=== PATIENT | male | born 1950 | race Caucasian/White ===

== ENCOUNTER 2019-03-24 18:39 | Inpatient (IN) | payer MEDICARE ==
[2019-03-24] MEDS ORDERED: solu-MEDROL 125 MG IV ONE (18:41)
[2019-03-24] MEDS ORDERED: Sodium Chloride 0.9% 1000 ML 1,000 ML IV STA (18:41)
[2019-03-24] MEDS ORDERED: PROVENTIL Solution 2.5 MG/0.5 ML IH ONE (18:41)
[2019-03-24] MEDS ORDERED: DUONEB 0.5-3 MG/3 ml Neb IH ONE (18:41)
[2019-03-24] MEDS ORDERED: Magnesium Sulfate 1 GM/2 ML VIAL IV ONE (18:45)
--- NOTE | 2019-03-24 18:49 | ERPHSYRPT ---
- History of Present Illness Source: patient, family, old records Exam Limitations: no limitations Hx Tetanus, Diphtheria Vaccination/Date Given: No Hx Influenza Vaccination/Date Given: Yes (2013) Hx Pneumococcal Vaccination/Date Given: No - History of Present Illness Time Seen by Provider: 03/24/19 18:40 Physician History: PT IS A 69 Y/O TOB DEPENDENT MALE PRESENTS C/O "I CANT BREATHE". ONGOING AND WORSENING X 2-3 DAYS UNRESPONSIVE TO HOME NEBULIZERS. NO PRIOR ETT. NO PRIOR STEROIDS. NO CP/FEVER/CHILLS/N/V/D/MELENA/LE ASYM/LONG TRIPS/HEMOPTYSIS/NIGHT SWEATS/WEIGHT LOSS. PT NOT SURE OF TRIGGER. ONLY 1 CIGARRETTE TODAY (NINA RICHMOND) Allergies/Adverse Reactions: No Known Drug Allergies Allergy (Verified 03/24/19 18:49) Home Medications: Tiotropium Mckenzie Inhaler [Spiriva 18 Mcg/Cap Inhaler] 1 puff IH DAILY [History] Atorvastatin Calcium [Lipitor] 40 mg PO DAILY 03/24/19 [History] Metoprolol Succinate 50 mg [Toprol Xl 50 MG] 50 mg PO DAILY 03/24/19 [ History] - Review of Systems Constitutional: No Symptoms, No Fever, No Chills, No Fatigue, No Lethargy, No Malaise, No Night Sweats, No Weakness, No Weight Loss Eyes: No Symptoms, No Discharge, No Eye Pain, No Eye Redness, No Itchy, No Photophobia, No Tearing, No Vision Changes, No Double Vision, No Foreign Body Sensation Ears, Nose, & Throat: No Symptoms, No Ear Pain, No Ear Discharge, No Hearing Changes, No Tinnitus, No Nose Congestion, No Nose Discharge, No Epistaxis, No Mouth Pain, No Mouth Swelling, No Throat Pain, No Throat Swelling, No Hoarse, No Painful Swallowing, No Stridor Respiratory: No Symptoms, Cough, Dyspnea, Dyspnea on Exertion (NAIK), Wheezing, No Cyanosis, No Stridor Cardiac: No Symptoms, No Chest Pain, No Edema, No Palpitations, No Syncope, No Orthopnea Abdominal/Gastrointestinal: No Symptoms, No Abdominal Pain, No Nausea, No Vomiting, No Diarrhea, No Constipation, No Hematemesis, No Hematochezia, No Melena, No Dysphagia, No Appetite Changes Genitourinary Symptoms: No Symptoms, No Dysuria, No Frequency, No Hematuria, No Hesitancy, No Incontinence, No Urgency, No Urinary Retention, No Flank Pain Musculoskeletal: No Symptoms, No Arthralgias, No Back Pain, No Neck Pain, No Deformity, No Fall, No Injury, No Joint Redness, No Joint Pain, No Joint Swelling, No Myalgias Skin: No Symptoms, No Cellulitis, No Decubiti, No Induration, No Pruritis, No Rash, No Skin Lesions, No Dryness Neurological: No Symptoms, No Dizziness, No Focal Weakness, No Gait Changes, No Headache, No Irritability, No Lethargy, No Paralysis, No Parasthesia, No Seizure , No Sensory Changes, No Speech Changes, No Tics, No Tremors, No Vertigo Psychological: No Symptoms, No Alcohol Abuse, No Drug Abuse, No Anxiety, No Depression, No Suicidal Ideations, No Homicidal Ideations, No Emotional Lability , No Hallucinations, No Memory Loss, No Mood Changes Endocrine: No Symptoms, No Polyuria, No Polydipsia, No Hair Changes, No Cold Intolerance, No Excessive Sweating, No Goiter Hematologic/Lymphatic: No Symptoms, No Anemia, No Blood Clots, No Easy Bleeding , No Gum Bleeding, No Easy Bruising, No Adenopathy Immunological/Allergic: No Symptoms All Other Systems: Reviewed and Negative - Past Medical History Pertinent Past Medical History: Yes Neurological History: Epilepsy, Seizures ENT History: No Pertinent History Cardiac History: Hypertension Respiratory History: COPD, Emphysema Endocrine Medical History: Liver Disease Musculoskeletal History: Arthritis, Rheumatoid Arthritis, Other GI Medical History: Hepatitis History: No Pertinent History Psycho-Social History: No Pertinent History Male Reproductive Disorders: No Pertinent History Other Medical History: 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 - Past Surgical History Past Surgical History: No Neuro Surgical History: No Pertinent History Cardiac: No Pertinent History Respiratory: No Pertinent History Gastrointestinal: No Pertinent History Genitourinary: No Pertinent History Musculoskeletal: No Pertinent History Male Surgical History: No Pertinent History - Social History Smoking Status: Current every day smoker How long have you smoked: 40years Exposure to second hand smoke: Yes Drug Use: none Patient Lives Alone: No - Physical Exam General Appearance: no apparent distress, moderate distress, alert Eye Exam: PERRL/EOMI, eyes nml inspection, other (fundi normal castro), No scleral icterus, No pale conjunctivae, No photophobia, No EOM palsy/anisocoria Ears, Nose, Throat Exam: normal ENT inspection, TMs normal, pharynx normal, TM abnormal (L), other (uvula midline, floor of mouth soft), No moist mucous membranes, No dry mucous membranes, No TM abnormal (R), No pharyngeal erythema, No tonsillar exudate Neck Exam: normal inspection, non-tender, supple, full range of motion, No meningismus, No mass, No Brudzinski, No Kernig's, No carotid bruit, No JVD, No limited range of motion, No lymphadenopathy, No midline tenderness, No thyromegaly Respiratory Exam: normal breath sounds, lungs clear, respiratory distress, airway intact, diminished breath sounds, accessory muscle use, prolonged expirations, wheezing (AUDIBLE FROM DOOR), No chest tenderness, No crackles/ rales, No rhonchi, No stridor, No pleural rub Cardiovascular Exam: regular rate/rhythm, normal heart sounds, normal peripheral pulses, tachycardia, capillary refill <2 sec, No murmur, No friction rub, No gallop, No bradycardia, No irregular, No capillary refill 2-3 sec, No capillary refill >3 sec, No edema, No pulse deficit Gastrointestinal/Abdomen Exam: soft, normal bowel sounds, No tenderness, No distention, No mass, No guarding, No ecchymosis, No pulsatile mass, No rebound, No hernia, No hepatomegaly, No organomegaly, No splenomegaly, No bruit Male Genitalia Exam: normal genitalia Rectal Exam: deferred Back Exam: normal inspection, normal range of motion, other (neg slr castro, no sacral anesthesia, dtr 2/4 castro patella), No CVA tenderness, No vertebral tenderness, No rash, No decreased range of motion, No muscle spasm, No point tenderness Extremity Exam: normal inspection, normal range of motion, pelvis stable, other (CLUBBING), No amputations, No contusions, No calf tenderness, No deformities, No lacerations, No parasthesia, No paralysis, No inflammation, No joint swelling , No limited range of motion, No pedal edema, No swelling, No tenderness Neurologic Exam: alert, oriented x 3, cooperative, exhaust emissions inspector II-XII nml as tested, normal mood/affect, nml cerebellar function, nml station & gait, sensation nml, No motor deficits, No sensory deficit, No disoriented, No confusion, No agitation, No uncooperative, No intoxicated appearance, No depressed mood/affect , No motor weakness, No facial droop, No slurred speech, No aphasia, No dysarthria, No abnormal gait, No abnormal cerebellar tests, No abnormal exhaust emissions inspector II- XII, No EOM palsy Skin Exam: normal color, warm, dry, No rash, No petechiae, No jaundice, No abrasion, No cyanosis, No diaphoresis, No decubitus, No embolic lesions, No ecchymosis, No jaundice, No laceration, No mottled, No pale Lymphatic Exam: No adenopathy SpO2 Interpretation: normal O2 Delivery: Room Air - Nursing Vital Signs Nursing Vital Signs: Initial Vital Signs Temperature 97.5 F 03/24/19 18:41 Pulse Rate 100 H 03/24/19 18:41 Respiratory Rate 34 H 03/24/19 18:41 Blood Pressure 197/115 03/24/19 18:41 O2 Sat by Pulse Oximetry 94 L 03/24/19 18:41 Pain Scale Pain Intensity 0 - Course Nursing assessment & vital signs reviewed: Yes Ordered Tests: Active Orders 24 hr Category Date Time Status Staffing Manager STAT Care 03/24/19 18:42 Active Code Status Order ROUTINE Care 03/24/19 19:21 Active EKG-ER Only STAT Care 03/24/19 18:41 Active IV Care Q6H Care 03/24/19 19:21 Active IV Insertion STAT Care 03/24/19 18:[address] in Observation ROUTINE Care 03/24/19 19:21 Active Pulse Oximetry (ED) STAT Care 03/24/19 18:41 Active CHEST 1 VIEW (PORTABLE) Stat Exams 03/24/19 18:41 Ordered ARTERIAL BLOOD GASES Stat Lab 03/24/19 18:55 Completed CBC W DIFF Stat Lab 03/24/19 18:45 Completed CMP Stat Lab 03/24/19 18:45 Received NT PRO BNP Stat Lab 03/24/19 18:45 Received PROTIME WITH INR Stat Lab 03/24/19 18:45 Completed TROPONIN Q3H Lab 03/24/19 18:45 Received TROPONIN Q3H Lab 03/24/19 21:45 Ordered TROPONIN Q3H Lab 03/25/19 00:45 Ordered TROPONIN Q3H Lab 03/25/19 03:45 Ordered TROPONIN Q3H Lab 03/25/19 06:45 Ordered BiPap/CPAP STAT RT 03/24/19 18:41 Active Peak Expiratory Flow Rate ONCE RT 03/24/19 18:41 Active Medication Summary Discontinued Medications Generic Name Dose Route Start Last Admin Trade Name Freq PRN Reason Stop Dose Admin Albuterol/Ipratropium 10 ml 03/24/19 18:41 Duoneb 0.5-3 Mg/3 Ml Neb IH 03/24/19 18:42 STAT ONE Sodium Chloride 1,000 mls @ 999 mls/hr 03/24/19 18:41 03/24/19 18:55 Sodium Chloride 0.9% 1000 Ml IV 03/24/19 19:41 999 mls/hr .Q1H1M STA Administration Sodium Chloride Confirm 03/24/19 18:53 Sodium Chloride 0.9% 1000 Ml Administered 03/24/19 18:54 Dose 1,000 mls @ ud .ROUTE .STK-MED ONE Magnesium Sulfate 1 gm 03/24/19 18:45 03/24/19 18:55 Magnesium Sulfate 1 Gm/2 Ml Vial IV 03/24/19 18:46 1 gm ONCE ONE Administration Magnesium Sulfate Confirm 03/24/19 18:53 Magnesium Sulfate 1 Gm/2 Ml Vial Administered 03/24/19 18:54 Dose 1 gm .ROUTE .STK-MED ONE Methylprednisolone Sodium Succinate 125 mg 03/24/19 18:41 03/24/19 18:56 Solu-Medrol 125 Mg IV 03/24/19 18:42 125 mg STAT ONE Administration Methylprednisolone Sodium Succinate Confirm 03/24/19 18:53 Solu-Medrol 125 Mg Administered 03/24/19 18:54 Dose 125 mg .ROUTE .STK-MED ONE Sodium Chloride Confirm 03/24/19 19:14 Sodium Chloride 3 Ml Ud Nebules Administered 03/24/19 19:15 Dose 9 ml IH .STK-MED ONE Lab/Rad Data: Laboratory Result Diagrams 03/24/19 18:45 Laboratory Results 03/24/19 03/24/19 03/24/19 Range/Units 18:55 18:45 18:45 WBC 8.4 (4.0-10.5) K/mm3 RBC 4.72 (4.1-5.6) M/mm3 Hgb 14.7 (12.5-18.0) gm/dl Hct 44.3 (42-50) % MCV 93.9 (78-100) fl MCH 31.1 (26-32) pg MCHC 33.2 (32-36) g/dl RDW 12.6 (11.5-14.0) % Plt Count 228 (150-450) K/mm3 MPV 11.1 H (6-9.5) fl Gran % 51.5 (36.0-66.0) % Eos # (Auto) 0.60 H (0-0.5) Absolute Lymphs (auto) 2.54 (1.0-4.6) Absolute Monos (auto) 0.90 (0.0-1.3) Lymphocytes % 30.2 (24.0-44.0) % Monocytes % 10.7 (0.0-12.0) % Eosinophils % 7.1 H (0.00-5.0) % Basophils % 0.5 (0.0-0.4) % Absolute Granulocytes 4.33 (1.4-6.9) Basophils # 0.04 (0-0.4) PT 11.8 (8.83-12.87) SECONDS INR 1.04 (0.8-3.0) Puncture Site RIGHT WRIST pCO2 53 H (35-45) mmHg pO2 62 L (75-100) mmHg Base Excess 5.6 H (-2.0-2.0) O2 Saturation 90.8 L (94-100) g/dF ABG pH 7.39 (7.35-7.45) ABG HCO3 32.1 H* (22-28) ABG O2 Sat (Measured) 93.9 L (95-100) % Josue Test YES A-a Gradient 21 a/A Ratio 0.75 Hemoglobin 14.4 Carboxyhemoglobin 2.6 (0.0-6.9) % THgb Methemoglobin 0.7 L (1.4-1.5) % Potassium 3.7 (3.5-5.1) Temperature 37.0 C POC O2 Flow Rate 21 % - Progress Progress: improved Discussed with : Soco Wilcox Counseled pt/family regarding: drug and/or alcohol abuse, lab results, diagnosis , need for follow-up, rad results, smoking cessation - Progress Progress Note: 03/24/19 18:48 PT IN ACUTE RESPIRATORY DISTRESS, SPEAKING 4 WORD SENTENCES, PREFERS TO SIT FORWARD, USING ACCESSORY MUSCLES WILL START ON BIPAP WITH INLINE NEB, SOLUMEDROL, MAG SULFATE 03/24/19 19:09 MORE COMFORTABLE ON BIPAP. DW DR. BEAN. ACCEPTS ADMIT CARE TRANSFERRED. DR GLOVER WILL MONITOR CXR, CLINICL EXAM, LABS FINDINGS REVIEWED WITH PT ALL QUESTIONS ANSWERED TO PT SATISFACTION 03/24/19 19:11 Authorized and Performed by: BASILIO Total critical care time: Approximately 30 minutes Due to a high probability of clinically significant, life threatening deterioration, the patient required my highest level of preparedness to intervene emergently and I personally spent this critical care time directly and personally managing the patient. This critical care time included obtaining a history; examining the patient; pulse oximetry; ordering and review of studies ; arranging urgent treatment with development of a management plan; evaluation of patient's response to treatment; frequent reassessment; and, discussions with other providers. This critical care time was performed to assess and manage the high probability of imminent, life-threatening deterioration that could result in multi-organ failure. It was exclusive of separately billable procedures and treating other patients and teaching time. (NINA RICHMOND) - Departure Departure Disposition: Observation Critical Care Time: Yes Critical Care Time(excluding separately billable procedures): Critical 30-74 mins - Departure Clinical Impression: COPD with acute exacerbation, Tobacco dependence Acute and chronic respiratory failure ([id number]) Qualifiers: Respiratory failure complication: hypoxia and hypercapnia Qualified Code(s): J96.21 - Acute and chronic respiratory failure with hypoxia; J96.22 - Acute and chronic respiratory failure with hypercapnia Condition: Fair Referrals: DEVORA ESTRADA [Primary Care Provider] - Instructions: Chronic Obstructive Pulmonary Disease
[2019-03-24] MEDS ORDERED: solu-MEDROL 125 MG ONE (18:53)
[2019-03-24] MEDS ORDERED: Sodium Chloride 0.9% 1000 ML 1,000 ML ONE ×2 (18:53→20:14)
[2019-03-24] MEDS ORDERED: Magnesium Sulfate 1 GM/2 ML VIAL ONE (18:53)
[2019-03-24 18:59] LABS: A-aADO2 21; ABG HEMOGLOBIN 14.4; ABG POTASSIUM 3.7 (3.5-5.1); ABG SITE RIGHT WRIST; ALLEN TEST OK? YES; ARTERIAL BLD GAS O2 SATURATION 93.9 % (95-100); ARTERIAL BLOOD GAS BASE EXCESS 5.6 (-2.0-2.0); ARTERIAL BLOOD GAS FIO2 21 %; ARTERIAL BLOOD GAS PCO2 53 mmHg (35-45); ARTERIAL BLOOD GAS PO2 62 mmHg (75-100); ARTERIAL BLOOD GAS pH 7.39 (7.35-7.45); CARBOXYHEMOGLOBIN 2.6 % THgb (0.0-6.9); HCO3- 32.1 (22-28); HGB O2 SAT 90.8 g/dF (94-100); Methhemoglobin 0.7 % (1.4-1.5); paO2 pAO1 0.75
[2019-03-24 19:03] LABS: Absolute Neutrophil Ct (ANC) 4.33 (1.4-6.9); BASOPHIL % 0.5 % (0.0-0.4); Basophil (Absolute #) 0.04 (0-0.4); Eosinophil % 7.1 % (0.00-5.0); Hematocrit 44.3 % (42-50); Hemoglobin 14.7 gm/dl (12.5-18.0); Lymphocyte (Absolute #) 2.54 (1.0-4.6); Lymphocytes % 30.2 % (24.0-44.0); Mean Cell Volume 93.9 fl (78-100); Mean Corpuscular Hemoglobin 31.1 pg (26-32); Mean Corpuscular Hgb Concent. 33.2 g/dl (32-36); Mean Platelet Volume 11.1 fl (6-9.5); Monocytes % 10.7 % (0.0-12.0); Neutrophil % 51.5 % (36.0-66.0); Platelet Count 228 K/mm3 (150-450); Red Blood Count 4.72 M/mm3 (4.1-5.6); Red Cell Distribution Width 12.6 % (11.5-14.0); White Blood Count 8.4 K/mm3 (4.0-10.5)
[2019-03-24 19:11] LABS: INR 1.04 (0.8-3.0); PROTIME 11.8 SECONDS (8.83-12.87)
[2019-03-24] MEDS ORDERED: Sodium Chloride 3 ML UD NEBULES IH ONE (19:14)
[2019-03-24 19:40] LABS: ALBUMIN 4.6 g/dL (3.5-5.0); BLOOD UREA NITROGEN 18 mg/dL (9-20); CHLORIDE 102 mmol/L (98-107); Carbon Dioxide 29 mmol/L (22-30); Glucose 129 mg/dL (74-106); SGOT/AST 34 U/L (17-59); SGPT/ALT 33 U/L (0-50); SODIUM 144 mmol/L (137-145)
[2019-03-24 20:07] LABS: ALKALINE PHOSPHATASE 72 U/L (38-126); ANION GAP 16.6 MEQ/L (5-15); Calcium 9.8 mg/dL (8.4-10.2); Creatinine 1 0.89 mg/dL (0.66-1.25); Total Protein 7.7 g/dL (6.3-8.2)
[2019-03-24] MEDS ORDERED: BENADRYL 50 MG/ML ONE (20:14)
[2019-03-24] MEDS ORDERED: Reglan 10 MG/2 ML ONE (20:14)
[2019-03-24 23:01] LABS: Slide Review 1 YES
[2019-03-25] MEDS ORDERED: Zithromax 500 MG/ 250 ML NaCl Premix 500 MG/250 ML IVPB IV ONE ×2 (00:10→23:35)
[2019-03-25] MEDS ORDERED: ZITHROMAX IV SCH (00:30)
[2019-03-25] MEDS ORDERED: ZITHROMAX IV 500 MG*** 500 MG in Sodium Chloride 0.9% 250 ML 250 ML IV SCH ×2 (00:30→22:00)
[2019-03-25] MEDS ORDERED: SODIUM CHLORIDE 0.9% IV SCH (00:30)
[2019-03-25] MEDS: DUONEB 0.5-3 MG/3 ml Neb IH SCH ×6 (04:10→23:10)
[2019-03-25 06:07] LABS: Hematocrit 41.9 % (42-50); Hemoglobin 13.8 gm/dl (12.5-18.0); Mean Cell Volume 95.2 fl (78-100); Mean Corpuscular Hemoglobin 31.4 pg (26-32); Mean Corpuscular Hgb Concent. 32.9 g/dl (32-36); Mean Platelet Volume 11.3 fl (6-9.5); Platelet Count 203 K/mm3 (150-450); Red Cell Distribution Width 12.7 % (11.5-14.0); White Blood Count 8.8 K/mm3 (4.0-10.5)
[2019-03-25 06:08] LABS: ANION GAP 16.1 MEQ/L (5-15); BLOOD UREA NITROGEN 19 mg/dL (9-20); CHLORIDE 105 mmol/L (98-107); Calcium 9.3 mg/dL (8.4-10.2); Carbon Dioxide 26 mmol/L (22-30); Creatinine 1 0.74 mg/dL (0.66-1.25); Glucose 136 mg/dL (74-106); Potassium 4.6 mmol/L (3.5-5.1); SODIUM 143 mmol/L (137-145)
[2019-03-25 06:38] LABS: A-aADO2 117; ABG HEMOGLOBIN 13.8; ABG POTASSIUM 4.2 (3.5-5.1); ABG SITE RIGHT BRACHIAL; ARTERIAL BLD GAS O2 SATURATION 97.8 % (95-100); ARTERIAL BLOOD GAS FIO2 36 %; ARTERIAL BLOOD GAS PCO2 47 mmHg (35-45); ARTERIAL BLOOD GAS PO2 81 mmHg (75-100); ARTERIAL BLOOD GAS VENT MODE BiPAP; ARTERIAL BLOOD GAS pH 7.38 (7.35-7.45); CARBOXYHEMOGLOBIN 2.1 % THgb (0.0-6.9); HCO3- 27.8 (22-28); HGB O2 SAT 94.5 g/dF (94-100); Methhemoglobin 1.3 % (1.4-1.5); paO2 pAO1 0.41
--- NOTE | 2019-03-25 07:49 | XRAY ---
Indication: Dyspnea. Comparison: March 29, 2018. Portable apical lordotic chest is now underinflated crowding the lung bases. Query new bibasilar infiltrates versus atelectasis. Remaining heart and lungs unremarkable. Bony thorax intact.
[2019-03-25] MEDS: Mucinex 600MG ER Tabs PO SCH ×2 (10:10→22:09)
[2019-03-25] MEDS: solu-MEDROL 125 MG IV SCH ×3 (10:10→23:38)
[2019-03-25] MEDS ORDERED: Sodium Chloride 0.9% 10 ML FLUSH Syringe IV PRN (10:59)
[2019-03-25] MEDS: Toprol Xl 50 MG PO SCH (13:48)
--- NOTE | 2019-03-25 17:24 | PCM.HP ---
History of Present Illness - Chief Complaint Chief Complaint: COPD History of Present Illness: is a 69 year old male seen this am following ER admission for acute on chronic COPD exacerbation. Patient reports he had given up smoking but more recently he started smoking cigarettes again. Patient reports he also recently sprayed an apt for bugs and after that he has had a severe cough and SOB. He reports that he is trying to cough stuff up but his cough is non productive. Patient reports that he has had issues with COPD in the past. Patient reports that he is doing slightly better following admission. No other reported complaints. - Review of Systems Constitutional: No Fever Eyes: No Vision Changes, No Double Vision Ears, Nose, & Throat: No Nose Congestion Respiratory: Cough, Short Of Breath, Wheezing Cardiac: No Chest Pain, No Edema, No Palpitations Abdominal/Gastrointestinal: No Abdominal Pain, No Nausea, No Vomiting, No Diarrhea, No Constipation, No Appetite Changes Genitourinary Symptoms: Other (nocturia), No Dysuria Musculoskeletal: No Symptoms Skin: No Symptoms Neurological: No Symptoms Psychological: No Alcohol Abuse, No Drug Abuse Medications & Allergies Home Medications: Home Medication List Albuterol Common Canister [Proventil Common Canister] 2 puff IH Q4HPRN PRN #0 puff 10/28/12 [Rx Confirmed 03/24/19] Tiotropium [place] Inhaler [Spiriva 18 Mcg/Cap Inhaler] 1 puff IH DAILY [History Confirmed 03/24/19] Atorvastatin Calcium [Lipitor] 40 mg PO DAILY 03/24/19 [History Confirmed ] Metoprolol Succinate 50 mg [Toprol Xl 50 MG] 50 mg PO DAILY 03/24/19 [ History Confirmed 03/24/19] Allergies/Adverse Reactions: Allergies Allergy/AdvReac Type Severity Reaction Status Date / Time No Known Drug Allergies Allergy Verified 03/24/19 18:49 - Past Medical History Past Medical History: Yes Neurological History: Epilepsy, Seizures ENT History: No Pertinent History Cardiac History: Hypertension Respiratory History: COPD, Emphysema Endocrine Medical History: Liver Disease Musculoskelatal History: Arthritis, Rheumatoid Arthritis, Other GI Medical History: Hepatitis History: No Pertinent History Pyscho-Social History: No Pertinent History Male Reproductive Disorders: No Pertinent History Comment: 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 - Past Surgical History Past Surgical History: No Neuro Surgical History: No Pertinent History Cardiac History: No Pertinent History Respiratory Surgery: No Pertinent History GI Surgical History: No Pertinent History Genitourinary Surgical Hx: No Pertinent History Musculskeletal Surgical Hx: No Pertinent History Male Surgical History: No Pertinent History - Social History Smoking Status: Current some day smoker How long have you smoked: 40years Exposure to second hand smoke: Yes Alcohol: Daily Drug Use: marijuana - Physical Exam Vital Signs: Vital Signs - 24 hr Temp Pulse Resp BP Pulse Ox 03/25/19 16:54 111 H 25 H 91 L 03/25/19 16:00 98.1 F 85 18 112/69 99 03/25/19 12:00 97.8 F 118 H 19 137/63 92 L 03/25/19 11:58 115 H 24 94 L 03/25/19 07:54 98.0 F 85 20 120/65 89 L 03/25/19 07:00 86 26 H 94 L 03/25/19 04:10 73 19 98 03/25/19 04:00 98.3 F 81 23 128/74 98 03/25/19 00:00 98.5 F 94 H 28 H 130/81 96 03/24/19 21:09 97.7 F 85 24 117/70 98 03/24/19 21:05 97.7 F 85 24 117/70 98 03/24/19 19:04 95 03/24/19 18:45 97 H 96 03/24/19 18:41 97.5 F 100 H 34 H 197/115 95 Oxygen-Last 24 hours O2 Percentage 3 Liters = 32% O2 Percentage 4 Liters = 36% General Appearance: severe distress Neurologic Exam: alert, oriented x 3, cooperative, normal mood/affect Eye Exam: eyes nml inspection Ears, Nose, Throat Exam: moist mucous membranes Neck Exam: normal inspection Respiratory Exam: respiratory distress, diminished breath sounds, accessory muscle use (Patient had chest retractions), rhonchi, wheezing Cardiovascular Exam: regular rate/rhythm, normal heart sounds, No murmur Gastrointestinal/Abdomen Exam: soft, normal bowel sounds, No tenderness, No distention Rectal Exam: deferred Extremity Exam: normal inspection, No pedal edema, No swelling Skin Exam: normal color, warm, dry, No pale Results - Labs Lab/Micro Results: Lab Results-Last 24 Hours 10/25/19 10/25/19 10/25/19 Range/Units 18:45 18:45 18:45 WBC 8.4 (4.0-10.5) K/mm3 RBC 4.72 (4.1-5.6) M/mm3 Hgb 14.7 (12.5-18.0) gm/dl Hct 44.3 (42-50) % MCV 93.9 (78-100) fl MCH 31.1 (26-32) pg MCHC 33.2 (32-36) g/dl RDW 12.6 (11.5-14.0) % Plt Count 228 (150-450) K/mm3 MPV 11.1 H (6-9.5) fl Gran % 51.5 (36.0-66.0) % Eos # (Auto) 0.60 H (0-0.5) Absolute Lymphs (auto) 2.54 (1.0-4.6) Absolute Monos (auto) 0.90 (0.0-1.3) Lymphocytes % 30.2 (24.0-44.0) % Monocytes % 10.7 (0.0-12.0) % Eosinophils % 7.1 H (0.00-5.0) % Basophils % 0.5 (0.0-0.4) % Absolute Granulocytes 4.33 (1.4-6.9) Basophils # 0.04 (0-0.4) PT 11.8 (8.83-12.87) SECONDS INR 1.04 (0.8-3.0) Puncture Site pCO2 (35-45) mmHg pO2 (75-100) mmHg Base Excess (-2.0-2.0) O2 Saturation (94-100) g/dF ABG pH (7.35-7.45) ABG HCO3 (22-28) ABG O2 Sat (Measured) (95-100) % Josue Test A-a Gradient a/A Ratio Hemoglobin Carboxyhemoglobin (0.0-6.9) % THgb Methemoglobin (1.4-1.5) % Temperature C POC O2 Flow Rate % Vent Mode Inspiratory BiPAP Expiratory BiPAP Sodium 144 (137-145) mmol/L Potassium 4.0 (3.5-5.1) mmol/L Chloride 102 (98-107) mmol/L Carbon Dioxide 29 (22-30) mmol/L Anion Gap 16.6 H (5-15) MEQ/L BUN 18 (9-20) mg/dL Creatinine 0.89 (0.66-1.25) mg/dL Estimated GFR > 60.0 ML/MIN Glucose 129 H (74-106) mg/dL Calcium 9.8 (8.4-10.2) mg/dL Total Bilirubin 0.40 (0.2-1.3) mg/dL AST 34 (17-59) U/L ALT 33 (0-50) U/L Alkaline Phosphatase 72 (38-126) U/L Troponin I (0.000-0.034) ng/mL NT-Pro-B Natriuret Pep 53.0 (0-900) pg/mL Serum Total Protein 7.7 (6.3-8.2) g/dL Albumin 4.6 (3.5-5.0) g/dL Slides for Path Review YES 03/24/19 03/24/19 03/24/19 Range/Units 18:45 18:55 22:00 WBC (4.0-10.5) K/mm3 RBC (4.1-5.6) M/mm3 Hgb (12.5-18.0) gm/dl Hct (42-50) % MCV (78-100) fl MCH (26-32) pg MCHC (32-36) g/dl RDW (11.5-14.0) % Plt Count (150-450) K/mm3 MPV (6-9.5) fl Gran % (36.0-66.0) % Eos # (Auto) (0-0.5) Absolute Lymphs (auto) (1.0-4.6) Absolute Monos (auto) (0.0-1.3) Lymphocytes % (24.0-44.0) % Monocytes % (0.0-12.0) % Eosinophils % (0.00-5.0) % Basophils % (0.0-0.4) % Absolute Granulocytes (1.4-6.9) Basophils # (0-0.4) PT (8.83-12.87) SECONDS INR (0.8-3.0) Puncture Site RIGHT WRIST pCO2 53 H (35-45) mmHg pO2 62 L (75-100) mmHg Base Excess 5.6 H (-2.0-2.0) O2 Saturation 90.8 L (94-100) g/dF ABG pH 7.39 (7.35-7.45) ABG HCO3 32.1 H* (22-28) ABG O2 Sat (Measured) 93.9 L (95-100) % Josue Test YES A-a Gradient 21 a/A Ratio 0.75 Hemoglobin 14.4 Carboxyhemoglobin 2.6 (0.0-6.9) % THgb Methemoglobin 0.7 L (1.4-1.5) % Temperature 37.0 C POC O2 Flow Rate 21 % Vent Mode Inspiratory BiPAP Expiratory BiPAP Sodium (137-145) mmol/L Potassium 3.7 (3.5-5.1) mmol/L Chloride (98-107) mmol/L Carbon Dioxide (22-30) mmol/L Anion Gap (5-15) MEQ/L BUN (9-20) mg/dL Creatinine (0.66-1.25) mg/dL Estimated GFR ML/MIN Glucose (74-106) mg/dL Calcium (8.4-10.2) mg/dL Total Bilirubin (0.2-1.3) mg/dL AST (17-59) U/L ALT (0-50) U/L Alkaline Phosphatase (38-126) U/L Troponin I < 0.012 < 0.012 (0.000-0.034) ng/mL NT-Pro-B Natriuret Pep (0-900) pg/mL Serum Total Protein (6.3-8.2) g/dL Albumin (3.5-5.0) g/dL Slides for Path Review 03/25/19 03/25/19 03/25/19 Range/Units 00:35 04:00 04:00 WBC 8.8 (4.0-10.5) K/mm3 RBC 4.40 (4.1-5.6) M/mm3 Hgb 13.8 (12.5-18.0) gm/dl Hct 41.9 L (42-50) % MCV 95.2 (78-100) fl MCH 31.4 (26-32) pg MCHC 32.9 (32-36) g/dl RDW 12.7 (11.5-14.0) % Plt Count 203 (150-450) K/mm3 MPV 11.3 H (6-9.5) fl Gran % (36.0-66.0) % Eos # (Auto) (0-0.5) Absolute Lymphs (auto) (1.0-4.6) Absolute Monos (auto) (0.0-1.3) Lymphocytes % (24.0-44.0) % Monocytes % (0.0-12.0) % Eosinophils % (0.00-5.0) % Basophils % (0.0-0.4) % Absolute Granulocytes (1.4-6.9) Basophils # (0-0.4) PT (8.83-12.87) SECONDS INR (0.8-3.0) Puncture Site pCO2 (35-45) mmHg pO2 (75-100) mmHg Base Excess (-2.0-2.0) O2 Saturation (94-100) g/dF ABG pH (7.35-7.45) ABG HCO3 (22-28) ABG O2 Sat (Measured) (95-100) % Josue Test A-a Gradient a/A Ratio Hemoglobin Carboxyhemoglobin (0.0-6.9) % THgb Methemoglobin (1.4-1.5) % Temperature C POC O2 Flow Rate % Vent Mode Inspiratory BiPAP Expiratory BiPAP Sodium (137-145) mmol/L Potassium (3.5-5.1) mmol/L Chloride (98-107) mmol/L Carbon Dioxide (22-30) mmol/L Anion Gap (5-15) MEQ/L BUN (9-20) mg/dL Creatinine (0.66-1.25) mg/dL Estimated GFR ML/MIN Glucose (74-106) mg/dL Calcium (8.4-10.2) mg/dL Total Bilirubin (0.2-1.3) mg/dL AST (17-59) U/L ALT (0-50) U/L Alkaline Phosphatase (38-126) U/L Troponin I < 0.012 < 0.012 (0.000-0.034) ng/mL NT-Pro-B Natriuret Pep (0-900) pg/mL Serum Total Protein (6.3-8.2) g/dL Albumin (3.5-5.0) g/dL Slides for Path Review 03/25/19 03/25/19 03/25/19 Range/Units 04:00 06:25 06:45 WBC (4.0-10.5) K/mm3 RBC (4.1-5.6) M/mm3 Hgb (12.5-18.0) gm/dl Hct (42-50) % MCV (78-100) fl MCH (26-32) pg MCHC (32-36) g/dl RDW (11.5-14.0) % Plt Count (150-450) K/mm3 MPV (6-9.5) fl Gran % (36.0-66.0) % Eos # (Auto) (0-0.5) Absolute Lymphs (auto) (1.0-4.6) Absolute Monos (auto) (0.0-1.3) Lymphocytes % (24.0-44.0) % Monocytes % (0.0-12.0) % Eosinophils % (0.00-5.0) % Basophils % (0.0-0.4) % Absolute Granulocytes (1.4-6.9) Basophils # (0-0.4) PT (8.83-12.87) SECONDS INR (0.8-3.0) Puncture Site RIGHT BRACHIAL pCO2 47 H (35-45) mmHg pO2 81 (75-100) mmHg Base Excess 2.0 (-2.0-2.0) O2 Saturation 94.5 (94-100) g/dF ABG pH 7.38 (7.35-7.45) ABG HCO3 27.8 (22-28) ABG O2 Sat (Measured) 97.8 (95-100) % Josue Test NOT APPLICABLE A-a Gradient 117 a/A Ratio 0.41 Hemoglobin 13.8 Carboxyhemoglobin 2.1 (0.0-6.9) % THgb Methemoglobin 1.3 L (1.4-1.5) % Temperature 37.0 C POC O2 Flow Rate 36 % Vent Mode BiPAP Inspiratory BiPAP 12 Expiratory BiPAP 6 Sodium 143 (137-145) mmol/L Potassium 4.6 4.2 (3.5-5.1) mmol/L Chloride 105 (98-107) mmol/L Carbon Dioxide 26 (22-30) mmol/L Anion Gap 16.1 H (5-15) MEQ/L BUN 19 (9-20) mg/dL Creatinine 0.74 (0.66-1.25) mg/dL Estimated GFR > 60.0 ML/MIN Glucose 136 H (74-106) mg/dL Calcium 9.3 (8.4-10.2) mg/dL Total Bilirubin (0.2-1.3) mg/dL AST (17-59) U/L ALT (0-50) U/L Alkaline Phosphatase (38-126) U/L Troponin I < 0.012 (0.000-0.034) ng/mL NT-Pro-B Natriuret Pep (0-900) pg/mL Serum Total Protein (6.3-8.2) g/dL Albumin (3.5-5.0) g/dL Slides for Path Review 03/25/19 Range/Units 13:12 WBC (4.0-10.5) K/mm3 RBC (4.1-5.6) M/mm3 Hgb (12.5-18.0) gm/dl Hct (42-50) % MCV (78-100) fl MCH (26-32) pg MCHC (32-36) g/dl RDW (11.5-14.0) % Plt Count (150-450) K/mm3 MPV (6-9.5) fl Gran % (36.0-66.0) % Eos # (Auto) (0-0.5) Absolute Lymphs (auto) (1.0-4.6) Absolute Monos (auto) (0.0-1.3) Lymphocytes % (24.0-44.0) % Monocytes % (0.0-12.0) % Eosinophils % (0.00-5.0) % Basophils % (0.0-0.4) % Absolute Granulocytes (1.4-6.9) Basophils # (0-0.4) PT (8.83-12.87) SECONDS INR (0.8-3.0) Puncture Site pCO2 (35-45) mmHg pO2 (75-100) mmHg Base Excess (-2.0-2.0) O2 Saturation (94-100) g/dF ABG pH (7.35-7.45) ABG HCO3 (22-28) ABG O2 Sat (Measured) (95-100) % Josue Test A-a Gradient a/A Ratio Hemoglobin Carboxyhemoglobin (0.0-6.9) % THgb Methemoglobin (1.4-1.5) % Temperature C POC O2 Flow Rate % Vent Mode Inspiratory BiPAP Expiratory BiPAP Sodium (137-145) mmol/L Potassium (3.5-5.1) mmol/L Chloride (98-107) mmol/L Carbon Dioxide (22-30) mmol/L Anion Gap (5-15) MEQ/L BUN (9-20) mg/dL Creatinine (0.66-1.25) mg/dL Estimated GFR ML/MIN Glucose (74-106) mg/dL Calcium (8.4-10.2) mg/dL Total Bilirubin (0.2-1.3) mg/dL AST (17-59) U/L ALT (0-50) U/L Alkaline Phosphatase (38-126) U/L Troponin I < 0.012 (0.000-0.034) ng/mL NT-Pro-B Natriuret Pep (0-900) pg/mL Serum Total Protein (6.3-8.2) g/dL Albumin (3.5-5.0) g/dL Slides for Path Review - Radiology Impressions Radiology Exams & Impressions: Radiology Procedures Category Date Time Status CHEST 1 VIEW (PORTABLE) Stat Exams 03/24/19 18:41 Completed - Other Procedures and Tests Respiratory Therapy 03/24/19 18:41 BiPap/CPAP ROUTINE Peak Expiratory Flow Rate ONCE 03/24/19 18:45 Oxygen Nasal Cannula 2 lpm Respiratory Therapy Assessment DAILY 03/25/19 07:00 Flutter Therapy UD Incentive Spirometry TID Assessment/Plan (1) Acute and chronic respiratory failure ([id number]) Current Visit: Yes Status: Acute Qualifiers: Respiratory failure complication: hypoxia and hypercapnia Qualified Code(s) : J96.21 - Acute and chronic respiratory failure with hypoxia; J96.22 - Acute and chronic respiratory failure with hypercapnia Assessment & Plan: Patient was initially requiring bipap on admission. Since earlier this am he was weened off of bipap. He was started on duo nebs in ER. Patient was resumed on steroids this am. Patient is on azithromycin. Patient is on mucinex, incentive spirometry and flutter therapy. Will continue to monitor VS including oxygen saturations. Code(s): J96.20 - ACUTE AND CHR RESP FAILURE, UNSP W HYPOXIA OR HYPERCAPNIA (2) COPD with acute exacerbation Current Visit: Yes Status: Acute Code(s): J44.1 - CHRONIC OBSTRUCTIVE PULMONARY DISEASE W (ACUTE) EXACERBATION (3) Tobacco dependence Current Visit: Yes Status: Acute Assessment & Plan: Patient declined nicotine patch Code(s): F17.200 - NICOTINE DEPENDENCE, UNSPECIFIED, UNCOMPLICATED (4) Nocturia Current Visit: Yes Status: Acute Assessment & Plan: Will resume home meds Code(s): R35.1 - NOCTURIA (5) HTN (hypertension) Current Visit: Yes Status: Acute Assessment & Plan: Will continue on routine home meds. Code(s): I10 - ESSENTIAL (PRIMARY) HYPERTENSION
[2019-03-25] MEDS: ZOCOR 20MG PO SCH (22:09)
[2019-03-25] MEDS: Sodium Chloride 0.9% 10 ML FLUSH Syringe IV SCH (23:40)
[2019-03-26] MEDS: DUONEB 0.5-3 MG/3 ml Neb IH SCH ×5 (03:00→19:09)
[2019-03-26] MEDS: solu-MEDROL 125 MG IV SCH ×3 (06:13→18:46)
[2019-03-26] MEDS: Mucinex 600MG ER Tabs PO SCH ×2 (09:48→22:11)
[2019-03-26] MEDS: Toprol Xl 50 MG PO SCH (09:48)
[2019-03-26] MEDS ORDERED: NON-FORMULARY ITEM (Atorvastatin Calcium [Lipitor] 40 MG) PO SCH (10:00)
[2019-03-26] MEDS ORDERED: CEPACOL SORE THROAT LOZENGE PO PRN (11:21)
[2019-03-26] MEDS: Tessalon Perles 100 MG PO SCH ×3 (11:48→22:12)
[2019-03-26] MEDS ORDERED: DUONEB 0.5-3 MG/3 ml Neb IH PRN (12:53)
--- NOTE | 2019-03-26 14:36 | PCM.NOTE ---
Date and Time: 03/26/19 1430 Subjective Assessment: 69 yr old male seen and examined this am. Patient reports he has not had much improvement in symptoms. He reports his cough did calm down some overnight but he feels that his cough is starting to get worse again this am. Patient reports he is still short of breath. Patient also feels like he has food that is getting stuck in his throat and sometimes it goes up his nose. This has been going on for awhile. Patient also reports chronic ringing in the ears that has been present for 20 years. - Review of Systems Constitutional: No Fever Eyes: No Vision Changes, No Double Vision Ears, Nose, & Throat: Other (difficulty swallowing and choking sensation) Respiratory: Cough, Short Of Breath Cardiac: No Chest Pain, No Edema, No Palpitations Abdominal/Gastrointestinal: No Abdominal Pain, No Nausea, No Vomiting, No Diarrhea, No Constipation Genitourinary Symptoms: No Dysuria, No Frequency, No Hematuria Musculoskeletal: No Symptoms Skin: No Symptoms Neurological: No Dizziness Psychological: No Depression Hematologic/Lymphatic: No Anemia Objective Exam General Appearance: moderate distress Neurologic Exam: alert, oriented x 3, cooperative, normal mood/affect Skin Exam: normal color, warm, dry, No rash Eye Exam: eyes nml inspection, No scleral icterus Ears, Nose, Throat Exam: moist mucous membranes Neck Exam: normal inspection Respiratory Exam: diminished breath sounds, accessory muscle use, wheezing, No crackles/rales, No rhonchi Cardiovascular Exam: regular rate/rhythm, normal heart sounds, No murmur, No friction rub, No gallop Gastrointestinal/Abdomen Exam: soft, normal bowel sounds, No tenderness, No distention Extremity Exam: normal inspection, No pedal edema Back Exam: normal inspection OBJECTIVE DATA Vital Signs: Vital Signs - 24 hr Temp Pulse Resp BP Pulse Ox 03/26/19 12:00 98.6 F 126 H 20 112/58 03/26/19 11:22 110 H 24 90 L 03/26/19 08:54 102 H 22 93 L 03/26/19 08:00 98.3 F 87 22 114/65 94 L 03/26/19 04:00 98.4 F 100 H 22 126/69 93 L 03/26/19 03:00 112 H 22 95 03/25/19 23:57 98.4 F 119 H 19 110/60 95 03/25/19 23:10 112 H 22 95 03/25/19 20:00 98.2 F 85 16 132/93 98 03/25/19 18:59 112 H 20 94 L 03/25/19 16:54 111 H 25 H 91 L 03/25/19 16:00 98.1 F 85 18 112/69 99 Oxygen-Last 24 hours O2 Percentage 4 Liters = 36% O2 Percentage 3 Liters = 32% Pain Assessment - Last Documented Pain Intensity 0 Pain Scale Used 0-10 Pain Scale Intake and Output: Intake & Output 03/24/19 03/25/19 03/26/19 03/27/19 11:59 11:59 11:59 11:59 Intake Total 200 960 Output Total 450 Balance 200 510 Weight 87 kg Lab Results: Lab Results-Last 24 Hours 03/25/19 Range/Units 19:13 D-Dimer 408 (215-500) ng/mL Radiology Exams: Radiology Procedures Category Date Time Status CHEST 1 VIEW (PORTABLE) Stat Exams 03/24/19 18:41 Completed Multi-Disciplinary Progress Notes: Multi-Disciplinary Progress Notes 03/26/19 13:01 Respiratory Note by Letitia Yang AROUND NOON PT STARTED HAVING A COUGHING FIT. PT'S HR 150, PT WAS SOB, WITH WHEEZES. SAT PT UP ON SIDE OF BED. PT STATES HE THINKS IT WAS A COUPLE OF PILLS HE TOOK BEFORE. CHECKED WITH NURSE, [facility] GAVE HIM CONOR PETERSEN. TOLD PT HE SHOULD DO A BREATHING TREATMENT. PT DIDN'T WANT TO. HE SAID HE DIDN'T WANT TO BE OVER MEDICATED. TOLD HIM IT WAS OK BUT HE REFUSED. AFTER ABOUT 45 MINS PT AGREES TO A BREATHING TREATMENT. PT CALMED DOWN ABOUT 10MINS AFTER THE BREATHING TREATMENT. HR 139 SAT IS 91% ON 4L OXYGEN. WILL CONTINUE TO MONITOR. Initialized on 03/26/19 13:01 - END OF NOTE Assessment/Plan (1) Acute and chronic respiratory failure ([id number]) Current Visit: Yes Status: Acute Qualifiers: Respiratory failure complication: hypoxia and hypercapnia Qualified Code(s) : J96.21 - Acute and chronic respiratory failure with hypoxia; J96.22 - Acute and chronic respiratory failure with hypercapnia Assessment & Plan: Patient still has significant cough and continues to requiring breathing treatments due to wheeze. Patient is still sating low 90s. Will continue with steroids duonebs antibiotics and pulmonary toilet. Patient is on mucinex and was started on tessalon perles and cough drops. Will continue to monitor patient 's VS. Code(s): J96.20 - ACUTE AND CHR RESP FAILURE, UNSP W HYPOXIA OR HYPERCAPNIA (2) COPD with acute exacerbation Current Visit: Yes Status: Acute Assessment & Plan: Same plan as above Code(s): J44.1 - CHRONIC OBSTRUCTIVE PULMONARY DISEASE W (ACUTE) EXACERBATION (3) Tobacco dependence Current Visit: Yes Status: Acute Code(s): F17.200 - NICOTINE DEPENDENCE, UNSPECIFIED, UNCOMPLICATED (4) Nocturia Current Visit: Yes Status: Acute Code(s): R35.1 - NOCTURIA (5) HTN (hypertension) Current Visit: Yes Status: Acute Assessment & Plan: Will continue with home meds. Will continue to monitor VS Code(s): I10 - ESSENTIAL (PRIMARY) HYPERTENSION (6) Tachycardia Current Visit: Yes Status: Acute Assessment & Plan: Unsure etiology. Patient has been coughing frequently and getting breathing tx as well. Patient had stat ekg and trop yesterday. Ekg showed normal sinus rhythm and trop was neg. If tachycardia does not trend down after cough has subsided and decreased nebs will investigate more potential causes. Will get TSH as well Code(s): R00.0 - TACHYCARDIA, UNSPECIFIED (7) Dysphagia Current Visit: Yes Status: Acute Assessment & Plan: Patient is reporting food getting stuck in his throat. Will get patient scheduled for swallow study. With smoking hx will need to consider possible other imaging as well depending on results of swallow study. Patient was started on protonix for possible underlying GERD Code(s): R13.10 - DYSPHAGIA, UNSPECIFIED
[2019-03-26] MEDS: Protonix 40MG Tablet PO SCH (15:05)
[2019-03-26 15:36] LABS: Absolute Neutrophil Ct (ANC) 18.63 (1.4-6.9); Basophil (Absolute #) 0.01 (0-0.4); Eosinophil (Absolute #) 0.01 (0-0.5); Hematocrit 39.9 % (42-50); Hemoglobin 12.9 gm/dl (12.5-18.0); Lymphocyte (Absolute #) 0.44 (1.0-4.6); Lymphocytes % 2.2 % (24.0-44.0); Mean Cell Volume 96.8 fl (78-100); Mean Corpuscular Hemoglobin 31.3 pg (26-32); Mean Corpuscular Hgb Concent. 32.3 g/dl (32-36); Mean Platelet Volume 10.8 fl (6-9.5); Monocytes % 5.4 % (0.0-12.0); Neutrophil % 92.4 % (36.0-66.0); Platelet Count 211 K/mm3 (150-450); Red Blood Count 4.12 M/mm3 (4.1-5.6); Red Cell Distribution Width 13.4 % (11.5-14.0); White Blood Count 20.2 K/mm3 (4.0-10.5)
[2019-03-26 15:47] LABS: ANION GAP 18.1 MEQ/L (5-15); BLOOD UREA NITROGEN 26 mg/dL (9-20); CHLORIDE 106 mmol/L (98-107); Calcium 9.8 mg/dL (8.4-10.2); Carbon Dioxide 24 mmol/L (22-30); Glucose 137 mg/dL (74-106); Potassium 3.9 mmol/L (3.5-5.1); SODIUM 144 mmol/L (137-145)
[2019-03-26] MEDS: Zithromax 500 MG/ 250 ML NaCl Premix 500 MG/250 ML IVPB IV SCH (22:07)
[2019-03-26] MEDS: Sodium Chloride 0.9% 10 ML FLUSH Syringe IV SCH (22:11)
[2019-03-26] MEDS: ZOCOR 20MG PO SCH (22:11)
[2019-03-26 22:47] LABS: Slide Review 1 YES
[2019-03-27] MEDS: solu-MEDROL 125 MG IV SCH ×4 (01:31→17:50)
[2019-03-27] MEDS: Sodium Chloride 0.9% 10 ML FLUSH Syringe IV SCH ×4 (01:32→21:58)
[2019-03-27] MEDS: DUONEB 0.5-3 MG/3 ml Neb IH SCH ×6 (06:54→23:03)
[2019-03-27] MEDS ORDERED: Tessalon Perles 100 MG PO PRN (08:56)
[2019-03-27] MEDS ORDERED: Mucinex 600MG ER Tabs PO PRN (08:57)
--- NOTE | 2019-03-27 08:59 | PCM.NOTE ---
Date and Time: 03/27/19858 Subjective Assessment: Patient reports that he was unable to wear cpap yesterday. He reports getting some what confused at night and pulling off his telemetry leads. He does not want any more medication than necessary and his nurse reports he has been refusing scheduled cough medication. - Review of Systems Constitutional: No Symptoms Eyes: No Symptoms Ears, Nose, & Throat: No Symptoms Respiratory: Cough, Short Of Breath Cardiac: No Symptoms Abdominal/Gastrointestinal: Constipation Genitourinary Symptoms: No Symptoms Musculoskeletal: No Symptoms Objective Exam General Appearance: no apparent distress Neurologic Exam: alert, cooperative, normal mood/affect Skin Exam: normal color, warm, dry, No rash Respiratory Exam: prolonged expirations, other (scattered wheezes throughout,), No respiratory distress, No crackles/rales, No rhonchi Cardiovascular Exam: regular rate/rhythm, normal heart sounds, No murmur, No friction rub, No gallop Gastrointestinal/Abdomen Exam: soft, normal bowel sounds, No tenderness, No distention, No mass, No guarding Extremity Exam: other (no c/c/e) OBJECTIVE DATA Vital Signs: Vital Signs - 24 hr Temp Pulse Resp BP Pulse Ox 03/27/19 08:51 107 H 22 94 L 03/27/19 08:00 97.8 F 101 H 19 148/77 91 L 03/27/19 04:00 98.4 F 107 H 26 H 131/71 95 03/27/19 00:00 97.9 F 100 H 24 129/85 99 03/26/19 20:00 98.5 F 113 H 25 H 143/71 94 L 03/26/19 19:13 113 H 20 97 03/26/19 16:00 98.4 F 113 H 19 120/77 92 L 03/26/19 12:00 98.6 F 126 H 20 112/58 03/26/19 11:22 110 H 24 90 L Oxygen-Last 24 hours O2 Percentage 3 Liters = 32% O2 Percentage 3 Liters = 32% O2 Percentage 3 Liters = 32% O2 Percentage 3 Liters = 32% O2 Percentage 4 Liters = 36% Pain Assessment - Last Documented Pain Intensity 0 Pain Scale Used 0-10 Pain Scale Intake and Output: Intake & Output 03/25/19 03/26/19 03/27/19 03/28/19 06:59 06:59 06:59 06:59 Intake Total 200 960 960 Output Total 450 Balance 200 510 960 Weight 87 kg Lab Results: Lab Results-Last 24 Hours 03/26/19 03/26/19 03/26/19 Range/Units 15:30 15:30 15:30 WBC 20.2 H (4.0-10.5) K/mm3 RBC 4.12 (4.1-5.6) M/mm3 Hgb 12.9 (12.5-18.0) gm/dl Hct 39.9 L (42-50) % MCV 96.8 (78-100) fl MCH 31.3 (26-32) pg MCHC 32.3 (32-36) g/dl RDW 13.4 (11.5-14.0) % Plt Count 211 (150-450) K/mm3 MPV 10.8 H (6-9.5) fl Gran % 92.4 H (36.0-66.0) % Eos # (Auto) 0.01 (0-0.5) Absolute Lymphs (auto) 0.44 L (1.0-4.6) Absolute Monos (auto) 1.10 (0.0-1.3) Lymphocytes % 2.2 L (24.0-44.0) % Monocytes % 5.4 (0.0-12.0) % Eosinophils % 0.0 (0.00-5.0) % Basophils % 0.0 (0.0-0.4) % Absolute Granulocytes 18.63 H (1.4-6.9) Basophils # 0.01 (0-0.4) Sodium 144 (137-145) mmol/L Potassium 3.9 (3.5-5.1) mmol/L Chloride 106 (98-107) mmol/L Carbon Dioxide 24 (22-30) mmol/L Anion Gap 18.1 H (5-15) MEQ/L BUN 26 H (9-20) mg/dL Creatinine 0.90 (0.66-1.25) mg/dL Estimated GFR > 60.0 ML/MIN Glucose 137 H (74-106) mg/dL Calcium 9.8 (8.4-10.2) mg/dL TSH 3rd Generation 0.502 (0.47-4.68) mIU/L Slides for Path Review YES Radiology Exams: Radiology Procedures Category Date Time Status CHEST 2 VIEWS (PA AND LAT) Urgent Exams 03/27/19 Ordered MODIFIED BARIUM SWALLOW EXAM Urgent Exams 03/27/19 Ordered Multi-Disciplinary Progress Notes: Multi-Disciplinary Progress Notes 03/26/19 13:01 Respiratory Note by Letitia Yang AROUND NOON PT STARTED HAVING A COUGHING FIT. PT'S HR 150, PT WAS SOB, WITH WHEEZES. SAT PT UP ON SIDE OF BED. PT STATES HE THINKS IT WAS A COUPLE OF PILLS HE TOOK BEFORE. CHECKED WITH NURSE, [facility] GAVE HIM [facility] PETERS[facility]. TOLD PT HE SHOULD DO A BREATHING TREATMENT. PT DIDN'T WANT TO. HE SAID HE DIDN'T WANT TO BE OVER MEDICATED. TOLD HIM IT WAS OK BUT HE REFUSED. AFTER ABOUT 45 MINS PT AGREES TO A BREATHING TREATMENT. PT CALMED DOWN ABOUT 10MINS AFTER THE BREATHING TREATMENT. HR 139 SAT IS 91% ON 4L OXYGEN. WILL CONTINUE TO MONITOR. Initialized on 03/26/19 13:01 - END OF NOTE Assessment/Plan (1) Acute and chronic respiratory failure ([id number]) Current Visit: Yes Status: Acute Qualifiers: Respiratory failure complication: hypoxia and hypercapnia Qualified Code(s) : J96.21 - Acute and chronic respiratory failure with hypoxia; J96.22 - Acute and chronic respiratory failure with hypercapnia Assessment & Plan: Continue with supportive care as below. He does seem to be improved from admission. He has refused bipap last night. Code(s): J96.20 - ACUTE AND CHR RESP FAILURE, UNSP W HYPOXIA OR HYPERCAPNIA (2) COPD with acute exacerbation Current Visit: Yes Status: Acute Assessment & Plan: Continue azithromycin Day 4 and add ceftriaxone. Recheck Chest X-ray today. If no improvement by tomorrow, will consider pulmonary consult. Continue IV steroids and breathing treatments. Patient knows he should quit smoking. Elevated WBC most likely due to steroids. He does not wear oxygen at home. Wean oxygen as tolerated. Code(s): J44.1 - CHRONIC OBSTRUCTIVE PULMONARY DISEASE W (ACUTE) EXACERBATION (3) HTN (hypertension) Current Visit: Yes Status: Acute Assessment & Plan: Will adjust bp medications. Code(s): I10 - ESSENTIAL (PRIMARY) HYPERTENSION (4) Tachycardia Current Visit: Yes Status: Acute Assessment & Plan: Most likely due to acute illness. No chest pain at this time and ruled out for DE earlier in hospital stay. Will increase his metoprolol to try to control heart rate. Code(s): R00.0 - TACHYCARDIA, UNSPECIFIED (5) Dysphagia Current Visit: Yes Status: Acute Assessment & Plan: Check modified barium swallow today. Code(s): R13.10 - DYSPHAGIA, UNSPECIFIED (6) Tobacco dependence Current Visit: Yes Status: Acute Code(s): F17.200 - NICOTINE DEPENDENCE, UNSPECIFIED, UNCOMPLICATED
--- NOTE | 2019-03-27 09:33 | XRAY ---
Indication: Cough and congestion. COPD. Comparison: March 24, 2019. PA/lateral chest hyperinflated with new left base discoid atelectasis and stable left upper lobe calcified granuloma. Remaining heart and lungs unremarkable.
[2019-03-27 09:43] LABS: Absolute Neutrophil Ct (ANC) 16.86 (1.4-6.9); BASOPHIL % 0.1 % (0.0-0.4); Basophil (Absolute #) 0.01 (0-0.4); Eosinophil % 0.1 % (0.00-5.0); Eosinophil (Absolute #) 0.02 (0-0.5); Hematocrit 40.5 % (42-50); Hemoglobin 12.8 gm/dl (12.5-18.0); Lymphocyte (Absolute #) 0.47 (1.0-4.6); Lymphocytes % 2.6 % (24.0-44.0); Mean Cell Volume 97.4 fl (78-100); Mean Corpuscular Hemoglobin 30.8 pg (26-32); Mean Corpuscular Hgb Concent. 31.6 g/dl (32-36); Mean Platelet Volume 11.1 fl (6-9.5); Monocyte (Absolute #) 0.62 (0.0-1.3); Monocytes % 3.4 % (0.0-12.0); Neutrophil % 93.8 % (36.0-66.0); Platelet Count 218 K/mm3 (150-450); Red Blood Count 4.16 M/mm3 (4.1-5.6); Red Cell Distribution Width 13.5 % (11.5-14.0)
[2019-03-27 09:48] LABS: ANION GAP 15.5 MEQ/L (5-15); BLOOD UREA NITROGEN 22 mg/dL (9-20); CHLORIDE 104 mmol/L (98-107); Calcium 9.2 mg/dL (8.4-10.2); Carbon Dioxide 27 mmol/L (22-30); Creatinine 1 0.72 mg/dL (0.66-1.25); Glucose 130 mg/dL (74-106); Potassium 4.1 mmol/L (3.5-5.1); SODIUM 143 mmol/L (137-145)
[2019-03-27] MEDS: Toprol Xl 100 MG PO SCH (10:06)
[2019-03-27] MEDS: Protonix 40MG Tablet PO SCH (10:07)
[2019-03-27] MEDS: ROCEPHIN 1 Gm-D5w 50 ml Bag** 1 G/50 ML IVPB IV SCH (10:07)
[2019-03-27 11:48] LABS: Slide Review 1 YES
--- NOTE | 2019-03-27 12:18 | XRAY ---
Indication: Aspiration. Modified barium swallow study was performed by the Department of speech therapy with fluoroscopic assistance provided. Patient ingested multiple consistencies of liquids and solids. Full report and recommendations will be reported separately. Approximate 1.9 minutes fluoroscopy used.
[2019-03-27] MEDS: ZOCOR 20MG PO SCH (21:58)
[2019-03-27] MEDS: Zithromax 500 MG/ 250 ML NaCl Premix 500 MG/250 ML IVPB IV SCH (21:58)
[2019-03-28] MEDS: solu-MEDROL 125 MG IV SCH ×5 (00:07→23:39)
[2019-03-28] MEDS: DUONEB 0.5-3 MG/3 ml Neb IH SCH ×7 (02:54→23:31)
[2019-03-28 05:26] LABS: Hemoglobin 12.6 gm/dl (12.5-18.0); Mean Cell Volume 97.1 fl (78-100); Mean Corpuscular Hemoglobin 30.6 pg (26-32); Mean Corpuscular Hgb Concent. 31.5 g/dl (32-36); Platelet Count 220 K/mm3 (150-450); Red Blood Count 4.12 M/mm3 (4.1-5.6); Red Cell Distribution Width 13.4 % (11.5-14.0); White Blood Count 14.3 K/mm3 (4.0-10.5)
[2019-03-28] MEDS: Sodium Chloride 0.9% 10 ML FLUSH Syringe IV SCH ×3 (05:39→21:20)
[2019-03-28 05:57] LABS: BLOOD UREA NITROGEN 25 mg/dL (9-20); CHLORIDE 105 mmol/L (98-107); Carbon Dioxide 27 mmol/L (22-30); Creatinine 1 0.77 mg/dL (0.66-1.25); Glucose 127 mg/dL (74-106); Potassium 3.9 mmol/L (3.5-5.1); SODIUM 143 mmol/L (137-145)
[2019-03-28 07:32] LABS: BAND 4 % (0.0-2.0); Lymphocytes 5 % (24-44); Monocyte 5 % (0.0-12.0); Neutrophils 86 % (36.-66.); Platelet Estimate NORMAL (NORMAL); Total Cells Counted 100; Toxic Granulation 1+
--- NOTE | 2019-03-28 08:25 | PCM.NOTE ---
Date and Time: 03/28/19820 Subjective Assessment: Patient reports he continues to feel a little better each day. He is having soft stools. His cough is productive of thick sputum. RT reports they have weaned him down from 3 L to 2L. He does not wear oxygen at home. They also report he gets short of breath with movement. - Review of Systems Constitutional: No Symptoms Respiratory: Cough, Short Of Breath, Wheezing Cardiac: No Symptoms Abdominal/Gastrointestinal: No Symptoms Genitourinary Symptoms: No Symptoms Musculoskeletal: No Symptoms Objective Exam General Appearance: no apparent distress, alert Neurologic Exam: alert, cooperative, normal mood/affect Skin Exam: normal color, warm, dry, No rash Respiratory Exam: prolonged expirations, other (few scattered wheezes throughout , equal breath sounds, no crackles), No stridor Cardiovascular Exam: regular rate/rhythm, normal heart sounds, No murmur, No friction rub, No gallop Gastrointestinal/Abdomen Exam: soft, normal bowel sounds, tenderness, No distention, No mass, No guarding Extremity Exam: other (no c/c/e) OBJECTIVE DATA Vital Signs: Vital Signs - 24 hr Temp Pulse Resp BP Pulse Ox 03/28/19 07:37 98.4 F 97 H 18 157/80 95 03/28/19 07:20 94 L 03/28/19 06:48 101 H 22 95 03/28/19 04:00 98.3 F 108 H 24 159/83 95 03/28/19 03:00 95 03/28/19 02:53 106 H 20 93 L 03/28/19 00:00 98.5 F 102 H 22 137/74 95 03/27/19 23:04 103 H 18 95 03/27/19 23:00 95 03/27/19 20:00 98.9 F 110 H 22 131/69 94 L 03/27/19 19:13 116 H 20 93 L 03/27/19 16:02 97 H 22 91 L 03/27/19 16:00 99.0 F 99 H 20 136/80 91 L 03/27/19 12:50 94 L 03/27/19 12:00 98.2 F 115 H 20 116/68 92 L 03/27/19 11:46 102 H 22 94 L 03/27/19 08:51 107 H 22 94 L 03/27/19 08:50 94 L Oxygen-Last 24 hours O2 Percentage 3 Liters = 32% O2 Percentage 3 Liters = 32% O2 Percentage 3 Liters = 32% O2 Percentage 3 Liters = 32% O2 Percentage 3 Liters = 32% O2 Percentage 3 Liters = 32% Pain Assessment - Last Documented Pain Intensity 0 Pain Scale Used 0-10 Pain Scale Intake and Output: Intake & Output 03/26/19 03/27/19 03/28/19 03/29/19 06:59 06:59 06:59 06:59 Intake Total 944 999 4226 Output Total 450 Balance 091 578 7655 Weight 87 kg Lab Results: Lab Results-Last 24 Hours 03/27/19 03/27/19 03/28/19 Range/Units 09:00 09:00 05:00 WBC 18.0 H 14.3 H (4.0-10.5) K/mm3 RBC 4.16 4.12 (4.1-5.6) M/mm3 Hgb 12.8 12.6 (12.5-18.0) gm/dl Hct 40.5 L 40.0 L (42-50) % MCV 97.4 97.1 (78-100) fl MCH 30.8 30.6 (26-32) pg MCHC 31.6 L 31.5 L (32-36) g/dl RDW 13.5 13.4 (11.5-14.0) % Plt Count 218 220 (150-450) K/mm3 MPV 11.1 H 11.0 H (6-9.5) fl Gran % 93.8 H (36.0-66.0) % Eos # (Auto) 0.02 (0-0.5) Absolute Lymphs (auto) 0.47 L (1.0-4.6) Absolute Monos (auto) 0.62 (0.0-1.3) Lymphocytes % 2.6 L (24.0-44.0) % Monocytes % 3.4 (0.0-12.0) % Eosinophils % 0.1 (0.00-5.0) % Basophils % 0.1 (0.0-0.4) % Absolute Granulocytes 16.86 H (1.4-6.9) Segmented Neutrophils 86 H (36.-66.) % Band Neutrophils 4 H (0.0-2.0) % Lymphocytes (Manual) 5 L (24-44) % Monocytes (Manual) 5 (0.0-12.0) % Basophils # 0.01 (0-0.4) Toxic Granulation 1+ Platelet Estimate NORMAL (NORMAL) RBC Morphology NORMAL Sodium 143 (137-145) mmol/L Potassium 4.1 (3.5-5.1) mmol/L Chloride 104 (98-107) mmol/L Carbon Dioxide 27 (22-30) mmol/L Anion Gap 15.5 H (5-15) MEQ/L BUN 22 H (9-20) mg/dL Creatinine 0.72 (0.66-1.25) mg/dL Estimated GFR > 60.0 ML/MIN Glucose 130 H (74-106) mg/dL Calcium 9.2 (8.4-10.2) mg/dL Slides for Path Review YES 03/28/19 Range/Units 05:00 WBC (4.0-10.5) K/mm3 RBC (4.1-5.6) M/mm3 Hgb (12.5-18.0) gm/dl Hct (42-50) % MCV (78-100) fl MCH (26-32) pg MCHC (32-36) g/dl RDW (11.5-14.0) % Plt Count (150-450) K/mm3 MPV (6-9.5) fl Gran % (36.0-66.0) % Eos # (Auto) (0-0.5) Absolute Lymphs (auto) (1.0-4.6) Absolute Monos (auto) (0.0-1.3) Lymphocytes % (24.0-44.0) % Monocytes % (0.0-12.0) % Eosinophils % (0.00-5.0) % Basophils % (0.0-0.4) % Absolute Granulocytes (1.4-6.9) Segmented Neutrophils (36.-66.) % Band Neutrophils (0.0-2.0) % Lymphocytes (Manual) (24-44) % Monocytes (Manual) (0.0-12.0) % Basophils # (0-0.4) Toxic Granulation Platelet Estimate (NORMAL) RBC Morphology Sodium 143 (137-145) mmol/L Potassium 3.9 (3.5-5.1) mmol/L Chloride 105 (98-107) mmol/L Carbon Dioxide 27 (22-30) mmol/L Anion Gap 15.0 (5-15) MEQ/L BUN 25 H (9-20) mg/dL Creatinine 0.77 (0.66-1.25) mg/dL Estimated GFR > 60.0 ML/MIN Glucose 127 H (74-106) mg/dL Calcium 9.0 (8.4-10.2) mg/dL Slides for Path Review Radiology Exams: Radiology Procedures Category Date Time Status CHEST 2 VIEWS (PA AND LAT) Urgent Exams 03/27/19 09:19 Completed MODIFIED BARIUM SWALLOW EXAM Urgent Exams 03/27/19 12:00 Completed Assessment/Plan (1) COPD with acute exacerbation Current Visit: Yes Status: Acute Assessment & Plan: Continue ceftriaxone Day 2 and azithromycin Day 5. WBC is better today. Continue with IV steroids, breathing treatments, try to wean oxygen, may need home oxygen evaluation. Sputum culture in lab. Code(s): J44.1 - CHRONIC OBSTRUCTIVE PULMONARY DISEASE W (ACUTE) EXACERBATION (2) Acute and chronic respiratory failure ([id number]) Current Visit: Yes Status: Acute Qualifiers: Respiratory failure complication: hypoxia and hypercapnia Qualified Code(s) : J96.21 - Acute and chronic respiratory failure with hypoxia; J96.22 - Acute and chronic respiratory failure with hypercapnia Assessment & Plan: Continue care as above. Code(s): J96.20 - ACUTE AND CHR RESP FAILURE, UNSP W HYPOXIA OR HYPERCAPNIA (3) HTN (hypertension) Current Visit: Yes Status: Acute Assessment & Plan: Metoprolol dose adjusted yesterday. Continue current doses of medication. Code(s): I10 - ESSENTIAL (PRIMARY) HYPERTENSION (4) Tachycardia Current Visit: Yes Status: Acute Assessment & Plan: Improved with higher dose of metoprolol. Code(s): R00.0 - TACHYCARDIA, UNSPECIFIED (5) Dysphagia Current Visit: Yes Status: Acute Assessment & Plan: Modified barium swallow study yesterday was reported as normal; may need upper endoscopy as an outpatient after acute COPD exacerbation has resolved. Code(s): R13.10 - DYSPHAGIA, UNSPECIFIED (6) Tobacco dependence Current Visit: Yes Status: Acute Code(s): F17.200 - NICOTINE DEPENDENCE, UNSPECIFIED, UNCOMPLICATED
[2019-03-28] MEDS: Toprol Xl 100 MG PO SCH (09:41)
[2019-03-28] MEDS: Protonix 40MG Tablet PO SCH (09:44)
[2019-03-28] MEDS: ROCEPHIN 1 Gm-D5w 50 ml Bag** 1 G/50 ML IVPB IV SCH (09:48)
[2019-03-28] MEDS: ZOCOR 20MG PO SCH (21:23)
[2019-03-28] MEDS: Zithromax 500 MG/ 250 ML NaCl Premix 500 MG/250 ML IVPB IV SCH (21:23)
[2019-03-29] MEDS: DUONEB 0.5-3 MG/3 ml Neb IH SCH ×3 (03:36→10:57)
[2019-03-29 05:01] LABS: Hematocrit 40.4 % (42-50); Hemoglobin 13.1 gm/dl (12.5-18.0); Mean Corpuscular Hemoglobin 31.1 pg (26-32); Mean Corpuscular Hgb Concent. 32.4 g/dl (32-36); Mean Platelet Volume 11.1 fl (6-9.5); Platelet Count 213 K/mm3 (150-450); Red Blood Count 4.21 M/mm3 (4.1-5.6); White Blood Count 11.9 K/mm3 (4.0-10.5)
[2019-03-29 05:08] LABS: ANION GAP 12.7 MEQ/L (5-15); BLOOD UREA NITROGEN 27 mg/dL (9-20); CHLORIDE 101 mmol/L (98-107); Carbon Dioxide 31 mmol/L (22-30); Creatinine 1 0.77 mg/dL (0.66-1.25); Glucose 124 mg/dL (74-106); Potassium 4.3 mmol/L (3.5-5.1); SODIUM 140 mmol/L (137-145)
[2019-03-29] MEDS: solu-MEDROL 125 MG IV SCH ×2 (06:17→11:45)
[2019-03-29] MEDS: Sodium Chloride 0.9% 10 ML FLUSH Syringe IV SCH ×2 (06:17→11:47)
[2019-03-29 07:07] LABS: BAND 1 % (0.0-2.0); Lymphocytes 4 % (24-44); Monocyte 3 % (0.0-12.0); Neutrophils 92 % (36.-66.); Platelet Estimate NORMAL (NORMAL); Total Cells Counted 100
[2019-03-29] MEDS: Toprol Xl 100 MG PO SCH (09:31)
[2019-03-29] MEDS: Protonix 40MG Tablet PO SCH (09:32)
[2019-03-29] MEDS: ROCEPHIN 1 Gm-D5w 50 ml Bag** 1 G/50 ML IVPB IV SCH (10:03)
--- NOTE | 2019-03-29 11:39 | PCM.DCORD ---
- Discharge Discharge Date: 03/29/19 Disposition: HOME HEALTH SERVICE Condition: Fair Prescriptions: New Cefdinir 300 mg PO BID #16 capsule Prednisone 20 mg [Deltasone 20 mg] 20 mg PO UD #12 tablet Metoprolol Succinate 100 mg [Toprol Xl 100 MG] 100 mg PO DAILY #30 tablet.sa Continue Albuterol Common Canister [Proventil Common Canister] 2 puff IH Q4HPRN PRN #0 puff PRN Reason: wheezes Tiotropium Rentz Inhaler [Spiriva 18 Mcg/Cap Inhaler] 1 puff IH DAILY Atorvastatin Calcium [Lipitor] 40 mg PO DAILY Discontinued Metoprolol Succinate 50 mg [Toprol Xl 50 MG] 50 mg PO DAILY Additional Instructions: Oxygen 2 L by nasal cannula as ordered from [facility]. Follow up with: RHETT CALI [ACTIVE STAFF] - 04/17/19 3:15 pm DEVORA ESTRADA [Primary Care Provider] - 04/04/19 10:15 am
--- NOTE | 2019-03-29 12:06 | DS ---
DISCHARGE DIAGNOSES: 1) CHRONIC OBSTRUCTIVE PULMONARY DISEASE WITH ACUTE EXACERBATION. 2) ACUTE ON CHRONIC RESPIRATORY FAILURE. 3) HYPERTENSION. 4) TACHYCARDIA. 5) DYSPHAGIA. 6) TOBACCO DEPENDENCE. DISCHARGE PHYSICAL EXAMINATION: VITAL SIGNS: Temperature current 98.1F, temperature max 98.1F, heart rate 91, respiratory rate 20, blood pressure 141/67. Oxygen saturation 94% on 2 liters nasal cannula. GENERAL: The patient is a pleasant talkative man sitting up in bed in no acute distress eating his breakfast. CVS: He has a regular rate and rhythm. No murmurs, gallops or rubs are appreciated. LUNGS: No tachypnea. No retractions. He has equal breath sounds with few scattered wheezes throughout. No crackles. ABDOMEN: Obese, soft, nontender, nondistended. SKIN: Warm, dry and intact. EXTREMITIES: Trace edema. No clubbing or cyanosis. HOSPITAL COURSE: 1) CHRONIC OBSTRUCTIVE PULMONARY DISEASE WITH ACUTE EXACERBATION: He was started on azithromycin on admission and completed five days of this. I started him on ceftriaxone and he completed three days of this, will continue with Cefdinir 300 mg p.o. b.i.d. for another eight days. His white blood cell count was almost back to normal. He has been on IV steroids which have been weaned down. I am changing him to oral prednisone. He is getting breathing treatments. He has Spiriva and Albuterol at home. He is also requiring 2 liters of oxygen by nasal cannula which has been arranged with [facility]. Sputum culture showed normal respiratory nickolas. He had a follow up appointment scheduled with insurance policy issue clerk, Dr. Luke Stanford. He has not seen a insurance policy issue clerk previously. 2) ACUTE ON CHRONIC RESPIRATORY FAILURE: When he came in he had hypercapnia and hypoxia requiring BiPAP, this improved during his hospitalization and was not requiring BiPAP or CPAP even at night at discharge. Will continue with treatment as above for chronic obstructive pulmonary disease with exacerbation. 3) HYPERTENSION: I increased his metoprolol from 50 mg daily to 100 mg daily and his blood pressure was better controlled, will continue to follow as an outpatient. 4) TACHYCARDIA: Probably due to his acute illness and the metoprolol had helped with this. 5) DYSPHAGIA: He complained of feeling like pills are getting stuck in his throat. He had a modified barium swallow and they recommended small bites and thin liquids. He may need upper endoscopy as an outpatient once his chronic obstructive pulmonary disease exacerbation has resolved for further evaluation. 6) TOBACCO DEPENDENCE: The patient was counseled that he should completely quit smoking tobacco. DISPOSITION: The patient was discharged home in fair condition with home health care. DISCHARGE MEDICATIONS: Please see the discharge order. FOLLOW UP: Follow up with Dr. Luke Stanford and myself.
[2019-03-29 12:14] VITALS: BP 157/87; PULSE 100; O2SAT 92
== END 2019-03-29 12:30 | disposition home health service (06) | DRG 190 ==
LOC: ED 18:39 → MED SURG 21:05 → INTOOBSV 03-25 17:18 → OBSVTOIN 03-25 17:18
PROVIDERS: ADMIT Family Medicine; ATTEND Internal Medicine
DX: J44.1 Chronic obstructive pulmonary disease with (acute) exacerbation (principal); J96.20 Acute and chronic respiratory failure, unspecified whether with hypoxia or hypercapnia; I10 Essential (primary) hypertension; R00.0 Tachycardia, unspecified; R13.10 Dysphagia, unspecified; F17.200 Nicotine dependence, unspecified, uncomplicated; R35.1 Nocturia; M06.9 Rheumatoid arthritis, unspecified; Z79.899 Other long term (current) drug therapy
CPT/HCPCS: 36000; 36415; 36600; 71045; 71046; 74230; 80048; 80053; 82375; 82803; 83880; 84443; 84484; 85025; 85027; 85379; 85610; 87070; 93005; 93041; 93268; 94002; 94003; 94150; 94640; 94667; 94668; 94760; 94762; 96374; 96375; 99285; J0456; J0696; J1200; J2930; J3475; A9270-GY; G0378

== ENCOUNTER 2021-01-07 08:55 | Observation (INO) | payer MEDICARE ==
[2021-01-07] MEDS ORDERED: BABY ASPIRIN 81 MG CHEW PO ONE (09:14)
[2021-01-07] MEDS ORDERED: DUONEB 0.5-3 MG/3 ml Neb IH ONE ×2 (09:15→09:21)
[2021-01-07 09:28] LABS: Absolute Neutrophil Ct (ANC) 4.92 (1.4-6.9); BASOPHIL % 0.4 % (0.0-0.4); Basophil (Absolute #) 0.03 (0-0.4); Eosinophil % 3.1 % (0.00-5.0); Eosinophil (Absolute #) 0.25 (0-0.5); Hematocrit 41.7 % (42-50); Hemoglobin 13.1 gm/dl (12.5-18.0); Lymphocyte (Absolute #) 1.85 (1.0-4.6); Lymphocytes % 22.6 % (24.0-44.0); Mean Cell Volume 93.7 fl (78-100); Mean Corpuscular Hemoglobin 29.4 pg (26-32); Mean Corpuscular Hgb Concent. 31.4 g/dl (32-36); Mean Platelet Volume 11.1 fl (7.5-11.0); Monocyte (Absolute #) 1.12 (0.0-1.3); Monocytes % 13.7 % (0.0-12.0); Neutrophil % 60.2 % (36.0-66.0); Platelet Count 224 K/mm3 (150-450); Red Blood Count 4.45 M/mm3 (4.1-5.6); Red Cell Distribution Width 12.6 % (11.5-14.0); White Blood Count 8.2 K/mm3 (4.0-10.5)
[2021-01-07 09:45] LABS: ALBUMIN 4.6 g/dL (3.5-5.0); ALKALINE PHOSPHATASE 65 U/L (38-126); ANION GAP 15.2 MEQ/L (5-15); BLOOD UREA NITROGEN 16 mg/dL (9-20); CHLORIDE 100 mmol/L (98-107); Calcium 9.7 mg/dL (8.4-10.2); Carbon Dioxide 29 mmol/L (22-30); Creatinine 1 0.81 mg/dL (0.66-1.25); EST GLOMERULAR FILTRATION RATE > 60.0 ML/MIN; Glucose 94 mg/dL (74-106); NT PRO BNP 45.3 pg/mL (0-900); Potassium 4.3 mmol/L (3.5-5.1); SGOT/AST 33 U/L (17-59); SGPT/ALT 29 U/L (0-50); SODIUM 140 mmol/L (137-145); Total Protein 7.4 g/dL (6.3-8.2)
--- NOTE | 2021-01-07 10:01 | XRAY ---
Indication: Chest pain. Comparison: March 19, 2019. Portable apical lordotic chest demonstrates lingula subsegmental atelectasis and minimal right base fibrosis/scarring. Remaining heart and lungs unremarkable. Bony thorax intact.
--- NOTE | 2021-01-07 10:19 | ERPHSYRPT ---
- History of Present Illness Time Seen by Provider: 01/07/21 08:58 Historian: patient Exam Limitations: no limitations Patient Subjective Stated Complaint: PT states "I have been having these bouts of pain in my chest. It feels like being stabbed on the left side then it goes away. I have had three episodes this morning." Triage Nursing Assessment: Pt presented alert and oriented X 3, skin pwd Pt ambulates with an upright steady gait, able to speak in clear full sentences pt slightly tachypneic, slightly diaphoretic. PT advised he has been to his which sent him to quick care then to quick care that sent him here. Physician History: 70 years old male with history of chronic respiratory failure from COPD on 2 L oxygen, hypertension presented to ER with chief complaint of intermittent chest pain since morning while he was watching TV. Patient reports sharp pain left chest lasting for few seconds and improves on its own with radiation to left axilla without any significant aggravating or relieving factors. Denies associated shortness of breath but what he has at his baseline. Does have minimal productive cough for the last few days. Denies any fever or chills. Denies any recent cardiac work-up. Currently patient is chest pain-free. Timing/Duration: today, intermittent, sudden Activities at Onset: rest Quality: sharpness Location: central Chest Pain Radiation: arm Severity of Pain-Max: moderate Severity of Pain-Current: none Modifying Factors: Improves With: nothing Associated Symptoms: denies symptoms Prior Chest Pain/Cardiac Workup: no prior cardiac workup Nitro Today/Relief: no nitro taken today Aspirin Treatment Today: no aspirin today Allergies/Adverse Reactions: No Known Drug Allergies Allergy (Verified 03/24/19 18:49) Home Medications: Tiotropium [place] Inhaler [Spiriva 18 Mcg/Cap Inhaler] 1 puff IH DAILY 11/04/15 [History] Atorvastatin Calcium [Lipitor] 40 mg PO DAILY 03/24/19 [History] Hx Tetanus, Diphtheria Vaccination/Date Given: No Hx Influenza Vaccination/Date Given: Yes (2013) Hx Pneumococcal Vaccination/Date Given: Yes Immunizations Up to Date: Yes Travel Risk - International Travel Have you traveled outside of the country in past 3 weeks: No - Coronavirus Screening Are you exhibiting any of the following symptoms?: No Close contact with a COVID-19 positive Pt in past 14-21 Days: No - Vaccine Status Have you recieved a Covid-19 vaccination: Yes 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: Pfizer - Vaccination Dates Date of 2cond Vaccination (if applicable): 07/2020 - Review of Systems Constitutional: No Symptoms Eyes: No Symptoms Ears, Nose, & Throat: No Symptoms Respiratory: Cough, Dyspnea Cardiac: Chest Pain Abdominal/Gastrointestinal: No Symptoms Genitourinary Symptoms: No Symptoms Musculoskeletal: No Symptoms Skin: No Symptoms Neurological: No Symptoms Psychological: No Symptoms Endocrine: No Symptoms Hematologic/Lymphatic: No Symptoms Immunological/Allergic: No Symptoms - Past Medical History Pertinent Past Medical History: Yes Neurological History: Epilepsy, Seizures ENT History: No Pertinent History Cardiac History: Hypertension Respiratory History: COPD, Emphysema Endocrine Medical History: Liver Disease Musculoskeletal History: Arthritis, Rheumatoid Arthritis, Other GI Medical History: Hepatitis History: No Pertinent History Psycho-Social History: No Pertinent History Male Reproductive Disorders: No Pertinent History Other Medical History: 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 - Past Surgical History Past Surgical History: No Neuro Surgical History: No Pertinent History Cardiac: No Pertinent History Respiratory: No Pertinent History Gastrointestinal: No Pertinent History Genitourinary: No Pertinent History Musculoskeletal: No Pertinent History Male Surgical History: No Pertinent History - Social History Smoking Status: Former smoker How long have you smoked: 40years Exposure to second hand smoke: Yes Drug Use: marijuana Patient Lives Alone: No - Nursing Vital Signs Nursing Vital Signs: Initial Vital Signs Temperature 98.0 F 01/07/21 08:58 Pulse Rate 92 H 01/07/21 08:58 Respiratory Rate 24 01/07/21 08:58 Blood Pressure 164/99 01/07/21 08:58 O2 Sat by Pulse Oximetry 99 01/07/21 08:58 Pain Scale Pain Intensity 7 - Physical Exam General Appearance: no apparent distress, alert Eye Exam: PERRL/EOMI, eyes nml inspection Ears, Nose, Throat Exam: normal ENT inspection, TMs normal, pharynx normal Neck Exam: normal inspection, supple, full range of motion Respiratory Exam: diminished breath sounds, wheezing, No respiratory distress, No accessory muscle use Cardiovascular Exam: regular rate/rhythm, normal heart sounds Gastrointestinal/Abdomen Exam: soft, normal bowel sounds, No tenderness Back Exam: normal inspection, No CVA tenderness Extremity Exam: normal inspection, normal range of motion Neurologic Exam: alert, oriented x 3, cooperative Skin Exam: normal color SpO2 Interpretation: normal SpO2: 100 O2 Delivery: Nasal Cannula - Course EKG Interpreted by Me: RATE ([id number]), Sinus Rhythm, Left [place] Deviation, NORMAL INTERVALS, Non-specific ST Changes Ordered Tests: Active Orders 24 hr Category Date Time Status Thread Twister STAT Care 01/07/21 09:14 Active EKG-ER Only STAT Care 01/07/21 09:14 Active IV Insertion STAT Care 01/07/21 09:14 Active Oxygen-ED Only Nasal Cannula 2 lpm Care 01/07/21 09:14 Active CHEST 1 VIEW (PORTABLE) Stat Exams 01/07/21 09:14 Completed CBC W DIFF Stat Lab 01/07/21 09:23 Completed CMP Stat Lab 01/07/21 09:23 Completed NT PRO BNP Stat Lab 01/07/21 09:23 Completed TROPONIN Q3H Lab 01/07/21 09:23 Completed TROPONIN Q3H Lab 01/07/21 12:10 Received TROPONIN Q3H Lab 01/07/21 15:15 Ordered TROPONIN Q3H Lab 01/07/21 18:15 Ordered TROPONIN Q3H Lab 01/07/21 21:15 Ordered Respiratory Therapy Assessment DAILY RT 01/07/21 09:24 Active Transfer Order Routine Transfer 01/07/21 Ordered Medication Summary Discontinued Medications Generic Name Dose Route Start Last Admin Trade Name Freq PRN Reason Stop Dose Admin Albuterol/Ipratropium 3 ml 01/07/21 09:15 01/07/21 09:22 Duoneb 0.5-3 Mg/3 Ml Neb IH 01/07/21 09:16 3 ml STAT ONE Administration Albuterol/Ipratropium Confirm 01/07/21 09:21 Duoneb 0.5-3 Mg/3 Ml Neb Administered 01/07/21 09:22 Dose 3 ml IH .STK-MED ONE Aspirin 324 mg 01/07/21 09:14 01/07/21 09:19 Baby Aspirin 81 Mg Chew PO 01/07/21 09:15 324 mg STAT ONE Administration Lab/Rad Data: Laboratory Result Diagrams 01/07/21 09:23 01/07/21 09:23 Laboratory Results 01/07/21 01/07/21 01/07/21 Range/Units 09:23 09:23 09:23 WBC 8.2 (4.0-10.5) K/mm3 RBC 4.45 (4.1-5.6) M/mm3 Hgb 13.1 (12.5-18.0) gm/dl Hct 41.7 L (42-50) % MCV 93.7 (78-100) fl MCH 29.4 (26-32) pg MCHC 31.4 L (32-36) g/dl RDW 12.6 (11.5-14.0) % Plt Count 224 (150-450) K/mm3 MPV 11.1 H (7.5-11.0) fl Gran % 60.2 (36.0-66.0) % Eos # (Auto) 0.25 (0-0.5) Absolute Lymphs (auto) 1.85 (1.0-4.6) Absolute Monos (auto) 1.12 (0.0-1.3) Lymphocytes % 22.6 L (24.0-44.0) % Monocytes % 13.7 H (0.0-12.0) % Eosinophils % 3.1 (0.00-5.0) % Basophils % 0.4 (0.0-0.4) % Absolute Granulocytes 4.92 (1.4-6.9) Basophils # 0.03 (0-0.4) Sodium 140 (137-145) mmol/L Potassium 4.3 (3.5-5.1) mmol/L Chloride 100 (98-107) mmol/L Carbon Dioxide 29 (22-30) mmol/L Anion Gap 15.2 H (5-15) MEQ/L BUN 16 (9-20) mg/dL Creatinine 0.81 (0.66-1.25) mg/dL Estimated GFR > 60.0 ML/MIN Glucose 94 (74-106) mg/dL Calcium 9.7 (8.4-10.2) mg/dL Total Bilirubin 0.40 (0.2-1.3) mg/dL AST 33 (17-59) U/L ALT 29 (0-50) U/L Alkaline Phosphatase 65 (38-126) U/L Troponin I < 0.012 (0.000-0.034) ng/mL NT-Pro-B Natriuret Pep 45.3 (0-900) pg/mL Serum Total Protein 7.4 (6.3-8.2) g/dL Albumin 4.6 (3.5-5.0) g/dL - Progress Progress: improved Air Movement: good Progress Note: 70 years old is evaluated for intermittent chest pain since morning. EKG showed normal sinus rhythm with no acute ST elevation. Negative initial troponins. Chest x-ray negative for any acute cardiopulmonary findings. He is given Nitropaste, aspirin reevaluation feeling better. Does not have any cardiac work-up done in the recent past. Has multiple risk factors for CAD, discussed with Dr. Sampson and patient is being admitted for rule out Blood Culture(s) Obtained: No Antibiotics given: No Discussed with : Kendra Will see patient in: hospital (observation) Counseled pt/family regarding: lab results, diagnosis - Departure Departure Disposition: Observation Clinical Impression: Chest pain, rule out acute myocardial infarction Condition: Stable Critical Care Time: No Referrals: ALVARO GRIMM MD [ACTIVE STAFF] -
[2021-01-07] MEDS ORDERED: TYLENOL 325 MG PO PRN (13:23)
[2021-01-07] MEDS ORDERED: Zofran 4 MG/2 ML VIAL IV PRN (13:23)
[2021-01-07] MEDS ORDERED: MORPHINE SULFATE 2 MG INJ IV PRN (13:23)
[2021-01-07] MEDS ORDERED: VENTOLIN COMMON CANISTER IH PRN (13:49)
[2021-01-07] MEDS: PROTONIX 40 MG IV IV SCH (13:55)
[2021-01-07] MEDS ORDERED: ZOCOR 20MG PO SCH (14:00)
[2021-01-07] MEDS ORDERED: Spiriva 18 Mcg/Cap Inhaler IH SCH (14:00)
[2021-01-07] MEDS ORDERED: Toprol Xl 100 MG PO SCH (14:00)
[2021-01-07] MEDS ORDERED: DUONEB 0.5-3 MG/3 ml Neb IH SCH (15:00)
[2021-01-08 05:56] LABS: Absolute Neutrophil Ct (ANC) 4.48 (1.4-6.9); BASOPHIL % 0.5 % (0.0-0.4); Basophil (Absolute #) 0.04 (0-0.4); Eosinophil % 3.4 % (0.00-5.0); Eosinophil (Absolute #) 0.25 (0-0.5); Hematocrit 39.9 % (42-50); Hemoglobin 12.2 gm/dl (12.5-18.0); Lymphocyte (Absolute #) 1.67 (1.0-4.6); Lymphocytes % 22.8 % (24.0-44.0); Mean Cell Volume 95.7 fl (78-100); Mean Corpuscular Hemoglobin 29.3 pg (26-32); Mean Corpuscular Hgb Concent. 30.6 g/dl (32-36); Mean Platelet Volume 11.5 fl (7.5-11.0); Monocytes % 12.3 % (0.0-12.0); Platelet Count 193 K/mm3 (150-450); Red Blood Count 4.17 M/mm3 (4.1-5.6); Red Cell Distribution Width 12.6 % (11.5-14.0); White Blood Count 7.3 K/mm3 (4.0-10.5)
[2021-01-08 06:07] LABS: ALBUMIN 4.1 g/dL (3.5-5.0); ALKALINE PHOSPHATASE 56 U/L (38-126); ANION GAP 16.5 MEQ/L (5-15); BLOOD UREA NITROGEN 15 mg/dL (9-20); CHLORIDE 101 mmol/L (98-107); Calcium 8.9 mg/dL (8.4-10.2); Carbon Dioxide 23 mmol/L (22-30); Creatinine 1 0.71 mg/dL (0.66-1.25); EST GLOMERULAR FILTRATION RATE > 60.0 ML/MIN; Glucose 97 mg/dL (74-106); Potassium 4.1 mmol/L (3.5-5.1); SGOT/AST 34 U/L (17-59); SGPT/ALT 27 U/L (0-50); SODIUM 137 mmol/L (137-145); Total Protein 6.7 g/dL (6.3-8.2)
[2021-01-08 08:42] VITALS: BP 158/90; PULSE 78; O2SAT 94
[2021-01-08] MEDS: PROTONIX 40 MG IV IV SCH (09:41)
[2021-01-08] MEDS ORDERED: ZOCOR 20MG PO SCH (10:00)
[2021-01-08] MEDS ORDERED: Toprol Xl 100 MG PO SCH (10:00)
--- NOTE | 2021-01-08 12:57 | SSS ---
DISCHARGE DIAGNOSIS: CHEST WALL PAIN. HISTORY: The patient is a 70 year-old white male patient who has chronic obstructive pulmonary disease on oxygen 2 liters at home. He began having feelings of stabbing-type pain to the left axillary region of his chest. The patient reports that he felt he should come in for evaluation. The patient was seen in the emergency room and admitted to the hospital to rule out myocardial infarction PAST MEDICAL/SURGICAL HISTORY: The patient's medical history is again significant for the chronic obstructive pulmonary disease. He has liver disease, rheumatoid arthritis, hepatitis-C, HOME MEDICATIONS: Presently are Spiriva, atorvastatin 40 mg a day and oxygen 2 liters nasal cannula. ALLERGIES: NKDA. PHYSICAL EXAMINATION: The patient's vital signs on admission showed temperature 98.0F, pulse 92, respiratory rate 24 and blood pressure 164/99. His O2 saturation was 99% on 2 liters nasal cannula. HEENT: Normocephalic, atraumatic. Pupils equal round reactive to light. Extraocular movements are intact. He is wearing oxygen per nasal cannula presently. Oropharynx is pink and moist. NECK: Supple without lymphadenopathy, thyromegaly or JVD. CHEST: Clear to auscultation. No preproducible pain on palpation over the left sternal border. HEART: Regular rate and rhythm without significant murmurs, rubs or gallops. ABDOMEN: Soft. No palpable masses. EXTREMITIES: Without cyanosis, clubbing or significant edema. NEUROLOGIC: The patient is alert and oriented x3. No focal deficits noted. LAB DATA AND TESTS: The patient's laboratory studies have shown multiple troponins all being less than 0.012. His vital signs remained stable during his stay. He has been completely afebrile. The patient had initial CMP which were normal. His CBC was likewise normal. He had a D-dimer test which was within normal range at 442. Repeat lab values were CBC and CMP were again normal. The patient's chest x-ray showed lingular subsegmental atelectasis with minimal right base fibrosis and scarring otherwise no acute process. 12 lead EKG showed some left axis deviation but was otherwise normal. HOSPITAL COURSE: The patient was admitted and monitored with multiple troponins on telemetry. By the morning the patient reported he was not feeling any more pain and was essentially felt to be ready for discharge home having ruled out for myocardial infarction. The patient was instructed to follow up in the office in one week. He is to call if he has any further problems with his chest discomfort. He also sees Dr. Stanford and reports that he has an appointment with him in the next few days. He can take aspirin, ibuprofen or Aleve for his chest discomfort should it recur.
== END 2021-01-08 11:40 | disposition home or self-care (01) ==
LOC: ED 08:55 → UNDOADMOB 13:23 → MED SURG 13:23
PROVIDERS: ADMIT Family Medicine; ATTEND Family Medicine
DX: R07.89 Other chest pain (principal); J44.9 Chronic obstructive pulmonary disease, unspecified; Z99.81 Dependence on supplemental oxygen; I10 Essential (primary) hypertension; Z79.899 Other long term (current) drug therapy; Z20.822 Contact with and (suspected) exposure to COVID-19
CPT/HCPCS: 36000; 36415; 71045; 80053; 83880; 84484; 85025; 85379; 93005; 93041; 93268; 94640; 94760; 99285; G0378; U0003; A9270-GY

== ENCOUNTER 2022-08-22 23:19 | Inpatient (IN) | payer MEDICARE ==
--- NOTE | 2022-08-22 23:26 | ERPHSYRPT ---
- History of Present Illness Time Seen by Provider: 08/22/22 23:25 Source: patient, EMS Exam Limitations: no limitations Physician History: 72yo M BIBA for worsening SOB, using nebs at home w/ minimal relief. O2 in the 70s on EMS arrival. Pt given steroids, nebs in route w/ some improvement, but on arrival patient in distress so placed on BIPAP. Pt w/ COPD presents with SOB, productive cough and wheezing x 3 days has been on abx and steroids. No fevers or chills. + URI symptoms. No intubations in the past Patient desires to be full code Timing/Duration: day(s) (3), worse Activities at Onset: rest Severity of Dyspnea-Max: severe Severity of Dyspnea-Current: severe Possible Cause: occasional episodes Modifying Factors: Improves With: albuterol nebulizer, oxygen. Worsens With: activity, coughing, deep breath, exertion Associated Symptoms: constant, cough, chest pain/discomfort, wheezing, weakness, No edema, No fever, No ankle swelling, No calf pain Allergies/Adverse Reactions: No Known Drug Allergies Allergy (Verified 03/24/19 18:49) Home Medications: Atorvastatin Calcium [Lipitor] 40 mg PO DAILY 03/24/19 [History] Metoprolol Succinate 100 mg [Toprol Xl 100 MG] 50 mg PO DAILY 08/22/22 [History] Umeclidinium Brm/Vilanterol Tr [Anoro Ellipta 62.5-25 Mcg INH] 1 each IH DAILY 08/22/22 [History] Levocetirizine Dihydrochloride 5 mg PO HS 08/23/22 [History] Hx Tetanus, Diphtheria Vaccination/Date Given: No Hx Influenza Vaccination/Date Given: Yes (2013) Hx Pneumococcal Vaccination/Date Given: Yes Travel Risk - Vaccine Status Have you recieved a Covid-19 vaccination: Yes 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[employer] - Vaccination Dates Date of 2cond Vaccination (if applicable): 07/2020 - Review of Systems Constitutional: No Symptoms Eyes: No Symptoms Ears, Nose, & Throat: No Symptoms Respiratory: Cough, Dyspnea, Dyspnea on Exertion (NAIK), Wheezing Cardiac: Chest Pain, No Edema Abdominal/Gastrointestinal: No Symptoms Genitourinary Symptoms: No Symptoms Musculoskeletal: No Symptoms Skin: No Symptoms Neurological: No Symptoms Psychological: No Symptoms Endocrine: No Symptoms Hematologic/Lymphatic: No Symptoms Immunological/Allergic: No Symptoms All Other Systems: Reviewed and Negative - Past Medical History Pertinent Past Medical History: Yes Neurological History: Epilepsy, Seizures ENT History: No Pertinent History Cardiac History: Hypertension Respiratory History: COPD, Emphysema Endocrine Medical History: Liver Disease Musculoskeletal History: Arthritis, Rheumatoid Arthritis, Other GI Medical History: Hepatitis History: No Pertinent History Psycho-Social History: No Pertinent History Male Reproductive Disorders: No Pertinent History Other Medical History: 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 - Past Surgical History Past Surgical History: No Neuro Surgical History: No Pertinent History Cardiac: No Pertinent History Respiratory: No Pertinent History Gastrointestinal: No Pertinent History Genitourinary: No Pertinent History Musculoskeletal: No Pertinent History Male Surgical History: No Pertinent History - Social History Smoking Status: Former smoker How long have you smoked: 40years Exposure to second hand smoke: Yes Drug Use: marijuana Patient Lives Alone: No - Nursing Vital Signs Nursing Vital Signs: Initial Vital Signs Temperature 96.1 F 08/22/22 23:19 Pulse Rate 124 H 08/22/22 23:19 Respiratory Rate 34 H 08/22/22 23:19 Blood Pressure 193/92 08/22/22 23:19 O2 Sat by Pulse Oximetry 95 08/22/22 23:19 Pain Scale Pain Intensity 0 - Physical Exam General Appearance: severe distress Eye Exam: eyes nml inspection Ears, Nose, Throat Exam: hearing grossly normal Neck Exam: normal inspection Respiratory Exam: respiratory distress, airway intact, accessory muscle use, prolonged expirations, wheezing Cardiovascular/Chest Exam: normal heart sounds, tachycardia Abdominal/Gastrointestinal Exam: soft, normal bowel sounds, distention, No tenderness, No guarding, No rebound Neurologic Exam: alert, oriented x 3, cooperative, normal mood/affect Skin Exam: diaphoresis, mottled SpO2 Interpretation: hypoxic O2 Delivery: BiPap/CPAP (applied on arrival due to increased work of breathing) - Course Nursing assessment & vital signs reviewed: Yes EKG Interpreted by Me: RATE ([id number]), Sinus Rhythm, NORMAL AXIS, NORMAL INTERVALS, NORMAL QRS, NORMAL ST-T - Radiology Exams Chest X-ray Interpretation: Interpreted by me, Pneumonia (RLL) - CT Exams Chest CT Interpretation: Tele-radiologist Report, Other (small peripheral PE can't be excluded, mild bronchiectasis w/ bronchial thickening w/ foci of mucous plugging, mild emphysema and chronic lingular atelectasis vs scarring) Ordered Tests: Active Orders 24 hr Category Date Time Status Admit as Inpatient ROUTINE Care 08/23/22 02:51 Active Match Up Person STAT Care 08/22/22 23:37 Completed Code Status Order ROUTINE Care 08/23/22 02:51 Active EKG-ER Only STAT Care 08/23/22 00:12 Completed IV Care Q6H Care 08/23/22 02:51 Active Pulse Oximetry (ED) STAT Care 08/23/22 00:12 Completed Terry James ROUTINE Care 08/23/22 02:51 Active Weight,Daily 0600 Care 08/23/22 02:51 Active House Regular Diet Diet 08/23/22 Breakfast Active CHEST 1 VIEW (PORTABLE) Routine Exams 08/22/22 23:51 Taken CHEST WITH CONTRAST [CT] Stat Exams 08/23/22 00:53 Taken ARTERIAL BLOOD GASES AM.LAB Lab 08/23/22 04:25 Completed BLOOD CULTURE Stat Lab 08/23/22 00:10 Received BMP AM.LAB Lab 08/23/22 04:34 Completed CBC AM.LAB Lab 08/23/22 04:34 Completed CBC W DIFF Stat Lab 08/22/22 23:15 Completed CMP Stat Lab 08/22/22 23:15 Completed CULTURE,SPUTUM Stat Lab 08/22/22 23:36 Ordered D-DIMER QUANTITATIVE Stat Lab 08/22/22 23:15 Completed Lactic Acid Stat Lab 08/22/22 23:35 Completed MAGNESIUM Stat Lab 08/22/22 23:15 Completed NT PRO BNPII Stat Lab 08/22/22 23:15 Completed PROCALCITONIN Stat Lab 08/23/22 00:10 Completed TROPONIN Q4H Lab 08/22/22 23:15 Completed TROPONIN Q4H Lab 08/23/22 04:34 Completed TROPONIN Q4H Lab 08/23/22 07:45 Ordered VENOUS BLOOD GAS Stat Lab 08/22/22 23:36 Completed BiPap/CPAP STAT RT 08/22/22 23:35 Active Pulse Oximetry CONTINUOUS RT 08/23/22 02:51 Active Respiratory Therapy Consult ROUTINE RT 08/23/22 02:51 Completed Transfer Order Routine Transfer 08/23/22 Completed Medication Summary Generic Name Dose Route Start Last Admin Trade Name Freq PRN Reason Stop Dose Admin Albuterol/Ipratropium 3 ml 08/23/22 03:00 08/23/22 03:15 Ipratropium/Albuterol Sulfate 3 Ml Ampul.Neb 09/22/22 02:59 Not Given Q4HRT [facility] Methylprednisolone Sodium 0 mg 08/23/22 06:00 08/23/22 05:19 Succinate 60 mg/ Sterile Water IV 09/22/22 05:59 60 mg 2 ml Q6HT MICHEAL Administration Enoxaparin Sodium 40 mg 08/23/22 10:00 Enoxaparin Sodium 40 Mg/0.4 Ml Syringe SQ 09/22/22 09:59 DAILY MICHEAL Famotidine 20 mg 08/23/22 10:00 Famotidine 20 Mg/1 Vial IV 09/22/22 09:59 Q12HT [facility] Ceftriaxone Sodium/Dextrose 1 g in 50 mls @ 100 mls/hr 08/23/22 10:00 Rocephin 1 Gm-D5w 50 Ml Bag IV 08/26/22 09:59 Q24H10 [facility] Azithromycin 500 mg in 250 mls @ 250 mls/hr 08/23/22 10:00 Zithromax 500 Mg/ 250 Ml Nacl Premix IV 09/22/22 09:59 Q24H10 MICHEAL Sodium Chloride 1,000 mls @ 50 mls/hr 08/23/22 02:51 08/23/22 03:39 Sodium Chloride 0.9% 1000 Ml IV 09/22/22 02:50 50 mls/hr .Q20H MICHEAL Administration Discontinued Medications Generic Name Dose Route Start Last Admin Trade Name Freq PRN Reason Stop Dose Admin Albuterol/Ipratropium Confirm 08/22/22 23:33 Ipratropium/Albuterol Sulfate 3 Ml Ampul.Neb Administered 08/22/22 23:34 Dose 3 ml IH .STK-MED ONE Albuterol/Ipratropium 3 ml 08/23/22 00:12 08/22/22 23:36 Ipratropium/Albuterol Sulfate 3 Ml Ampul.Neb 08/23/22 00:13 3 ml STAT ONE Administration Albuterol/Ipratropium Confirm 08/23/22 02:02 Ipratropium/Albuterol Sulfate 3 Ml Ampul.Neb Administered 08/23/22 02:03 Dose 3 ml IH .STK-MED ONE Sodium Chloride 1,000 mls @ 999 mls/hr 08/23/22 00:12 08/23/22 01:33 Sodium Chloride 0.9% 1000 Ml IV 08/23/22 01:12 Infused .Q1H1M STA Infusion Piperacillin Sod/Tazobactam 100 mls @ 200 mls/hr 08/23/22 00:13 08/23/22 00:30 Sod 3.375 gm/ Sodium Chloride IV 08/23/22 00:42 200 mls/hr STAT ONE Administration Vancomycin HCl 1 gm in 200 mls @ 125 mls/hr 08/23/22 00:13 08/23/22 02:33 Vancomycin 1 Gram/200 Ml Bag IV 08/23/22 01:48 Infused STAT ONE Infusion Sodium Chloride Confirm 08/23/22 00:28 Sodium Chloride 100ml Mini-Bag Plus Administered 08/23/22 00:29 Dose 100 mls @ ud IV .STK-MED ONE Sodium Chloride Confirm 08/23/22 00:28 Sodium Chloride 0.9% 1000 Ml Administered 08/23/22 00:29 Dose 1,000 mls @ ud .ROUTE .STK-MED ONE Vancomycin HCl Confirm 08/23/22 00:28 Vancomycin 1 Gram/200 Ml Bag Administered 08/23/22 00:29 Dose 1 gm in 200 mls @ ud IV .STK-MED ONE Azithromycin 500 mg in 250 mls @ 250 mls/hr 08/23/22 00:58 08/23/22 01:14 Zithromax 500 Mg/ 250 Ml Nacl Premix IV 08/23/22 01:57 250 mls/hr STAT ONE Administration Azithromycin Confirm 08/23/22 01:14 Zithromax 500 Mg/ 250 Ml Nacl Premix Administered 08/23/22 01:15 Dose 500 mg in 250 mls @ ud IV .STK-MED ONE Methylprednisolone Sodium Succinate Confirm 08/23/22 05:15 Methylprednis Sod Succ 125 Mg/2 Ml Vial Administered 08/23/22 05:16 Dose 125 mg .ROUTE .STK-MED ONE Piperacillin Sod/Tazobactam Sod Confirm 08/23/22 00:28 Piperacillin/Tazobactam Sodium 3.375 Gm Vial Administered 08/23/22 00:29 Dose 3.375 gm IV .STK-MED ONE Sterile Water Confirm 08/23/22 05:16 Water For Injection,Sterile 10 Ml Vial Administered 08/23/22 05:17 Dose 10 ml IJ .STK-MED ONE Lab/Rad Data: Laboratory Result Diagrams 08/22/22 23:15 08/22/22 23:15 Laboratory Results 08/23/22 08/23/22 08/23/22 Range/Units 00:35 00:35 00:10 WBC (4.0-10.5) x10^3/uL RBC (4.1-5.6) x10^6/uL Hgb (12.5-18.0) g/dL Hct (42-50) % MCV (78-100) fL MCH (26-32) pg MCHC (32-36) g/dL RDW (11.5-14.0) % Plt Count (150-450) x10^3/uL MPV (7.5-11.0) fL Gran % (36.0-66.0) % Immature Gran % (Auto) (0.00-0.4) % Nucleat RBC Rel Count (0.00-0.1) % Eos # (Auto) (0-0.5) x10^3/uL Immature Gran # (Auto) (0.00-0.03) x10^3u/L Absolute Lymphs (auto) (1.0-4.6) x10^3/uL Absolute Monos (auto) (0.0-1.3) x10^3/uL Absolute Nucleated RBC (0.00-0.01) x10^3u/L Lymphocytes % (24.0-44.0) % Monocytes % (0.0-12.0) % Eosinophils % (0.00-5.0) % Basophils % (0.0-0.4) % Absolute Granulocytes (1.4-6.9) x10^3/uL Basophils # (0-0.4) x10^3/uL D-Dimer (0.0-0.50) mg/L pO2/FiO2 Ratio 40.0 % VBG pH 7.18 L* (7.32-7.42) VBG pCO2 at Pat Temp 90 H* (42-55) mm/Hg VBG pO2 at Pat Temp 59 H (25-40) mm/Hg VBG HCO3 33.6 H* (22-28) meq/L VBG O2 Sat ([place]) 85.1 L (95-100) VBG Base Excess 2.4 H (-2.0-2.0) VBG Hemoglobin 13.1 VBG Carboxyhemoglobin 4.6 (0.0-6.9) % T HGB POC Potassium 4.8 (3.5-5.1) Sodium (137-145) mmol/L Potassium (3.5-5.1) mmol/L Chloride (98-107) mmol/L Carbon Dioxide (22-30) mmol/L Anion Gap (5-15) MEQ/L BUN (9-20) mg/dL Creatinine (0.66-1.25) mg/dL Estimated GFR ML/MIN Glucose (74-106) mg/dL Lactic Acid 1.1 (0.4-2.0) Calcium (8.4-10.2) mg/dL Magnesium (1.6-2.3) mg/dL Total Bilirubin (0.2-1.3) mg/dL AST (17-59) U/L ALT (0-50) U/L Alkaline Phosphatase (38-126) U/L Troponin I (0.000-0.034) ng/mL NT-Pro-B Natriuret Pep (<300) pg/mL Serum Total Protein (6.3-8.2) g/dL Albumin (3.5-5.0) g/dL Procalcitonin 0.043 (0.030-0.080) ng/mL Influenza Type A Ag (NEGATIVE) Influenza Type B Ag (NEGATIVE) RSV (PCR) (NEGATIVE) SARS-CoV-2 (PCR) (NEGATIVE) 08/22/22 08/22/22 08/22/22 Range/Units 23:15 23:15 23:15 WBC (4.0-10.5) x10^3/uL RBC (4.1-5.6) x10^6/uL Hgb (12.5-18.0) g/dL Hct (42-50) % MCV (78-100) fL MCH (26-32) pg MCHC (32-36) g/dL RDW (11.5-14.0) % Plt Count (150-450) x10^3/uL MPV (7.5-11.0) fL Gran % (36.0-66.0) % Immature Gran % (Auto) (0.00-0.4) % Nucleat RBC Rel Count (0.00-0.1) % Eos # (Auto) (0-0.5) x10^3/uL Immature Gran # (Auto) (0.00-0.03) x10^3u/L Absolute Lymphs (auto) (1.0-4.6) x10^3/uL Absolute Monos (auto) (0.0-1.3) x10^3/uL Absolute Nucleated RBC (0.00-0.01) x10^3u/L Lymphocytes % (24.0-44.0) % Monocytes % (0.0-12.0) % Eosinophils % (0.00-5.0) % Basophils % (0.0-0.4) % Absolute Granulocytes (1.4-6.9) x10^3/uL Basophils # (0-0.4) x10^3/uL D-Dimer (0.0-0.50) mg/L pO2/FiO2 Ratio % VBG pH (7.32-7.42) VBG pCO2 at Pat Temp (42-55) mm/Hg VBG pO2 at Pat Temp (25-40) mm/Hg VBG HCO3 (22-28) meq/L VBG O2 Sat ([place]) (95-100) VBG Base Excess (-2.0-2.0) VBG Hemoglobin VBG Carboxyhemoglobin (0.0-6.9) % T HGB POC Potassium (3.5-5.1) Sodium (137-145) mmol/L Potassium (3.5-5.1) mmol/L Chloride (98-107) mmol/L Carbon Dioxide (22-30) mmol/L Anion Gap (5-15) MEQ/L BUN (9-20) mg/dL Creatinine (0.66-1.25) mg/dL Estimated GFR ML/MIN Glucose (74-106) mg/dL Lactic Acid (0.4-2.0) Calcium (8.4-10.2) mg/dL Magnesium (1.6-2.3) mg/dL Total Bilirubin (0.2-1.3) mg/dL AST (17-59) U/L ALT (0-50) U/L Alkaline Phosphatase (38-126) U/L Troponin I < 0.012 (0.000-0.034) ng/mL NT-Pro-B Natriuret Pep 26.0 (<300) pg/mL Serum Total Protein (6.3-8.2) g/dL Albumin (3.5-5.0) g/dL Procalcitonin (0.030-0.080) ng/mL Influenza Type A Ag NEGATIVE (NEGATIVE) Influenza Type B Ag NEGATIVE (NEGATIVE) RSV (PCR) NEGATIVE (NEGATIVE) SARS-CoV-2 (PCR) NEGATIVE (NEGATIVE) 08/22/22 08/22/22 08/22/22 Range/Units 23:15 23:15 23:15 WBC 13.5 H (4.0-10.5) x10^3/uL RBC 4.21 (4.1-5.6) x10^6/uL Hgb 12.5 (12.5-18.0) g/dL Hct 41.9 L (42-50) % MCV 99.5 (78-100) fL MCH 29.7 (26-32) pg MCHC 29.8 L (32-36) g/dL RDW 12.0 (11.5-14.0) % Plt Count 198 (150-450) x10^3/uL MPV 11.4 H (7.5-11.0) fL Gran % 60.5 (36.0-66.0) % Immature Gran % (Auto) 0.7 H (0.00-0.4) % Nucleat RBC Rel Count 0.0 (0.00-0.1) % Eos # (Auto) 0.99 H (0-0.5) x10^3/uL Immature Gran # (Auto) 0.10 H (0.00-0.03) x10^3u/L Absolute Lymphs (auto) 2.71 (1.0-4.6) x10^3/uL Absolute Monos (auto) 1.45 H (0.0-1.3) x10^3/uL Absolute Nucleated RBC 0.00 (0.00-0.01) x10^3u/L Lymphocytes % 20.1 L (24.0-44.0) % Monocytes % 10.7 (0.0-12.0) % Eosinophils % 7.3 H (0.00-5.0) % Basophils % 0.7 (0.0-0.4) % Absolute Granulocytes 8.17 H (1.4-6.9) x10^3/uL Basophils # 0.09 (0-0.4) x10^3/uL D-Dimer 0.54 H (0.0-0.50) mg/L pO2/FiO2 Ratio % VBG pH (7.32-7.42) VBG pCO2 at Pat Temp (42-55) mm/Hg VBG pO2 at Pat Temp (25-40) mm/Hg VBG HCO3 (22-28) meq/L VBG O2 Sat ([place]) (95-100) VBG Base Excess (-2.0-2.0) VBG Hemoglobin VBG Carboxyhemoglobin (0.0-6.9) % T HGB POC Potassium (3.5-5.1) Sodium 143 (137-145) mmol/L Potassium 4.5 (3.5-5.1) mmol/L Chloride 101 (98-107) mmol/L Carbon Dioxide 33 H (22-30) mmol/L Anion Gap 13.5 (5-15) MEQ/L BUN 11 (9-20) mg/dL Creatinine 0.67 (0.66-1.25) mg/dL Estimated GFR > 60.0 ML/MIN Glucose 160 H (74-106) mg/dL Lactic Acid (0.4-2.0) Calcium 8.7 (8.4-10.2) mg/dL Magnesium 1.8 (1.6-2.3) mg/dL Total Bilirubin 0.50 (0.2-1.3) mg/dL AST 36 (17-59) U/L ALT 35 (0-50) U/L Alkaline Phosphatase 82 (38-126) U/L Troponin I (0.000-0.034) ng/mL NT-Pro-B Natriuret Pep (<300) pg/mL Serum Total Protein 7.7 (6.3-8.2) g/dL Albumin 4.6 (3.5-5.0) g/dL Procalcitonin (0.030-0.080) ng/mL Influenza Type A Ag (NEGATIVE) Influenza Type B Ag (NEGATIVE) RSV (PCR) (NEGATIVE) SARS-CoV-2 (PCR) (NEGATIVE) - Progress Progress: improved Air Movement: fair Progress Note: 08/23/22 01:02 Patient breathing better on BIPAP saturating at 100% 40 FiO2. pH 7.18 w/ pCO2 of 90. He was started on broad spectrum abx due to being SIRs 3/4, but lactate wnl. Will deescalate to Rocephin and Azithromycin. Plan to continue at this time, wean as tolerated. D-dimer elevated so CTA chest ordered to r/o PE. Will i nitiate hospital admission w/ pending CTA. 08/23/22 01:23 Spoke w/ Dr. Edgar who agrees to admit. Requested a repeat VBG while still on BIPAP. Blood Culture(s) Obtained: Yes Antibiotics given: Yes Discussed with Dr.: Other (Dr. Edgar) Counseled pt/family regarding: lab results, diagnosis, rad results Medical Desision Making - Discussion of managment Care discussed with:: hospitalist Reviewed:: Test results Agreed on:: Treatment plan, place in obs Will see patient: in hospital - Diagnostic Testing Diagnostic test were ordered, analyzed, and reviewed by me: Yes Radiological Interpretation: Interpreted by me, Reviewed by me, Teleradiologist Report - Risk of complications The pt has a high risk of morbidity or mortality based on: Decision regarding hospitilization or escalation of hosp level of care - Departure Departure Disposition: Observation Clinical Impression: COPD with acute exacerbation, Acute and chronic respiratory failure ([id number]), Pneumonia, Hypercarbia, Acidosis, HTN (hypertension), Tobacco dependence, Elevated d-dimer, Tachycardia Condition: Stable Critical Care Time: No
[2022-08-22] MEDS ORDERED: DUONEB 0.5-3 MG/3 ml Neb IH ONE (23:33)
[2022-08-23] MEDS ORDERED: Sodium Chloride 0.9% 1000 ML 1,000 ML IV STA (00:12)
[2022-08-23] MEDS ORDERED: DUONEB 0.5-3 MG/3 ml Neb IH ONE ×2 (00:12→02:02)
[2022-08-23] MEDS ORDERED: PIPERACILLIN/TAZOBACTAM 3.375 GM in Sodium Chloride 100ML MINI-BAG PLUS 100 ML IV ONE (00:13)
[2022-08-23] MEDS ORDERED: VANCOMYCIN 1 GRAM/200 ML BAG 1 GM/200 ML PIGGYBACK IV ONE ×2 (00:13→00:28)
[2022-08-23 00:25] LABS: Absolute Neutrophil Ct (ANC) 8.17 x10^3/uL (1.4-6.9); BASOPHIL % 0.7 % (0.0-0.4); Basophil (Absolute #) 0.09 x10^3/uL (0-0.4); Eosinophil % 7.3 % (0.00-5.0); Eosinophil (Absolute #) 0.99 x10^3/uL (0-0.5); Hematocrit 41.9 % (42-50); Hemoglobin 12.5 g/dL (12.5-18.0); IMMATURE GRAN % 0.7 % (0.00-0.4); Lymphocyte (Absolute #) 2.71 x10^3/uL (1.0-4.6); Lymphocytes % 20.1 % (24.0-44.0); Mean Cell Volume 99.5 fL (78-100); Mean Corpuscular Hemoglobin 29.7 pg (26-32); Mean Corpuscular Hgb Concent. 29.8 g/dL (32-36); Mean Platelet Volume 11.4 fL (7.5-11.0); Monocyte (Absolute #) 1.45 x10^3/uL (0.0-1.3); Monocytes % 10.7 % (0.0-12.0); Neutrophil % 60.5 % (36.0-66.0); Platelet Count 198 x10^3/uL (150-450); Red Blood Count 4.21 x10^6/uL (4.1-5.6); White Blood Count 13.5 x10^3/uL (4.0-10.5)
[2022-08-23 00:27] LABS: INFLUENZA A NEGATIVE (NEGATIVE); INFLUENZA B NEGATIVE (NEGATIVE); RESPIRATORY SYNCTIAL VIRUS NEGATIVE (NEGATIVE); SARS-CoV-2 Xpert Express NEGATIVE (NEGATIVE)
[2022-08-23] MEDS ORDERED: Sodium Chloride 100ML MINI-BAG PLUS 100 ML IV ONE (00:28)
[2022-08-23] MEDS ORDERED: Sodium Chloride 0.9% 1000 ML 1,000 ML ONE (00:28)
[2022-08-23] MEDS ORDERED: PIPERACILLIN/TAZOBACTAM IV ONE (00:28)
[2022-08-23 00:32] LABS: ALBUMIN 4.6 g/dL (3.5-5.0); ALKALINE PHOSPHATASE 82 U/L (38-126); ANION GAP 13.5 MEQ/L (5-15); BLOOD UREA NITROGEN 11 mg/dL (9-20); CHLORIDE 101 mmol/L (98-107); Calcium 8.7 mg/dL (8.4-10.2); Carbon Dioxide 33 mmol/L (22-30); Creatinine 1 0.67 mg/dL (0.66-1.25); EST GLOMERULAR FILTRATION RATE > 60.0 ML/MIN; Glucose 160 mg/dL (74-106); MAGNESIUM 1.8 mg/dL (1.6-2.3); Potassium 4.5 mmol/L (3.5-5.1); SGOT/AST 36 U/L (17-59); SGPT/ALT 35 U/L (0-50); SODIUM 143 mmol/L (137-145); Total Protein 7.7 g/dL (6.3-8.2)
[2022-08-23 00:42] LABS: VBG BASE EXCESS 2.4 (-2.0-2.0); VBG CARBOXYHEMOGLOBIN 4.6 % T HGB (0.0-6.9); VBG HCO3- 33.6 meq/L (22-28); VBG HEMOGLOBIN 13.1; VBG O2 SATURATION 85.1 (95-100); VBG POTASSIUM 4.8 (3.5-5.1); VBG pH 7.18 (7.32-7.42)
[2022-08-23] MEDS ORDERED: Zithromax 500 MG/ 250 ML NaCl Premix 500 MG/250 ML IVPB IV ONE ×2 (00:58→01:14)
[2022-08-23] MEDS: DUONEB 0.5-3 MG/3 ml Neb IH SCH ×4 (02:06→11:53)
[2022-08-23] MEDS ORDERED: DUONEB 0.5-3 MG/3 ml Neb IH SCH (03:00)
[2022-08-23] MEDS: Sodium Chloride 0.9% 1000 ML 1,000 ML IV SCH ×2 (03:39→22:15)
--- NOTE | 2022-08-23 04:05 | PCM.HP ---
History of Present Illness - Chief Complaint Chief Complaint: acute hypoxic resp failure History of Present Illness: This is a 72-year-old male admitted for acute on chronic hypercapnic respiratory failure and COPD exacerbation. He has history of COPD. He presented to the ED this evening for evaluation of shortness of breath reported sats in the foot by EMS was in the 70s. [facility] here 7.18/59 and he was placed on BiPAP. WBC 13, hemoglobin 12, platelets 198, influenza, RSV, COVID all negative. Chest x-ray concerning for right lower lobe infiltrate this was not present on CT angiogram which was also negative for PE. In the ED he received vancomycin, Zosyn, azithromycin, 1 L of saline and DuoNebs. He received nebulizers and Solu-Medrol by EMS. - Review of Systems Respiratory: Short Of Breath All Other Systems: Reviewed and Negative Medications & Allergies Home Medications: Home Medication List Albuterol Common Canister [Ventolin Common Canister] 2 puff IH Q4HPRN PRN #0 puff 10/28/12 [Rx Confirmed 08/22/22] Atorvastatin Calcium [Lipitor] 40 mg PO DAILY 03/24/19 [History Confirmed 08/22/22] Metoprolol Succinate 100 mg [Toprol Xl 100 MG] 50 mg PO DAILY 08/22/22 [History Confirmed 08/22/22] Umeclidinium Brm/Vilanterol Tr [Anoro Ellipta 62.5-25 Mcg INH] 1 each IH DAILY 08/22/22 [History Confirmed 08/22/22] Levocetirizine Dihydrochloride 5 mg PO HS 08/23/22 [History Confirmed 08/23/22] Allergies/Adverse Reactions: Allergies Allergy/AdvReac Type Severity Reaction Status Date / Time No Known Drug Allergies Allergy Verified 03/24/19 18:49 - Past Medical History Past Medical History: Yes Neurological History: Epilepsy, Seizures ENT History: No Pertinent History Cardiac History: Hypertension Respiratory History: COPD, Emphysema Endocrine Medical History: Liver Disease Musculoskelatal History: Arthritis, Rheumatoid Arthritis, Other GI Medical History: Hepatitis History: No Pertinent History Pyscho-Social History: No Pertinent History Male Reproductive Disorders: No Pertinent History Comment: 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 - Past Surgical History Past Surgical History: No Neuro Surgical History: No Pertinent History Cardiac History: No Pertinent History Respiratory Surgery: No Pertinent History GI Surgical History: No Pertinent History Genitourinary Surgical Hx: No Pertinent History Musculskeletal Surgical Hx: No Pertinent History Male Surgical History: No Pertinent History - Social History Smoking Status: Former smoker How long have you smoked: 40years Exposure to second hand smoke: Yes Alcohol: Daily Drug Use: marijuana - Physical Exam Vital Signs: Vital Signs - 24 hr Temp Pulse Resp BP Pulse Ox 08/23/22 03:17 112 H 32 H 98 08/23/22 03:07 99.3 F 112 H 36 H 140/77 98 08/23/22 02:06 112 H 30 H 100 08/23/22 02:00 113 H 21 145/76 100 08/23/22 01:00 108 H 21 152/104 100 08/23/22 00:23 109 H 22 158/95 100 08/22/22 23:36 116 H 26 H 100 08/22/22 23:19 96.1 F 124 H 34 H 193/92 95 General Appearance: other (On bipap) Neurologic Exam: alert, oriented x 3 Eye Exam: eyes nml inspection Ears, Nose, Throat Exam: other (full face mask) Neck Exam: normal inspection Respiratory Exam: wheezing, other (coarse BS) Cardiovascular Exam: regular rate/rhythm Gastrointestinal/Abdomen Exam: soft Extremity Exam: normal inspection Skin Exam: normal color, warm, dry, No rash Results - Labs Lab/Micro Results: Lab Results-Last 24 Hours 08/22/22 08/22/22 08/22/22 Range/Units 23:15 23:15 23:15 WBC 13.5 H (4.0-10.5) x10^3/uL RBC 4.21 (4.1-5.6) x10^6/uL Hgb 12.5 (12.5-18.0) g/dL Hct 41.9 L (42-50) % MCV 99.5 (78-100) fL MCH 29.7 (26-32) pg MCHC 29.8 L (32-36) g/dL RDW 12.0 (11.5-14.0) % Plt Count 198 (150-450) x10^3/uL MPV 11.4 H (7.5-11.0) fL Gran % 60.5 (36.0-66.0) % Immature Gran % (Auto) 0.7 H (0.00-0.4) % Nucleat RBC Rel Count 0.0 (0.00-0.1) % Eos # (Auto) 0.99 H (0-0.5) x10^3/uL Immature Gran # (Auto) 0.10 H (0.00-0.03) x10^3u/L Absolute Lymphs (auto) 2.71 (1.0-4.6) x10^3/uL Absolute Monos (auto) 1.45 H (0.0-1.3) x10^3/uL Absolute Nucleated RBC 0.00 (0.00-0.01) x10^3u/L Lymphocytes % 20.1 L (24.0-44.0) % Monocytes % 10.7 (0.0-12.0) % Eosinophils % 7.3 H (0.00-5.0) % Basophils % 0.7 (0.0-0.4) % Absolute Granulocytes 8.17 H (1.4-6.9) x10^3/uL Basophils # 0.09 (0-0.4) x10^3/uL D-Dimer 0.54 H (0.0-0.50) mg/L pO2/FiO2 Ratio % VBG pH (7.32-7.42) VBG pCO2 at Pat Temp (42-55) mm/Hg VBG pO2 at Pat Temp (25-40) mm/Hg VBG HCO3 (22-28) meq/L VBG O2 Sat ([place]) (95-100) VBG Base Excess (-2.0-2.0) VBG Hemoglobin VBG Carboxyhemoglobin (0.0-6.9) % T HGB POC Potassium (3.5-5.1) Sodium 143 (137-145) mmol/L Potassium 4.5 (3.5-5.1) mmol/L Chloride 101 (98-107) mmol/L Carbon Dioxide 33 H (22-30) mmol/L Anion Gap 13.5 (5-15) MEQ/L BUN 11 (9-20) mg/dL Creatinine 0.67 (0.66-1.25) mg/dL Estimated GFR > 60.0 ML/MIN Glucose 160 H (74-106) mg/dL Lactic Acid (0.4-2.0) Calcium 8.7 (8.4-10.2) mg/dL Magnesium 1.8 (1.6-2.3) mg/dL Total Bilirubin 0.50 (0.2-1.3) mg/dL AST 36 (17-59) U/L ALT 35 (0-50) U/L Alkaline Phosphatase 82 (38-126) U/L Troponin I (0.000-0.034) ng/mL NT-Pro-B Natriuret Pep (<300) pg/mL Serum Total Protein 7.7 (6.3-8.2) g/dL Albumin 4.6 (3.5-5.0) g/dL Procalcitonin (0.030-0.080) ng/mL Influenza Type A Ag (NEGATIVE) Influenza Type B Ag (NEGATIVE) RSV (PCR) (NEGATIVE) SARS-CoV-2 (PCR) (NEGATIVE) 08/22/22 08/22/22 08/22/22 Range/Units 23:15 23:15 23:15 WBC (4.0-10.5) x10^3/uL RBC (4.1-5.6) x10^6/uL Hgb (12.5-18.0) g/dL Hct (42-50) % MCV (78-100) fL MCH (26-32) pg MCHC (32-36) g/dL RDW (11.5-14.0) % Plt Count (150-450) x10^3/uL MPV (7.5-11.0) fL Gran % (36.0-66.0) % Immature Gran % (Auto) (0.00-0.4) % Nucleat RBC Rel Count (0.00-0.1) % Eos # (Auto) (0-0.5) x10^3/uL Immature Gran # (Auto) (0.00-0.03) x10^3u/L Absolute Lymphs (auto) (1.0-4.6) x10^3/uL Absolute Monos (auto) (0.0-1.3) x10^3/uL Absolute Nucleated RBC (0.00-0.01) x10^3u/L Lymphocytes % (24.0-44.0) % Monocytes % (0.0-12.0) % Eosinophils % (0.00-5.0) % Basophils % (0.0-0.4) % Absolute Granulocytes (1.4-6.9) x10^3/uL Basophils # (0-0.4) x10^3/uL D-Dimer (0.0-0.50) mg/L pO2/FiO2 Ratio % VBG pH (7.32-7.42) VBG pCO2 at Pat Temp (42-55) mm/Hg VBG pO2 at Pat Temp (25-40) mm/Hg VBG HCO3 (22-28) meq/L VBG O2 Sat ([place]) (95-100) VBG Base Excess (-2.0-2.0) VBG Hemoglobin VBG Carboxyhemoglobin (0.0-6.9) % T HGB POC Potassium (3.5-5.1) Sodium (137-145) mmol/L Potassium (3.5-5.1) mmol/L Chloride (98-107) mmol/L Carbon Dioxide (22-30) mmol/L Anion Gap (5-15) MEQ/L BUN (9-20) mg/dL Creatinine (0.66-1.25) mg/dL Estimated GFR ML/MIN Glucose (74-106) mg/dL Lactic Acid (0.4-2.0) Calcium (8.4-10.2) mg/dL Magnesium (1.6-2.3) mg/dL Total Bilirubin (0.2-1.3) mg/dL AST (17-59) U/L ALT (0-50) U/L Alkaline Phosphatase (38-126) U/L Troponin I < 0.012 (0.000-0.034) ng/mL NT-Pro-B Natriuret Pep 26.0 (<300) pg/mL Serum Total Protein (6.3-8.2) g/dL Albumin (3.5-5.0) g/dL Procalcitonin (0.030-0.080) ng/mL Influenza Type A Ag NEGATIVE (NEGATIVE) Influenza Type B Ag NEGATIVE (NEGATIVE) RSV (PCR) NEGATIVE (NEGATIVE) SARS-CoV-2 (PCR) NEGATIVE (NEGATIVE) 08/23/22 08/23/22 08/23/22 Range/Units 00:10 00:35 00:35 WBC (4.0-10.5) x10^3/uL RBC (4.1-5.6) x10^6/uL Hgb (12.5-18.0) g/dL Hct (42-50) % MCV (78-100) fL MCH (26-32) pg MCHC (32-36) g/dL RDW (11.5-14.0) % Plt Count (150-450) x10^3/uL MPV (7.5-11.0) fL Gran % (36.0-66.0) % Immature Gran % (Auto) (0.00-0.4) % Nucleat RBC Rel Count (0.00-0.1) % Eos # (Auto) (0-0.5) x10^3/uL Immature Gran # (Auto) (0.00-0.03) x10^3u/L Absolute Lymphs (auto) (1.0-4.6) x10^3/uL Absolute Monos (auto) (0.0-1.3) x10^3/uL Absolute Nucleated RBC (0.00-0.01) x10^3u/L Lymphocytes % (24.0-44.0) % Monocytes % (0.0-12.0) % Eosinophils % (0.00-5.0) % Basophils % (0.0-0.4) % Absolute Granulocytes (1.4-6.9) x10^3/uL Basophils # (0-0.4) x10^3/uL D-Dimer (0.0-0.50) mg/L pO2/FiO2 Ratio 40.0 % VBG pH 7.18 L* (7.32-7.42) VBG pCO2 at Pat Temp 90 H* (42-55) mm/Hg VBG pO2 at Pat Temp 59 H (25-40) mm/Hg VBG HCO3 33.6 H* (22-28) meq/L VBG O2 Sat ([place]) 85.1 L (95-100) VBG Base Excess 2.4 H (-2.0-2.0) VBG Hemoglobin 13.1 VBG Carboxyhemoglobin 4.6 (0.0-6.9) % T HGB POC Potassium 4.8 (3.5-5.1) Sodium (137-145) mmol/L Potassium (3.5-5.1) mmol/L Chloride (98-107) mmol/L Carbon Dioxide (22-30) mmol/L Anion Gap (5-15) MEQ/L BUN (9-20) mg/dL Creatinine (0.66-1.25) mg/dL Estimated GFR ML/MIN Glucose (74-106) mg/dL Lactic Acid 1.1 (0.4-2.0) Calcium (8.4-10.2) mg/dL Magnesium (1.6-2.3) mg/dL Total Bilirubin (0.2-1.3) mg/dL AST (17-59) U/L ALT (0-50) U/L Alkaline Phosphatase (38-126) U/L Troponin I (0.000-0.034) ng/mL NT-Pro-B Natriuret Pep (<300) pg/mL Serum Total Protein (6.3-8.2) g/dL Albumin (3.5-5.0) g/dL Procalcitonin 0.043 (0.030-0.080) ng/mL Influenza Type A Ag (NEGATIVE) Influenza Type B Ag (NEGATIVE) RSV (PCR) (NEGATIVE) SARS-CoV-2 (PCR) (NEGATIVE) - Radiology Impressions Radiology Exams & Impressions: Radiology Procedures Category Date Time Status CHEST 1 VIEW (PORTABLE) Routine Exams 08/22/22 23:51 Taken CHEST WITH CONTRAST [CT] Stat Exams 08/23/22 00:53 Taken - Other Procedures and Tests Respiratory Therapy 08/22/22 23:35 BiPap/CPAP STAT 08/23/22 01:02 Respiratory Therapy Assessment DAILY 08/23/22 03:16 Oxygen Nasal Cannula 2 lpm Assessment/Plan (1) Acute and chronic respiratory failure ([id number]) Current Visit: Yes Status: Acute Qualifiers: Code(s): J96.20 - ACUTE AND CHR RESP FAILURE, UNSP W HYPOXIA OR HYPERCAPNIA (2) COPD with acute exacerbation Current Visit: Yes Status: Acute Assessment & Plan: #Acute on chronic hypercapnic respiratory failure in setting of acute COPD exacerbation -Solu-Medrol -DuoNebs -Continue BiPAP support -Empiric Ceftriaxone, Azithromycin -Repeat ABG #Acute COPD exacerbation. COVID, influenza, RSV screens all negative #FEN p.o. diet Prophylaxis: Lovenox Full Code MPOA daughter Toya Alves Entire encounter performed via telemedicine Critical care time 60 minutes Code(s): J44.1 - CHRONIC OBSTRUCTIVE PULMONARY DISEASE W (ACUTE) EXACERBATION Telemedicine Encounter - Telemedicine Encounter Telemedicine Encounter: The entirety of this encounter was performed via Telemedicine"
[2022-08-23 04:35] LABS: A-aADO2 119; ABG HEMOGLOBIN 12.5; ABG POTASSIUM 4.8 (3.5-5.1); ABG SITE RIGHT RADIAL; ALLEN TEST OK? YES; ARTERIAL BLD GAS O2 SATURATION 99.1 % (95-100); ARTERIAL BLOOD GAS BASE EXCESS 3.6 (-2.0-2.0); ARTERIAL BLOOD GAS FIO2 40 %; ARTERIAL BLOOD GAS PCO2 55 mmHg (35-45); ARTERIAL BLOOD GAS PO2 97 mmHg (75-100); ARTERIAL BLOOD GAS VENT MODE BiPAP; ARTERIAL BLOOD GAS pH 7.35 (7.35-7.45); CARBOXYHEMOGLOBIN 3.9 % THgb (0.0-6.9); HCO3- 30.4 (22-28); HGB O2 SAT 94.3 g/dF (94-100); Methhemoglobin 0.9 % (1.4-1.5); paO2 pAO1 0.45
[2022-08-23 04:36] LABS: Hematocrit 38.6 % (42-50); Hemoglobin 11.8 g/dL (12.5-18.0); Mean Cell Volume 98.7 fL (78-100); Mean Corpuscular Hemoglobin 30.2 pg (26-32); Mean Corpuscular Hgb Concent. 30.6 g/dL (32-36); Mean Platelet Volume 11.2 fL (7.5-11.0); Platelet Count 185 x10^3/uL (150-450); Red Blood Count 3.91 x10^6/uL (4.1-5.6); Red Cell Distribution Width 12.2 % (11.5-14.0); White Blood Count 12.1 x10^3/uL (4.0-10.5)
[2022-08-23 04:53] LABS: ANION GAP 13.2 MEQ/L (5-15); BLOOD UREA NITROGEN 9 mg/dL (9-20); CHLORIDE 101 mmol/L (98-107); Calcium 8.4 mg/dL (8.4-10.2); Carbon Dioxide 32 mmol/L (22-30); Creatinine 1 0.68 mg/dL (0.66-1.25); EST GLOMERULAR FILTRATION RATE > 60.0 ML/MIN; Glucose 158 mg/dL (74-106); Potassium 4.7 mmol/L (3.5-5.1); SODIUM 141 mmol/L (137-145)
[2022-08-23] MEDS ORDERED: solu-MEDROL ONE ×2 (05:15→17:36)
[2022-08-23] MEDS ORDERED: Sterile H2O 10 ml IJ ONE (05:16)
[2022-08-23] MEDS: solu-MEDROL 60 MG, Sterile H2O 10 ml 2 ML IV SCH ×6 (05:19→17:54)
--- NOTE | 2022-08-23 08:30 | XRAY ---
Indication: Chest pain and short of breath. Elevated d-dimer. Multiple contiguous axial images obtained through the chest using 100 cc Isovue 370 contrast and PE protocol. Comparison: Low-dose chest CT exam April 27, 2022. Suboptimal opacification of the pulmonary arteries and mild diffuse respiration artifact limits evaluation for pulmonary embolus. No obvious central pulmonary embolus. Heart not enlarged again with coronary calcifications. Aorta is normal in course and caliber without aneurysm/dissection. Tiny mediastinal and right hilar calcified nodes. No pathologic mediastinal/hilar lymphadenopathy Lungs again demonstrates pulmonary emphysema, lingula subsegmental atelectasis/scarring, and 4 mm noncalcified nodule posterior right upper lobe. No suspicious pulmonary mass, infiltrate, consolidation, or effusion. Bony thorax intact again with mild degenerative changes throughout the spine and remote T12 compression fracture. Limited upper abdomen unremarkable. Impression: 1. Pulmonary embolus evaluation limited due to suboptimal contrast opacification and respiration artifact. No obvious central pulmonary embolus or acute cardiopulmonary abnormalities. 2. Again chronic findings including pulmonary emphysema, lingula atelectasis/scarring, right upper lobe noncalcified micronodule, and chronic bony findings. Comment: Preliminary interpretation made by [facility]. No critical discrepancy.
--- NOTE | 2022-08-23 08:32 | XRAY ---
Indication: Short of breath. Comparison: January 07, 2021 Portable chest unchanged again demonstrating minimal lingula and right base subsegmental atelectasis/scarring. Remaining heart and lungs unremarkable. Bony thorax intact again with osteopenia and mild degenerative changes. No new/acute findings.
[2022-08-23] MEDS: ROCEPHIN 1 Gm-D5w 50 ml Bag** 1 G/50 ML IVPB IV SCH (09:49)
[2022-08-23] MEDS: Pepcid 20 MG VIAL IV SCH ×2 (09:49→22:16)
[2022-08-23] MEDS: ENOXAPARIN SODIUM SQ SCH (09:49)
[2022-08-23] MEDS ORDERED: Ativan 2 MG/1 ML VIAL IV PRN (11:51)
[2022-08-23] MEDS ORDERED: SENOKOT 8.6 MG PO PRN (12:13)
[2022-08-23 12:56] LABS: A-aADO2 137; ABG HEMOGLOBIN 11.9; ABG POTASSIUM 4.2 (3.5-5.1); ARTERIAL BLD GAS O2 SATURATION 97.9 % (95-100); ARTERIAL BLOOD GAS BASE EXCESS 0.7 (-2.0-2.0); ARTERIAL BLOOD GAS FIO2 40 %; ARTERIAL BLOOD GAS PCO2 52 mmHg (35-45); ARTERIAL BLOOD GAS PO2 83 mmHg (75-100); ARTERIAL BLOOD GAS pH 7.33 (7.35-7.45); CARBOXYHEMOGLOBIN 0.9 % THgb (0.0-6.9); HCO3- 27.4 (22-28); paO2 pAO1 0.38
[2022-08-23 12:57] LABS: ABG SITE LEFT BRACHIAL
[2022-08-23] MEDS ORDERED: MEDICATION INTERVENTION MC SCH (13:00)
[2022-08-23] MEDS: Toprol Xl 50 MG PO SCH (13:10)
[2022-08-23] MEDS: ZOCOR 20MG PO SCH (13:10)
[2022-08-23] MEDS: Mucinex 600MG ER Tabs PO SCH ×2 (13:10→22:16)
[2022-08-23] MEDS: CLARITIN 10 MG PO SCH (13:11)
[2022-08-23] MEDS: Xopenex 1.25 MG/0.5 ML UD NEBULE IH SCH ×3 (15:25→23:40)
[2022-08-23] MEDS: Sodium Chloride 3 ML UD NEBULES IH SCH ×3 (15:25→23:40)
[2022-08-23] MEDS: Advair Hfa 115/21 Common canister IH SCH (19:06)
[2022-08-23] MEDS: Zithromax 500 MG/ 250 ML NaCl Premix 500 MG/250 ML IVPB IV SCH (22:16)
[2022-08-24] MEDS: solu-MEDROL 60 MG, Sterile H2O 10 ml 2 ML IV SCH ×8 (00:56→18:42)
[2022-08-24] MEDS: Xopenex 1.25 MG/0.5 ML UD NEBULE IH SCH ×6 (03:27→22:49)
[2022-08-24] MEDS: Sodium Chloride 3 ML UD NEBULES IH SCH ×4 (03:28→14:25)
[2022-08-24 05:02] LABS: Absolute Neutrophil Ct (ANC) 15.72 x10^3/uL (1.4-6.9); BASOPHIL % 0.2 % (0.0-0.4); Basophil (Absolute #) 0.03 x10^3/uL (0-0.4); Eosinophil (Absolute #) 0 x10^3/uL (0-0.5); Hematocrit 36.4 % (42-50); Hemoglobin 11.2 g/dL (12.5-18.0); IMMATURE GRAN % 0.6 % (0.00-0.4); Lymphocyte (Absolute #) 0.49 x10^3/uL (1.0-4.6); Lymphocytes % 2.9 % (24.0-44.0); Mean Cell Volume 97.8 fL (78-100); Mean Corpuscular Hemoglobin 30.1 pg (26-32); Mean Corpuscular Hgb Concent. 30.8 g/dL (32-36); Mean Platelet Volume 11.3 fL (7.5-11.0); Monocyte (Absolute #) 0.56 x10^3/uL (0.0-1.3); Monocytes % 3.3 % (0.0-12.0); Platelet Count 202 x10^3/uL (150-450); Red Blood Count 3.72 x10^6/uL (4.1-5.6); Red Cell Distribution Width 12.5 % (11.5-14.0); White Blood Count 16.9 x10^3/uL (4.0-10.5)
[2022-08-24 05:10] LABS: ALBUMIN 4.2 g/dL (3.5-5.0); ALKALINE PHOSPHATASE 59 U/L (38-126); BLOOD UREA NITROGEN 17 mg/dL (9-20); CHLORIDE 102 mmol/L (98-107); Calcium 8.9 mg/dL (8.4-10.2); Carbon Dioxide 32 mmol/L (22-30); Creatinine 1 0.73 mg/dL (0.66-1.25); EST GLOMERULAR FILTRATION RATE > 60.0 ML/MIN; Glucose 152 mg/dL (74-106); Potassium 4.4 mmol/L (3.5-5.1); SGOT/AST 29 U/L (17-59); SGPT/ALT 31 U/L (0-50); SODIUM 142 mmol/L (137-145); Total Protein 7.1 g/dL (6.3-8.2)
[2022-08-24] MEDS: Advair Hfa 115/21 Common canister IH SCH ×2 (07:17→18:21)
[2022-08-24 08:10] LABS: Slide Review 1 YES
[2022-08-24] MEDS: Toprol Xl 50 MG PO SCH (09:15)
[2022-08-24] MEDS: ZOCOR 20MG PO SCH (09:15)
[2022-08-24] MEDS: ENOXAPARIN SODIUM SQ SCH (09:15)
[2022-08-24] MEDS: Mucinex 600MG ER Tabs PO SCH ×2 (09:15→21:30)
[2022-08-24] MEDS: CLARITIN 10 MG PO SCH (09:15)
[2022-08-24] MEDS: Pepcid 20 MG VIAL IV SCH ×2 (09:16→21:30)
[2022-08-24] MEDS: ROCEPHIN 1 Gm-D5w 50 ml Bag** 1 G/50 ML IVPB IV SCH (09:16)
[2022-08-24] MEDS ORDERED: LIPITOR 40MG PO SCH (10:00)
--- NOTE | 2022-08-24 13:53 | PCM.NOTE ---
Date and Time: 08/24/22 1350 Subjective Assessment: Still coarse lung sounds requiring 4L O2. WBC up to 16,900 was 13,000 on admission. Is hyper on IV steroid. States he choked a few days ago. Objective Exam General Appearance: no apparent distress Neurologic Exam: alert, oriented x 3, cooperative, normal mood/affect (hyper after nebulizer treatment) Skin Exam: normal color, warm, dry Respiratory Exam: other (coarse expirations all lung ray) Cardiovascular Exam: tachycardia (regular rate 100) Gastrointestinal/Abdomen Exam: other (protuberant,nontender) Extremity Exam: other (no pitting edema) OBJECTIVE DATA Vital Signs: Vital Signs - 24 hr Temp Pulse Resp BP Pulse Ox 08/24/22 11:43 98.9 F 109 H 19 136/63 98 08/24/22 10:32 93 L 08/24/22 10:30 130 H 28 H 90 L 08/24/22 07:17 112 H 20 97 08/24/22 06:57 98.7 F 119 H 19 156/80 97 08/24/22 04:00 97.8 F 107 H 32 H 139/65 97 08/24/22 03:28 106 H 26 H 96 08/23/22 23:44 98.0 F 115 H 32 H 146/74 98 08/23/22 23:40 108 H 22 95 08/23/22 19:25 97.8 F 114 H 28 H 139/79 97 08/23/22 19:07 106 H 22 96 08/23/22 16:00 97.5 F 115 H 20 130/70 99 08/23/22 15:25 108 H 28 H 98 Pain Assessment - Last Documented Pain Intensity 0 Intake and Output: Intake & Output 08/22/22 08/23/22 08/24/22 08/25/22 11:59 11:59 11:59 11:59 Intake Total 2573 240 Output Total 650 Balance 1923 240 Weight 99.5 kg 67.2 kg Lab Results: Lab Results-Last 24 Hours 08/24/22 08/24/22 Range/Units 04:23 04:23 WBC 16.9 H (4.0-10.5) x10^3/uL RBC 3.72 L (4.1-5.6) x10^6/uL Hgb 11.2 L (12.5-18.0) g/dL Hct 36.4 L (42-50) % MCV 97.8 (78-100) fL MCH 30.1 (26-32) pg MCHC 30.8 L (32-36) g/dL RDW 12.5 (11.5-14.0) % Plt Count 202 (150-450) x10^3/uL MPV 11.3 H (7.5-11.0) fL Gran % 93.0 H (36.0-66.0) % Immature Gran % (Auto) 0.6 H (0.00-0.4) % Nucleat RBC Rel Count 0.0 (0.00-0.1) % Eos # (Auto) 0 (0-0.5) x10^3/uL Immature Gran # (Auto) 0.10 H (0.00-0.03) x10^3u/L Absolute Lymphs (auto) 0.49 L (1.0-4.6) x10^3/uL Absolute Monos (auto) 0.56 (0.0-1.3) x10^3/uL Absolute Nucleated RBC 0.00 (0.00-0.01) x10^3u/L Lymphocytes % 2.9 L (24.0-44.0) % Monocytes % 3.3 (0.0-12.0) % Eosinophils % 0.0 (0.00-5.0) % Basophils % 0.2 (0.0-0.4) % Absolute Granulocytes 15.72 H (1.4-6.9) x10^3/uL Basophils # 0.03 (0-0.4) x10^3/uL Sodium 142 (137-145) mmol/L Potassium 4.4 (3.5-5.1) mmol/L Chloride 102 (98-107) mmol/L Carbon Dioxide 32 H (22-30) mmol/L Anion Gap 13.0 (5-15) MEQ/L BUN 17 (9-20) mg/dL Creatinine 0.73 (0.66-1.25) mg/dL Estimated GFR > 60.0 ML/MIN Glucose 152 H (74-106) mg/dL Calcium 8.9 (8.4-10.2) mg/dL Total Bilirubin 0.30 (0.2-1.3) mg/dL AST 29 (17-59) U/L ALT 31 (0-50) U/L Alkaline Phosphatase 59 (38-126) U/L Serum Total Protein 7.1 (6.3-8.2) g/dL Albumin 4.2 (3.5-5.0) g/dL Slides for Path Review YES Radiology Exams: Radiology Procedures Category Date Time Status CHEST 1 VIEW (PORTABLE) Routine Exams 08/22/22 23:51 Completed CHEST WITH CONTRAST [CT] Stat Exams 08/23/22 00:53 Completed Assessment/Plan (1) Acute and chronic respiratory failure ([id number]) Current Visit: Yes Status: Acute Qualifiers: Code(s): J96.20 - ACUTE AND CHR RESP FAILURE, UNSP W HYPOXIA OR HYPERCAPNIA (2) Pneumonia Current Visit: Yes Status: Suspected Qualifiers: Pneumonia type: aspiration pneumonia Assessment & Plan: per patient's history Code(s): J18.9 - PNEUMONIA, UNSPECIFIED ORGANISM (3) Elevated troponin Current Visit: Yes Status: Acute Code(s): R77.8 - OTHER SPECIFIED ABNORMALITIES OF PLASMA PROTEINS
[2022-08-24] MEDS ORDERED: solu-MEDROL ONE (17:43)
[2022-08-24] MEDS ORDERED: Toprol Xl 50 MG PO ONE (18:21)
[2022-08-24] MEDS: Sodium Chloride 0.9% 1000 ML 1,000 ML IV SCH (19:36)
[2022-08-24] MEDS: Zithromax 500 MG/ 250 ML NaCl Premix 500 MG/250 ML IVPB IV SCH (21:30)
[2022-08-25] MEDS: Xopenex 1.25 MG/0.5 ML UD NEBULE IH SCH ×6 (03:15→22:25)
[2022-08-25] MEDS: Sodium Chloride 3 ML UD NEBULES IH SCH ×6 (03:15→22:30)
[2022-08-25 04:34] LABS: Absolute Neutrophil Ct (ANC) 19.25 x10^3/uL (1.4-6.9); BASOPHIL % 0.1 % (0.0-0.4); Basophil (Absolute #) 0.03 x10^3/uL (0-0.4); Eosinophil (Absolute #) 0 x10^3/uL (0-0.5); Hematocrit 36.7 % (42-50); Hemoglobin 11.1 g/dL (12.5-18.0); IMMATURE GRAN # 0.25 x10^3u/L (0.00-0.03); IMMATURE GRAN % 1.2 % (0.00-0.4); Lymphocyte (Absolute #) 0.65 x10^3/uL (1.0-4.6); Mean Cell Volume 99.5 fL (78-100); Mean Corpuscular Hemoglobin 30.1 pg (26-32); Mean Corpuscular Hgb Concent. 30.2 g/dL (32-36); Mean Platelet Volume 10.7 fL (7.5-11.0); Monocyte (Absolute #) 1.51 x10^3/uL (0.0-1.3); Neutrophil % 88.7 % (36.0-66.0); Platelet Count 210 x10^3/uL (150-450); Red Blood Count 3.69 x10^6/uL (4.1-5.6); Red Cell Distribution Width 12.7 % (11.5-14.0); White Blood Count 21.7 x10^3/uL (4.0-10.5)
[2022-08-25 04:48] LABS: ALBUMIN 4.2 g/dL (3.5-5.0); ALKALINE PHOSPHATASE 56 U/L (38-126); ANION GAP 11.1 MEQ/L (5-15); BLOOD UREA NITROGEN 20 mg/dL (9-20); CHLORIDE 102 mmol/L (98-107); Calcium 8.9 mg/dL (8.4-10.2); Carbon Dioxide 37 mmol/L (22-30); Creatinine 1 0.69 mg/dL (0.66-1.25); EST GLOMERULAR FILTRATION RATE > 60.0 ML/MIN; Glucose 121 mg/dL (74-106); Potassium 4.1 mmol/L (3.5-5.1); SGOT/AST 36 U/L (17-59); SGPT/ALT 35 U/L (0-50); SODIUM 145 mmol/L (137-145); Total Protein 7.1 g/dL (6.3-8.2)
[2022-08-25 05:06] LABS: Slide Review 1 YES
[2022-08-25] MEDS ORDERED: solu-MEDROL ONE (06:09)
[2022-08-25] MEDS: solu-MEDROL 60 MG, Sterile H2O 10 ml 2 ML IV SCH ×4 (06:16→19:33)
[2022-08-25] MEDS: Advair Hfa 115/21 Common canister IH SCH ×2 (06:45→18:34)
[2022-08-25] MEDS: Pepcid 20 MG VIAL IV SCH ×2 (09:50→21:39)
[2022-08-25] MEDS: ROCEPHIN 1 Gm-D5w 50 ml Bag** 1 G/50 ML IVPB IV SCH (09:50)
[2022-08-25] MEDS: ZOCOR 20MG PO SCH (10:34)
[2022-08-25] MEDS: ENOXAPARIN SODIUM SQ SCH (10:34)
[2022-08-25] MEDS: CLARITIN 10 MG PO SCH (10:34)
[2022-08-25] MEDS: Toprol Xl 50 MG PO SCH (10:34)
[2022-08-25] MEDS: Mucinex 600MG ER Tabs PO SCH ×2 (10:34→21:39)
[2022-08-25] MEDS ORDERED: Lasix 20 MG/2 ML IV ONE (12:00)
[2022-08-25] MEDS ORDERED: Klor Con PO ONE (12:00)
--- NOTE | 2022-08-25 18:38 | PCM.NOTE ---
Date and Time: 08/25/221835 Subjective Assessment: Patient had confusion when he awakened did not know where he was but nurse was able to reorient patient. Ativan given. Breathing easier today still wheezing. Eating regular diet ,good appetite Objective Exam General Appearance: mild distress, anxiety (just had neb tx) Neurologic Exam: alert, oriented x 3 Skin Exam: normal color, warm, dry Ears, Nose, Throat Exam: moist mucous membranes Neck Exam: normal inspection Respiratory Exam: diminished breath sounds (on 5L O2/NC but improved rom yesterday-just had breating tx), wheezing (scattered) Cardiovascular Exam: tachycardia OBJECTIVE DATA Vital Signs: Vital Signs - 24 hr Temp Pulse Resp BP Pulse Ox 08/25/22 16:00 97.5 F 98 H 18 160/80 95 08/25/22 14:58 108 H 24 92 L 08/25/22 12:00 97.5 F 117 H 28 H 177/91 91 L 08/25/22 11:00 117 H 28 H 91 L 08/25/22 07:07 97.7 F 94 H 18 154/86 97 08/25/22 06:47 94 H 24 97 08/25/22 04:05 122 H 22 08/25/22 04:00 97.7 F 107 H 22 151/79 92 L 08/25/22 03:15 108 H 32 H 93 L 08/24/22 23:29 98.2 F 113 H 23 167/86 97 08/24/22 22:49 114 H 24 95 08/24/22 19:30 97.8 F 131 H 22 162/80 90 L Pain Assessment - Last Documented Pain Intensity 0 Intake and Output: Intake & Output 08/23/22 08/24/22 08/25/22 08/26/22 11:59 11:59 11:59 11:59 Intake Total 6563 2474 240 Output Total 650 Balance 5303 2474 240 Weight 99.5 kg 67.2 kg 99.1 kg Lab Results: Lab Results-Last 24 Hours 08/25/22 08/25/22 08/25/22 Range/Units 04:15 04:15 04:15 WBC 21.7 H (4.0-10.5) x10^3/uL RBC 3.69 L (4.1-5.6) x10^6/uL Hgb 11.1 L (12.5-18.0) g/dL Hct 36.7 L (42-50) % MCV 99.5 (78-100) fL MCH 30.1 (26-32) pg MCHC 30.2 L (32-36) g/dL RDW 12.7 (11.5-14.0) % Plt Count 210 (150-450) x10^3/uL MPV 10.7 (7.5-11.0) fL Gran % 88.7 H (36.0-66.0) % Immature Gran % (Auto) 1.2 H (0.00-0.4) % Nucleat RBC Rel Count 0.0 (0.00-0.1) % Eos # (Auto) 0 (0-0.5) x10^3/uL Immature Gran # (Auto) 0.25 H (0.00-0.03) x10^3u/L Absolute Lymphs (auto) 0.65 L (1.0-4.6) x10^3/uL Absolute Monos (auto) 1.51 H (0.0-1.3) x10^3/uL Absolute Nucleated RBC 0.00 (0.00-0.01) x10^3u/L Lymphocytes % 3.0 L (24.0-44.0) % Monocytes % 7.0 (0.0-12.0) % Eosinophils % 0.0 (0.00-5.0) % Basophils % 0.1 (0.0-0.4) % Absolute Granulocytes 19.25 H (1.4-6.9) x10^3/uL Basophils # 0.03 (0-0.4) x10^3/uL Sodium 145 (137-145) mmol/L Potassium 4.1 (3.5-5.1) mmol/L Chloride 102 (98-107) mmol/L Carbon Dioxide 37 H (22-30) mmol/L Anion Gap 11.1 (5-15) MEQ/L BUN 20 (9-20) mg/dL Creatinine 0.69 (0.66-1.25) mg/dL Estimated GFR > 60.0 ML/MIN Glucose 121 H (74-106) mg/dL Calcium 8.9 (8.4-10.2) mg/dL Total Bilirubin 0.30 (0.2-1.3) mg/dL AST 36 (17-59) U/L ALT 35 (0-50) U/L Alkaline Phosphatase 56 (38-126) U/L Troponin I 0.045 H* (0.000-0.034) ng/mL NT-Pro-B Natriuret Pep (<300) pg/mL Serum Total Protein 7.1 (6.3-8.2) g/dL Albumin 4.2 (3.5-5.0) g/dL Slides for Path Review YES 08/25/22 Range/Units 04:15 WBC (4.0-10.5) x10^3/uL RBC (4.1-5.6) x10^6/uL Hgb (12.5-18.0) g/dL Hct (42-50) % MCV (78-100) fL MCH (26-32) pg MCHC (32-36) g/dL RDW (11.5-14.0) % Plt Count (150-450) x10^3/uL MPV (7.5-11.0) fL Gran % (36.0-66.0) % Immature Gran % (Auto) (0.00-0.4) % Nucleat RBC Rel Count (0.00-0.1) % Eos # (Auto) (0-0.5) x10^3/uL Immature Gran # (Auto) (0.00-0.03) x10^3u/L Absolute Lymphs (auto) (1.0-4.6) x10^3/uL Absolute Monos (auto) (0.0-1.3) x10^3/uL Absolute Nucleated RBC (0.00-0.01) x10^3u/L Lymphocytes % (24.0-44.0) % Monocytes % (0.0-12.0) % Eosinophils % (0.00-5.0) % Basophils % (0.0-0.4) % Absolute Granulocytes (1.4-6.9) x10^3/uL Basophils # (0-0.4) x10^3/uL Sodium (137-145) mmol/L Potassium (3.5-5.1) mmol/L Chloride (98-107) mmol/L Carbon Dioxide (22-30) mmol/L Anion Gap (5-15) MEQ/L BUN (9-20) mg/dL Creatinine (0.66-1.25) mg/dL Estimated GFR ML/MIN Glucose (74-106) mg/dL Calcium (8.4-10.2) mg/dL Total Bilirubin (0.2-1.3) mg/dL AST (17-59) U/L ALT (0-50) U/L Alkaline Phosphatase (38-126) U/L Troponin I (0.000-0.034) ng/mL NT-Pro-B Natriuret Pep 1630 (<300) pg/mL Serum Total Protein (6.3-8.2) g/dL Albumin (3.5-5.0) g/dL Slides for Path Review Multi-Disciplinary Progress Notes: Multi-Disciplinary Progress Notes 08/25/22 10:44 Case Management Note by Melania Ross S/W PATIENT. HE CONTINUES TO DENY ANY NEW NEEDS AT TIME OF DC. SLIGHTLY CONFUSED THIS AM. STATES BECAUSE OF MEDS. STILL PLANS TO RETURN TO HIS HOME AT [facility] AT TIME OF DC WITH CHILDREN CHECKING ON HIM. IF NEEDS NEBS AT DC, WILL NEED TO ORDER BECAUSE HE SENT THE NEBULIZER BACK AFTER NOT NEEDING. Initialized on 08/25/22 10:44 - END OF NOTE Assessment/Plan (1) Acute and chronic respiratory failure ([id number]) Current Visit: Yes Status: Acute Qualifiers: Respiratory failure complication: hypoxia Qualified Code(s): J96.21 - Acute and chronic respiratory failure with hypoxia Assessment & Plan: improved ,not at baseline Code(s): J96.20 - ACUTE AND CHR RESP FAILURE, UNSP W HYPOXIA OR HYPERCAPNIA (2) Pneumonia Current Visit: Yes Status: Suspected Qualifiers: Pneumonia type: aspiration pneumonia Code(s): J18.9 - PNEUMONIA, UNSPECIFIED ORGANISM (3) Elevated troponin Current Visit: Yes Status: Acute Assessment & Plan: trending down Code(s): R77.8 - OTHER SPECIFIED ABNORMALITIES OF PLASMA PROTEINS (4) Leukocytosis Current Visit: Yes Status: Acute Assessment & Plan: afebrile, Leukocytosis probably due to Solumedrol -reduced dose. prolactin level today is not elevated Code(s): D72.829 - ELEVATED WHITE BLOOD CELL COUNT, UNSPECIFIED (5) Elevated brain natriuretic peptide (BNP) level Current Visit: Yes Status: Acute Assessment & Plan: improved, ECHO Code(s): R79.89 - OTHER SPECIFIED ABNORMAL FINDINGS OF BLOOD CHEMISTRY
[2022-08-25] MEDS: Zithromax 500 MG/ 250 ML NaCl Premix 500 MG/250 ML IVPB IV SCH (21:39)
[2022-08-26] MEDS: Sodium Chloride 3 ML UD NEBULES IH SCH ×7 (03:00→22:35)
[2022-08-26] MEDS: Xopenex 1.25 MG/0.5 ML UD NEBULE IH SCH ×6 (03:00→22:35)
[2022-08-26 04:39] LABS: Absolute Neutrophil Ct (ANC) 14.26 x10^3/uL (1.4-6.9); BASOPHIL % 0.1 % (0.0-0.4); Basophil (Absolute #) 0.02 x10^3/uL (0-0.4); Eosinophil (Absolute #) 0 x10^3/uL (0-0.5); Hematocrit 37.6 % (42-50); Hemoglobin 11.5 g/dL (12.5-18.0); IMMATURE GRAN # 0.24 x10^3u/L (0.00-0.03); IMMATURE GRAN % 1.5 % (0.00-0.4); Lymphocyte (Absolute #) 0.43 x10^3/uL (1.0-4.6); Lymphocytes % 2.8 % (24.0-44.0); Mean Cell Volume 98.7 fL (78-100); Mean Corpuscular Hemoglobin 30.2 pg (26-32); Mean Corpuscular Hgb Concent. 30.6 g/dL (32-36); Mean Platelet Volume 10.9 fL (7.5-11.0); Monocyte (Absolute #) 0.54 x10^3/uL (0.0-1.3); Monocytes % 3.5 % (0.0-12.0); Neutrophil % 92.1 % (36.0-66.0); Platelet Count 210 x10^3/uL (150-450); Red Blood Count 3.81 x10^6/uL (4.1-5.6); Red Cell Distribution Width 12.8 % (11.5-14.0); White Blood Count 15.5 x10^3/uL (4.0-10.5)
[2022-08-26 04:55] LABS: ALBUMIN 4.3 g/dL (3.5-5.0); ALKALINE PHOSPHATASE 57 U/L (38-126); BLOOD UREA NITROGEN 21 mg/dL (9-20); CHLORIDE 99 mmol/L (98-107); Calcium 8.9 mg/dL (8.4-10.2); Carbon Dioxide 38 mmol/L (22-30); Creatinine 1 0.69 mg/dL (0.66-1.25); EST GLOMERULAR FILTRATION RATE > 60.0 ML/MIN; Glucose 136 mg/dL (74-106); Potassium 4.4 mmol/L (3.5-5.1); SGOT/AST 45 U/L (17-59); SGPT/ALT 39 U/L (0-50); SODIUM 145 mmol/L (137-145); Total Protein 6.9 g/dL (6.3-8.2)
[2022-08-26] MEDS: solu-MEDROL 60 MG, Sterile H2O 10 ml 2 ML IV SCH ×2 (06:13)
[2022-08-26] MEDS: Advair Hfa 115/21 Common canister IH SCH ×2 (07:05→18:51)
[2022-08-26 07:12] LABS: Slide Review 1 YES
[2022-08-26] MEDS: CLARITIN 10 MG PO SCH (08:58)
[2022-08-26] MEDS: Toprol Xl 50 MG PO SCH (08:58)
[2022-08-26] MEDS: ROCEPHIN 1 Gm-D5w 50 ml Bag** 1 G/50 ML IVPB IV SCH (08:58)
[2022-08-26] MEDS: Pepcid 20 MG VIAL IV SCH ×2 (08:58→21:02)
[2022-08-26] MEDS: ENOXAPARIN SODIUM SQ SCH (08:58)
[2022-08-26] MEDS: ZOCOR 20MG PO SCH (08:58)
[2022-08-26] MEDS: Mucinex 600MG ER Tabs PO SCH ×2 (08:59→21:00)
--- NOTE | 2022-08-26 12:23 | PCM.NOTE ---
Date and Time: 08/26/22 1219 Subjective Assessment: He is not feeling better. Still SOB, deepali when active. Morro po fine. - Review of Systems Constitutional: No Fever Respiratory: Cough, Short Of Breath Objective Exam General Appearance: no apparent distress, obese Neurologic Exam: oriented x 3, cooperative Skin Exam: normal color, warm, dry, No rash Eye Exam: eyes nml inspection Ears, Nose, Throat Exam: moist mucous membranes Neck Exam: normal inspection Respiratory Exam: diminished breath sounds (fair air exchange), wheezing (throughout), No crackles/rales, No rhonchi Cardiovascular Exam: normal heart sounds, tachycardia, No murmur Gastrointestinal/Abdomen Exam: soft Extremity Exam: normal inspection, No pedal edema, No swelling OBJECTIVE DATA Vital Signs: Vital Signs - 24 hr Temp Pulse Resp BP Pulse Ox 08/26/22 11:33 97.5 F 118 H 20 167/93 91 L 08/26/22 07:27 97.8 F 105 H 20 167/93 97 08/26/22 07:08 115 H 22 98 08/26/22 03:52 97.2 F 108 H 26 H 161/97 93 L 08/26/22 03:00 107 H 18 97 08/25/22 23:18 97.8 F 110 H 20 166/86 99 08/25/22 22:30 122 H 26 H 97 08/25/22 19:31 98.4 F 117 H 24 161/77 92 L 08/25/22 18:35 117 H 24 92 L 08/25/22 16:00 97.5 F 98 H 18 160/80 95 08/25/22 14:58 108 H 24 92 L Pain Assessment - Last Documented Pain Intensity 0 Intake and Output: Intake & Output 08/24/22 08/25/22 08/26/22 08/27/22 11:59 11:59 11:59 11:59 Intake Total 1383 2474 2720 Output Total 650 250 Balance 1923 2474 2470 Weight 67.2 kg 219.2 kg Lab Results: Lab Results-Last 24 Hours 08/25/22 08/26/22 08/26/22 Range/Units 18:00 04:16 04:16 WBC 15.5 H (4.0-10.5) x10^3/uL RBC 3.81 L (4.1-5.6) x10^6/uL Hgb 11.5 L (12.5-18.0) g/dL Hct 37.6 L (42-50) % MCV 98.7 (78-100) fL MCH 30.2 (26-32) pg MCHC 30.6 L (32-36) g/dL RDW 12.8 (11.5-14.0) % Plt Count 210 (150-450) x10^3/uL MPV 10.9 (7.5-11.0) fL Gran % 92.1 H (36.0-66.0) % Immature Gran % (Auto) 1.5 H (0.00-0.4) % Nucleat RBC Rel Count 0.0 (0.00-0.1) % Eos # (Auto) 0 (0-0.5) x10^3/uL Immature Gran # (Auto) 0.24 H (0.00-0.03) x10^3u/L Absolute Lymphs (auto) 0.43 L (1.0-4.6) x10^3/uL Absolute Monos (auto) 0.54 (0.0-1.3) x10^3/uL Absolute Nucleated RBC 0.00 (0.00-0.01) x10^3u/L Lymphocytes % 2.8 L (24.0-44.0) % Monocytes % 3.5 (0.0-12.0) % Eosinophils % 0.0 (0.00-5.0) % Basophils % 0.1 (0.0-0.4) % Absolute Granulocytes 14.26 H (1.4-6.9) x10^3/uL Basophils # 0.02 (0-0.4) x10^3/uL Sodium 145 (137-145) mmol/L Potassium 4.4 (3.5-5.1) mmol/L Chloride 99 (98-107) mmol/L Carbon Dioxide 38 H (22-30) mmol/L Anion Gap 12.0 (5-15) MEQ/L BUN 21 H (9-20) mg/dL Creatinine 0.69 (0.66-1.25) mg/dL Estimated GFR > 60.0 ML/MIN Glucose 136 H (74-106) mg/dL Calcium 8.9 (8.4-10.2) mg/dL Total Bilirubin 0.40 (0.2-1.3) mg/dL AST 45 (17-59) U/L ALT 39 (0-50) U/L Alkaline Phosphatase 57 (38-126) U/L NT-Pro-B Natriuret Pep (<300) pg/mL Serum Total Protein 6.9 (6.3-8.2) g/dL Albumin 4.3 (3.5-5.0) g/dL Procalcitonin < 0.030 L (0.030-0.080) ng/mL Slides for Path Review YES 08/26/22 Range/Units 04:16 WBC (4.0-10.5) x10^3/uL RBC (4.1-5.6) x10^6/uL Hgb (12.5-18.0) g/dL Hct (42-50) % MCV (78-100) fL MCH (26-32) pg MCHC (32-36) g/dL RDW (11.5-14.0) % Plt Count (150-450) x10^3/uL MPV (7.5-11.0) fL Gran % (36.0-66.0) % Immature Gran % (Auto) (0.00-0.4) % Nucleat RBC Rel Count (0.00-0.1) % Eos # (Auto) (0-0.5) x10^3/uL Immature Gran # (Auto) (0.00-0.03) x10^3u/L Absolute Lymphs (auto) (1.0-4.6) x10^3/uL Absolute Monos (auto) (0.0-1.3) x10^3/uL Absolute Nucleated RBC (0.00-0.01) x10^3u/L Lymphocytes % (24.0-44.0) % Monocytes % (0.0-12.0) % Eosinophils % (0.00-5.0) % Basophils % (0.0-0.4) % Absolute Granulocytes (1.4-6.9) x10^3/uL Basophils # (0-0.4) x10^3/uL Sodium (137-145) mmol/L Potassium (3.5-5.1) mmol/L Chloride (98-107) mmol/L Carbon Dioxide (22-30) mmol/L Anion Gap (5-15) MEQ/L BUN (9-20) mg/dL Creatinine (0.66-1.25) mg/dL Estimated GFR ML/MIN Glucose (74-106) mg/dL Calcium (8.4-10.2) mg/dL Total Bilirubin (0.2-1.3) mg/dL AST (17-59) U/L ALT (0-50) U/L Alkaline Phosphatase (38-126) U/L NT-Pro-B Natriuret Pep 1290 (<300) pg/mL Serum Total Protein (6.3-8.2) g/dL Albumin (3.5-5.0) g/dL Procalcitonin (0.030-0.080) ng/mL Slides for Path Review Radiology Exams: Radiology Procedures Category Date Time Status CHEST 2 VIEWS (PA AND LAT) Routine Exams 08/26/22 12:17 Ordered Multi-Disciplinary Progress Notes: Multi-Disciplinary Progress Notes 08/26/22 11:11 Case Management Note by Melania Ross Addendum entered by Melania Ross RN 08/26/22 11:24: [facility] THEY WILL NEED NOTIFIED OF AL AT ([phone]). THEY WILL NEED FAXED AL INSTRUCTIONS, DC MED LIST AND DC SUMMARY (IF AVAILABLE) Original Note: S/W PATIENT. HE STATES THAT IS AGREEABLE TO HAVE [facility] AT DISCHARGE. 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 [facility] AND FAXED INFO ON REFERRAL. WILL CONTACT [facility] AT [place] ([phone]) AND FAX ANY PERTINENT INFO TO ([phone]) Initialized on 08/26/22 11:11 - END OF NOTE 08/25/22 22:36 Respiratory Note by Sue Suh Apparent respiratory distress with accessory muscle use, tachypneic, and t achycardic. Given nebulizer and placed on Bipap. Initialized on 08/25/22 22:36 - END OF NOTE Assessment/Plan (1) COPD with acute exacerbation Current Visit: Yes Status: Acute Assessment & Plan: Recheck CXR> Increased steroid from 60mg IV q12h to 80mg IV q8h. He is quite wheezy throughout. On zithromax and rocephin day #4 (so, will stop zithromax). Code(s): J44.1 - CHRONIC OBSTRUCTIVE PULMONARY DISEASE W (ACUTE) EXACERBATION (2) Acute and chronic respiratory failure ([id number]) Current Visit: Yes Status: Acute Qualifiers: Respiratory failure complication: hypoxia Qualified Code(s): J96.21 - Acute and chronic respiratory failure with hypoxia Code(s): J96.20 - ACUTE AND CHR RESP FAILURE, UNSP W HYPOXIA OR HYPERCAPNIA (3) CHF (congestive heart failure) Current Visit: Yes Status: Chronic Code(s): I50.9 - HEART FAILURE, UNSPECIFIED
--- NOTE | 2022-08-26 13:25 | XRAY ---
Indication: Follow-up pneumonia. COPD exacerbation. Comparison: August 22, 2022 PA/lateral chest demonstrates new left base discoid atelectasis. Stable minimal right lung atelectasis/scarring. Remaining heart and lungs unremarkable.
[2022-08-26] MEDS ORDERED: solu-MEDROL 80 MG, Sterile H2O 10 ml 1 ML IV SCH ×2 (14:00)
[2022-08-26] MEDS: solu-MEDROL 80 MG, Sterile H2O 10 ml 2 ML IV SCH ×4 (15:51→21:01)
[2022-08-27] MEDS: Xopenex 1.25 MG/0.5 ML UD NEBULE IH SCH ×6 (02:40→23:16)
[2022-08-27] MEDS: Sodium Chloride 3 ML UD NEBULES IH SCH ×6 (02:40→23:16)
[2022-08-27 04:28] LABS: Absolute Neutrophil Ct (ANC) 10.64 x10^3/uL (1.4-6.9); BASOPHIL % 0.2 % (0.0-0.4); Basophil (Absolute #) 0.02 x10^3/uL (0-0.4); Eosinophil (Absolute #) 0 x10^3/uL (0-0.5); Hematocrit 37.5 % (42-50); Hemoglobin 11.1 g/dL (12.5-18.0); IMMATURE GRAN # 0.26 x10^3u/L (0.00-0.03); IMMATURE GRAN % 2.2 % (0.00-0.4); Lymphocytes % 3.4 % (24.0-44.0); Mean Cell Volume 99.2 fL (78-100); Mean Corpuscular Hemoglobin 29.4 pg (26-32); Mean Corpuscular Hgb Concent. 29.6 g/dL (32-36); Mean Platelet Volume 10.6 fL (7.5-11.0); Monocyte (Absolute #) 0.36 x10^3/uL (0.0-1.3); Monocytes % 3.1 % (0.0-12.0); Neutrophil % 91.1 % (36.0-66.0); Platelet Count 201 x10^3/uL (150-450); Red Blood Count 3.78 x10^6/uL (4.1-5.6); Red Cell Distribution Width 12.2 % (11.5-14.0); White Blood Count 11.7 x10^3/uL (4.0-10.5)
[2022-08-27 04:44] LABS: BLOOD UREA NITROGEN 25 mg/dL (9-20); CHLORIDE 95 mmol/L (98-107); Creatinine 1 0.78 mg/dL (0.66-1.25); EST GLOMERULAR FILTRATION RATE > 60.0 ML/MIN; Glucose 140 mg/dL (74-106); Potassium 5.1 mmol/L (3.5-5.1); SODIUM 143 mmol/L (137-145)
[2022-08-27 04:53] LABS: Carbon Dioxide 41 mmol/L (22-30)
[2022-08-27 04:54] LABS: ANION GAP 12.1 MEQ/L (5-15)
[2022-08-27 05:30] LABS: Slide Review 1 YES
[2022-08-27] MEDS: solu-MEDROL 80 MG, Sterile H2O 10 ml 2 ML IV SCH ×6 (05:59→21:47)
[2022-08-27] MEDS: Advair Hfa 115/21 Common canister IH SCH (06:47)
[2022-08-27] MEDS: Mucinex 600MG ER Tabs PO SCH ×2 (10:13→21:47)
[2022-08-27] MEDS: ROCEPHIN 1 Gm-D5w 50 ml Bag** 1 G/50 ML IVPB IV SCH (10:13)
[2022-08-27] MEDS: ZOCOR 20MG PO SCH (10:13)
[2022-08-27] MEDS: CLARITIN 10 MG PO SCH (10:13)
[2022-08-27] MEDS: Toprol Xl 50 MG PO SCH (10:14)
[2022-08-27] MEDS: Pepcid 20 MG VIAL IV SCH ×2 (10:14→21:48)
[2022-08-27] MEDS: ENOXAPARIN SODIUM SQ SCH (10:14)
--- NOTE | 2022-08-27 13:40 | PCM.NOTE ---
Date and Time: 08/27/22 1340 Subjective Assessment: Patient states he is not feeling well today,"wiped out". Coughing spell this morning productive of thick clear sputum.Appetite is good. States his sister is coming to clean his house and visit. Objective Exam General Appearance: no apparent distress Neurologic Exam: alert, oriented x 3 Skin Exam: warm, dry, other (dusky) Neck Exam: normal inspection Respiratory Exam: other (coarse expirations throughout but better air movement) Gastrointestinal/Abdomen Exam: soft (nontender) Extremity Exam: other (no pitting edema) OBJECTIVE DATA Vital Signs: Vital Signs - 24 hr Temp Pulse Resp BP BP Pulse Ox 08/27/22 10:45 108 H 20 94 L 08/27/22 07:23 97.7 F 108 H 19 173/87 95 08/27/22 06:52 113 H 22 94 L 08/27/22 04:00 97.5 F 104 H 20 139/90 98 08/27/22 02:40 91 H 20 97 08/26/22 23:30 97.8 F 112 H 24 177/95 95 08/26/22 22:35 92 H 20 99 08/26/22 19:30 97.7 F 112 H 22 161/88 08/26/22 18:54 112 H 24 96 08/26/22 15:00 97.5 F 104 H 20 158/76 93 L 08/26/22 14:30 120 H 24 92 L Pain Assessment - Last Documented Pain Intensity 0 Intake and Output: Intake & Output 08/25/22 08/26/22 08/27/22 08/28/22 11:59 11:59 11:59 11:59 Intake Total 2474 2720 1300 Output Total 250 Balance 2474 2470 1300 Weight 99.6 kg 99.201 kg Lab Results: Lab Results-Last 24 Hours 08/27/22 08/27/22 08/27/22 Range/Units 04:07 04:07 04:07 WBC 11.7 H (4.0-10.5) x10^3/uL RBC 3.78 L (4.1-5.6) x10^6/uL Hgb 11.1 L (12.5-18.0) g/dL Hct 37.5 L (42-50) % MCV 99.2 (78-100) fL MCH 29.4 (26-32) pg MCHC 29.6 L (32-36) g/dL RDW 12.2 (11.5-14.0) % Plt Count 201 (150-450) x10^3/uL MPV 10.6 (7.5-11.0) fL Gran % 91.1 H (36.0-66.0) % Immature Gran % (Auto) 2.2 H (0.00-0.4) % Nucleat RBC Rel Count 0.0 (0.00-0.1) % Eos # (Auto) 0 (0-0.5) x10^3/uL Immature Gran # (Auto) 0.26 H (0.00-0.03) x10^3u/L Absolute Lymphs (auto) 0.40 L (1.0-4.6) x10^3/uL Absolute Monos (auto) 0.36 (0.0-1.3) x10^3/uL Absolute Nucleated RBC 0.00 (0.00-0.01) x10^3u/L Lymphocytes % 3.4 L (24.0-44.0) % Monocytes % 3.1 (0.0-12.0) % Eosinophils % 0.0 (0.00-5.0) % Basophils % 0.2 (0.0-0.4) % Absolute Granulocytes 10.64 H (1.4-6.9) x10^3/uL Basophils # 0.02 (0-0.4) x10^3/uL Sodium 143 (137-145) mmol/L Potassium 5.1 (3.5-5.1) mmol/L Chloride 95 L (98-107) mmol/L Carbon Dioxide 41 H (22-30) mmol/L Anion Gap 12.1 (5-15) MEQ/L BUN 25 H (9-20) mg/dL Creatinine 0.78 (0.66-1.25) mg/dL Estimated GFR > 60.0 ML/MIN Glucose 140 H (74-106) mg/dL Hemoglobin A1c 5.36 (4.5-6.0) % Calcium 9.0 (8.4-10.2) mg/dL NT-Pro-B Natriuret Pep (<300) pg/mL Slides for Path Review YES 08/27/22 Range/Units 04:30 WBC (4.0-10.5) x10^3/uL RBC (4.1-5.6) x10^6/uL Hgb (12.5-18.0) g/dL Hct (42-50) % MCV (78-100) fL MCH (26-32) pg MCHC (32-36) g/dL RDW (11.5-14.0) % Plt Count (150-450) x10^3/uL MPV (7.5-11.0) fL Gran % (36.0-66.0) % Immature Gran % (Auto) (0.00-0.4) % Nucleat RBC Rel Count (0.00-0.1) % Eos # (Auto) (0-0.5) x10^3/uL Immature Gran # (Auto) (0.00-0.03) x10^3u/L Absolute Lymphs (auto) (1.0-4.6) x10^3/uL Absolute Monos (auto) (0.0-1.3) x10^3/uL Absolute Nucleated RBC (0.00-0.01) x10^3u/L Lymphocytes % (24.0-44.0) % Monocytes % (0.0-12.0) % Eosinophils % (0.00-5.0) % Basophils % (0.0-0.4) % Absolute Granulocytes (1.4-6.9) x10^3/uL Basophils # (0-0.4) x10^3/uL Sodium (137-145) mmol/L Potassium (3.5-5.1) mmol/L Chloride (98-107) mmol/L Carbon Dioxide (22-30) mmol/L Anion Gap (5-15) MEQ/L BUN (9-20) mg/dL Creatinine (0.66-1.25) mg/dL Estimated GFR ML/MIN Glucose (74-106) mg/dL Hemoglobin A1c (4.5-6.0) % Calcium (8.4-10.2) mg/dL NT-Pro-B Natriuret Pep 1220 (<300) pg/mL Slides for Path Review Radiology Exams: Radiology Procedures Category Date Time Status CHEST 2 VIEWS (PA AND LAT) Routine Exams 08/26/22 12:59 Completed Multi-Disciplinary Progress Notes: Multi-Disciplinary Progress Notes 08/27/22 08:16 Respiratory Note by Flaca Muniz PT STATES THAT HE BELIEVES THE ADVAIR IS MAKING HIM FEEL WORSE. I OFFERED FOR PT TO BRING INHALER FROM HOME BUT HE REFUSED AT THIS TIME. HE STATES HE DOESN'T WANT TO TAKE ANY INHALERS FOR A COUPLE OF DAYS. PHARMACY AND NURSE BOTH NOTIFIED. ADVAIR ADDED TO ADVERSE REACTIONS PER NURSE. Initialized on 08/27/22 08:16 - END OF NOTE Assessment/Plan (1) Acute and chronic respiratory failure ([id number]) Status: Chronic Qualifiers: Respiratory failure complication: hypoxia Qualified Code(s): J96.21 - Acute and chronic respiratory failure with hypoxia Code(s): J96.20 - ACUTE AND CHR RESP FAILURE, UNSP W HYPOXIA OR HYPERCAPNIA (2) Pneumonia Status: Suspected Qualifiers: Pneumonia type: aspiration pneumonia Assessment & Plan: repeat CXR Code(s): J18.9 - PNEUMONIA, UNSPECIFIED ORGANISM (3) Elevated troponin Status: Resolved Code(s): R77.8 - OTHER SPECIFIED ABNORMALITIES OF PLASMA PROTEINS (4) Leukocytosis Status: Resolved Code(s): D72.829 - ELEVATED WHITE BLOOD CELL COUNT, UNSPECIFIED (5) Elevated brain natriuretic peptide (BNP) level Status: Acute Assessment & Plan: ECHO Code(s): R79.89 - OTHER SPECIFIED ABNORMAL FINDINGS OF BLOOD CHEMISTRY
[2022-08-27] MEDS ORDERED: Xopenex 1.25 MG/0.5 ML UD NEBULE IH ONE ×2 (23:47)
[2022-08-28] MEDS: Xopenex 1.25 MG/0.5 ML UD NEBULE IH SCH ×3 (03:28→11:20)
[2022-08-28] MEDS: Sodium Chloride 3 ML UD NEBULES IH SCH ×3 (03:28→11:20)
[2022-08-28] MEDS: Toprol Xl 50 MG PO SCH (04:40)
[2022-08-28 04:41] LABS: Absolute Neutrophil Ct (ANC) 12.91 x10^3/uL (1.4-6.9); BASOPHIL % 0.2 % (0.0-0.4); Basophil (Absolute #) 0.03 x10^3/uL (0-0.4); Eosinophil % 0.1 % (0.00-5.0); Eosinophil (Absolute #) 0.02 x10^3/uL (0-0.5); Hematocrit 41.4 % (42-50); Hemoglobin 13.2 g/dL (12.5-18.0); IMMATURE GRAN # 0.29 x10^3u/L (0.00-0.03); Lymphocyte (Absolute #) 0.55 x10^3/uL (1.0-4.6); Lymphocytes % 3.8 % (24.0-44.0); Mean Corpuscular Hemoglobin 30.3 pg (26-32); Mean Corpuscular Hgb Concent. 31.9 g/dL (32-36); Mean Platelet Volume 10.5 fL (7.5-11.0); Monocyte (Absolute #) 0.55 x10^3/uL (0.0-1.3); Monocytes % 3.8 % (0.0-12.0); Neutrophil % 90.1 % (36.0-66.0); Platelet Count 257 x10^3/uL (150-450); Red Blood Count 4.36 x10^6/uL (4.1-5.6); Red Cell Distribution Width 12.2 % (11.5-14.0); White Blood Count 14.4 x10^3/uL (4.0-10.5)
[2022-08-28 04:55] LABS: BLOOD UREA NITROGEN 27 mg/dL (9-20); CHLORIDE 90 mmol/L (98-107); Calcium 9.1 mg/dL (8.4-10.2); Creatinine 1 0.78 mg/dL (0.66-1.25); EST GLOMERULAR FILTRATION RATE > 60.0 ML/MIN; Glucose 140 mg/dL (74-106); Potassium 3.7 mmol/L (3.5-5.1); SODIUM 141 mmol/L (137-145)
[2022-08-28] MEDS ORDERED: Lasix 20 MG/2 ML IV ONE (05:00)
[2022-08-28] MEDS ORDERED: Toprol Xl 50 MG PO ONE (05:00)
[2022-08-28 05:04] LABS: Carbon Dioxide 36 mmol/L (22-30); Slide Review 1 YES
[2022-08-28 05:11] LABS: ANION GAP 18 MEQ/L (5-15)
[2022-08-28] MEDS: solu-MEDROL 80 MG, Sterile H2O 10 ml 2 ML IV SCH ×2 (06:00)
[2022-08-28] MEDS: ENOXAPARIN SODIUM SQ SCH (09:18)
[2022-08-28] MEDS: ZOCOR 20MG PO SCH (09:19)
[2022-08-28] MEDS: CLARITIN 10 MG PO SCH (09:19)
[2022-08-28] MEDS: ROCEPHIN 1 Gm-D5w 50 ml Bag** 1 G/50 ML IVPB IV SCH (09:20)
[2022-08-28] MEDS: Mucinex 600MG ER Tabs PO SCH (09:20)
[2022-08-28] MEDS: Pepcid 20 MG VIAL IV SCH (09:20)
[2022-08-28] MEDS ORDERED: Zestril 10 MG PO SCH (11:00)
[2022-08-28] MEDS ORDERED: Toprol Xl 50 MG PO SCH (11:00)
--- NOTE | 2022-08-28 11:00 | XRAY ---
Indication: Cough and short of breath. Comparison: August 26, 2022 PA/lateral chest again demonstrates mild left base/minimal right base discoid atelectasis and minimal right midlung atelectasis/scarring. Heart not enlarged. No new/acute abnormalities.
[2022-08-28] MEDS ORDERED: DUONEB 0.5-3 MG/3 ml Neb IH ONE (11:44)
[2022-08-28 12:29] VITALS: BP 170/94; PULSE 95; O2SAT 93
[2022-08-28] MEDS ORDERED: DUONEB 0.5-3 MG/3 ml Neb IH SCH (13:00)
--- NOTE | 2022-08-28 17:14 | ECHO ---
DATE: 08/27/2022 INDICATION: Shortness of breath. A transthoracic echocardiograph examination with color Doppler was done. IMPRESSION: 1. NO REGIONAL WALL MOTION ABNORMALITY WITH ESTIMATED GLOBAL LEFT VENTRICULAR EJECTION FRACTION BETWEEN 60-65%. 2. TRACE MITRAL REGURGITATION. 3. TRACE TRICUSPID REGURGITATION. The left ventricle was visualized and demonstrated adequate motion of all the segments with estimated global left ventricular ejection fraction of around 60-65%. The left ventricle thickness is normal. The mitral valve was seen and this opens adequately. There is trace mitral regurgitation. The left atrium is normal. The aortic valve opens adequately. The peak gradient across the left ventricular outflow tract is 10 mm Hg. The right sided chambers are in the upper limits of normal. There is trace tricuspid regurgitation.
--- NOTE | 2022-08-28 18:11 | PCM.DS ---
Discharge Summary Date of Admission: 08/23/22 02:50 Date of Discharge: 08/28/22 Patient was admitted with COPD exacerbation,possible pneumonia and was in resp distress requiring Bipap along with IV steroids,neb txs, IV atb and supportive care. He is finally near baseline on 2 L O2 that he has had fo approx 2 yrs. His sister has come to visit and is cleaning his house . States his son left the cat and patient is allergic. Admitting Physician: GEN CAMERON MD Primary Care Provider: EDISON JARRETT Allergies Allergies fluticasone [From Advair Diskus] Adverse Reaction (Mild, Verified 08/27/22 08:07) pt states "It makes me sicker" salmeterol [From Advair Diskus] Adverse Reaction (Mild, Verified 08/27/22 08:07) pt states "It makes me sicker" Hospital Summary - Hospital Course Hospital Course: see HPI - Vitals & Intake/Output Vital Signs: Vital Signs Temperature 97.8 F 08/28/22 12:00 Pulse Rate 95 H 08/28/22 12:00 Respiratory Rate 18 08/28/22 12:00 Blood Pressure 170/94 08/28/22 12:00 O2 Sat by Pulse Oximetry 93 L 08/28/22 12:00 Intake & Output: Intake & Output 08/26/22 08/27/22 08/28/22 08/29/22 11:59 11:59 11:59 11:59 Intake Total 2720 1300 1730 Output Total 250 300 Balance 2470 1300 1430 Weight 99.6 kg 99.201 kg 99.3 kg - Lab Result Diagrams: 08/28/22 04:24 08/28/22 04:24 Lab Results-Last 24 Hrs: Lab Results-Last 24 Hours 08/28/22 08/28/22 08/28/22 Range/Units 04:00 04:24 04:24 WBC 14.4 H (4.0-10.5) x10^3/uL RBC 4.36 (4.1-5.6) x10^6/uL Hgb 13.2 (12.5-18.0) g/dL Hct 41.4 L (42-50) % MCV 95.0 (78-100) fL MCH 30.3 (26-32) pg MCHC 31.9 L (32-36) g/dL RDW 12.2 (11.5-14.0) % Plt Count 257 (150-450) x10^3/uL MPV 10.5 (7.5-11.0) fL Gran % 90.1 H (36.0-66.0) % Immature Gran % (Auto) 2.0 H (0.00-0.4) % Nucleat RBC Rel Count 0.0 (0.00-0.1) % Eos # (Auto) 0.02 (0-0.5) x10^3/uL Immature Gran # (Auto) 0.29 H (0.00-0.03) x10^3u/L Absolute Lymphs (auto) 0.55 L (1.0-4.6) x10^3/uL Absolute Monos (auto) 0.55 (0.0-1.3) x10^3/uL Absolute Nucleated RBC 0.00 (0.00-0.01) x10^3u/L Lymphocytes % 3.8 L (24.0-44.0) % Monocytes % 3.8 (0.0-12.0) % Eosinophils % 0.1 (0.00-5.0) % Basophils % 0.2 (0.0-0.4) % Absolute Granulocytes 12.91 H (1.4-6.9) x10^3/uL Basophils # 0.03 (0-0.4) x10^3/uL Sodium 141 (137-145) mmol/L Potassium 3.7 D (3.5-5.1) mmol/L Chloride 90 L (98-107) mmol/L Carbon Dioxide 36 H (22-30) mmol/L Anion Gap 18 H (5-15) MEQ/L BUN 27 H (9-20) mg/dL Creatinine 0.78 (0.66-1.25) mg/dL Estimated GFR > 60.0 ML/MIN Glucose 140 H (74-106) mg/dL Calcium 9.1 (8.4-10.2) mg/dL NT-Pro-B Natriuret Pep 728 (<300) pg/mL Slides for Path Review YES Micro Results-Entire Visit: Microbiology 08/25/22 07:00 Gram Stain - Final Sputum - Expectorant Sputum Culture - Final NORMAL RESPIRATORY ASHLEY, MODERATE GROWTH NO PREDOMINANT ORGANISM 08/23/22 00:10 Blood Culture Gram Stain - Final Blood Not Reportable Blood Culture - Final NO GROWTH 08/23/22 00:00 Blood Culture Gram Stain - Final Blood Not Reportable Blood Culture - Final NO GROWTH - Radiology Exams Ordered Rad Exams-Entire Visit: Radiology Procedures Category Date Time Status CHEST 2 VIEWS (PA AND LAT) Stat Exams 08/28/22 10:36 Completed ECHO W/2D AND DOPPLER [US] Routine Exams 08/27/22 14:53 Draft - Procedures and Test Procedures and Tests throughout Hospitalization: Therapy Orders & Screens 08/22/22 23:35 BiPap/CPAP STAT Comment: 08/23/22 01:02 Respiratory Therapy Assessment DAILY Comment: 08/23/22 02:51 Respiratory Therapy Consult ROUTINE Comment: Reason For Exam: 08/23/22 03:16 Oxygen Nasal Cannula 2 lpm Comment: Discharge Exam General Appearance: no apparent distress Neurologic Exam: alert, oriented x 3, cooperative Neck Exam: normal inspection Respiratory Exam: wheezing (scatterd eew but improved aeration) Cardiovascular Exam: regular rate/rhythm (rate 90) Gastrointestinal/Abdomen Exam: soft (nontender) Extremity Exam: normal inspection Final Diagnosis/Problem List - Final Discharge Diagnosis/Problem (1) Acute and chronic respiratory failure ([id number]) Status: Chronic Assessment & Plan: at baseline now on 2L O2 Code(s): J96.20 - ACUTE AND CHR RESP FAILURE, UNSP W HYPOXIA OR HYPERCAPNIA (2) Pneumonia Status: Suspected Code(s): J18.9 - PNEUMONIA, UNSPECIFIED ORGANISM (3) Elevated troponin Status: Resolved Assessment & Plan: ECHO pending results Code(s): R77.8 - OTHER SPECIFIED ABNORMALITIES OF PLASMA PROTEINS (4) Leukocytosis Status: Resolved Assessment & Plan: improved - due to steroids Code(s): D72.829 - ELEVATED WHITE BLOOD CELL COUNT, UNSPECIFIED (5) Elevated brain natriuretic peptide (BNP) level Status: Acute Assessment & Plan: treated with IV lasix ,no cardiomeg on CXR today- ECHO pending Code(s): R79.89 - OTHER SPECIFIED ABNORMAL FINDINGS OF BLOOD CHEMISTRY - Discharge Disposition: Home, Self-Care Condition: Stable Prescriptions: New Ipratropium [place] 0.5 mg [Atrovent 0.5MG NEBULE] 0 mg IH TID 10 Days #30 Albuterol 2.5 mg/3 ml Neb [Proventil 2.5 mg/3 ml Neb] 2.5 mg IH TID 10 Days #30 Prednisone 10 mg [Deltasone 10 mg] 10 mg PO BID #14 tablet Continue Albuterol Common Canister [Ventolin Common Canister] 2 puff IH Q4HPRN PRN #0 puff PRN Reason: wheezes Atorvastatin Calcium [Lipitor] 40 mg PO DAILY Umeclidinium Brm/Vilanterol Tr [Anoro Ellipta 62.5-25 Mcg INH] 1 each IH DAILY Metoprolol Succinate 100 mg [Toprol Xl 100 MG] 50 mg PO DAILY Levocetirizine Dihydrochloride 5 mg PO HS Instructions: Exacerbation of COPD (DC) Additional Instructions: CALL MARY MALAVE WHEN YOU GET HOME TO SCHEDULE TIME FOR NEBULIZER MACHINE DELIVERY. . [facility] HAS BEEN SET UP. THEY WILL CONTACT YOU TO ARRANGE A TIME TO COME SEE YOU. THEIR PHONE NUMBER IS [phone] Follow up with: EDISON JARRETT [Primary Care Provider] - 09/03/22 10:00 am WENDY ACEVEDO [CONSULTING PHYSICIAN] - 09/28/22 1:00 pm
[2022-08-29] MEDS ORDERED: Toprol Xl 100 MG PO SCH (10:00)
[2022-08-29] MEDS ORDERED: Toprol Xl 50 MG PO SCH (10:00)
== END 2022-08-28 13:17 | disposition home or self-care (01) | DRG 189 ==
LOC: ED 23:19 → MED SURG 08-23 02:50
PROVIDERS: ADMIT Internal Medicine; ATTEND Family Medicine
DX: J96.01 Acute respiratory failure with hypoxia (principal); J18.9 Pneumonia, unspecified organism; J44.1 Chronic obstructive pulmonary disease with (acute) exacerbation; I11.0 Hypertensive heart disease with heart failure; R77.8 Other specified abnormalities of plasma proteins; I10 Essential (primary) hypertension; I50.9 Heart failure, unspecified; D72.829 Elevated white blood cell count, unspecified; R79.89 Other specified abnormal findings of blood chemistry; R41.0 Disorientation, unspecified; Z20.828 Contact with and (suspected) exposure to other viral communicable diseases; Z79.899 Other long term (current) drug therapy
CPT/HCPCS: 0241U; 36000; 36415; 36600; 71045; 71046; 71260; 80048; 80053; 82375; 82803; 82805; 83036; 83605; 83735; 83880; 84145; 84484; 85025; 85027; 85379; 87040; 87070; 93005; 93041; 93306; 94002; 94003; 94640; 94760; 94762; 96360; 96365; 96367; 96374; 99285; J0456; J0696; J1650; J1940; J2060; J2930; A9270-GY; J3370

== ENCOUNTER 2022-09-13 21:40 | Observation (INO) | payer MEDICARE ==
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
[2022-09-13] MEDS ORDERED: DUONEB 0.5-3 MG/3 ml Neb IH ONE ×2 (22:13→22:28)
[2022-09-13] MEDS ORDERED: solu-MEDROL 125 MG, Sterile H2O 10 ml 2 ML IV ONE ×2 (22:13)
[2022-09-13] MEDS ORDERED: Sterile H2O 10 ml IJ ONE (22:15)
[2022-09-13] MEDS ORDERED: solu-MEDROL ONE (22:15)
[2022-09-13 22:19] LABS: Absolute Neutrophil Ct (ANC) 4.89 x10^3/uL (1.4-6.9); BASOPHIL % 0.3 % (0.0-0.4); Basophil (Absolute #) 0.02 x10^3/uL (0-0.4); Eosinophil % 6.3 % (0.00-5.0); Eosinophil (Absolute #) 0.47 x10^3/uL (0-0.5); Hematocrit 38.3 % (42-50); Hemoglobin 11.6 g/dL (12.5-18.0); IMMATURE GRAN # 0.03 x10^3u/L (0.00-0.03); IMMATURE GRAN % 0.4 % (0.00-0.4); Lymphocyte (Absolute #) 1.36 x10^3/uL (1.0-4.6); Lymphocytes % 18.1 % (24.0-44.0); Mean Corpuscular Hgb Concent. 30.3 g/dL (32-36); Mean Platelet Volume 10.6 fL (7.5-11.0); Monocyte (Absolute #) 0.73 x10^3/uL (0.0-1.3); Monocytes % 9.7 % (0.0-12.0); Neutrophil % 65.2 % (36.0-66.0); Platelet Count 149 x10^3/uL (150-450); Red Blood Count 3.87 x10^6/uL (4.1-5.6); Red Cell Distribution Width 12.3 % (11.5-14.0); White Blood Count 7.5 x10^3/uL (4.0-10.5)
[2022-09-13 22:39] LABS: ALKALINE PHOSPHATASE 86 U/L (38-126); BLOOD UREA NITROGEN 11 mg/dL (9-20); CHLORIDE 98 mmol/L (98-107); Calcium 8.7 mg/dL (8.4-10.2); EST GLOMERULAR FILTRATION RATE > 60.0 ML/MIN; Glucose 129 mg/dL (74-106); Potassium 4.1 mmol/L (3.5-5.1); SGOT/AST 29 U/L (17-59); SGPT/ALT 31 U/L (0-50); SODIUM 143 mmol/L (137-145); TROPONIN < 0.012 ng/mL (0.000-0.034); Total Protein 6.6 g/dL (6.3-8.2)
[2022-09-13 22:40] LABS: ANION GAP 11.1 MEQ/L (5-15); Carbon Dioxide 38 mmol/L (22-30)
[2022-09-13] MEDS ORDERED: ROCEPHIN 1 Gm-D5w 50 ml Bag** 1 G/50 ML IVPB IV STA (23:24)
[2022-09-13] MEDS ORDERED: ROCEPHIN 1 Gm-D5w 50 ml Bag** 1 G/50 ML IVPB IV ONE (23:34)
[2022-09-13 23:37] LABS: A-aADO2 63; ABG HEMOGLOBIN 11.7; ABG POTASSIUM 4.1 (3.5-5.1); ABG SITE RIGHT RADIAL; ALLEN TEST OK? YES; ARTERIAL BLD GAS O2 SATURATION 99.4 % (95-100); ARTERIAL BLOOD GAS BASE EXCESS 6.9 (-2.0-2.0); ARTERIAL BLOOD GAS FIO2 36 %; ARTERIAL BLOOD GAS PCO2 66 mmHg (35-45); ARTERIAL BLOOD GAS PO2 111 mmHg (75-100); ARTERIAL BLOOD GAS pH 7.33 (7.35-7.45); CARBOXYHEMOGLOBIN 1.2 % THgb (0.0-6.9); HCO3- 34.8 (22-28); HGB O2 SAT 97.3 g/dF (94-100); Methhemoglobin 0.9 % (1.4-1.5); paO2 pAO1 0.64
[2022-09-13 23:56] LABS: INFLUENZA A NEGATIVE (NEGATIVE); INFLUENZA B NEGATIVE (NEGATIVE); RESPIRATORY SYNCTIAL VIRUS NEGATIVE (NEGATIVE); SARS-CoV-2 Xpert Express NEGATIVE (NEGATIVE)
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
[2022-09-14] MEDS ORDERED: TYLENOL 325 MG PO PRN (01:58)
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
[2022-09-14] MEDS: DUONEB 0.5-3 MG/3 ml Neb IH SCH ×3 (03:18→10:50)
[2022-09-14] MEDS ORDERED: Sterile H2O 10 ml IJ ONE (05:19)
[2022-09-14] MEDS ORDERED: solu-MEDROL ONE (05:19)
[2022-09-14] MEDS ORDERED: solu-MEDROL 40 MG, Sterile H2O 10 ml 1 ML IV SCH ×2 (06:00)
[2022-09-14 08:09] VITALS: BP 114/73
--- NOTE | 2022-09-14 08:46 | XRAY ---
Indication: Short of breath. COPD. Comparison: August 28, 2022 Portable chest demonstrates minimally worsening mild lingula infiltrate/atelectasis. Stable right midlung fibrosis/scarring. Remaining heart and lungs unremarkable.
[2022-09-14] MEDS ORDERED: ENOXAPARIN SODIUM SQ SCH (10:00)
[2022-09-14] MEDS ORDERED: Toprol Xl 100 MG PO SCH (10:00)
[2022-09-14] MEDS ORDERED: ZOCOR 20MG PO SCH (10:00)
[2022-09-14] MEDS ORDERED: LIPITOR 40MG PO SCH (10:00)
[2022-09-14] MEDS ORDERED: MEDICATION INTERVENTION MC SCH (10:00)
[2022-09-14] MEDS ORDERED: Vibramycin 100 MG PO SCH (10:00)
[2022-09-14 10:54] VITALS: PULSE 125; O2SAT 96
--- NOTE | 2022-09-14 12:04 | PCM.DS ---
Discharge Summary Date of Admission: 09/14/22 00:48 Admitting Physician: GEN CAMERON MD Primary Care Provider: EDISON JARRETT Allergies Allergies fluticasone [From Advair Diskus] Adverse Reaction (Mild, Verified 08/27/22 08:07) pt states "It makes me sicker" salmeterol [From Advair Diskus] Adverse Reaction (Mild, Verified 08/27/22 08:07) pt states "It makes me sicker" Hospital Summary - Hospital Course Hospital Course: Chief Complaint Diagnosis SOB Admission Date Date 09/14/22 Allergies Allergy/AdvReac Type Severity Reaction Status Date / Time fluticasone AdvReac Mild Verified 08/27/22 08:07 [From Advair Diskus] salmeterol AdvReac Mild Verified 08/27/22 08:07 [From Advair Diskus] Vital Signs (Last 24 hours) Temp Pulse Resp BP Pulse Ox 09/14/22 10:51 125 H 24 96 09/14/22 08:36 94 L 09/14/22 08:00 97.7 F 110 H 22 114/73 95 09/14/22 07:32 102 H 26 H 97 09/14/22 05:55 96 09/14/22 04:00 98 F 111 H 20 149/81 97 09/14/22 03:21 111 H 20 97 09/14/22 00:57 98.4 F 107 H 40 H 149/78 94 L 09/14/22 00:52 98.4 F 107 H 40 H 149/78 94 L 09/14/22 00:03 102 H 27 H 125/81 95 09/13/22 23:21 107 H 23 100 09/13/22 23:01 112 H 25 H 144/80 98 09/13/22 22:47 102 H 25 H 144/80 99 09/13/22 22:32 112 H 32 H 99 09/13/22 21:42 97.4 F 130 H 36 H 159/89 100 Home Medications Medication Instructions Recorded Confirmed Last Taken Type Doxycycline Hyclate 100 mg 100 mg PO BID 7 Days #14 tab 09/14/22 Unknown Rx [Vibramycin 100 MG] Methylprednisolone Packet 4 mg PO DAILY #6 packet 09/14/22 Unknown Rx [Medrol Dosepack] Current Medications Generic Name Dose Route Start Last Admin Trade Name Tessy PRN Reason Stop Dose Admin Acetaminophen 325 mg 09/14/22 01:58 Acetaminophen 325 Mg Tablet PO 10/14/22 01:57 Q4H PRN PRN PAIN, FEVER, HEADACHE Albuterol/Ipratropium 3 ml 09/14/22 03:00 09/14/22 10:50 Ipratropium/Albuterol Sulfate 3 Ml Ampul.Neb 10/14/22 02:59 3 ml Q4HRT MICHEAL Administration Methylprednisolone Sodium 0 mg 09/14/22 06:00 09/14/22 05:20 Succinate 40 mg/ Sterile Water IV 10/14/22 05:59 40 mg 1 ml Q6HT MICHEAL Administration Doxycycline Hyclate 100 mg 09/14/22 10:00 09/14/22 08:43 Doxycycline Hyclate 100 Mg Tablet PO 09/19/22 09:59 100 mg BID MICHEAL Administration Enoxaparin Sodium 40 mg 09/14/22 10:00 09/14/22 08:43 Enoxaparin Sodium 40 Mg/0.4 Ml Syringe SQ 10/14/22 09:59 40 mg DAILY MICHEAL Administration Loratadine 10 mg 09/14/22 22:00 Loratadine 10 Mg Tablet PO 10/14/22 21:59 HS MICHEAL Metoprolol Succinate 50 mg 09/14/22 10:00 09/14/22 10:46 Metoprolol Succinate 100 Mg Tablet.Sa PO 10/14/22 09:59 50 mg DAILY MICHEAL Administration Miscellaneous Information 1 each 09/14/22 10:00 Medication Intervention 1 Each Each 10/14/22 09:59 .RN TO CHECK MICHEAL Simvastatin 40 mg 09/14/22 10:00 09/14/22 10:46 Simvastatin 20 Mg Tablet PO 10/14/22 09:59 40 mg DAILY MICHEAL Administration Discontinued Medications Generic Name Dose Route Start Last Admin Trade Name Tessy PRN Reason Stop Dose Admin Albuterol/Ipratropium 3 ml 09/13/22 22:13 09/13/22 22:32 Ipratropium/Albuterol Sulfate 3 Ml Ampul.Neb 09/13/22 22:14 3 ml STAT ONE Administration Albuterol/Ipratropium Confirm 09/13/22 22:28 Ipratropium/Albuterol Sulfate 3 Ml Ampul.Neb Administered 09/13/22 22:29 Dose 3 ml IH .STK-MED ONE Methylprednisolone Sodium 0 mg 09/13/22 22:13 09/13/22 22:17 Succinate 125 mg/ Sterile IV 09/13/22 22:14 125 mg Water 2 ml STAT ONE Administration Ceftriaxone Sodium/Dextrose 1 g in 50 mls @ 100 mls/hr 09/13/22 23:24 09/14/22 00:16 Rocephin 1 Gm-D5w 50 Ml Bag IV 09/13/22 23:53 Infused STAT STA Infusion Ceftriaxone Sodium/Dextrose Confirm 09/13/22 23:34 Rocephin 1 Gm-D5w 50 Ml Bag Administered 09/13/22 23:35 Dose 1 g in 50 mls @ ud IV .STK-MED ONE Methylprednisolone Sodium Succinate Confirm 09/13/22 22:15 Methylprednis Sod Succ 125 Mg/2 Ml Vial Administered 09/13/22 22:16 Dose 125 mg .ROUTE .STK-MED ONE Methylprednisolone Sodium Succinate Confirm 09/14/22 05:19 Methylprednisolone Sod Suc 40m 40 Mg/Ml Vial Administered 09/14/22 05:20 Dose 40 mg .ROUTE .STK-MED ONE Sterile Water Confirm 09/13/22 22:15 Water For Injection,Sterile 10 Ml Vial Administered 09/13/22 22:16 Dose 10 ml IJ .STK-MED ONE Sterile Water Confirm 09/14/22 05:19 Water For Injection,Sterile 10 Ml Vial Administered 09/14/22 05:20 Dose 10 ml IJ .STK-MED ONE Intake & Output (Last 24 hours) 09/12/22 09/13/22 09/14/22 09/15/22 11:59 11:59 11:59 11:59 Intake Total 360 Balance 360 Weight 97.7 kg Microbiology Results (Last 24 hours) 09/14/22 01:59 Sputum - Expectorant Gram Stain - Pending 09/14/22 01:59 Sputum - Expectorant Sputum Culture - Pending Laboratory Results (Last 24 hours) 09/13/22 09/13/22 09/13/22 23:30 23:17 22:18 WBC RBC Hgb Hct MCV MCH MCHC RDW Plt Count MPV Gran % Immature Gran % (Auto) Nucleat RBC Rel Count Eos # (Auto) Immature Gran # (Auto) Absolute Lymphs (auto) Absolute Monos (auto) Absolute Nucleated RBC Lymphocytes % Monocytes % Eosinophils % Basophils % Absolute Granulocytes Basophils # Puncture Site RIGHT RADIAL pCO2 66 H* pO2 111 H Base Excess 6.9 H O2 Saturation 97.3 ABG pH 7.33 L ABG HCO3 34.8 H* ABG O2 Sat (Measured) 99.4 Josue Test YES A-a Gradient 63 a/A Ratio 0.64 Hemoglobin 11.7 Carboxyhemoglobin 1.2 Methemoglobin 0.9 L Temperature 37.0 POC O2 Flow Rate 36 Sodium Potassium 4.1 Chloride Carbon Dioxide Anion Gap BUN Creatinine Estimated GFR Glucose Calcium Total Bilirubin AST ALT Alkaline Phosphatase Troponin I NT-Pro-B Natriuret Pep 58.2 Serum Total Protein Albumin Influenza Type A Ag NEGATIVE Influenza Type B Ag NEGATIVE RSV (PCR) NEGATIVE SARS-CoV-2 (PCR) NEGATIVE 09/13/22 09/13/22 22:18 22:18 WBC 7.5 RBC 3.87 L Hgb 11.6 L Hct 38.3 L MCV 99.0 MCH 30.0 MCHC 30.3 L RDW 12.3 Plt Count 149 L MPV 10.6 Gran % 65.2 Immature Gran % (Auto) 0.4 Nucleat RBC Rel Count 0.0 Eos # (Auto) 0.47 Immature Gran # (Auto) 0.03 Absolute Lymphs (auto) 1.36 Absolute Monos (auto) 0.73 Absolute Nucleated RBC 0.00 Lymphocytes % 18.1 L Monocytes % 9.7 Eosinophils % 6.3 H Basophils % 0.3 Absolute Granulocytes 4.89 Basophils # 0.02 Puncture Site pCO2 pO2 Base Excess O2 Saturation ABG pH ABG HCO3 ABG O2 Sat (Measured) Josue Test A-a Gradient a/A Ratio Hemoglobin Carboxyhemoglobin Methemoglobin Temperature POC O2 Flow Rate Sodium 143 Potassium 4.1 Chloride 98 Carbon Dioxide 38 H Anion Gap 11.1 BUN 11 Creatinine 0.70 Estimated GFR > 60.0 Glucose 129 H Calcium 8.7 Total Bilirubin 0.50 AST 29 ALT 31 Alkaline Phosphatase 86 Troponin I < 0.012 NT-Pro-B Natriuret Pep Serum Total Protein 6.6 Albumin 4.0 Influenza Type A Ag Influenza Type B Ag RSV (PCR) SARS-CoV-2 (PCR) Orders (Last 24 hours) Category Date Time Status Bedrest TOLERATED Activity 09/14/22 01:59 Active EKG-ER Only STAT Care 09/13/22 22:10 Completed IV Insertion STAT Care 09/13/22 22:[address] in Observation ROUTINE Care 09/13/22 23:56 Active Vital Signs Q4H Care 09/14/22 01:58 Active Heart-Healthy Diet Diet 09/14/22 Breakfast Active Discharge Routine Discharge 09/14/22 Ordered CHEST 1 VIEW (PORTABLE) Stat Exams 09/13/22 22:12 Completed ABG [ARTERIAL BLOOD GASES] Stat Lab 09/13/22 23:30 Completed BNPII [NT PRO BNPII] Stat Lab 09/13/22 22:18 Completed CBC W DIFF Stat Lab 09/13/22 22:18 Completed CMP Stat Lab 09/13/22 22:18 Completed COVID/FLU/RSV Panel Stat Lab 09/13/22 23:17 Completed CULTURE,SPUTUM Routine Lab 09/14/22 01:59 Ordered TROPONIN Stat Lab 09/13/22 22:18 Completed Acetaminophen 325 mg [Tylenol 325 mg] Med 09/14/22 01:58 Active 325 mg PO Q4H PRN PRN Albuterol/Ipratropium 3ml Neb* [DUONEB 0.5-3 MG/3 ml Med 09/13/22 22:28 Discontinued Neb] 3 ml IH .STK-MED ONE Albuterol/Ipratropium 3ml Neb* [DUONEB 0.5-3 MG/3 ml Med 09/14/22 03:00 Active Neb] 3 ml IH Q4HRT Albuterol/Ipratropium 3ml Neb* [DUONEB 0.5-3 MG/3 ml Med 09/13/22 22:13 Disco ntinued Neb] 3 ml IH STAT ONE Ceftriaxone 1 GM/50 ML PREMIX* [ROCEPHIN 1 Gm-D5w 50 ml Med 09/13/22 23:24 Discontinued Bag] 1 g in 50 ml IV STAT Ceftriaxone 1 GM/50 ML PREMIX* [ROCEPHIN 1 Gm-D5w 50 ml Med 09/13/22 23:34 Discontinued Bag] 1 g in 50 ml IV UD Doxycycline Hyclate 100 mg [Vibramycin 100 MG] Med 09/14/22 10:00 Active 100 mg PO BID Enoxaparin Sodium [Enoxaparin Sodium] Med 09/14/22 10:00 Active 40 mg SQ DAILY Loratadine 10 mg [Claritin 10 mg] Med 09/14/22 22:00 Active 10 mg PO HS Medication Intervention Med 09/14/22 10:00 Active 1 each MC .RN TO CHECK Methylprednis Sod Succ 125 mg* [solu-MEDROL] Med 09/13/22 22:15 Discontinued 125 mg .ROUTE .STK-MED ONE Methylprednis Sod Succ 125 mg* [solu-MEDROL] 125 mg Med 09/13/22 22:13 Discontinued Water For Injection,Sterile [Sterile H2O 10 ml] 2 ml IV STAT Methylprednisolone Sod Suc 40M [solu-MEDROL] Med 09/14/22 05:19 Discontinued 40 mg .ROUTE .STK-MED ONE Methylprednisolone Sod Suc 40M [solu-MEDROL] 40 mg Med 09/14/22 06:00 Active Water For Injection,Sterile [Sterile H2O 10 ml] 1 ml IV Q6HT Metoprolol Succinate 100 mg [Toprol Xl 100 MG] Med 09/14/22 10:00 Active 50 mg PO DAILY Simvastatin 20Mg [Zocor 20Mg] Med 09/14/22 10:00 Active 40 mg PO DAILY Water For Injection,Sterile [Sterile H2O 10 ml] Med 09/13/22 22:15 Discontinued 10 ml IJ .STK-MED ONE Water For Injection,Sterile [Sterile H2O 10 ml] Med 09/14/22 05:19 Discontinued 10 ml IJ .STK-MED ONE Oxygen Nasal Cannula 2 lpm RT 09/14/22 01:24 Active Pulse Oximetry .spot check RT 09/14/22 03:21 Active Respiratory Therapy Assessment DAILY RT 09/13/22 22:31 Active Patient Care Notes (Last 24 hours) 09/14/22 05:28 Nursing Note by Jayden Haynes PT HAS SLURRED SPEECH, WHICH IS PTS BASELINE. Initialized on 09/14/22 05:28 - END OF NOTE 09/14/22 01:24 Nursing Admission Note by Jayden Haynes Pt admitted to room 102 for copd ex. pt aao x 4, resp 40 pt noted using accessory muscles and pursed lips, unable to lie flat. spo2 94-95% 2L. Pt denies pain, sob, dizziness at this time. call light within reach. whiteboard updated. nad at this time. will cont to monitor. Dr Zhang notified that pt is in room. awaiting further orders at this time. Initialized on 09/14/22 01:24 - END OF NOTE - Vitals & Intake/Output Vital Signs: Vital Signs Temperature 97.7 F 09/14/22 08:00 Pulse Rate 125 H 09/14/22 10:51 Respiratory Rate 24 09/14/22 10:51 Blood Pressure 114/73 09/14/22 08:00 O2 Sat by Pulse Oximetry 96 09/14/22 10:51 Intake & Output: Intake & Output 09/12/22 09/13/22 09/14/22 09/15/22 11:59 11:59 11:59 11:59 Intake Total 360 Balance 360 Weight 97.7 kg - Lab Result Diagrams: 09/13/22 22:18 09/13/22 22:18 Lab Results-Last 24 Hrs: Lab Results-Last 24 Hours 09/13/22 09/13/22 09/13/22 Range/Units 22:18 22:18 22:18 WBC 7.5 (4.0-10.5) x10^3/uL RBC 3.87 L (4.1-5.6) x10^6/uL Hgb 11.6 L (12.5-18.0) g/dL Hct 38.3 L (42-50) % MCV 99.0 (78-100) fL MCH 30.0 (26-32) pg MCHC 30.3 L (32-36) g/dL RDW 12.3 (11.5-14.0) % Plt Count 149 L (150-450) x10^3/uL MPV 10.6 (7.5-11.0) fL Gran % 65.2 (36.0-66.0) % Immature Gran % (Auto) 0.4 (0.00-0.4) % Nucleat RBC Rel Count 0.0 (0.00-0.1) % Eos # (Auto) 0.47 (0-0.5) x10^3/uL Immature Gran # (Auto) 0.03 (0.00-0.03) x10^3u/L Absolute Lymphs (auto) 1.36 (1.0-4.6) x10^3/uL Absolute Monos (auto) 0.73 (0.0-1.3) x10^3/uL Absolute Nucleated RBC 0.00 (0.00-0.01) x10^3u/L Lymphocytes % 18.1 L (24.0-44.0) % Monocytes % 9.7 (0.0-12.0) % Eosinophils % 6.3 H (0.00-5.0) % Basophils % 0.3 (0.0-0.4) % Absolute Granulocytes 4.89 (1.4-6.9) x10^3/uL Basophils # 0.02 (0-0.4) x10^3/uL Puncture Site pCO2 (35-45) mmHg pO2 (75-100) mmHg Base Excess (-2.0-2.0) O2 Saturation (94-100) g/dF ABG pH (7.35-7.45) ABG HCO3 (22-28) ABG O2 Sat (Measured) (95-100) % Josue Test A-a Gradient a/A Ratio Hemoglobin Carboxyhemoglobin (0.0-6.9) % THgb Methemoglobin (1.4-1.5) % Temperature C POC O2 Flow Rate % Sodium 143 (137-145) mmol/L Potassium 4.1 (3.5-5.1) mmol/L Chloride 98 (98-107) mmol/L Carbon Dioxide 38 H (22-30) mmol/L Anion Gap 11.1 (5-15) MEQ/L BUN 11 (9-20) mg/dL Creatinine 0.70 (0.66-1.25) mg/dL Estimated GFR > 60.0 ML/MIN Glucose 129 H (74-106) mg/dL Calcium 8.7 (8.4-10.2) mg/dL Total Bilirubin 0.50 (0.2-1.3) mg/dL AST 29 (17-59) U/L ALT 31 (0-50) U/L Alkaline Phosphatase 86 (38-126) U/L Troponin I < 0.012 (0.000-0.034) ng/mL NT-Pro-B Natriuret Pep 58.2 (<300) pg/mL Serum Total Protein 6.6 (6.3-8.2) g/dL Albumin 4.0 (3.5-5.0) g/dL Influenza Type A Ag (NEGATIVE) Influenza Type B Ag (NEGATIVE) RSV (PCR) (NEGATIVE) SARS-CoV-2 (PCR) (NEGATIVE) 09/13/22 09/13/22 Range/Units 23:17 23:30 WBC (4.0-10.5) x10^3/uL RBC (4.1-5.6) x10^6/uL Hgb (12.5-18.0) g/dL Hct (42-50) % MCV (78-100) fL MCH (26-32) pg MCHC (32-36) g/dL RDW (11.5-14.0) % Plt Count (150-450) x10^3/uL MPV (7.5-11.0) fL Gran % (36.0-66.0) % Immature Gran % (Auto) (0.00-0.4) % Nucleat RBC Rel Count (0.00-0.1) % Eos # (Auto) (0-0.5) x10^3/uL Immature Gran # (Auto) (0.00-0.03) x10^3u/L Absolute Lymphs (auto) (1.0-4.6) x10^3/uL Absolute Monos (auto) (0.0-1.3) x10^3/uL Absolute Nucleated RBC (0.00-0.01) x10^3u/L Lymphocytes % (24.0-44.0) % Monocytes % (0.0-12.0) % Eosinophils % (0.00-5.0) % Basophils % (0.0-0.4) % Absolute Granulocytes (1.4-6.9) x10^3/uL Basophils # (0-0.4) x10^3/uL Puncture Site RIGHT RADIAL pCO2 66 H* (35-45) mmHg pO2 111 H (75-100) mmHg Base Excess 6.9 H (-2.0-2.0) O2 Saturation 97.3 (94-100) g/dF ABG pH 7.33 L (7.35-7.45) ABG HCO3 34.8 H* (22-28) ABG O2 Sat (Measured) 99.4 (95-100) % Josue Test YES A-a Gradient 63 a/A Ratio 0.64 Hemoglobin 11.7 Carboxyhemoglobin 1.2 (0.0-6.9) % THgb Methemoglobin 0.9 L (1.4-1.5) % Temperature 37.0 C POC O2 Flow Rate 36 % Sodium (137-145) mmol/L Potassium 4.1 (3.5-5.1) mmol/L Chloride (98-107) mmol/L Carbon Dioxide (22-30) mmol/L Anion Gap (5-15) MEQ/L BUN (9-20) mg/dL Creatinine (0.66-1.25) mg/dL Estimated GFR ML/MIN Glucose (74-106) mg/dL Calcium (8.4-10.2) mg/dL Total Bilirubin (0.2-1.3) mg/dL AST (17-59) U/L ALT (0-50) U/L Alkaline Phosphatase (38-126) U/L Troponin I (0.000-0.034) ng/mL NT-Pro-B Natriuret Pep (<300) pg/mL Serum Total Protein (6.3-8.2) g/dL Albumin (3.5-5.0) g/dL Influenza Type A Ag NEGATIVE (NEGATIVE) Influenza Type B Ag NEGATIVE (NEGATIVE) RSV (PCR) NEGATIVE (NEGATIVE) SARS-CoV-2 (PCR) NEGATIVE (NEGATIVE) - Radiology Exams Ordered Rad Exams-Entire Visit: Radiology Procedures Category Date Time Status CHEST 1 VIEW (PORTABLE) Stat Exams 09/13/22 22:12 Completed - Procedures and Test Procedures and Tests throughout Hospitalization: Therapy Orders & Screens 09/13/22 22:31 Respiratory Therapy Assessment DAILY Comment: 09/14/22 01:24 Oxygen Nasal Cannula 2 lpm Comment: Diagnosis: copd ex Discharge Exam General Appearance: no apparent distress, alert Neurologic Exam: alert, oriented x 3, cooperative, normal mood/affect, nml cerebellar function, sensation nml, No motor deficits Eye Exam: PERRL, EOMI, eyes nml inspection Ears, Nose, Throat Exam: normal ENT inspection, pharynx normal, moist mucous membranes Neck Exam: normal inspection, non-tender, supple, full range of motion Respiratory Exam: diminished breath sounds, rhonchi, wheezing, No respiratory distress Cardiovascular Exam: regular rate/rhythm, normal heart sounds Gastrointestinal/Abdomen Exam: soft, No tenderness, No mass Male Genitalia Exam: deferred Rectal Exam: deferred Back Exam: normal inspection, normal range of motion, No CVA tenderness, No vertebral tenderness Extremity Exam: normal inspection, normal range of motion Skin Exam: normal color, warm, dry Final Diagnosis/Problem List - Final Discharge Diagnosis/Problem (1) Acute exacerbation of chronic bronchitis Current Visit: Yes Status: Acute Assessment & Plan: Chief Complaint Diagnosis SOB Admission Date Date 09/14/22 Allergies Allergy/AdvReac Type Severity Reaction Status Date / Time fluticasone AdvReac Mild Verified 08/27/22 08:07 [From Advair Diskus] salmeterol AdvReac Mild Verified 08/27/22 08:07 [From Advair Diskus] Vital Signs (Last 24 hours) Temp Pulse Resp BP Pulse Ox 09/14/22 10:51 125 H 24 96 09/14/22 08:36 94 L 09/14/22 08:00 97.7 F 110 H 22 114/73 95 09/14/22 07:32 102 H 26 H 97 09/14/22 05:55 96 09/14/22 04:00 98 F 111 H 20 149/81 97 09/14/22 03:21 111 H 20 97 09/14/22 00:57 98.4 F 107 H 40 H 149/78 94 L 09/14/22 00:52 98.4 F 107 H 40 H 149/78 94 L 09/14/22 00:03 102 H 27 H 125/81 95 09/13/22 23:21 107 H 23 100 09/13/22 23:01 112 H 25 H 144/80 98 09/13/22 22:47 102 H 25 H 144/80 99 09/13/22 22:32 112 H 32 H 99 09/13/22 21:42 97.4 F 130 H 36 H 159/89 100 Home Medications Medication Instructions Recorded Confirmed Last Taken Type Doxycycline Hyclate 100 mg 100 mg PO BID 7 Days #14 tab 09/14/22 Unknown Rx [Vibramycin 100 MG] Methylprednisolone Packet 4 mg PO DAILY #6 packet 09/14/22 Unknown Rx [Medrol Dosepack] Current Medications Generic Name Dose Route Start Last Admin Trade Name Freq PRN Reason Stop Dose Admin Acetaminophen 325 mg 09/14/22 01:58 Acetaminophen 325 Mg Tablet PO 10/14/22 01:57 Q4H PRN PRN PAIN, FEVER, HEADACHE Albuterol/Ipratropium 3 ml 09/14/22 03:00 09/14/22 10:50 Ipratropium/Albuterol Sulfate 3 Ml Ampul.Neb IH 10/14/22 02:59 3 ml Q4HRT MICHEAL Administration Methylprednisolone Sodium 0 mg 09/14/22 06:00 09/14/22 05:20 Succinate 40 mg/ Sterile Water IV 10/14/22 05:59 40 mg 1 ml Q6HT MICHEAL Administration Doxycycline Hyclate 100 mg 09/14/22 10:00 09/14/22 08:43 Doxycycline Hyclate 100 Mg Tablet PO 09/19/22 09:59 100 mg BID MICHEAL Administration Enoxaparin Sodium 40 mg 09/14/22 10:00 09/14/22 08:43 Enoxaparin Sodium 40 Mg/0.4 Ml Syringe SQ 10/14/22 09:59 40 mg DAILY MICHEAL Administration Loratadine 10 mg 09/14/22 22:00 Loratadine 10 Mg Tablet PO 10/14/22 21:59 HS MICHEAL Metoprolol Succinate 50 mg 09/14/22 10:00 09/14/22 10:46 Metoprolol Succinate 100 Mg Tablet.Sa PO 10/14/22 09:59 50 mg DAILY MICHEAL Administration Miscellaneous Information 1 each 09/14/22 10:00 Medication Intervention 1 Each Each 10/14/22 09:59 .RN TO CHECK MICHEAL Simvastatin 40 mg 09/14/22 10:00 09/14/22 10:46 Simvastatin 20 Mg Tablet PO 10/14/22 09:59 40 mg DAILY MICHEAL Administration Discontinued Medications Generic Name Dose Route Start Last Admin Trade Name Freq PRN Reason Stop Dose Admin Albuterol/Ipratropium 3 ml 09/13/22 22:13 09/13/22 22:32 Ipratropium/Albuterol Sulfate 3 Ml Ampul.Neb IH 09/13/22 22:14 3 ml STAT ONE Administration Albuterol/Ipratropium Confirm 09/13/22 22:28 Ipratropium/Albuterol Sulfate 3 Ml Ampul.Neb Administered 09/13/22 22:29 Dose 3 ml IH .STK-MED ONE Methylprednisolone Sodium 0 mg 09/13/22 22:13 09/13/22 22:17 Succinate 125 mg/ Sterile IV 09/13/22 22:14 125 mg Water 2 ml STAT ONE Administration Ceftriaxone Sodium/Dextrose 1 g in 50 mls @ 100 mls/hr 09/13/22 23:24 09/14/22 00:16 Rocephin 1 Gm-D5w 50 Ml Bag IV 09/13/22 23:53 Infused STAT STA Infusion Ceftriaxone Sodium/Dextrose Confirm 09/13/22 23:34 Rocephin 1 Gm-D5w 50 Ml Bag Administered 09/13/22 23:35 Dose 1 g in 50 mls @ ud IV .STK-MED ONE Methylprednisolone Sodium Succinate Confirm 09/13/22 22:15 Methylprednis Sod Succ 125 Mg/2 Ml Vial Administered 09/13/22 22:16 Dose 125 mg .ROUTE .STK-MED ONE Methylprednisolone Sodium Succinate Confirm 09/14/22 05:19 Methylprednisolone Sod Suc 40m 40 Mg/Ml Vial Administered 09/14/22 05:20 Dose 40 mg .ROUTE .STK-MED ONE Sterile Water Confirm 09/13/22 22:15 Water For Injection,Sterile 10 Ml Vial Administered 09/13/22 22:16 Dose 10 ml IJ .STK-MED ONE Sterile Water Confirm 09/14/22 05:19 Water For Injection,Sterile 10 Ml Vial Administered 09/14/22 05:20 Dose 10 ml IJ .STK-MED ONE Intake & Output (Last 24 hours) 09/12/22 09/13/22 09/14/22 09/15/22 11:59 11:59 11:59 11:59 Intake Total 360 Balance 360 Weight 97.7 kg Microbiology Results (Last 24 hours) 09/14/22 01:59 Sputum - Expectorant Gram Stain - Pending 09/14/22 01:59 Sputum - Expectorant Sputum Culture - Pending Laboratory Results (Last 24 hours) 09/13/22 09/13/22 09/13/22 23:30 23:17 22:18 WBC RBC Hgb Hct MCV MCH MCHC RDW Plt Count MPV Gran % Immature Gran % (Auto) Nucleat RBC Rel Count Eos # (Auto) Immature Gran # (Auto) Absolute Lymphs (auto) Absolute Monos (auto) Absolute Nucleated RBC Lymphocytes % Monocytes % Eosinophils % Basophils % Absolute Granulocytes Basophils # Puncture Site RIGHT RADIAL pCO2 66 H* pO2 111 H Base Excess 6.9 H O2 Saturation 97.3 ABG pH 7.33 L ABG HCO3 34.8 H* ABG O2 Sat (Measured) 99.4 Josue Test YES A-a Gradient 63 a/A Ratio 0.64 Hemoglobin 11.7 Carboxyhemoglobin 1.2 Methemoglobin 0.9 L Temperature 37.0 POC O2 Flow Rate 36 Sodium Potassium 4.1 Chloride Carbon Dioxide Anion Gap BUN Creatinine Estimated GFR Glucose Calcium Total Bilirubin AST ALT Alkaline Phosphatase Troponin I NT-Pro-B Natriuret Pep 58.2 Serum Total Protein Albumin Influenza Type A Ag NEGATIVE Influenza Type B Ag NEGATIVE RSV (PCR) NEGATIVE SARS-CoV-2 (PCR) NEGATIVE 09/13/22 09/13/22 22:18 22:18 WBC 7.5 RBC 3.87 L Hgb 11.6 L Hct 38.3 L MCV 99.0 MCH 30.0 MCHC 30.3 L RDW 12.3 Plt Count 149 L MPV 10.6 Gran % 65.2 Immature Gran % (Auto) 0.4 Nucleat RBC Rel Count 0.0 Eos # (Auto) 0.47 Immature Gran # (Auto) 0.03 Absolute Lymphs (auto) 1.36 Absolute Monos (auto) 0.73 Absolute Nucleated RBC 0.00 Lymphocytes % 18.1 L Monocytes % 9.7 Eosinophils % 6.3 H Basophils % 0.3 Absolute Granulocytes 4.89 Basophils # 0.02 Puncture Site pCO2 pO2 Base Excess O2 Saturation ABG pH ABG HCO3 ABG O2 Sat (Measured) Josue Test A-a Gradient a/A Ratio Hemoglobin Carboxyhemoglobin Methemoglobin Temperature POC O2 Flow Rate Sodium 143 Potassium 4.1 Chloride 98 Carbon Dioxide 38 H Anion Gap 11.1 BUN 11 Creatinine 0.70 Estimated GFR > 60.0 Glucose 129 H Calcium 8.7 Total Bilirubin 0.50 AST 29 ALT 31 Alkaline Phosphatase 86 Troponin I < 0.012 NT-Pro-B Natriuret Pep Serum Total Protein 6.6 Albumin 4.0 Influenza Type A Ag Influenza Type B Ag RSV (PCR) SARS-CoV-2 (PCR) Orders (Last 24 hours) Category Date Time Status Bedrest TOLERATED Activity 09/14/22 01:59 Active EKG-ER Only STAT Care 09/13/22 22:10 Completed IV Insertion STAT Care 09/13/22 22:[address] in Observation ROUTINE Care 09/13/22 23:56 Active Vital Signs Q4H Care 09/14/22 01:58 Active Heart-Healthy Diet Diet 09/14/22 Breakfast Active Discharge Routine Discharge 09/14/22 Ordered CHEST 1 VIEW (PORTABLE) Stat Exams 09/13/22 22:12 Completed ABG [ARTERIAL BLOOD GASES] Stat Lab 09/13/22 23:30 Completed BNPII [NT PRO BNPII] Stat Lab 09/13/22 22:18 Completed CBC W DIFF Stat Lab 09/13/22 22:18 Completed CMP Stat Lab 09/13/22 22:18 Completed COVID/FLU/RSV Panel Stat Lab 09/13/22 23:17 Completed CULTURE,SPUTUM Routine Lab 09/14/22 01:59 Ordered TROPONIN Stat Lab 09/13/22 22:18 Completed Acetaminophen 325 mg [Tylenol 325 mg] Med 09/14/22 01:58 Active 325 mg PO Q4H PRN PRN Albuterol/Ipratropium 3ml Neb* [DUONEB 0.5-3 MG/3 ml Med 09/13/22 22:28 Discontinued Neb] 3 ml IH .STK-MED ONE Albuterol/Ipratropium 3ml Neb* [DUONEB 0.5-3 MG/3 ml Med 09/14/22 03:00 Active Neb] 3 ml IH Q4HRT Albuterol/Ipratropium 3ml Neb* [DUONEB 0.5-3 MG/3 ml Med 09/13/22 22:13 Discontinued Neb] 3 ml IH STAT ONE Ceftriaxone 1 GM/50 ML PREMIX* [ROCEPHIN 1 Gm-D5w 50 ml Med 09/13/22 23:24 Discontinued Bag] 1 g in 50 ml IV STAT Ceftriaxone 1 GM/50 ML PREMIX* [ROCEPHIN 1 Gm-D5w 50 ml Med 09/13/22 23:34 Discontinued Bag] 1 g in 50 ml IV UD Doxycycline Hyclate 100 mg [Vibramycin 100 MG] Med 09/14/22 10:00 Active 100 mg PO BID Enoxaparin Sodium [Enoxaparin Sodium] Med 09/14/22 10:00 Active 40 mg SQ DAILY Loratadine 10 mg [Claritin 10 mg] Med 09/14/22 22:00 Active 10 mg PO HS Medication Intervention Med 09/14/22 10:00 Active 1 each MC .RN TO CHECK Methylprednis Sod Succ 125 mg* [solu-MEDROL] Med 09/13/22 22:15 Discontinued 125 mg .ROUTE .STK-MED ONE Methylprednis Sod Succ 125 mg* [solu-MEDROL] 125 mg Med 09/13/22 22:13 Discontinued Water For Injection,Sterile [Sterile H2O 10 ml] 2 ml IV STAT Methylprednisolone Sod Suc 40M [solu-MEDROL] Med 09/14/22 05:19 Discontinued 40 mg .ROUTE .STK-MED ONE Methylprednisolone Sod Suc 40M [solu-MEDROL] 40 mg Med 09/14/22 06:00 Active Water For Injection,Sterile [Sterile H2O 10 ml] 1 ml IV Q6HT Metoprolol Succinate 100 mg [Toprol Xl 100 MG] Med 09/14/22 10:00 Active 50 mg PO DAILY Simvastatin 20Mg [Zocor 20Mg] Med 09/14/22 10:00 Active 40 mg PO DAILY Water For Injection,Sterile [Sterile H2O 10 ml] Med 09/13/22 22:15 Discontinued 10 ml IJ .STK-MED ONE Water For Injection,Sterile [Sterile H2O 10 ml] Med 09/14/22 05:19 Discontinued 10 ml IJ .STK-MED ONE Oxygen Nasal Cannula 2 lpm RT 09/14/22 01:24 Active Pulse Oximetry .spot check RT 09/14/22 03:21 Active Respiratory Therapy Assessment DAILY RT 09/13/22 22:31 Active Patient Care Notes (Last 24 hours) 09/14/22 05:28 Nursing Note by Jayden Haynes PT HAS SLURRED SPEECH, WHICH IS PTS BASELINE. Initialized on 09/14/22 05:28 - END OF NOTE 09/14/22 01:24 Nursing Admission Note by Jayden Haynes Pt admitted to room 102 for copd ex. pt aao x 4, resp 40 pt noted using accessory muscles and pursed lips, unable to lie flat. spo2 94-95% 2L. Pt denies pain, sob, dizziness at this time. call light within reach. whiteboard updated. nad at this time. will cont to monitor. Dr Zhang notified that pt is in room. awaiting further orders at this time. Initialized on 09/14/22 01:24 - END OF NOTE Code(s): J20.9 - ACUTE BRONCHITIS, UNSPECIFIED; J42 - UNSPECIFIED CHRONIC BRONCHITIS - Discharge Discharge Date: 09/14/22 Disposition: Home, Self-Care Condition: Stable Prescriptions: New Methylprednisolone Packet [Medrol Dosepack] 4 mg PO DAILY #6 packet Doxycycline Hyclate 100 mg [Vibramycin 100 MG] 100 mg PO BID 7 Days #14 tab Continue Albuterol Common Canister [Ventolin Common Canister] 2 puff IH Q4HPRN PRN #0 puff PRN Reason: wheezes Atorvastatin Calcium [Lipitor] 40 mg PO DAILY Umeclidinium Brm/Vilanterol Tr [Anoro Ellipta 62.5-25 Mcg INH] 1 each IH DAILY Metoprolol Succinate 100 mg [Toprol Xl 100 MG] 50 mg PO DAILY Levocetirizine Dihydrochloride 5 mg PO HS Ipratropium [place] 0.5 mg [Atrovent 0.5MG NEBULE] 0 mg IH TID 10 Days #30 Albuterol 2.5 mg/3 ml Neb [Proventil 2.5 mg/3 ml Neb] 2.5 mg IH TID 10 Days #30 Instructions: Exacerbation of COPD (DC) Follow up with: EDISON JARRETT [Primary Care Provider] - 09/21/22 10:00 am Forms: Discharge Instructions
[2022-09-14] MEDS ORDERED: NON-FORMULARY ITEM (Levocetirizine Dihydrochloride [Levocetirizine Dihydrochloride] 5 MG T PO SCH (22:00)
[2022-09-14] MEDS ORDERED: CLARITIN 10 MG PO SCH (22:00)
== END 2022-09-14 12:59 | disposition home or self-care (01) ==
LOC: ED 21:40 → MED SURG 09-14 00:48
PROVIDERS: ADMIT Internal Medicine; ATTEND General Practice
DX: J20.9 Acute bronchitis, unspecified (principal); J44.1 Chronic obstructive pulmonary disease with (acute) exacerbation; I10 Essential (primary) hypertension; Z79.899 Other long term (current) drug therapy; Z20.828 Contact with and (suspected) exposure to other viral communicable diseases; Z99.81 Dependence on supplemental oxygen
CPT/HCPCS: 0241U; 36000; 36415; 36600; 71045; 80053; 82375; 82803; 83880; 84484; 85025; 87070; 93005; 94640; 94760; 96365; 96374; 99285; G0378; J0696; J1650; J2920; J2930; A9270-GY

== ENCOUNTER 2022-10-02 12:51 | Inpatient (IN) | payer MEDICARE ==
[2022-10-02] MEDS ORDERED: PROVENTIL 2.5 MG/3 ML NEB IH ONE ×4 (12:54→15:14)
[2022-10-02] MEDS ORDERED: DUONEB 0.5-3 MG/3 ml Neb IH ONE (12:54)
[2022-10-02] MEDS ORDERED: solu-MEDROL 125 MG, Sterile H2O 10 ml 2 ML IV ONE ×2 (12:54)
[2022-10-02] MEDS ORDERED: PROVENTIL Solution 2.5 MG/0.5 ML IH ONE ×2 (12:54→12:55)
[2022-10-02] MEDS ORDERED: PIPERACILLIN/TAZOBACTAM 4.5 GM in Sodium Chloride 100ML MINI-BAG PLUS 100 ML IV ONE (12:56)
[2022-10-02] MEDS ORDERED: VANCOMYCIN 1 GRAM/200 ML BAG 1 GM/200 ML PIGGYBACK IV ONE ×2 (12:56→16:17)
[2022-10-02 13:20] LABS: BASOPHIL % 0.7 % (0.0-0.4); Basophil (Absolute #) 0.06 x10^3/uL (0-0.4); Eosinophil % 5.1 % (0.00-5.0); Eosinophil (Absolute #) 0.44 x10^3/uL (0-0.5); Hematocrit 37.6 % (42-50); Hemoglobin 11.5 g/dL (12.5-18.0); IMMATURE GRAN # 0.05 x10^3u/L (0.00-0.03); IMMATURE GRAN % 0.6 % (0.00-0.4); Lymphocyte (Absolute #) 1.38 x10^3/uL (1.0-4.6); Lymphocytes % 15.9 % (24.0-44.0); Mean Cell Volume 96.4 fL (78-100); Mean Corpuscular Hemoglobin 29.5 pg (26-32); Mean Corpuscular Hgb Concent. 30.6 g/dL (32-36); Mean Platelet Volume 10.5 fL (7.5-11.0); Monocyte (Absolute #) 1.04 x10^3/uL (0.0-1.3); Neutrophil % 65.7 % (36.0-66.0); Platelet Count 235 x10^3/uL (150-450); Red Cell Distribution Width 12.7 % (11.5-14.0); White Blood Count 8.7 x10^3/uL (4.0-10.5)
[2022-10-02 13:57] LABS: ISTAT iCA 1.17 mmol/L (1.12-1.32)
[2022-10-02 13:58] LABS: ISTAT CREA 0.9 mg/dL (0.6-1.3)
[2022-10-02 14:05] LABS: INFLUENZA A NEGATIVE (NEGATIVE); INFLUENZA B NEGATIVE (NEGATIVE); RESPIRATORY SYNCTIAL VIRUS NEGATIVE (NEGATIVE); SARS-CoV-2 Xpert Express NEGATIVE (NEGATIVE)
--- NOTE | 2022-10-02 14:20 | XRAY ---
CLINICAL HISTORY:PNA COMPARISON:X-ray chest dated 09/13/2202. TECHNIQUES:X-ray of the chest showing 1 view: AP view. FINDINGS: There is patchy opacity noted in the left lower lung zone with obscuration of the left costophrenic angle, suggestive of infective consolidation. Mildly prominent bronchovascular markings are seen in the right lower lung zone. Atelectatic band is seen in the right lower lung zone. Both hilar shadows appear normal. The trachea is central. Cardiac borders are well visualized. Heart size is normal. Right costophrenic angle is normal. The bony rib cage appears normal. No obvious sclerotic or lucent lesion is noted. IMPRESSION: Patchy opacity in the left lower lung zone with obscured left costophrenic angle, possibly infective consolidation. In comparison with the prior chest x-ray dated 09/13/2022, no significant interval change is noted in the left lower lung zone opacity. Possibility of a mass cannot be ruled out, further evaluation with CT of the chest is advised. Mild prominent bronchovascular markings in the right lower lung zone, showing mild interval reduction in comparison with the prior X-ray chest. Electronically Signed by: Damian Turner MD. (10/02/2022 13:15:05 [employer]ER [employer])
[2022-10-02] MEDS ORDERED: PIPERACILLIN/TAZOBACTAM IV ONE (14:54)
[2022-10-02] MEDS ORDERED: Sterile H2O 10 ml IJ ONE ×2 (14:54→22:34)
[2022-10-02] MEDS ORDERED: Sodium Chloride 100ML MINI-BAG PLUS 100 ML IV ONE (14:54)
[2022-10-02] MEDS ORDERED: solu-MEDROL ONE ×2 (14:55→22:34)
--- NOTE | 2022-10-02 14:58 | ERPHSYRPT ---
- History of Present Illness Time Seen by Provider: 10/02/22 12:54 Source: patient Exam Limitations: no limitations Patient Subjective Stated Complaint: pt here for increase sob for a couple days now. Triage Nursing Assessment: pt alert, resp labored, audible wheezes heard, diminished bs, on home o2 at 2 lnc, able to talk in sentences, no edema noted Physician History: Patient is here for shortness of breath, wheezing. Patient states he has been admitted to the hospital 12 times for pneumonia recently. States that he went to his doctor's office today because he was wheezing so bad, felt terrible, shortness of breath. Patient arrives, audible wheezing as I walk into the room he appears uncomfortable. Patient usually on 2 L of oxygen, is now on 6 L of oxygen. States that he never truly felt better but continues to feel worse. Allergies/Adverse Reactions: fluticasone [From Advair Diskus] Adverse Reaction (Mild, Verified 10/02/22 12:53) pt states "It makes me sicker" salmeterol [From Advair Diskus] Adverse Reaction (Mild, Verified 10/02/22 12:53) pt states "It makes me sicker" Home Medications: Atorvastatin Calcium [Lipitor] 40 mg PO DAILY 03/24/19 [History] Metoprolol Succinate 100 mg [Toprol Xl 100 MG] 50 mg PO DAILY 08/22/22 [ History] Umeclidinium Brm/Vilanterol Tr [Anoro Ellipta 62.5-25 Mcg INH] 1 each IH DAILY 08/22/22 [History] Levocetirizine Dihydrochloride 5 mg PO HS 08/23/22 [History] Hx Tetanus, Diphtheria Vaccination/Date Given: No Hx Influenza Vaccination/Date Given: Yes (2013) Hx Pneumococcal Vaccination/Date Given: Yes Immunizations Up to Date: Yes Travel Risk - International Travel Have you traveled outside of the country in past 3 weeks: No - Coronavirus Screening Are you exhibiting any of the following symptoms?: No Close contact with a COVID-19 positive Pt in past 14-21 Days: No - Vaccine Status Have you recieved a Covid-19 vaccination: Yes 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[employer]: [employer] - Vaccination Dates Date of 2cond Vaccination (if applicable): 07/2020 - Review of Systems Constitutional: No Fever, No Chills Eyes: No Symptoms Ears, Nose, & Throat: No Symptoms Respiratory: Dyspnea, Wheezing, No Cough Cardiac: No Chest Pain, No Edema, No Syncope Abdominal/Gastrointestinal: No Abdominal Pain, No Nausea, No Vomiting, No Diarrhea Genitourinary Symptoms: No Dysuria Musculoskeletal: No Back Pain, No Neck Pain Skin: No Rash Neurological: No Dizziness, No Focal Weakness, No Sensory Changes Psychological: No Symptoms Endocrine: No Symptoms All Other Systems: Reviewed and Negative - Past Medical History Pertinent Past Medical History: Yes Neurological History: Epilepsy, Seizures ENT History: No Pertinent History Cardiac History: Hypertension Respiratory History: COPD, Emphysema Endocrine Medical History: Liver Disease Musculoskeletal History: Arthritis, Rheumatoid Arthritis, Other GI Medical History: Hepatitis History: No Pertinent History Psycho-Social History: No Pertinent History Male Reproductive Disorders: No Pertinent History Other Medical History: 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 - Past Surgical History Past Surgical History: No Neuro Surgical History: No Pertinent History Cardiac: No Pertinent History Respiratory: No Pertinent History Gastrointestinal: No Pertinent History Genitourinary: No Pertinent History Musculoskeletal: No Pertinent History Male Surgical History: No Pertinent History - Social History Smoking Status: Former smoker How long have you smoked: 40years Exposure to second hand smoke: No Drug Use: marijuana Patient Lives Alone: Yes Significant Family History: no pertinent family hx - Nursing Vital Signs Nursing Vital Signs: Initial Vital Signs O2 Sat by Pulse Oximetry 96 10/02/22 12:52 Pain Scale Pain Intensity 4 - Physical Exam General Appearance: no apparent distress, alert Eye Exam: PERRL/EOMI, eyes nml inspection Ears, Nose, Throat Exam: normal ENT inspection, pharynx normal, moist mucous mem branes Neck Exam: normal inspection, non-tender, supple, full range of motion Respiratory Exam: crackles/rales, wheezing (Wheezing and crackles throughout, appears uncomfortable. Tachypnea.), No respiratory distress Cardiovascular Exam: regular rate/rhythm, normal heart sounds, normal peripheral pulses Gastrointestinal/Abdomen Exam: soft, normal bowel sounds, No tenderness, No mass Back Exam: normal inspection, normal range of motion, No CVA tenderness, No vertebral tenderness Extremity Exam: normal inspection, normal range of motion, pelvis stable Neurologic Exam: alert, oriented x 3, cooperative, normal mood/affect, nml cerebellar function, nml station & gait, sensation nml, No motor deficits Skin Exam: normal color, warm, dry, No rash Lymphatic Exam: No adenopathy SpO2: 97 - Course Nursing assessment & vital signs reviewed: Yes EKG Interpreted by Me: Sinus Rhythm Ordered Tests: Active Orders 24 hr Category Date Time Status [employer] STAT Care 10/02/22 12:55 Active Code Status Order ROUTINE Care 10/02/22 18:38 Active EKG-ER Only STAT Care 10/02/22 12:54 Active IV Care Q6H Care 10/02/22 18:38 Active IV Insertion STAT Care 10/02/22 12:[address] in Observation ROUTINE Care 10/02/22 18:38 Active Pulse Oximetry (ED) STAT Care 10/02/22 12:54 Active Bernardino L[place], Apply ROUTINE Care 10/02/22 18:38 Active Weight,Daily 0600 Care 10/02/22 18:38 Active Heart-Healthy Diet Diet 10/03/22 Breakfast Active CHEST 1 VIEW (PORTABLE) DAILY Exams 10/03/22 07:00 Ordered CHEST 1 VIEW (PORTABLE) DAILY Exams 10/04/22 07:00 Ordered CHEST 1 VIEW (PORTABLE) Stat Exams 10/02/22 12:55 Completed CHEST WITH CONTRAST [CT] Stat Exams 10/02/22 14:25 Completed BLOOD CULTURE Stat Lab 10/02/22 13:10 Received CBC AM.LAB Lab 10/03/22 04:00 Ordered CBC W DIFF Stat Lab 10/02/22 13:15 Completed CMP AM.LAB Lab 10/03/22 04:00 Ordered CULTURE,SPUTUM Stat Lab 10/02/22 13:10 Received NT PRO BNPII Stat Lab 10/02/22 13:10 Completed PROCALCITONIN Stat Lab 10/02/22 13:10 Completed TROPONIN Q4H Lab 10/02/22 17:10 Completed TROPONIN Q4H Lab 10/02/22 21:00 Ordered Pulse Oximetry CONTINUOUS RT 10/02/22 18:39 Active Respiratory Therapy Assessment DAILY RT 10/02/22 13:37 Active Transfer Order Routine Transfer 10/02/22 Ordered Medication Summary Generic Name Dose Route Start Last Admin Trade Name Freq PRN Reason Stop Dose Admin Albuterol/Ipratropium 3 ml 10/02/22 19:00 Ipratropium/Albuterol Sulfate 3 Ml Ampul.Neb IH 11/01/22 18:59 Q4HRT [facility] Methylprednisolone Sodium 0 mg 10/03/22 00:00 Succinate 125 mg/ Sterile IV 11/02/22 00:00 Water 2 ml Q6HT MICHEAL Sodium Chloride 1,000 mls @ 100 mls/hr 10/02/22 19:00 Sodium Chloride 0.45% 1000 Ml IV 11/01/22 18:59 .Q10H MICHEAL Discontinued Medications Generic Name Dose Route Start Last Admin Trade Name Larryq PRN Reason Stop Dose Admin Albuterol Sulfate Confirm 10/02/22 12:55 Albuterol Solution 2.5 Mg/0.5 Ml Ud Solution Administered 10/02/22 12:56 Dose 2.5 mg IH .STK-MED ONE Albuterol Sulfate 10 mg 10/02/22 13:38 10/02/22 13:39 Albuterol Sulfate 2.5 Mg/3 Ml Neb IH 10/02/22 13:39 10 mg STAT ONE Administration Albuterol Sulfate Confirm 10/02/22 12:54 Albuterol Solution 2.5 Mg/0.5 Ml Ud Solution Administered 10/02/22 12:55 Dose 2.5 mg IH .STK-MED ONE Albuterol Sulfate Confirm 10/02/22 12:54 Albuterol Sulfate 2.5 Mg/3 Ml Neb Administered 10/02/22 12:55 Dose 2.5 mg IH .STK-MED ONE Albuterol Sulfate 2.5 mg 10/02/22 15:08 10/02/22 15:20 Albuterol Sulfate 2.5 Mg/3 Ml Neb IH 10/02/22 15:09 2.5 mg STAT ONE Administration Albuterol Sulfate Confirm 10/02/22 15:14 Albuterol Sulfate 2.5 Mg/3 Ml Neb Administered 10/02/22 15:15 Dose 2.5 mg IH .STK-MED ONE Albuterol/Ipratropium 3 ml 10/02/22 12:54 10/02/22 16:52 Ipratropium/Albuterol Sulfate 3 Ml Ampul.Neb 10/02/22 12:55 Not Given STAT ONE Methylprednisolone Sodium 0 mg 10/02/22 12:54 10/02/22 15:06 Succinate 125 mg/ Sterile IV 10/02/22 12:55 125 mg Water 2 ml STAT ONE Administration Piperacillin Sod/Tazobactam 100 mls @ 200 mls/hr 10/02/22 12:56 10/02/22 15:05 Sod 4.5 gm/ Sodium Chloride IV 10/02/22 13:25 200 mls/hr STAT ONE Administration Vancomycin HCl 1 gm in 200 mls @ 125 mls/hr 10/02/22 12:56 10/02/22 19:23 Vancomycin 1 Gram/200 Ml Bag IV 10/02/22 14:31 Infused STAT ONE Infusion Sodium Chloride Confirm 10/02/22 14:54 Sodium Chloride 100ml Mini-Bag Plus Administered 10/02/22 14:55 Dose 100 mls @ ud IV .STK-MED ONE Vancomycin HCl Confirm 10/02/22 16:17 Vancomycin 1 Gram/200 Ml Bag Administered 10/02/22 16:18 Dose 1 gm in 200 mls @ ud IV .STK-MED ONE Lorazepam 0.5 mg 10/02/22 16:23 10/02/22 16:35 Lorazepam 2 Mg/1 Ml 2 Mg Vial IV 10/02/22 16:24 0.5 mg STAT ONE Administration Lorazepam Confirm 10/02/22 16:32 Lorazepam 2 Mg/1 Ml 2 Mg Vial Administered 10/02/22 16:33 Dose 2 mg .ROUTE .STK-MED ONE Methylprednisolone Sodium Succinate Confirm 10/02/22 14:55 Methylprednis Sod Succ 125 Mg/2 Ml Vial Administered 10/02/22 14:56 Dose 125 mg .ROUTE .STK-MED ONE Piperacillin Sod/Tazobactam Sod Confirm 10/02/22 14:54 Piperacillin/Tazobactam Sodium 4.5 Gm Vial Administered 10/02/22 14:55 Dose 4.5 gm IV .STK-MED ONE Sterile Water Confirm 10/02/22 14:54 Water For Injection,Sterile 10 Ml Vial Administered 10/02/22 14:55 Dose 10 ml IJ .STK-MED ONE Lab/Rad Data: Laboratory Result Diagrams 10/02/22 13:15 10/02/22 13:10 Laboratory Results 10/02/22 10/02/22 10/02/22 Range/Units 17:10 13:15 13:10 WBC 8.7 (4.0-10.5) x10^3/uL RBC 3.90 L (4.1-5.6) x10^6/uL Hgb 11.5 L (12.5-18.0) g/dL Hct 37.6 L (42-50) % MCV 96.4 (78-100) fL MCH 29.5 (26-32) pg MCHC 30.6 L (32-36) g/dL RDW 12.7 (11.5-14.0) % Plt Count 235 (150-450) x10^3/uL MPV 10.5 (7.5-11.0) fL Gran % 65.7 (36.0-66.0) % Immature Gran % (Auto) 0.6 H (0.00-0.4) % Nucleat RBC Rel Count 0.0 (0.00-0.1) % Eos # (Auto) 0.44 (0-0.5) x10^3/uL Immature Gran # (Auto) 0.05 H (0.00-0.03) x10^3u/L Absolute Lymphs (auto) 1.38 (1.0-4.6) x10^3/uL Absolute Monos (auto) 1.04 (0.0-1.3) x10^3/uL Absolute Nucleated RBC 0.00 (0.00-0.01) x10^3u/L Lymphocytes % 15.9 L (24.0-44.0) % Monocytes % 12.0 (0.0-12.0) % Eosinophils % 5.1 H (0.00-5.0) % Basophils % 0.7 (0.0-0.4) % Absolute Granulocytes 5.70 (1.4-6.9) x10^3/uL Basophils # 0.06 (0-0.4) x10^3/uL Sodium Direct (138-146) mmol/L Potassium (3.5-4.9) mmol/L Chloride (98-109) mmol/L Carbon Dioxide (24-29) mmol/L Venous BUN (8-26) mg/dL Creatinine (0.6-1.3) mg/dL Glucose (70-105) mg/dL Ionized Calcium (1.12-1.32) mmol/L Troponin (0.00-0.03) ng/mL Troponin I < 0.012 (0.000-0.034) ng/mL NT-Pro-B Natriuret Pep (<300) pg/mL Procalcitonin (0.030-0.080) ng/mL Influenza Type A Ag NEGATIVE (NEGATIVE) Influenza Type B Ag NEGATIVE (NEGATIVE) RSV (PCR) NEGATIVE (NEGATIVE) SARS-CoV-2 (PCR) NEGATIVE (NEGATIVE) 10/02/22 Range/Units 13:10 WBC (4.0-10.5) x10^3/uL RBC (4.1-5.6) x10^6/uL Hgb (12.5-18.0) g/dL Hct (42-50) % MCV (78-100) fL MCH (26-32) pg MCHC (32-36) g/dL RDW (11.5-14.0) % Plt Count (150-450) x10^3/uL MPV (7.5-11.0) fL Gran % (36.0-66.0) % Immature Gran % (Auto) (0.00-0.4) % Nucleat RBC Rel Count (0.00-0.1) % Eos # (Auto) (0-0.5) x10^3/uL Immature Gran # (Auto) (0.00-0.03) x10^3u/L Absolute Lymphs (auto) (1.0-4.6) x10^3/uL Absolute Monos (auto) (0.0-1.3) x10^3/uL Absolute Nucleated RBC (0.00-0.01) x10^3u/L Lymphocytes % (24.0-44.0) % Monocytes % (0.0-12.0) % Eosinophils % (0.00-5.0) % Basophils % (0.0-0.4) % Absolute Granulocytes (1.4-6.9) x10^3/uL Basophils # (0-0.4) x10^3/uL Sodium Direct 140 (138-146) mmol/L Potassium 4.0 (3.5-4.9) mmol/L Chloride 97 L (98-109) mmol/L Carbon Dioxide 34 H (24-29) mmol/L Venous BUN 8 (8-26) mg/dL Creatinine 0.9 (0.6-1.3) mg/dL Glucose 110 H (70-105) mg/dL Ionized Calcium 1.17 (1.12-1.32) mmol/L Troponin 0.00 (0.00-0.03) ng/mL Troponin I (0.000-0.034) ng/mL NT-Pro-B Natriuret Pep 36.6 (<300) pg/mL Procalcitonin 0.038 (0.030-0.080) ng/mL Influenza Type A Ag (NEGATIVE) Influenza Type B Ag (NEGATIVE) RSV (PCR) (NEGATIVE) SARS-CoV-2 (PCR) (NEGATIVE) - Progress Progress: improved Progress Note: 10/02/22 14:58 differential diagnosis includes: PNA, STEMI, NSTEMI, other infection, musculoskeletal pain, pneumothorax, COPD - We'll obtain basic labs, fluids, EKG, troponin, chest x-ray - EKG shows no ST changes - my read. See full read below. - O2 saturations consistently greater than 95% on 6 L of oxygen - CXR shows pneumonia versus other tumor. Plan for CT chest. 10/02/22 19:52 CT scan demonstrated no obvious new tumor or pneumonia. Patient did improve with breathing treatments, steroids. However, when we ambulated the patient he did desat to 86%. Heart rate jumped up to the 120s. Given all of this we made the decision to admit the patient. I did discuss over the phone with on-call physician, Dr. Diallo. He accepted the patient for admission. I do not believe patient has a pneumonia. He has no elevated procalcitonin, no elevation of white blood cell count, no fever here. Patient did get his first dose of vancomycin and Zosyn here. This would be in case he developed a pneumonia. P atient stable at time of admission 10/02/22 19:56 ED critical care statement As staff physician, I have provided critical care. Time: 56 mins Criteria for critical illness: Acute respiratory failure Treatment and management provided include: Coordination of management with ETC care team, consultants, and inpatient care team. [id number] assessment of condition and response to therapy. Review and interpretation of emergent diagnostic testing. Medical chart review and completion. Direction and immediate supervision of the following therapy: Critical care was time spent personally by me on the following activities: blood draw for specimens, development of treatment plan with patient or surrogate, discussions with consultants, discussions with primary provider, interpretation of cardiac output measurements, evaluation of patient's response to treatment, examination of patient, obtaining history from patient or surrogate, ordering and performing treatments and interventions, ordering and review of laboratory studies, ordering and review of radiographic studies, pulse oximetry, re-evaluation of patient's condition and review of old charts. This time was independent of all procedures performed. Edward Lopez Discussed with DrCarmela: [place] Will see patient in: hospital (observation) Counseled pt/family regarding: lab results, diagnosis, rad results Medical Desision Making - External Record(s) Reviewed Records reviewed as a part of evaluation & management: Inpatient, Discharge Summary - Discussion of managment Care discussed with:: hospitalist Reviewed:: Test results Agreed on:: decision to admit Will see patient: in hospital - Diagnostic Testing Diagnostic test were ordered, analyzed, and reviewed by me: Yes Radiological Interpretation: Interpreted by me - Departure Departure Disposition: Observation Clinical Impression: COPD exacerbation, Acute respiratory failure Condition: Stable Critical Care Time: No Critical Care Time(excluding separately billable procedures): Critical 30-74 mins Referrals: EDISON JARRETT [Primary Care Provider] - Follow up/PCP as directed Instructions: Chronic Obstructive Pulmonary Disease
[2022-10-02 15:07] LABS: NT PRO BNPII 36.6 pg/mL (<300); PROCALCITONIN 0.038 ng/mL (0.030-0.080)
[2022-10-02] MEDS ORDERED: Ativan 2 MG/1 ML VIAL IV ONE (16:23)
[2022-10-02] MEDS ORDERED: Ativan 2 MG/1 ML VIAL ONE (16:32)
--- NOTE | 2022-10-02 17:13 | XRAY ---
Indication: Chest pain and short of breath. Abnormal chest radiograph, Pneumonia versus mass. Multiple contiguous axial images obtained through the chest using 80 cc [id number] contrast as ordered. Comparison: August 23, 2022 Lungs demonstrate stable pulmonary emphysema, lingula subsegmental atelectasis/scarring, small medial right upper lobe calcified granuloma, and 4 mm noncalcified nodule posterior right upper lobe. No new pulmonary mass/nodule, infiltrate, or effusion. Heart not enlarged. Aorta remains mildly arteriosclerotic without aneurysm/dissection. No pathologic mediastinal/hilar lymphadenopathy. Bony thorax is intact again with osteopenia, mild degenerative changes of the spine, and remote T12 compression fracture. Limited upper abdomen unremarkable. Impression: No change compared to ER CT PE exam August 23, 2022. Chronic findings including pulmonary emphysema, lingula atelectasis/scarring, right upper lobe calcified/noncalcified nodules, and chronic bony findings. No new/acute abnormalities.
[2022-10-02] MEDS: DUONEB 0.5-3 MG/3 ml Neb IH SCH ×2 (19:58→23:13)
[2022-10-02] MEDS ORDERED: Sodium Chloride 0.9% 1000 ML 0 ML ONE (22:34)
[2022-10-03] MEDS ORDERED: solu-MEDROL 125 MG, Sterile H2O 10 ml 2 ML IV SCH ×2
--- NOTE | 2022-10-03 02:17 | PCM.HP ---
History of Present Illness - Chief Complaint Chief Complaint: COPD Exacerbation Date: 10/03/22 History of Present Illness: Mr. Alves is a 72 year-old male with emphysematous COPD, chronic hypoxemic respiratory failure, HTN, and HLD who presents with shortness of breath. He admits to worsening symptoms everytime he finishes a course of antibiotics and steroids, and he just completed a course a week ago after an admission for pneumonia a month ago. Upon arrival to [place], his laboratory data and imaging were unrevealing, and currently he is feeling better denying any current fevers, chills, nausea, vomiting, diarrhea, syncope, presyncope, visual changes, orthopnea, PND, odynophagia, dysphagia, chest pain, belly pain, dysuria, hematuria, melena, hematochezia, or neurological changes. All other systems were reviewed and were negative. - Review of Systems Constitutional: Other ( PER HPI) Medications & Allergies Home Medications: Home Medication List Albuterol Common Canister [Ventolin Common Canister] 2 puff IH Q4HPRN PRN #0 puff 10/28/12 [Rx Confirmed 10/02/22] Atorvastatin Calcium [Lipitor] 40 mg PO DAILY 03/24/19 [History Confirmed 10/02/22] Metoprolol Succinate 100 mg [Toprol Xl 100 MG] 50 mg PO DAILY 08/22/22 [History Confirmed 10/02/22] Umeclidinium Brm/Vilanterol Tr [Anoro Ellipta 62.5-25 Mcg INH] 1 each IH DAILY 08/22/22 [History Confirmed 10/02/22] Levocetirizine Dihydrochloride 5 mg PO HS 08/23/22 [History Confirmed 10/02/22] Albuterol 2.5 mg/3 ml Neb [Proventil 2.5 mg/3 ml Neb] 2.5 mg IH TID 10 Days #30 08/28/22 [Rx Confirmed 10/02/22] Ipratropium [place] 0.5 mg [Atrovent 0.5MG NEBULE] 0 mg IH TID 10 Days #30 08/28/22 [Rx Confirmed 10/02/22] Allergies/Adverse Reactions: Allergies Allergy/AdvReac Type Severity Reaction Status Date / Time fluticasone AdvReac Mild Verified 10/02/22 12:53 [From Advair Diskus] salmeterol AdvReac Mild Verified 10/02/22 12:53 [From Advair Diskus] - Past Medical History Past Medical History: Yes Neurological History: Epilepsy, Seizures ENT History: Cataracts Cardiac History: High Cholesterol, Hypertension Respiratory History: COPD, Emphysema, Pneumonia Endocrine Medical History: No Pertinent History Musculoskelatal History: Arthritis GI Medical History: No Pertinent History History: No Pertinent History Pyscho-Social History: No Pertinent History Male Reproductive Disorders: No Pertinent History Comment: Seizure(?) Took dilantin for about two years, [id number] - Past Surgical History Past Surgical History: No Neuro Surgical History: No Pertinent History Cardiac History: No Pertinent History Respiratory Surgery: No Pertinent History GI Surgical History: No Pertinent History Genitourinary Surgical Hx: No Pertinent History Musculskeletal Surgical Hx: No Pertinent History Male Surgical History: No Pertinent History - Social History Smoking Status: Former smoker How long have you smoked: 50 years Exposure to second hand smoke: No Alcohol: Occasionally, Weekly Drug Use: marijuana Significant Family History: no pertinent family hx - Physical Exam Vital Signs: Vital Signs - 24 hr Temp Pulse Resp BP BP Pulse Ox 10/02/22 23:58 98.2 F 114 H 26 H 117/67 92 L 10/02/22 23:16 126 H 26 H 93 L 10/02/22 22:03 97.3 F 105 H 18 138/82 95 10/02/22 21:04 110 H 134/86 94 L 10/02/22 19:58 99 H 23 96 10/02/22 19:56 97 10/02/22 19:00 110 H 28 H 122/72 94 L 10/02/22 18:00 100 H 21 126/81 94 L 10/02/22 17:30 98 H 19 134/70 92 L 10/02/22 17:10 97 H 16 140/81 97 10/02/22 17:07 101 H 20 140/81 98 10/02/22 16:17 111 H 22 123/67 98 10/02/22 16:00 116 H 22 123/67 97 10/02/22 15:20 105 H 24 94 L 10/02/22 15:05 105 H 18 132/102 96 10/02/22 15:02 19 99 10/02/22 15:00 108 H 25 H 116/78 98 10/02/22 14:03 108 H 24 137/75 97 10/02/22 13:41 24 96 10/02/22 13:01 109 H 94 L 10/02/22 13:00 114 H 26 H 156/99 88 L 10/02/22 12:57 98.9 F 112 H 38 H 171/105 96 10/02/22 12:52 96 General Appearance: no apparent distress Neurologic Exam: alert, oriented x 3 Eye Exam: PERRL/EOMI Ears, Nose, Throat Exam: normal ENT inspection Neck Exam: normal inspection Respiratory Exam: wheezing Cardiovascular Exam: regular rate/rhythm Gastrointestinal/Abdomen Exam: soft, normal bowel sounds Rectal Exam: deferred Back Exam: normal inspection Extremity Exam: normal inspection Skin Exam: normal color, warm Results - Labs Lab/Micro Results: Lab Results-Last 24 Hours 10/02/22 10/02/22 10/02/22 Range/Units 13:10 13:10 13:15 WBC 8.7 (4.0-10.5) x10^3/uL RBC 3.90 L (4.1-5.6) x10^6/uL Hgb 11.5 L (12.5-18.0) g/dL Hct 37.6 L (42-50) % MCV 96.4 (78-100) fL MCH 29.5 (26-32) pg MCHC 30.6 L (32-36) g/dL RDW 12.7 (11.5-14.0) % Plt Count 235 (150-450) x10^3/uL MPV 10.5 (7.5-11.0) fL Gran % 65.7 (36.0-66.0) % Immature Gran % (Auto) 0.6 H (0.00-0.4) % Nucleat RBC Rel Count 0.0 (0.00-0.1) % Eos # (Auto) 0.44 (0-0.5) x10^3/uL Immature Gran # (Auto) 0.05 H (0.00-0.03) x10^3u/L Absolute Lymphs (auto) 1.38 (1.0-4.6) x10^3/uL Absolute Monos (auto) 1.04 (0.0-1.3) x10^3/uL Absolute Nucleated RBC 0.00 (0.00-0.01) x10^3u/L Lymphocytes % 15.9 L (24.0-44.0) % Monocytes % 12.0 (0.0-12.0) % Eosinophils % 5.1 H (0.00-5.0) % Basophils % 0.7 (0.0-0.4) % Absolute Granulocytes 5.70 (1.4-6.9) x10^3/uL Basophils # 0.06 (0-0.4) x10^3/uL Sodium Direct 140 (138-146) mmol/L Potassium 4.0 (3.5-4.9) mmol/L Chloride 97 L (98-109) mmol/L Carbon Dioxide 34 H (24-29) mmol/L Venous BUN 8 (8-26) mg/dL Creatinine 0.9 (0.6-1.3) mg/dL Glucose 110 H (70-105) mg/dL Ionized Calcium 1.17 (1.12-1.32) mmol/L Troponin 0.00 (0.00-0.03) ng/mL Troponin I (0.000-0.034) ng/mL NT-Pro-B Natriuret Pep 36.6 (<300) pg/mL Procalcitonin 0.038 (0.030-0.080) ng/mL Influenza Type A Ag NEGATIVE (NEGATIVE) Influenza Type B Ag NEGATIVE (NEGATIVE) RSV (PCR) NEGATIVE (NEGATIVE) SARS-CoV-2 (PCR) NEGATIVE (NEGATIVE) 10/02/22 10/02/22 Range/Units 17:10 21:05 WBC (4.0-10.5) x10^3/uL RBC (4.1-5.6) x10^6/uL Hgb (12.5-18.0) g/dL Hct (42-50) % MCV (78-100) fL MCH (26-32) pg MCHC (32-36) g/dL RDW (11.5-14.0) % Plt Count (150-450) x10^3/uL MPV (7.5-11.0) fL Gran % (36.0-66.0) % Immature Gran % (Auto) (0.00-0.4) % Nucleat RBC Rel Count (0.00-0.1) % Eos # (Auto) (0-0.5) x10^3/uL Immature Gran # (Auto) (0.00-0.03) x10^3u/L Absolute Lymphs (auto) (1.0-4.6) x10^3/uL Absolute Monos (auto) (0.0-1.3) x10^3/uL Absolute Nucleated RBC (0.00-0.01) x10^3u/L Lymphocytes % (24.0-44.0) % Monocytes % (0.0-12.0) % Eosinophils % (0.00-5.0) % Basophils % (0.0-0.4) % Absolute Granulocytes (1.4-6.9) x10^3/uL Basophils # (0-0.4) x10^3/uL Sodium Direct (138-146) mmol/L Potassium (3.5-4.9) mmol/L Chloride (98-109) mmol/L Carbon Dioxide (24-29) mmol/L Venous BUN (8-26) mg/dL Creatinine (0.6-1.3) mg/dL Glucose (70-105) mg/dL Ionized Calcium (1.12-1.32) mmol/L Troponin (0.00-0.03) ng/mL Troponin I < 0.012 < 0.012 (0.000-0.034) ng/mL NT-Pro-B Natriuret Pep (<300) pg/mL Procalcitonin (0.030-0.080) ng/mL Influenza Type A Ag (NEGATIVE) Influenza Type B Ag (NEGATIVE) RSV (PCR) (NEGATIVE) SARS-CoV-2 (PCR) (NEGATIVE) - Radiology Impressions Radiology Exams & Impressions: Radiology Procedures Category Date Time Status CHEST 1 VIEW (PORTABLE) DAILY Exams 10/03/22 07:00 Ordered CHEST 1 VIEW (PORTABLE) DAILY Exams 10/04/22 07:00 Ordered CHEST 1 VIEW (PORTABLE) Stat Exams 10/02/22 12:55 Completed CHEST WITH CONTRAST [CT] Stat Exams 10/02/22 14:25 Completed - Other Procedures and Tests Respiratory Therapy 10/02/22 13:37 Respiratory Therapy Assessment DAILY 10/02/22 23:11 Oxygen NASAL CANNULA 2 lpm Assessment/Plan (1) Acute exacerbation of chronic bronchitis Current Visit: No Status: Acute Assessment & Plan: ASSESSMENT 1. Acute on Chronic Emphysematous COPD Exacerbation 2. Chronic Hypoxemic Respiratory Failure 3. Hypertension 4. Hyperlipidemia 5. Obesity PLAN 1. IV steroids (dose decreased) + duonebs 2. CT without any airspace disease - no need for Abx 3. Continue home medications for hypertension and hyperlipidemia 4. Discharge with referral to pulmonary rehabilitation [facility] The entirety of this encounter was done via telemedicine Alex Rodriguez MD Pulmonary and Critical Care Medicine Code(s): J20.9 - ACUTE BRONCHITIS, UNSPECIFIED; J42 - UNSPECIFIED CHRONIC BRONCHITIS Telemedicine Encounter - Telemedicine Encounter Telemedicine Encounter: The entirety of this encounter was performed via Telemedicine"
[2022-10-03] MEDS: DUONEB 0.5-3 MG/3 ml Neb IH SCH ×7 (03:21→23:22)
[2022-10-03] MEDS ORDERED: Sterile H2O 10 ml IJ ONE (05:14)
[2022-10-03] MEDS ORDERED: solu-MEDROL ONE (05:14)
[2022-10-03] MEDS: solu-MEDROL 60 MG, Sterile H2O 10 ml 2 ML IV SCH ×6 (05:54→18:30)
[2022-10-03 06:21] LABS: Hematocrit 36.7 % (42-50); Hemoglobin 11.4 g/dL (12.5-18.0); Mean Cell Volume 95.6 fL (78-100); Mean Corpuscular Hemoglobin 29.7 pg (26-32); Mean Corpuscular Hgb Concent. 31.1 g/dL (32-36); Mean Platelet Volume 10.9 fL (7.5-11.0); Platelet Count 240 x10^3/uL (150-450); Red Blood Count 3.84 x10^6/uL (4.1-5.6); Red Cell Distribution Width 12.9 % (11.5-14.0); White Blood Count 11.6 x10^3/uL (4.0-10.5)
[2022-10-03 06:38] LABS: ALBUMIN 4.7 g/dL (3.5-5.0); ALKALINE PHOSPHATASE 59 U/L (38-126); ANION GAP 18.3 MEQ/L (5-15); BLOOD UREA NITROGEN 16 mg/dL (9-20); CHLORIDE 96 mmol/L (98-107); Calcium 9.3 mg/dL (8.4-10.2); Carbon Dioxide 31 mmol/L (22-30); Creatinine 1 0.75 mg/dL (0.66-1.25); EST GLOMERULAR FILTRATION RATE > 60.0 ML/MIN; Glucose 140 mg/dL (74-106); Potassium 4.4 mmol/L (3.5-5.1); SGOT/AST 28 U/L (17-59); SGPT/ALT 30 U/L (0-50); SODIUM 140 mmol/L (137-145); Total Protein 7.8 g/dL (6.3-8.2)
--- NOTE | 2022-10-03 07:38 | XRAY ---
Indication: Short of breath. Comparison: One day earlier Portable chest unchanged again demonstrating CT proven lingula subsegmental atelectasis/scarring. Remaining heart and lungs unremarkable. No new/acute findings.
[2022-10-03] MEDS: ENOXAPARIN SODIUM SQ SCH (08:35)
[2022-10-03] MEDS: Toprol Xl 100 MG PO SCH (08:36)
[2022-10-03] MEDS ORDERED: Toprol Xl 100 MG PO SCH (10:00)
[2022-10-03] MEDS: Tessalon Perles 100 MG PO PRN ×2 (12:54→20:02)
[2022-10-03] MEDS: xanAX 0.5 MG PO PRN (20:02)
[2022-10-03] MEDS: ZOCOR 20MG PO SCH (21:27)
[2022-10-03] MEDS: CLARITIN 10 MG PO SCH (21:27)
[2022-10-03] MEDS ORDERED: NON-FORMULARY ITEM PO SCH (22:00)
[2022-10-04] MEDS: solu-MEDROL 60 MG, Sterile H2O 10 ml 2 ML IV SCH ×4 (00:11→05:59)
[2022-10-04] MEDS: DUONEB 0.5-3 MG/3 ml Neb IH SCH ×6 (03:04→22:46)
[2022-10-04 06:00] LABS: Absolute Neutrophil Ct (ANC) 18.69 x10^3/uL (1.4-6.9); BASOPHIL % 0.1 % (0.0-0.4); Basophil (Absolute #) 0.01 x10^3/uL (0-0.4); Eosinophil (Absolute #) 0 x10^3/uL (0-0.5); Hematocrit 34.6 % (42-50); Hemoglobin 10.6 g/dL (12.5-18.0); IMMATURE GRAN # 0.14 x10^3u/L (0.00-0.03); IMMATURE GRAN % 0.7 % (0.00-0.4); Lymphocyte (Absolute #) 0.28 x10^3/uL (1.0-4.6); Lymphocytes % 1.4 % (24.0-44.0); Mean Cell Volume 97.5 fL (78-100); Mean Corpuscular Hemoglobin 29.9 pg (26-32); Mean Corpuscular Hgb Concent. 30.6 g/dL (32-36); Mean Platelet Volume 10.9 fL (7.5-11.0); Monocyte (Absolute #) 0.64 x10^3/uL (0.0-1.3); Monocytes % 3.2 % (0.0-12.0); Neutrophil % 94.6 % (36.0-66.0); Platelet Count 231 x10^3/uL (150-450); Red Blood Count 3.55 x10^6/uL (4.1-5.6); Red Cell Distribution Width 13.1 % (11.5-14.0); White Blood Count 19.8 x10^3/uL (4.0-10.5)
[2022-10-04 06:11] LABS: ANION GAP 13.7 MEQ/L (5-15); BLOOD UREA NITROGEN 31 mg/dL (9-20); CHLORIDE 98 mmol/L (98-107); Calcium 9.4 mg/dL (8.4-10.2); Carbon Dioxide 35 mmol/L (22-30); Creatinine 1 0.78 mg/dL (0.66-1.25); EST GLOMERULAR FILTRATION RATE > 60.0 ML/MIN; Glucose 154 mg/dL (74-106); Potassium 4.3 mmol/L (3.5-5.1); SODIUM 142 mmol/L (137-145)
--- NOTE | 2022-10-04 07:47 | XRAY ---
Indication: Short of breath. Comparison: One day earlier Portable chest unchanged again demonstrating lingula subsegmental atelectasis/scarring. Heart not enlarged. No new/acute findings.
[2022-10-04 09:29] LABS: Slide Review 1 YES
[2022-10-04] MEDS ORDERED: solu-MEDROL 80 MG, Sterile H2O 10 ml 2 ML IV SCH ×2 (10:11)
--- NOTE | 2022-10-04 10:17 | PCM.NOTE ---
Date and Time: 10/04/22 1011 Subjective Assessment: patient is still feeling tight in his chest, wheezing and coughing Objective Exam Neurologic Exam: alert, oriented x 3 Respiratory Exam: prolonged expirations, wheezing Cardiovascular Exam: regular rate/rhythm, normal heart sounds Gastrointestinal/Abdomen Exam: soft, No tenderness, No mass Extremity Exam: normal inspection, normal range of motion OBJECTIVE DATA Vital Signs: Vital Signs - 24 hr Temp Pulse Resp BP Pulse Ox 10/04/22 08:00 97.8 F 126 H 28 H 154/65 91 L 10/04/22 06:45 126 H 28 H 91 L 10/04/22 04:00 97.8 F 124 H 25 H 115/71 90 L 10/04/22 03:04 118 H 26 H 90 L 10/03/22 23:44 115 H 24 96 10/03/22 23:22 123 H 24 93 L 10/03/22 19:40 97.5 F 126 H 30 H 139/70 91 L 10/03/22 19:26 133 H 32 H 95 10/03/22 16:00 97.7 F 125 H 20 147/62 89 L 10/03/22 14:51 121 H 28 H 93 L 10/03/22 11:20 98.4 F 133 H 30 H 127/66 91 L 10/03/22 10:45 133 H 30 H 91 L Pain Assessment - Last Documented Pain Intensity 0 Intake and Output: Intake & Output 10/01/22 10/02/22 10/03/22 10/04/22 11:59 11:59 11:59 11:59 Intake Total 1299 1989 Balance 1299 1989 Weight 98.6 kg Lab Results: Lab Results-Last 24 Hours 10/04/22 10/04/22 Range/Units 05:48 05:48 WBC 19.8 H (4.0-10.5) x10^3/uL RBC 3.55 L (4.1-5.6) x10^6/uL Hgb 10.6 L (12.5-18.0) g/dL Hct 34.6 L (42-50) % MCV 97.5 (78-100) fL MCH 29.9 (26-32) pg MCHC 30.6 L (32-36) g/dL RDW 13.1 (11.5-14.0) % Plt Count 231 (150-450) x10^3/uL MPV 10.9 (7.5-11.0) fL Gran % 94.6 H (36.0-66.0) % Immature Gran % (Auto) 0.7 H (0.00-0.4) % Nucleat RBC Rel Count 0.0 (0.00-0.1) % Eos # (Auto) 0 (0-0.5) x10^3/uL Immature Gran # (Auto) 0.14 H (0.00-0.03) x10^3u/L Absolute Lymphs (auto) 0.28 L (1.0-4.6) x10^3/uL Absolute Monos (auto) 0.64 (0.0-1.3) x10^3/uL Absolute Nucleated RBC 0.00 (0.00-0.01) x10^3u/L Lymphocytes % 1.4 L (24.0-44.0) % Monocytes % 3.2 (0.0-12.0) % Eosinophils % 0.0 (0.00-5.0) % Basophils % 0.1 (0.0-0.4) % Absolute Granulocytes 18.69 H (1.4-6.9) x10^3/uL Basophils # 0.01 (0-0.4) x10^3/uL Sodium 142 (137-145) mmol/L Potassium 4.3 (3.5-5.1) mmol/L Chloride 98 (98-107) mmol/L Carbon Dioxide 35 H (22-30) mmol/L Anion Gap 13.7 (5-15) MEQ/L BUN 31 H (9-20) mg/dL Creatinine 0.78 (0.66-1.25) mg/dL Estimated GFR > 60.0 ML/MIN Glucose 154 H (74-106) mg/dL Calcium 9.4 (8.4-10.2) mg/dL Slides for Path Review YES Radiology Exams: Radiology Procedures Category Date Time Status CHEST 1 VIEW (PORTABLE) DAILY Exams 10/03/22 07:00 Completed CHEST 1 VIEW (PORTABLE) DAILY Exams 10/04/22 07:00 Completed CHEST 1 VIEW (PORTABLE) Stat Exams 10/02/22 12:55 Completed CHEST WITH CONTRAST [CT] Stat Exams 05/05/23 14:25 Completed Assessment/Plan (1) COPD exacerbation Current Visit: Yes Status: Acute Assessment & Plan: increase dose of solu medrol, continue current abx therapy Code(s): J44.1 - CHRONIC OBSTRUCTIVE PULMONARY DISEASE W (ACUTE) EXACERBATION (2) Acute and chronic respiratory failure ([id number]) Current Visit: No Status: Chronic Qualifiers: Respiratory failure complication: hypoxia and hypercapnia Qualified Code(s): J96.21 - Acute and chronic respiratory failure with hypoxia; J96.22 - Acute and chronic respiratory failure with hypercapnia; J96.22 - Acute and chronic respiratory failure with hypercapnia Code(s): J96.20 - ACUTE AND CHR RESP FAILURE, UNSP W HYPOXIA OR HYPERCAPNIA (3) CHF (congestive heart failure) Current Visit: No Status: Chronic Code(s): I50.9 - HEART FAILURE, UNSPECIFIED
[2022-10-04] MEDS: Toprol Xl 100 MG PO SCH (10:32)
[2022-10-04] MEDS: ENOXAPARIN SODIUM SQ SCH (10:32)
[2022-10-04] MEDS: solu-MEDROL 80 MG, Sterile H2O 10 ml 2 ML IV SCH ×4 (12:36→17:51)
[2022-10-04] MEDS: ZOCOR 20MG PO SCH (21:07)
[2022-10-04] MEDS: CLARITIN 10 MG PO SCH (21:07)
[2022-10-04] MEDS: xanAX 0.5 MG PO PRN (21:10)
[2022-10-05] MEDS: solu-MEDROL 80 MG, Sterile H2O 10 ml 2 ML IV SCH ×4 (00:25→05:26)
[2022-10-05] MEDS: DUONEB 0.5-3 MG/3 ml Neb IH SCH ×3 (02:42→11:21)
[2022-10-05 04:53] LABS: Absolute Neutrophil Ct (ANC) 22.38 x10^3/uL (1.4-6.9); BASOPHIL % 0.1 % (0.0-0.4); Basophil (Absolute #) 0.02 x10^3/uL (0-0.4); Eosinophil (Absolute #) 0 x10^3/uL (0-0.5); Hematocrit 37.2 % (42-50); Hemoglobin 11.2 g/dL (12.5-18.0); IMMATURE GRAN % 1.3 % (0.00-0.4); Lymphocyte (Absolute #) 0.35 x10^3/uL (1.0-4.6); Lymphocytes % 1.5 % (24.0-44.0); Mean Cell Volume 97.9 fL (78-100); Mean Corpuscular Hemoglobin 29.5 pg (26-32); Mean Corpuscular Hgb Concent. 30.1 g/dL (32-36); Mean Platelet Volume 10.8 fL (7.5-11.0); Monocyte (Absolute #) 0.67 x10^3/uL (0.0-1.3); Monocytes % 2.8 % (0.0-12.0); Neutrophil % 94.3 % (36.0-66.0); Platelet Count 249 x10^3/uL (150-450); Red Cell Distribution Width 13.2 % (11.5-14.0); White Blood Count 23.7 x10^3/uL (4.0-10.5)
[2022-10-05 05:06] LABS: ALBUMIN 4.3 g/dL (3.5-5.0); ALKALINE PHOSPHATASE 50 U/L (38-126); ANION GAP 14.8 MEQ/L (5-15); BLOOD UREA NITROGEN 36 mg/dL (9-20); CHLORIDE 97 mmol/L (98-107); Calcium 9.2 mg/dL (8.4-10.2); Carbon Dioxide 35 mmol/L (22-30); Creatinine 1 0.83 mg/dL (0.66-1.25); EST GLOMERULAR FILTRATION RATE > 60.0 ML/MIN; Glucose 155 mg/dL (74-106); Potassium 4.4 mmol/L (3.5-5.1); SGOT/AST 28 U/L (17-59); SGPT/ALT 29 U/L (0-50); SODIUM 143 mmol/L (137-145); Total Protein 7.2 g/dL (6.3-8.2)
[2022-10-05 06:35] LABS: Slide Review 1 YES
[2022-10-05 07:46] VITALS: BP 143/67; O2SAT 91
[2022-10-05 08:11] VITALS: PULSE 113
--- NOTE | 2022-10-05 08:35 | PCM.DS ---
Discharge Summary Date of Admission: 10/02/22 21:29 Admitting Physician: USMAN VALDEZ MD Primary Care Provider: EDISON JARRETT Allergies Allergies fluticasone [From Advair Diskus] Adverse Reaction (Mild, Verified 10/02/22 12:53) pt states "It makes me sicker" salmeterol [From Advair Diskus] Adverse Reaction (Mild, Verified 10/02/22 12:53) pt states "It makes me sicker" Hospital Summary - Hospital Course Hospital Course: patient admitted with cough, dyspnea and treated for copd exacerbation. he is back to his baseline oxygen flow rate of 2L that he wears continuously at home. he is feeling much better and felt ready for discharge. - Vitals & Intake/Output Vital Signs: Vital Signs Temperature 97.7 F 10/05/22 07:45 Pulse Rate 113 H 10/05/22 08:08 Respiratory Rate 32 H 10/05/22 08:08 Blood Pressure 143/67 10/05/22 07:45 O2 Sat by Pulse Oximetry 91 L 10/05/22 08:08 Intake & Output: Intake & Output 10/02/22 10/03/22 10/04/22 10/05/22 11:59 11:59 11:59 11:59 Intake Total 1299 1989 156 Balance 1299 1989 156 Weight 98.6 kg 98 kg - Lab Result Diagrams: 10/05/22 04:35 10/05/22 04:35 Lab Results-Last 24 Hrs: Lab Results-Last 24 Hours 10/04/22 10/05/22 10/05/22 Range/Units 05:48 04:35 04:35 WBC 23.7 H (4.0-10.5) x10^3/uL RBC 3.80 L (4.1-5.6) x10^6/uL Hgb 11.2 L (12.5-18.0) g/dL Hct 37.2 L (42-50) % MCV 97.9 (78-100) fL MCH 29.5 (26-32) pg MCHC 30.1 L (32-36) g/dL RDW 13.2 (11.5-14.0) % Plt Count 249 (150-450) x10^3/uL MPV 10.8 (7.5-11.0) fL Gran % 94.3 H (36.0-66.0) % Immature Gran % (Auto) 1.3 H (0.00-0.4) % Nucleat RBC Rel Count 0.0 (0.00-0.1) % Eos # (Auto) 0 (0-0.5) x10^3/uL Immature Gran # (Auto) 0.30 H (0.00-0.03) x10^3u/L Absolute Lymphs (auto) 0.35 L (1.0-4.6) x10^3/uL Absolute Monos (auto) 0.67 (0.0-1.3) x10^3/uL Absolute Nucleated RBC 0.00 (0.00-0.01) x10^3u/L Lymphocytes % 1.5 L (24.0-44.0) % Monocytes % 2.8 (0.0-12.0) % Eosinophils % 0.0 (0.00-5.0) % Basophils % 0.1 (0.0-0.4) % Absolute Granulocytes 22.38 H (1.4-6.9) x10^3/uL Basophils # 0.02 (0-0.4) x10^3/uL Sodium 143 (137-145) mmol/L Potassium 4.4 (3.5-5.1) mmol/L Chloride 97 L (98-107) mmol/L Carbon Dioxide 35 H (22-30) mmol/L Anion Gap 14.8 (5-15) MEQ/L BUN 36 H (9-20) mg/dL Creatinine 0.83 (0.66-1.25) mg/dL Estimated GFR > 60.0 ML/MIN Glucose 155 H (74-106) mg/dL Calcium 9.2 (8.4-10.2) mg/dL Total Bilirubin 0.40 (0.2-1.3) mg/dL AST 28 (17-59) U/L ALT 29 (0-50) U/L Alkaline Phosphatase 50 (38-126) U/L Serum Total Protein 7.2 (6.3-8.2) g/dL Albumin 4.3 (3.5-5.0) g/dL Slides for Path Review YES YES Micro Results-Entire Visit: Microbiology 10/02/22 13:10 Gram Stain - Final Sputum - Aerosol Induced Sputum Culture - Final Pseudomonas Aeruginosa 10/02/22 13:10 Blood Culture - Preliminary Blood NO GROWTH TO DATE 10/02/22 13:10 Blood Culture - Preliminary Blood NO GROWTH TO DATE - Radiology Exams Ordered Rad Exams-Entire Visit: Radiology Procedures Category Date Time Status CHEST 1 VIEW (PORTABLE) DAILY Exams 10/04/22 07:00 Completed - Procedures and Test Procedures and Tests throughout Hospitalization: Therapy Orders & Screens 10/02/22 13:37 Respiratory Therapy Assessment DAILY Comment: 10/02/22 23:11 Oxygen NASAL CANNULA 2 lpm Comment: Diagnosis: COPD Exacerbation Discharge Exam General Appearance: no apparent distress Neurologic Exam: alert, oriented x 3 Respiratory Exam: prolonged expirations, wheezing, No accessory muscle use Cardiovascular Exam: regular rate/rhythm, normal heart sounds Gastrointestinal/Abdomen Exam: soft, No tenderness, No mass Extremity Exam: normal inspection, normal range of motion Skin Exam: normal color, warm, dry Final Diagnosis/Problem List - Final Discharge Diagnosis/Problem (1) COPD exacerbation Current Visit: Yes Status: Acute Assessment & Plan: improved, will d/c to home on po prednisone, levaquin, has oxygen and nebulizer with duonebs at home. Code(s): J44.1 - CHRONIC OBSTRUCTIVE PULMONARY DISEASE W (ACUTE) EXACERBATION (2) Acute and chronic respiratory failure ([id number]) Current Visit: No Status: Chronic Code(s): J96.20 - ACUTE AND CHR RESP FAILURE, UNSP W HYPOXIA OR HYPERCAPNIA (3) CHF (congestive heart failure) Current Visit: No Status: Chronic Code(s): I50.9 - HEART FAILURE, UNSPECIFIED - Discharge Disposition: Home, Self-Care Condition: Stable Prescriptions: New Prednisone 20 mg [Deltasone 20 mg] 20 mg PO UD #18 tablet levoFLOXacin [Levofloxacin] 500 mg PO DAILY #7 tablet Continue Albuterol Common Canister [Ventolin Common Canister] 2 puff IH Q4HPRN PRN #0 puff PRN Reason: wheezes Atorvastatin Calcium [Lipitor] 40 mg PO DAILY Umeclidinium Brm/Vilanterol Tr [Anoro Ellipta 62.5-25 Mcg INH] 1 puff IH D AILY Levocetirizine Dihydrochloride 5 mg PO HS Metoprolol Succinate 50 mg [Toprol Xl 50 MG] 50 mg PO DAILY Albuterol Sulfate [Albuterol Sulfate Hfa] 2 puff IH QID Additional Instructions: use your nebulizer and duonebs every 6 hours at home while you are awake, f/u with Dr Jarrett in 1 week for recheck Follow up with: EDISON JARRETT [Primary Care Provider] - 1 Week
[2022-10-05] MEDS: Toprol Xl 100 MG PO SCH (09:40)
[2022-10-05] MEDS: ENOXAPARIN SODIUM SQ SCH (09:41)
[2022-10-05] MEDS ORDERED: solu-MEDROL 80 MG, Sterile H2O 10 ml 2 ML IM SCH ×2 (11:09)
== END 2022-10-05 12:35 | disposition home or self-care (01) | DRG 190 ==
LOC: ED 12:51 → MED SURG 21:29 → OBSVTOIN 10-03 19:26
PROVIDERS: ADMIT Internal Medicine Critical Care Medicine; ATTEND Family Medicine
DX: J44.1 Chronic obstructive pulmonary disease with (acute) exacerbation (principal); J96.20 Acute and chronic respiratory failure, unspecified whether with hypoxia or hypercapnia; Z99.81 Dependence on supplemental oxygen; I11.0 Hypertensive heart disease with heart failure; I50.9 Heart failure, unspecified; E78.5 Hyperlipidemia, unspecified; Z79.899 Other long term (current) drug therapy
CPT/HCPCS: 0241U; 36000; 36415; 71045; 71260; 80047; 80048; 80053; 83880; 84145; 84484; 85025; 85027; 87040; 87070; 87077; 87186; 93005; 93041; 93268; 94640; 94760; 94762; 96365; 96367; 96374; 99285; 99291; G0378; J1650; J2060; J2543; J2930; J7609; A9270-GY; J3370

== ENCOUNTER 2022-10-06 10:06 | Inpatient (IN) | payer MEDICARE ==
[2022-10-06] MEDS ORDERED: solu-MEDROL 125 MG, Sterile H2O 10 ml 2 ML IV ONE ×2 (10:10)
[2022-10-06] MEDS ORDERED: Sterile H2O 10 ml IJ ONE (10:23)
[2022-10-06] MEDS ORDERED: solu-MEDROL ONE (10:23)
[2022-10-06 10:40] LABS: Hematocrit 37.9 % (42-50); Hemoglobin 11.8 g/dL (12.5-18.0); Mean Cell Volume 96.9 fL (78-100); Mean Corpuscular Hemoglobin 30.2 pg (26-32); Mean Corpuscular Hgb Concent. 31.1 g/dL (32-36); Mean Platelet Volume 11.2 fL (7.5-11.0); Platelet Count 279 x10^3/uL (150-450); Red Blood Count 3.91 x10^6/uL (4.1-5.6); Red Cell Distribution Width 13.3 % (11.5-14.0)
--- NOTE | 2022-10-06 10:40 | XRAY ---
Indication: Short of breath. Comparison: October 04, 2022 Portable chest demonstrates new mild right infrahilar infiltrate/atelectasis. Stable lingula subsegmental atelectasis/scarring. Remaining heart and upper lungs unremarkable.
--- NOTE | 2022-10-06 10:46 | ERPHSYRPT ---
- History of Present Illness Time Seen by Provider: 10/06/22 10:15 Source: patient, EMS Exam Limitations: clinical condition Patient Subjective Stated Complaint: C/O SOB that increased this am. States discharged from hospital yesterday with pneumonia Triage Nursing Assessment: Patient arrived by ambulance. SOB noted; using accessory muscles to breath/labored. Audible wheezed upon arrival. He is alert and oriented. 02 @ 3L per n/c. Some edema noted to BLE. Physician History: Patient is a white male released from the hospital yesterday who is 72. he presents with a complaint of shortness of breath he was found to be at 88% on his regular 2 L of home O2. He was given a DuoNeb in route he states he is allergic to Advair. He was discharged yesterday according to the respiratory therapist because of his desire to go home. Timing/Duration: today Activities at Onset: none Severity of Dyspnea-Max: severe Severity of Dyspnea-Current: severe Possible Cause: frequent episodes Modifying Factors: Improves With: albuterol nebulizer Associated Symptoms: cough, wheezing, productive cough Allergies/Adverse Reactions: fluticasone [From Advair Diskus] Adverse Reaction (Mild, Verified 10/06/22 10:08) pt states "It makes me sicker" salmeterol [From Advair Diskus] Adverse Reaction (Mild, Verified 10/06/22 10:08) pt states "It makes me sicker" Home Medications: Atorvastatin Calcium [Lipitor] 40 mg PO DAILY 03/24/19 [History] Umeclidinium Brm/Vilanterol Tr [Anoro Ellipta 62.5-25 Mcg INH] 1 puff IH DAILY 08/22/22 [History] Levocetirizine Dihydrochloride 5 mg PO HS 08/23/22 [History] Albuterol Sulfate [Albuterol Sulfate Hfa] 2 puff IH QID 10/03/22 [History] Metoprolol Succinate 50 mg [Toprol Xl 50 MG] 50 mg PO DAILY 10/03/22 [History] Hx Tetanus, Diphtheria Vaccination/Date Given: Yes Hx Influenza Vaccination/Date Given: Yes Hx Pneumococcal Vaccination/Date Given: Yes Immunizations Up to Date: Yes Travel Risk - International Travel Have you traveled outside of the country in past 3 weeks: No - Coronavirus Screening Are you exhibiting any of the following symptoms?: Yes Symptoms: Cough: New Onset, Shortness of Breath Close contact with a COVID-19 positive Pt in past 14-21 Days: No - Vaccine Status Have you recieved a Covid-19 vaccination: Yes 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: [place] - Vaccination Dates Date of 2cond Vaccination (if applicable): 07/11/2020 - Review of Systems Constitutional: No Fever, No Chills Eyes: No Symptoms Ears, Nose, & Throat: No Symptoms Respiratory: Cough, Dyspnea, Dyspnea on Exertion (NAIK), Wheezing Cardiac: No Chest Pain, No Edema, No Syncope Abdominal/Gastrointestinal: No Abdominal Pain, No Nausea, No Vomiting, No Diarrhea Genitourinary Symptoms: No Dysuria Musculoskeletal: No Back Pain, No Neck Pain Skin: No Rash Neurological: No Dizziness, No Focal Weakness, No Sensory Changes Psychological: No Symptoms Endocrine: No Symptoms All Other Systems: Reviewed and Negative - Past Medical History Pertinent Past Medical History: Yes Neurological History: Epilepsy, Seizures ENT History: Cataracts Cardiac History: High Cholesterol, Hypertension Respiratory History: COPD, Emphysema, Pneumonia Endocrine Medical History: No Pertinent History Musculoskeletal History: Arthritis GI Medical History: No Pertinent History History: No Pertinent History Psycho-Social History: No Pertinent History Male Reproductive Disorders: No Pertinent History Other Medical History: Seizure(?) Took dilantin for about two years, [id number] - Past Surgical History Past Surgical History: No Neuro Surgical History: No Pertinent History Cardiac: No Pertinent History Respiratory: No Pertinent History Gastrointestinal: No Pertinent History Genitourinary: No Pertinent History Musculoskeletal: No Pertinent History Male Surgical History: No Pertinent History - Social History Smoking Status: Former smoker How long have you smoked: 50 years Exposure to second hand smoke: No Drug Use: none Patient Lives Alone: Yes Significant Family History: no pertinent family hx - Nursing Vital Signs Nursing Vital Signs: Initial Vital Signs Temperature 99 F 10/06/22 10:09 Pulse Rate 113 H 10/06/22 10:09 Respiratory Rate 38 H 10/06/22 10:09 Blood Pressure 169/92 10/06/22 10:09 O2 Sat by Pulse Oximetry 93 L 10/06/22 10:09 Pain Scale Pain Intensity 0 - Physical Exam General Appearance: moderate distress Eye Exam: PERRL/EOMI Neck Exam: normal inspection, supple Respiratory Exam: respiratory distress, airway intact, diminished breath sounds, crackles/rales, rhonchi, wheezing Cardiovascular/Chest Exam: normal heart sounds, regular rate/rhythm Abdominal/Gastrointestinal Exam: soft, No tenderness, No distention, No mass Extremity Exam: non-tender, normal range of motion, normal inspection, no calf tenderness, no pedal edema Neurologic Exam: alert, oriented x 3, cooperative, central supply clerk II-XII nml as tested, sensation nml, No motor deficits Skin Exam: normal color, warm, No dry SpO2 Interpretation: hypoxic, O2 applied SpO2: 93 O2 Delivery: Nasal Cannula - Course Nursing assessment & vital signs reviewed: Yes EKG Interpreted by Me: RATE, Sinus Rhythm, Sinus Tach, NORMAL AXIS, NORMAL INTERVALS, Non-specific ST Changes - Radiology Exams Chest X-ray Interpretation: Reviewed by me, Other (New infrahilar infiltrate on the right) Ordered Tests: Active Orders 24 hr Category Date Time Status Hotel Registration Clerk STAT Care 10/06/22 10:53 Active EKG-ER Only STAT Care 10/06/22 10:10 Active IV Insertion STAT Care 10/06/22 10:10 Active Oxygen-ED Only Nasal Cannula 3 lpm Care 10/06/22 10:10 Active CHEST 1 VIEW (PORTABLE) Stat Exams 10/06/22 10:11 Completed BLOOD CULTURE Stat Lab 10/06/22 10:30 Received CBC W DIFF Stat Lab 10/06/22 10:15 Completed CMP Stat Lab 10/06/22 10:15 Completed D-DIMER QUANTITATIVE Stat Lab 10/06/22 10:15 Completed Lactic Acid Stat Lab 10/06/22 10:20 Completed MAGNESIUM Stat Lab 10/06/22 10:15 Completed Manual Differential NC Stat Lab 10/06/22 10:15 Completed NT PRO BNPII Stat Lab 10/06/22 10:15 Completed PROTIME WITH INR Stat Lab 10/06/22 10:15 Completed PTT Stat Lab 10/06/22 10:15 Completed TROPONIN Q4H Lab 10/06/22 10:15 Received TROPONIN Q4H Lab 10/06/22 14:15 Ordered TROPONIN Q4H Lab 10/06/22 18:15 Ordered UA W/RFX UR CULTURE Stat Lab 10/06/22 10:11 Ordered Medication Summary Generic Name Dose Route Start Last Admin Trade Name Freq PRN Reason Stop Dose Admin Piperacillin Sod/Tazobactam 100 mls @ 200 mls/hr 10/06/22 11:36 Sod 3.375 gm/ Sodium Chloride IV 10/06/22 12:05 STAT ONE Discontinued Medications Generic Name Dose Route Start Last Admin Trade Name Tessy PRN Reason Stop Dose Admin Methylprednisolone Sodium 0 mg 10/06/22 10:10 10/06/22 10:24 Succinate 125 mg/ Sterile IV 10/06/22 10:11 125 mg Water 2 ml STAT ONE Administration Ceftriaxone Sodium/Dextrose 1 g in 50 mls @ 100 mls/hr 10/06/22 11:25 10/06/22 11:37 Rocephin 1 Gm-D5w 50 Ml Bag IV 10/06/22 11:54 Not Given STAT STA Azithromycin 500 mg in 250 mls @ 250 mls/hr 10/06/22 11:26 10/06/22 11:37 Zithromax 500 Mg/ 250 Ml Nacl Premix IV 10/06/22 12:25 Not Given STAT ONE Azithromycin Confirm 10/06/22 11:29 Zithromax 500 Mg/ 250 Ml Nacl Premix Administered 10/06/22 11:30 Dose 500 mg in 250 mls @ ud IV .STK-MED ONE Ceftriaxone Sodium/Dextrose Confirm 10/06/22 11:29 Rocephin 1 Gm-D5w 50 Ml Bag Administered 10/06/22 11:30 Dose 1 g in 50 mls @ ud IV .STK-MED ONE Sodium Chloride Confirm 10/06/22 11:33 Sodium Chloride 100ml Mini-Bag Plus Administered 10/06/22 11:34 Dose 100 mls @ ud IV .STK-MED ONE Methylprednisolone Sodium Succinate Confirm 10/06/22 10:23 Methylprednis Sod Succ 125 Mg/2 Ml Vial Administered 10/06/22 10:24 Dose 125 mg .ROUTE .STK-MED ONE Piperacillin Sod/Tazobactam Sod Confirm 10/06/22 11:33 Piperacillin/Tazobactam Sodium 3.375 Gm Vial Administered 10/06/22 11:34 Dose 3.375 gm IV .STK-MED ONE Sterile Water Confirm 10/06/22 10:23 Water For Injection,Sterile 10 Ml Vial Administered 10/06/22 10:24 Dose 10 ml IJ .STK-MED ONE Lab/Rad Data: Laboratory Result Diagrams 10/06/22 10:15 10/06/22 10:15 Laboratory Results 10/06/22 10/06/22 10/06/22 Range/Units 11:00 10:20 10:15 WBC (4.0-10.5) x10^3/uL RBC (4.1-5.6) x10^6/uL Hgb (12.5-18.0) g/dL Hct (42-50) % MCV (78-100) fL MCH (26-32) pg MCHC (32-36) g/dL RDW (11.5-14.0) % Plt Count (150-450) x10^3/uL MPV (7.5-11.0) fL Segmented Neutrophils (36.-66.) % Lymphocytes (Manual) (24-44) % Monocytes (Manual) (0.0-12.0) % Platelet Estimate (NORMAL) RBC Morphology PT 10.7 (9.4-12.5) SECONDS INR 0.98 (0.8-3.0) APTT 22.1 L (25.1-36.5) SECONDS D-Dimer 0.32 (0.0-0.50) mg/L Sodium (137-145) mmol/L Potassium (3.5-5.1) mmol/L Chloride (98-107) mmol/L Carbon Dioxide (22-30) mmol/L Anion Gap (5-15) MEQ/L BUN (9-20) mg/dL Creatinine (0.66-1.25) mg/dL Estimated GFR ML/MIN Glucose (74-106) mg/dL Lactic Acid 1.8 (0.4-2.0) Calcium (8.4-10.2) mg/dL Magnesium (1.6-2.3) mg/dL Total Bilirubin (0.2-1.3) mg/dL AST (17-59) U/L ALT (0-50) U/L Alkaline Phosphatase (38-126) U/L NT-Pro-B Natriuret Pep (<300) pg/mL Serum Total Protein (6.3-8.2) g/dL Albumin (3.5-5.0) g/dL Influenza Type A Ag NEGATIVE (NEGATIVE) Influenza Type B Ag NEGATIVE (NEGATIVE) RSV (PCR) NEGATIVE (NEGATIVE) SARS-CoV-2 (PCR) NEGATIVE (NEGATIVE) 05/09/23 05/09/23 Range/Units 10:15 10:15 WBC 23.0 H (4.0-10.5) x10^3/uL RBC 3.91 L (4.1-5.6) x10^6/uL Hgb 11.8 L (12.5-18.0) g/dL Hct 37.9 L (42-50) % MCV 96.9 (78-100) fL MCH 30.2 (26-32) pg MCHC 31.1 L (32-36) g/dL RDW 13.3 (11.5-14.0) % Plt Count 279 (150-450) x10^3/uL MPV 11.2 H (7.5-11.0) fL Segmented Neutrophils 96 H (36.-66.) % Lymphocytes (Manual) 3 L (24-44) % Monocytes (Manual) 1 (0.0-12.0) % Platelet Estimate NORMAL (NORMAL) RBC Morphology NORMAL PT (9.4-12.5) SECONDS INR (0.8-3.0) APTT (25.1-36.5) SECONDS D-Dimer (0.0-0.50) mg/L Sodium 142 (137-145) mmol/L Potassium 4.5 (3.5-5.1) mmol/L Chloride 97 L (98-107) mmol/L Carbon Dioxide 38 H (22-30) mmol/L Anion Gap 12.0 (5-15) MEQ/L BUN 33 H (9-20) mg/dL Creatinine 0.81 (0.66-1.25) mg/dL Estimated GFR > 60.0 ML/MIN Glucose 112 H (74-106) mg/dL Lactic Acid (0.4-2.0) Calcium 9.3 (8.4-10.2) mg/dL Magnesium 2.2 (1.6-2.3) mg/dL Total Bilirubin 0.50 (0.2-1.3) mg/dL AST 35 (17-59) U/L ALT 32 (0-50) U/L Alkaline Phosphatase 57 (38-126) U/L NT-Pro-B Natriuret Pep 519 (<300) pg/mL Serum Total Protein 7.4 (6.3-8.2) g/dL Albumin 4.4 (3.5-5.0) g/dL Influenza Type A Ag (NEGATIVE) Influenza Type B Ag (NEGATIVE) RSV (PCR) (NEGATIVE) SARS-CoV-2 (PCR) (NEGATIVE) - Progress Progress: unchanged Air Movement: fair Blood Culture(s) Obtained: Yes Antibiotics given: Yes Discussed with : Ezequiel Will see patient in: hospital (observation) - Departure Departure Disposition: Observation Clinical Impression: Pneumonia Condition: Fair Critical Care Time: No Referrals: EDISON JARRETT [Primary Care Provider] - Follow up/PCP as directed Instructions: Pneumonia, Adult (DC)
[2022-10-06 11:06] LABS: D-DIMER QUANTITATIVE 0.32 mg/L (0.0-0.50); INR 0.98 (0.8-3.0); PROTIME 10.7 SECONDS (9.4-12.5); PTT 22.1 SECONDS (25.1-36.5)
[2022-10-06 11:18] LABS: INFLUENZA A NEGATIVE (NEGATIVE); INFLUENZA B NEGATIVE (NEGATIVE); RESPIRATORY SYNCTIAL VIRUS NEGATIVE (NEGATIVE); SARS-CoV-2 Xpert Express NEGATIVE (NEGATIVE)
[2022-10-06 11:20] LABS: ALBUMIN 4.4 g/dL (3.5-5.0); ALKALINE PHOSPHATASE 57 U/L (38-126); BLOOD UREA NITROGEN 33 mg/dL (9-20); CHLORIDE 97 mmol/L (98-107); Calcium 9.3 mg/dL (8.4-10.2); Carbon Dioxide 38 mmol/L (22-30); Creatinine 1 0.81 mg/dL (0.66-1.25); EST GLOMERULAR FILTRATION RATE > 60.0 ML/MIN; Glucose 112 mg/dL (74-106); MAGNESIUM 2.2 mg/dL (1.6-2.3); NT PRO BNPII 519 pg/mL (<300); Potassium 4.5 mmol/L (3.5-5.1); SGOT/AST 35 U/L (17-59); SGPT/ALT 32 U/L (0-50); SODIUM 142 mmol/L (137-145); Total Protein 7.4 g/dL (6.3-8.2)
[2022-10-06] MEDS ORDERED: ROCEPHIN 1 Gm-D5w 50 ml Bag** 1 G/50 ML IVPB IV STA (11:25)
[2022-10-06] MEDS ORDERED: Zithromax 500 MG/ 250 ML NaCl Premix 500 MG/250 ML IVPB IV ONE (11:26)
[2022-10-06] MEDS ORDERED: Zithromax 500 MG/ 250 ML NaCl Premix 0 MG/0 ML IVPB IV ONE (11:29)
[2022-10-06] MEDS ORDERED: ROCEPHIN 1 Gm-D5w 50 ml Bag** 0 G/0 ML IVPB IV ONE (11:29)
[2022-10-06] MEDS ORDERED: Sodium Chloride 100ML MINI-BAG PLUS 100 ML IV ONE (11:33)
[2022-10-06] MEDS ORDERED: PIPERACILLIN/TAZOBACTAM IV ONE (11:33)
[2022-10-06 11:36] LABS: Lymphocytes 3 % (24-44); Monocyte 1 % (0.0-12.0); Neutrophils 96 % (36.-66.); Platelet Estimate NORMAL (NORMAL); Total Cells Counted 100
[2022-10-06] MEDS ORDERED: PIPERACILLIN/TAZOBACTAM 3.375 GM in Sodium Chloride 100ML MINI-BAG PLUS 100 ML IV ONE (11:36)
[2022-10-06] MEDS: Sodium Chloride 0.9% 1000 ML 1,000 ML IV SCH (12:27)
[2022-10-06] MEDS: DUONEB 0.5-3 MG/3 ml Neb IH SCH ×3 (14:19→22:27)
[2022-10-06] MEDS ORDERED: VENTOLIN COMMON CANISTER IH SCH (15:00)
[2022-10-06] MEDS ORDERED: VENTOLIN COMMON CANISTER IH PRN (15:13)
[2022-10-06] MEDS ORDERED: MEDICATION INTERVENTION MC SCH (15:30)
[2022-10-06] MEDS: PIPERACILLIN/TAZOBACTAM 3.375 GM in Sodium Chloride 100ML MINI-BAG PLUS 100 ML IV SCH (17:23)
[2022-10-06] MEDS: Toprol Xl 50 MG PO SCH (17:24)
[2022-10-06] MEDS: ZOCOR 20MG PO SCH (17:24)
[2022-10-06] MEDS: solu-MEDROL 60 MG, Sterile H2O 10 ml 2 ML IV SCH ×2 (17:24)
[2022-10-06 17:41] LABS: Appearance Clear (Clear); Bacteria None Seen /HPF (None Seen); Bilirubin Negative (Negative); Blood Negative (Negative); Epithelial Cells None Seen /HPF (None Seen); Glucose, Urine 100 mg/dL (Negative); Hyaline Casts NONE SEEN /LPF (0-2); Ketones Negative (Negative); Leukocyte Esterase Negative (Negative); Nitrite Negative (Negative); Ph 5.5 (4.6-8.0); Protein,Urine Dip Trace (Negative); Specific Gravity >=1.030 (1.005-1.030); Urobilinogen 0.2 mg/dL (0.2); WBC 0-2 /HPF (0-5)
[2022-10-06 17:47] LABS: ADD URINE CULTURE? NO (NO)
[2022-10-06] MEDS ORDERED: PIPERACILLIN/TAZOBACTAM 3.375 GM in Sodium Chloride 100ML MINI-BAG PLUS 100 ML IV SCH (18:00)
[2022-10-06] MEDS: CLARITIN 10 MG PO SCH (21:46)
[2022-10-06] MEDS ORDERED: NON-FORMULARY ITEM (Levocetirizine Dihydrochloride [Levocetirizine Dihydrochloride] 5 MG T PO SCH (22:00)
[2022-10-07] MEDS: PIPERACILLIN/TAZOBACTAM 3.375 GM in Sodium Chloride 100ML MINI-BAG PLUS 100 ML IV SCH ×5 (01:56→23:26)
[2022-10-07] MEDS: solu-MEDROL 60 MG, Sterile H2O 10 ml 2 ML IV SCH ×10 (01:58→23:25)
[2022-10-07] MEDS: DUONEB 0.5-3 MG/3 ml Neb IH SCH ×6 (02:10→23:00)
[2022-10-07 04:30] LABS: Hematocrit 34.6 % (42-50); Hemoglobin 10.7 g/dL (12.5-18.0); Mean Cell Volume 96.9 fL (78-100); Mean Corpuscular Hgb Concent. 30.9 g/dL (32-36); Platelet Count 207 x10^3/uL (150-450); Red Blood Count 3.57 x10^6/uL (4.1-5.6); Red Cell Distribution Width 13.1 % (11.5-14.0); White Blood Count 13.2 x10^3/uL (4.0-10.5)
[2022-10-07 04:44] LABS: ALBUMIN 3.7 g/dL (3.5-5.0); ALKALINE PHOSPHATASE 51 U/L (38-126); ANION GAP 10.4 MEQ/L (5-15); BLOOD UREA NITROGEN 30 mg/dL (9-20); CHLORIDE 97 mmol/L (98-107); Calcium 8.5 mg/dL (8.4-10.2); Carbon Dioxide 38 mmol/L (22-30); Creatinine 1 0.86 mg/dL (0.66-1.25); EST GLOMERULAR FILTRATION RATE > 60.0 ML/MIN; Glucose 148 mg/dL (74-106); Potassium 4.4 mmol/L (3.5-5.1); SGOT/AST 34 U/L (17-59); SGPT/ALT 34 U/L (0-50); SODIUM 141 mmol/L (137-145); Total Protein 6.3 g/dL (6.3-8.2)
[2022-10-07] MEDS: ZOCOR 20MG PO SCH (07:57)
[2022-10-07] MEDS: Toprol Xl 50 MG PO SCH (07:58)
--- NOTE | 2022-10-07 09:21 | PCM.HP ---
History of Present Illness - Chief Complaint Chief Complaint: PNUEMONIA, COPD EXACERBATION History of Present Illness: is a 72 year old male who was recently admitted and treated for pneumonia and copd exacerbation. He follows with Dr Sampson and states he used to see Dr Stanford but refuses to see him any longer, his last visit he was told he only has 30% lung function and there was nothing he could do about it, this upset the patient and made him angry and he will not accept it and insists that he needs different treatment. He has no medical background but seems to believe he has more insight in to his problems than any of his healthcare providers. He states he never had lung problems until he was given medications that caused his problems by other providers, he believes this caused his issues over the years of smoking his own handrolled nonfiltered cigarettes. In any event, he has cough that is productive and shortness of breath. He wears 2L oxygen at home but was in the low 80's which I suspect is not uncommon for him, he admitted to having to increase his flow to 3L at times at home during his last admission. - Review of Systems Constitutional: No Fever, No Chills Respiratory: Cough, Short Of Breath, Wheezing Cardiac: No Chest Pain, No Edema, No Syncope Abdominal/Gastrointestinal: No Abdominal Pain, No Nausea, No Vomiting, No Diarrhea Genitourinary Symptoms: No Dysuria Skin: No Rash All Other Systems: Reviewed and Negative Medications & Allergies Home Medications: Home Medication List Albuterol Common Canister [Ventolin Common Canister] 2 puff IH Q4HPRN PRN #0 puff 10/28/12 [Rx Confirmed 10/06/22] Atorvastatin Calcium [Lipitor] 40 mg PO DAILY 03/24/19 [History Confirmed 10/06/22] Umeclidinium Brm/Vilanterol Tr [Anoro Ellipta 62.5-25 Mcg INH] 1 puff IH DAILY 08/22/22 [History Confirmed 10/06/22] Levocetirizine Dihydrochloride 5 mg PO HS 08/23/22 [History Confirmed 10/06/22] Albuterol Sulfate [Albuterol Sulfate Hfa] 2 puff IH QID 10/03/22 [History Confirmed 10/06/22] Metoprolol Succinate 50 mg [Toprol Xl 50 MG] 50 mg PO DAILY 10/03/22 [History Confirmed 10/06/22] Prednisone 20 mg [Deltasone 20 mg] 20 mg PO UD #18 tablet 10/05/22 [Rx Confirmed 10/06/22] levoFLOXacin [Levofloxacin] 500 mg PO DAILY #7 tablet 10/05/22 [Rx Confirmed 10/06/22] Allergies/Adverse Reactions: Allergies Allergy/AdvReac Type Severity Reaction Status Date / Time fluticasone AdvReac Mild Verified 10/06/22 12:10 [From Advair Diskus] salmeterol AdvReac Mild Verified 10/06/22 12:10 [From Advair Diskus] - Past Medical History Past Medical History: Yes Neurological History: Epilepsy, Seizures ENT History: Cataracts Cardiac History: High Cholesterol, Hypertension Respiratory History: COPD, Emphysema, Pneumonia Endocrine Medical History: No Pertinent History Musculoskelatal History: Arthritis GI Medical History: No Pertinent History History: No Pertinent History Pyscho-Social History: No Pertinent History Male Reproductive Disorders: No Pertinent History Comment: Seizure(?) Took dilantin for about two years, [id number] - Past Surgical History Past Surgical History: No Neuro Surgical History: No Pertinent History Cardiac History: No Pertinent History Respiratory Surgery: No Pertinent History GI Surgical History: No Pertinent History Genitourinary Surgical Hx: No Pertinent History Musculskeletal Surgical Hx: No Pertinent History Male Surgical History: No Pertinent History - Social History Smoking Status: Former smoker How long have you smoked: 50 years Exposure to second hand smoke: No Alcohol: None Drug Use: none Significant Family History: no pertinent family hx - Physical Exam Vital Signs: Vital Signs - 24 hr Temp Pulse Resp BP BP Pulse Ox 10/07/22 08:20 104 H 24 94 L 10/07/22 07:30 97.5 F 102 H 16 200/91 92 L 10/07/22 03:56 97.9 F 102 H 28 H 176/86 96 10/07/22 02:10 105 H 24 92 L 10/06/22 23:42 97.8 F 122 H 28 H 170/95 93 L 10/06/22 22:29 110 H 24 95 10/06/22 19:21 98.4 F 135 H 32 H 171/88 91 L 10/06/22 18:40 129 H 32 H 94 L 10/06/22 16:00 98.0 F 103 H 22 168/84 94 L 10/06/22 14:24 114 H 28 H 96 10/06/22 12:50 94 L 10/06/22 12:33 98.4 F 120 H 23 172/84 92 L 10/06/22 12:06 92 L 10/06/22 11:52 96 H 28 H 130/74 92 L 10/06/22 11:39 93 L 10/06/22 11:09 101 H 23 135/82 93 L 10/06/22 10:38 107 H 31 H 155/95 93 L 10/06/22 10:09 99 F 113 H 38 H 169/92 93 L General Appearance: no apparent distress Neurologic Exam: alert, oriented x 3, agitation Respiratory Exam: rhonchi, wheezing Cardiovascular Exam: regular rate/rhythm, normal heart sounds, normal peripheral pulses Gastrointestinal/Abdomen Exam: soft, normal bowel sounds, No tenderness, No mass Extremity Exam: normal inspection, normal range of motion, pelvis stable Skin Exam: normal color, warm, dry, No rash Results - Labs Lab/Micro Results: Lab Results-Last 24 Hours 10/06/22 10/06/22 10/06/22 Range/Units 10:11 10:15 10:15 WBC 23.0 H (4.0-10.5) x10^3/uL RBC 3.91 L (4.1-5.6) x10^6/uL Hgb 11.8 L (12.5-18.0) g/dL Hct 37.9 L (42-50) % MCV 96.9 (78-100) fL MCH 30.2 (26-32) pg MCHC 31.1 L (32-36) g/dL RDW 13.3 (11.5-14.0) % Plt Count 279 (150-450) x10^3/uL MPV 11.2 H (7.5-11.0) fL Segmented Neutrophils 96 H (36.-66.) % Lymphocytes (Manual) 3 L (24-44) % Monocytes (Manual) 1 (0.0-12.0) % Platelet Estimate NORMAL (NORMAL) RBC Morphology NORMAL PT (9.4-12.5) SECONDS INR (0.8-3.0) APTT (25.1-36.5) SECONDS D-Dimer (0.0-0.50) mg/L Sodium 142 (137-145) mmol/L Potassium 4.5 (3.5-5.1) mmol/L Chloride 97 L (98-107) mmol/L Carbon Dioxide 38 H (22-30) mmol/L Anion Gap 12.0 (5-15) MEQ/L BUN 33 H (9-20) mg/dL Creatinine 0.81 (0.66-1.25) mg/dL Estimated GFR > 60.0 ML/MIN Glucose 112 H (74-106) mg/dL POC Glucometer (74 to 106) mg/dL Lactic Acid (0.4-2.0) Calcium 9.3 (8.4-10.2) mg/dL Magnesium 2.2 (1.6-2.3) mg/dL Total Bilirubin 0.50 (0.2-1.3) mg/dL AST 35 (17-59) U/L ALT 32 (0-50) U/L Alkaline Phosphatase 57 (38-126) U/L Troponin I (0.000-0.034) ng/mL NT-Pro-B Natriuret Pep 519 (<300) pg/mL Serum Total Protein 7.4 (6.3-8.2) g/dL Albumin 4.4 (3.5-5.0) g/dL Urine Color Yellow (Yellow) Urine Appearance Clear (Clear) Urine pH 5.5 (4.6-8.0) Ur Specific [place] >=1.030 A (1.005-1.030) Urine Protein Trace A (Negative) Urine Glucose (UA) 100 A (Negative) mg/dL Urine Ketones Negative (Negative) Urine Blood Negative (Negative) Urine Nitrite Negative (Negative) Urine Bilirubin Negative (Negative) Urine Urobilinogen 0.2 (0.2) mg/dL Ur Leukocyte Esterase Negative (Negative) U Hyaline Cast (Auto) NONE SEEN (0-2) /LPF Urine Microscopic RBC 3-5 (0-5) /HPF Urine Microscopic WBC 0-2 (0-5) /HPF Ur Epithelial Cells None Seen (None Seen) /HPF Urine Bacteria None Seen (None Seen) /HPF Urine Culture Reflexed NO (NO) Influenza Type A Ag (NEGATIVE) Influenza Type B Ag (NEGATIVE) RSV (PCR) (NEGATIVE) SARS-CoV-2 (PCR) (NEGATIVE) 10/06/22 10/06/22 10/06/22 Range/Units 10:15 10:15 10:20 WBC (4.0-10.5) x10^3/uL RBC (4.1-5.6) x10^6/uL Hgb (12.5-18.0) g/dL Hct (42-50) % MCV (78-100) fL MCH (26-32) pg MCHC (32-36) g/dL RDW (11.5-14.0) % Plt Count (150-450) x10^3/uL MPV (7.5-11.0) fL Segmented Neutrophils (36.-66.) % Lymphocytes (Manual) (24-44) % Monocytes (Manual) (0.0-12.0) % Platelet Estimate (NORMAL) RBC Morphology PT 10.7 (9.4-12.5) SECONDS INR 0.98 (0.8-3.0) APTT 22.1 L (25.1-36.5) SECONDS D-Dimer 0.32 (0.0-0.50) mg/L Sodium (137-145) mmol/L Potassium (3.5-5.1) mmol/L Chloride (98-107) mmol/L Carbon Dioxide (22-30) mmol/L Anion Gap (5-15) MEQ/L BUN (9-20) mg/dL Creatinine (0.66-1.25) mg/dL Estimated GFR ML/MIN Glucose (74-106) mg/dL POC Glucometer (74 to 106) mg/dL Lactic Acid 1.8 (0.4-2.0) Calcium (8.4-10.2) mg/dL Magnesium (1.6-2.3) mg/dL Total Bilirubin (0.2-1.3) mg/dL AST (17-59) U/L ALT (0-50) U/L Alkaline Phosphatase (38-126) U/L Troponin I < 0.012 (0.000-0.034) ng/mL NT-Pro-B Natriuret Pep (<300) pg/mL Serum Total Protein (6.3-8.2) g/dL Albumin (3.5-5.0) g/dL Urine Color (Yellow) Urine Appearance (Clear) Urine pH (4.6-8.0) Ur Specific [place] (1.005-1.030) Urine Protein (Negative) Urine Glucose (UA) (Negative) mg/dL Urine Ketones (Negative) Urine Blood (Negative) Urine Nitrite (Negative) Urine Bilirubin (Negative) Urine Urobilinogen (0.2) mg/dL Ur Leukocyte Esterase (Negative) U Hyaline Cast (Auto) (0-2) /LPF Urine Microscopic RBC (0-5) /HPF Urine Microscopic WBC (0-5) /HPF Ur Epithelial Cells (None Seen) /HPF Urine Bacteria (None Seen) /HPF Urine Culture Reflexed (NO) Influenza Type A Ag (NEGATIVE) Influenza Type B Ag (NEGATIVE) RSV (PCR) (NEGATIVE) SARS-CoV-2 (PCR) (NEGATIVE) 10/06/22 10/06/22 10/06/22 Range/Units 11:00 14:15 15:59 WBC (4.0-10.5) x10^3/uL RBC (4.1-5.6) x10^6/uL Hgb (12.5-18.0) g/dL Hct (42-50) % MCV (78-100) fL MCH (26-32) pg MCHC (32-36) g/dL RDW (11.5-14.0) % Plt Count (150-450) x10^3/uL MPV (7.5-11.0) fL Segmented Neutrophils (36.-66.) % Lymphocytes (Manual) (24-44) % Monocytes (Manual) (0.0-12.0) % Platelet Estimate (NORMAL) RBC Morphology PT (9.4-12.5) SECONDS INR (0.8-3.0) APTT (25.1-36.5) SECONDS D-Dimer (0.0-0.50) mg/L Sodium (137-145) mmol/L Potassium (3.5-5.1) mmol/L Chloride (98-107) mmol/L Carbon Dioxide (22-30) mmol/L Anion Gap (5-15) MEQ/L BUN (9-20) mg/dL Creatinine (0.66-1.25) mg/dL Estimated GFR ML/MIN Glucose (74-106) mg/dL POC Glucometer 193 H (74 to 106) mg/dL Lactic Acid (0.4-2.0) Calcium (8.4-10.2) mg/dL Magnesium (1.6-2.3) mg/dL Total Bilirubin (0.2-1.3) mg/dL AST (17-59) U/L ALT (0-50) U/L Alkaline Phosphatase (38-126) U/L Troponin I < 0.012 (0.000-0.034) ng/mL NT-Pro-B Natriuret Pep (<300) pg/mL Serum Total Protein (6.3-8.2) g/dL Albumin (3.5-5.0) g/dL Urine Color (Yellow) Urine Appearance (Clear) Urine pH (4.6-8.0) Ur Specific [place] (1.005-1.030) Urine Protein (Negative) Urine Glucose (UA) (Negative) mg/dL Urine Ketones (Negative) Urine Blood (Negative) Urine Nitrite (Negative) Urine Bilirubin (Negative) Urine Urobilinogen (0.2) mg/dL Ur Leukocyte Esterase (Negative) U Hyaline Cast (Auto) (0-2) /LPF Urine Microscopic RBC (0-5) /HPF Urine Microscopic WBC (0-5) /HPF Ur Epithelial Cells (None Seen) /HPF Urine Bacteria (None Seen) /HPF Urine Culture Reflexed (NO) Influenza Type A Ag NEGATIVE (NEGATIVE) Influenza Type B Ag NEGATIVE (NEGATIVE) RSV (PCR) NEGATIVE (NEGATIVE) SARS-CoV-2 (PCR) NEGATIVE (NEGATIVE) 10/06/22 10/06/22 10/07/22 Range/Units 18:40 21:12 04:18 WBC 13.2 H (4.0-10.5) x10^3/uL RBC 3.57 L (4.1-5.6) x10^6/uL Hgb 10.7 L (12.5-18.0) g/dL Hct 34.6 L (42-50) % MCV 96.9 (78-100) fL MCH 30.0 (26-32) pg MCHC 30.9 L (32-36) g/dL RDW 13.1 (11.5-14.0) % Plt Count 207 (150-450) x10^3/uL MPV 11.0 (7.5-11.0) fL Segmented Neutrophils (36.-66.) % Lymphocytes (Manual) (24-44) % Monocytes (Manual) (0.0-12.0) % Platelet Estimate (NORMAL) RBC Morphology PT (9.4-12.5) SECONDS INR (0.8-3.0) APTT (25.1-36.5) SECONDS D-Dimer (0.0-0.50) mg/L Sodium (137-145) mmol/L Potassium (3.5-5.1) mmol/L Chloride (98-107) mmol/L Carbon Dioxide (22-30) mmol/L Anion Gap (5-15) MEQ/L BUN (9-20) mg/dL Creatinine (0.66-1.25) mg/dL Estimated GFR ML/MIN Glucose (74-106) mg/dL POC Glucometer 164 H (74 to 106) mg/dL Lactic Acid (0.4-2.0) Calcium (8.4-10.2) mg/dL Magnesium (1.6-2.3) mg/dL Total Bilirubin (0.2-1.3) mg/dL AST (17-59) U/L ALT (0-50) U/L Alkaline Phosphatase (38-126) U/L Troponin I < 0.012 (0.000-0.034) ng/mL NT-Pro-B Natriuret Pep (<300) pg/mL Serum Total Protein (6.3-8.2) g/dL Albumin (3.5-5.0) g/dL Urine Color (Yellow) Urine Appearance (Clear) Urine pH (4.6-8.0) Ur Specific [place] (1.005-1.030) Urine Protein (Negative) Urine Glucose (UA) (Negative) mg/dL Urine Ketones (Negative) Urine Blood (Negative) Urine Nitrite (Negative) Urine Bilirubin (Negative) Urine Urobilinogen (0.2) mg/dL Ur Leukocyte Esterase (Negative) U Hyaline Cast (Auto) (0-2) /LPF Urine Microscopic RBC (0-5) /HPF Urine Microscopic WBC (0-5) /HPF Ur Epithelial Cells (None Seen) /HPF Urine Bacteria (None Seen) /HPF Urine Culture Reflexed (NO) Influenza Type A Ag (NEGATIVE) Influenza Type B Ag (NEGATIVE) RSV (PCR) (NEGATIVE) SARS-CoV-2 (PCR) (NEGATIVE) 10/07/22 10/07/22 Range/Units 04:18 08:48 WBC (4.0-10.5) x10^3/uL RBC (4.1-5.6) x10^6/uL Hgb (12.5-18.0) g/dL Hct (42-50) % MCV (78-100) fL MCH (26-32) pg MCHC (32-36) g/dL RDW (11.5-14.0) % Plt Count (150-450) x10^3/uL MPV (7.5-11.0) fL Segmented Neutrophils (36.-66.) % Lymphocytes (Manual) (24-44) % Monocytes (Manual) (0.0-12.0) % Platelet Estimate (NORMAL) RBC Morphology PT (9.4-12.5) SECONDS INR (0.8-3.0) APTT (25.1-36.5) SECONDS D-Dimer (0.0-0.50) mg/L Sodium 141 (137-145) mmol/L Potassium 4.4 (3.5-5.1) mmol/L Chloride 97 L (98-107) mmol/L Carbon Dioxide 38 H (22-30) mmol/L Anion Gap 10.4 (5-15) MEQ/L BUN 30 H (9-20) mg/dL Creatinine 0.86 (0.66-1.25) mg/dL Estimated GFR > 60.0 ML/MIN Glucose 148 H (74-106) mg/dL POC Glucometer 209 H (74 to 106) mg/dL Lactic Acid (0.4-2.0) Calcium 8.5 (8.4-10.2) mg/dL Magnesium (1.6-2.3) mg/dL Total Bilirubin 0.40 (0.2-1.3) mg/dL AST 34 (17-59) U/L ALT 34 (0-50) U/L Alkaline Phosphatase 51 (38-126) U/L Troponin I (0.000-0.034) ng/mL NT-Pro-B Natriuret Pep (<300) pg/mL Serum Total Protein 6.3 (6.3-8.2) g/dL Albumin 3.7 (3.5-5.0) g/dL Urine Color (Yellow) Urine Appearance (Clear) Urine pH (4.6-8.0) Ur Specific [place] (1.005-1.030) Urine Protein (Negative) Urine Glucose (UA) (Negative) mg/dL Urine Ketones (Negative) Urine Blood (Negative) Urine Nitrite (Negative) Urine Bilirubin (Negative) Urine Urobilinogen (0.2) mg/dL Ur Leukocyte Esterase (Negative) U Hyaline Cast (Auto) (0-2) /LPF Urine Microscopic RBC (0-5) /HPF Urine Microscopic WBC (0-5) /HPF Ur Epithelial Cells (None Seen) /HPF Urine Bacteria (None Seen) /HPF Urine Culture Reflexed (NO) Influenza Type A Ag (NEGATIVE) Influenza Type B Ag (NEGATIVE) RSV (PCR) (NEGATIVE) SARS-CoV-2 (PCR) (NEGATIVE) Accuchecks Date 10/07/22 Date 10/06/22 Time 08:51 Time 16:15 - Radiology Impressions Radiology Exams & Impressions: Radiology Procedures Category Date Time Status CHEST 1 VIEW (PORTABLE) Stat Exams 10/06/22 10:11 Completed - Other Procedures and Tests Respiratory Therapy 10/06/22 12:06 Oxygen Nasal Cannula 4 lpm 10/06/22 14:24 Respiratory Therapy Assessment DAILY Assessment/Plan (1) Pneumonia Current Visit: Yes Status: Acute Assessment & Plan: mostly chronic changes with minimal infiltrate on xray. continue zosyn and zithromax, he did have pseudomonas on a sputum culture which is sensitive to the levaquin he was sent home with. Code(s): J18.9 - PNEUMONIA, UNSPECIFIED ORGANISM (2) COPD with acute exacerbation Current Visit: No Status: Acute Assessment & Plan: IV solu medrol 60mg IV q6hrs, continue zosyn and zithromax. in my opinion this man has advanced copd but he clearly doesn't accept this from his supervisor [employer], his usual primary care physician or from me. I suspect he will continue to be admitted frequently. Code(s): J44.1 - CHRONIC OBSTRUCTIVE PULMONARY DISEASE W (ACUTE) EXACERBATION
[2022-10-07] MEDS ORDERED: LIPITOR 40MG PO SCH (10:00)
[2022-10-07] MEDS: Zithromax 500 MG/ 250 ML NaCl Premix 500 MG/250 ML IVPB IV SCH (10:42)
[2022-10-07] MEDS: Sodium Chloride 0.9% 1000 ML 1,000 ML IV SCH (12:48)
[2022-10-07] MEDS ORDERED: xanAX 0.5 MG PO PRN (20:35)
[2022-10-07] MEDS ORDERED: Lasix 20 MG/2 ML ONE (20:47)
[2022-10-07] MEDS: CLARITIN 10 MG PO SCH (21:00)
[2022-10-08] MEDS: DUONEB 0.5-3 MG/3 ml Neb IH SCH ×6 (02:40→23:15)
[2022-10-08 05:14] LABS: Absolute Neutrophil Ct (ANC) 14.01 x10^3/uL (1.4-6.9); BASOPHIL % 0.3 % (0.0-0.4); Basophil (Absolute #) 0.04 x10^3/uL (0-0.4); Eosinophil % 0.1 % (0.00-5.0); Eosinophil (Absolute #) 0.01 x10^3/uL (0-0.5); Hematocrit 37.3 % (42-50); Hemoglobin 11.3 g/dL (12.5-18.0); IMMATURE GRAN # 0.68 x10^3u/L (0.00-0.03); IMMATURE GRAN % 4.3 % (0.00-0.4); Lymphocyte (Absolute #) 0.38 x10^3/uL (1.0-4.6); Lymphocytes % 2.4 % (24.0-44.0); Mean Cell Volume 97.9 fL (78-100); Mean Corpuscular Hemoglobin 29.7 pg (26-32); Mean Corpuscular Hgb Concent. 30.3 g/dL (32-36); Monocyte (Absolute #) 0.59 x10^3/uL (0.0-1.3); Monocytes % 3.8 % (0.0-12.0); Neutrophil % 89.1 % (36.0-66.0); Platelet Count 220 x10^3/uL (150-450); Red Blood Count 3.81 x10^6/uL (4.1-5.6); Red Cell Distribution Width 12.8 % (11.5-14.0); White Blood Count 15.7 x10^3/uL (4.0-10.5)
[2022-10-08] MEDS: PIPERACILLIN/TAZOBACTAM 3.375 GM in Sodium Chloride 100ML MINI-BAG PLUS 100 ML IV SCH ×4 (05:24→23:04)
[2022-10-08] MEDS: solu-MEDROL 60 MG, Sterile H2O 10 ml 2 ML IV SCH ×8 (05:25→23:04)
[2022-10-08 05:42] LABS: ANION GAP 13.3 MEQ/L (5-15); BLOOD UREA NITROGEN 32 mg/dL (9-20); CHLORIDE 95 mmol/L (98-107); Calcium 8.5 mg/dL (8.4-10.2); Carbon Dioxide 37 mmol/L (22-30); Creatinine 1 0.91 mg/dL (0.66-1.25); EST GLOMERULAR FILTRATION RATE > 60.0 ML/MIN; Glucose 149 mg/dL (74-106); Potassium 3.6 mmol/L (3.5-5.1); SODIUM 142 mmol/L (137-145)
[2022-10-08 07:19] LABS: Slide Review 1 YES
[2022-10-08] MEDS: ZOCOR 20MG PO SCH (08:22)
[2022-10-08] MEDS: Toprol Xl 50 MG PO SCH (08:22)
--- NOTE | 2022-10-08 08:55 | PCM.NOTE ---
Date and Time: 10/08/22 0854 Subjective Assessment: patient is pleased, he is coughing up a great deal of sputum and his breathing is improving. he is currently on 3L nc Objective Exam General Appearance: no apparent distress, obese Respiratory Exam: rhonchi, wheezing Cardiovascular Exam: regular rate/rhythm, normal heart sounds Gastrointestinal/Abdomen Exam: soft, No tenderness, No mass OBJECTIVE DATA Vital Signs: Vital Signs - 24 hr Temp Pulse Resp BP Pulse Ox 10/08/22 07:31 95 10/08/22 06:56 97.6 F 102 H 22 177/93 95 10/08/22 06:43 102 H 22 95 10/08/22 03:49 97.1 F 101 H 26 H 132/84 98 10/08/22 02:40 101 H 20 98 10/07/22 23:39 97.1 F 102 H 26 H 154/74 97 10/07/22 23:00 106 H 24 97 10/07/22 20:13 107 H 24 96 10/07/22 19:45 97.8 F 112 H 28 H 174/84 92 L 10/07/22 15:53 97.5 F 110 H 15 188/84 92 L 10/07/22 15:50 128 H 24 93 L 10/07/22 11:53 100 H 20 99 10/07/22 11:13 97.3 F 107 H 15 130/89 91 L Pain Assessment - Last Documented Pain Intensity 0 Intake and Output: Intake & Output 10/05/22 10/06/22 10/07/22 10/08/22 11:59 11:59 11:59 11:59 Intake Total 3795 3689 Output Total 1350 1001 Balance 9797 7368 Weight 100.6 kg 99.8 kg Lab Results: Lab Results-Last 24 Hours 10/07/22 10/07/22 10/08/22 Range/Units 11:02 15:33 04:21 WBC 15.7 H (4.0-10.5) x10^3/uL RBC 3.81 L (4.1-5.6) x10^6/uL Hgb 11.3 L (12.5-18.0) g/dL Hct 37.3 L (42-50) % MCV 97.9 (78-100) fL MCH 29.7 (26-32) pg MCHC 30.3 L (32-36) g/dL RDW 12.8 (11.5-14.0) % Plt Count 220 (150-450) x10^3/uL MPV 11.0 (7.5-11.0) fL Gran % 89.1 H (36.0-66.0) % Immature Gran % (Auto) 4.3 H (0.00-0.4) % Nucleat RBC Rel Count 0.0 (0.00-0.1) % Eos # (Auto) 0.01 (0-0.5) x10^3/uL Immature Gran # (Auto) 0.68 H (0.00-0.03) x10^3u/L Absolute Lymphs (auto) 0.38 L (1.0-4.6) x10^3/uL Absolute Monos (auto) 0.59 (0.0-1.3) x10^3/uL Absolute Nucleated RBC 0.00 (0.00-0.01) x10^3u/L Lymphocytes % 2.4 L (24.0-44.0) % Monocytes % 3.8 (0.0-12.0) % Eosinophils % 0.1 (0.00-5.0) % Basophils % 0.3 (0.0-0.4) % Absolute Granulocytes 14.01 H (1.4-6.9) x10^3/uL Basophils # 0.04 (0-0.4) x10^3/uL Sodium (137-145) mmol/L Potassium (3.5-5.1) mmol/L Chloride (98-107) mmol/L Carbon Dioxide (22-30) mmol/L Anion Gap (5-15) MEQ/L BUN (9-20) mg/dL Creatinine (0.66-1.25) mg/dL Estimated GFR ML/MIN Glucose (74-106) mg/dL POC Glucometer 151 H 227 H (74 to 106) mg/dL Calcium (8.4-10.2) mg/dL Slides for Path Review YES 10/08/22 Range/Units 04:21 WBC (4.0-10.5) x10^3/uL RBC (4.1-5.6) x10^6/uL Hgb (12.5-18.0) g/dL Hct (42-50) % MCV (78-100) fL MCH (26-32) pg MCHC (32-36) g/dL RDW (11.5-14.0) % Plt Count (150-450) x10^3/uL MPV (7.5-11.0) fL Gran % (36.0-66.0) % Immature Gran % (Auto) (0.00-0.4) % Nucleat RBC Rel Count (0.00-0.1) % Eos # (Auto) (0-0.5) x10^3/uL Immature Gran # (Auto) (0.00-0.03) x10^3u/L Absolute Lymphs (auto) (1.0-4.6) x10^3/uL Absolute Monos (auto) (0.0-1.3) x10^3/uL Absolute Nucleated RBC (0.00-0.01) x10^3u/L Lymphocytes % (24.0-44.0) % Monocytes % (0.0-12.0) % Eosinophils % (0.00-5.0) % Basophils % (0.0-0.4) % Absolute Granulocytes (1.4-6.9) x10^3/uL Basophils # (0-0.4) x10^3/uL Sodium 142 (137-145) mmol/L Potassium 3.6 (3.5-5.1) mmol/L Chloride 95 L (98-107) mmol/L Carbon Dioxide 37 H (22-30) mmol/L Anion Gap 13.3 (5-15) MEQ/L BUN 32 H (9-20) mg/dL Creatinine 0.91 (0.66-1.25) mg/dL Estimated GFR > 60.0 ML/MIN Glucose 149 H (74-106) mg/dL POC Glucometer (74 to 106) mg/dL Calcium 8.5 (8.4-10.2) mg/dL Slides for Path Review Radiology Exams: Radiology Procedures Category Date Time Status CHEST 1 VIEW (PORTABLE) Stat Exams 10/06/22 10:11 Completed Multi-Disciplinary Progress Notes: Multi-Disciplinary Progress Notes 10/07/22 09:33 Case Management Note by Brea Lewis [facility] THEY WILL NEED NOTIFIED AT TIME OF DC AT [phone].THEY WILL NEED FAXED THE DC INSTRUCTIONS, DC MED LIST AND DC SUMMARY ( IF AVAILABLE) AT [phone] Initialized on 10/07/22 09:33 - END OF NOTE Assessment/Plan (1) Pneumonia Current Visit: Yes Status: Acute Assessment & Plan: pseudomonas on sputum culture, continue zosyn. clinically improving. Code(s): J18.9 - PNEUMONIA, UNSPECIFIED ORGANISM (2) COPD with acute exacerbation Current Visit: No Status: Acute Assessment & Plan: improving Code(s): J44.1 - CHRONIC OBSTRUCTIVE PULMONARY DISEASE W (ACUTE) EXACERBATION
[2022-10-08] MEDS: Zithromax 500 MG/ 250 ML NaCl Premix 500 MG/250 ML IVPB IV SCH (10:28)
[2022-10-08] MEDS ORDERED: Lasix 20 MG/2 ML IV ONE (21:00)
[2022-10-08] MEDS: CLARITIN 10 MG PO SCH (22:37)
[2022-10-09] MEDS: DUONEB 0.5-3 MG/3 ml Neb IH SCH ×6 (02:58→23:32)
[2022-10-09] MEDS: PIPERACILLIN/TAZOBACTAM 3.375 GM in Sodium Chloride 100ML MINI-BAG PLUS 100 ML IV SCH ×4 (04:35→23:25)
[2022-10-09] MEDS: solu-MEDROL 60 MG, Sterile H2O 10 ml 2 ML IV SCH ×8 (04:36→23:25)
[2022-10-09 05:51] LABS: Absolute Neutrophil Ct (ANC) 14.73 x10^3/uL (1.4-6.9); BASOPHIL % 0.4 % (0.0-0.4); Basophil (Absolute #) 0.06 x10^3/uL (0-0.4); Eosinophil (Absolute #) 0 x10^3/uL (0-0.5); Hematocrit 35.3 % (42-50); Hemoglobin 10.9 g/dL (12.5-18.0); IMMATURE GRAN # 0.78 x10^3u/L (0.00-0.03); IMMATURE GRAN % 4.6 % (0.00-0.4); Lymphocyte (Absolute #) 0.41 x10^3/uL (1.0-4.6); Lymphocytes % 2.4 % (24.0-44.0); Mean Cell Volume 98.1 fL (78-100); Mean Corpuscular Hemoglobin 30.3 pg (26-32); Mean Corpuscular Hgb Concent. 30.9 g/dL (32-36); Mean Platelet Volume 11.2 fL (7.5-11.0); Monocyte (Absolute #) 0.94 x10^3/uL (0.0-1.3); Monocytes % 5.6 % (0.0-12.0); NUCLEATED RBC # 0.02 x10^3u/L (0.00-0.01); NUCLEATED RBC % 0.1 % (0.00-0.1); Platelet Count 227 x10^3/uL (150-450); Red Cell Distribution Width 12.9 % (11.5-14.0); White Blood Count 16.9 x10^3/uL (4.0-10.5)
[2022-10-09 06:28] LABS: ALBUMIN 3.8 g/dL (3.5-5.0); ALKALINE PHOSPHATASE 53 U/L (38-126); ANION GAP 12.7 MEQ/L (5-15); BLOOD UREA NITROGEN 30 mg/dL (9-20); CHLORIDE 97 mmol/L (98-107); Calcium 8.4 mg/dL (8.4-10.2); Carbon Dioxide 36 mmol/L (22-30); EST GLOMERULAR FILTRATION RATE > 60.0 ML/MIN; Glucose 116 mg/dL (74-106); MAGNESIUM 2.3 mg/dL (1.6-2.3); Potassium 3.6 mmol/L (3.5-5.1); SGOT/AST 32 U/L (17-59); SGPT/ALT 39 U/L (0-50); SODIUM 142 mmol/L (137-145); Total Protein 6.4 g/dL (6.3-8.2)
[2022-10-09 07:17] LABS: Slide Review 1 YES
--- NOTE | 2022-10-09 08:19 | PCM.NOTE ---
Date and Time: 10/09/22816 Subjective Assessment: patient is doing much better, currenty on 2L, still has cough and sputum production Objective Exam General Appearance: no apparent distress Neurologic Exam: alert Respiratory Exam: rhonchi, wheezing Cardiovascular Exam: regular rate/rhythm, normal heart sounds Gastrointestinal/Abdomen Exam: soft, No tenderness, No mass OBJECTIVE DATA Vital Signs: Vital Signs - 24 hr Temp Pulse Resp BP Pulse Ox 10/09/22 06:45 99 H 24 91 L 10/09/22 04:00 97.1 F 105 H 27 H 175/89 95 10/09/22 02:58 105 H 27 H 95 10/08/22 23:31 97.8 F 117 H 28 H 188/90 94 L 10/08/22 23:15 107 H 26 H 96 10/08/22 19:37 97.5 F 122 H 28 H 169/91 92 L 10/08/22 18:10 122 H 22 95 10/08/22 16:00 97.7 F 108 H 23 168/95 93 L 10/08/22 14:31 100 H 22 94 L 10/08/22 12:00 97.4 F 100 H 22 158/80 96 10/08/22 10:25 114 H 20 95 Pain Assessment - Last Documented Pain Intensity 0 Intake and Output: Intake & Output 10/06/22 10/07/22 10/08/22 10/09/22 11:59 11:59 11:59 11:59 Intake Total 3795 3929 1840 Output Total 1350 1001 500 Balance 2445 2928 1340 Weight 100.6 kg 99.8 kg 101.9 kg Lab Results: Lab Results-Last 24 Hours 10/09/22 10/09/22 Range/Units 04:36 04:36 WBC 16.9 H (4.0-10.5) x10^3/uL RBC 3.60 L (4.1-5.6) x10^6/uL Hgb 10.9 L (12.5-18.0) g/dL Hct 35.3 L (42-50) % MCV 98.1 (78-100) fL MCH 30.3 (26-32) pg MCHC 30.9 L (32-36) g/dL RDW 12.9 (11.5-14.0) % Plt Count 227 (150-450) x10^3/uL MPV 11.2 H (7.5-11.0) fL Gran % 87.0 H (36.0-66.0) % Immature Gran % (Auto) 4.6 H (0.00-0.4) % Nucleat RBC Rel Count 0.1 (0.00-0.1) % Eos # (Auto) 0 (0-0.5) x10^3/uL Immature Gran # (Auto) 0.78 H (0.00-0.03) x10^3u/L Absolute Lymphs (auto) 0.41 L (1.0-4.6) x10^3/uL Absolute Monos (auto) 0.94 (0.0-1.3) x10^3/uL Absolute Nucleated RBC 0.02 H (0.00-0.01) x10^3u/L Lymphocytes % 2.4 L (24.0-44.0) % Monocytes % 5.6 (0.0-12.0) % Eosinophils % 0.0 (0.00-5.0) % Basophils % 0.4 (0.0-0.4) % Absolute Granulocytes 14.73 H (1.4-6.9) x10^3/uL Basophils # 0.06 (0-0.4) x10^3/uL Sodium 142 (137-145) mmol/L Potassium 3.6 (3.5-5.1) mmol/L Chloride 97 L (98-107) mmol/L Carbon Dioxide 36 H (22-30) mmol/L Anion Gap 12.7 (5-15) MEQ/L BUN 30 H (9-20) mg/dL Creatinine 0.80 (0.66-1.25) mg/dL Estimated GFR > 60.0 ML/MIN Glucose 116 H (74-106) mg/dL Calcium 8.4 (8.4-10.2) mg/dL Magnesium 2.3 (1.6-2.3) mg/dL Total Bilirubin 0.50 (0.2-1.3) mg/dL AST 32 (17-59) U/L ALT 39 (0-50) U/L Alkaline Phosphatase 53 (38-126) U/L Serum Total Protein 6.4 (6.3-8.2) g/dL Albumin 3.8 (3.5-5.0) g/dL Slides for Path Review YES Multi-Disciplinary Progress Notes: Multi-Disciplinary Progress Notes 10/08/22 10:16 Case Management Note by Melania Ross S/W PATIENT. STILL PLANS TO RETURN HOME WITH [facility] [place]. DENIES ANY OTHER NEEDS FOR DC AT THIS TIME. Initialized on 10/08/22 10:16 - END OF NOTE Assessment/Plan (1) Pneumonia Current Visit: Yes Status: Acute Assessment & Plan: pseudomonas on sputum culture Code(s): J18.9 - PNEUMONIA, UNSPECIFIED ORGANISM (2) COPD with acute exacerbation Current Visit: No Status: Acute Assessment & Plan: continue abx, nebs and steroids Code(s): J44.1 - CHRONIC OBSTRUCTIVE PULMONARY DISEASE W (ACUTE) EXACERBATION
[2022-10-09] MEDS: Toprol Xl 50 MG PO SCH (09:57)
[2022-10-09] MEDS: ZOCOR 20MG PO SCH (09:57)
[2022-10-09] MEDS: Zithromax 500 MG/ 250 ML NaCl Premix 500 MG/250 ML IVPB IV SCH (10:54)
[2022-10-09] MEDS: CLARITIN 10 MG PO SCH (21:37)
[2022-10-10] MEDS: DUONEB 0.5-3 MG/3 ml Neb IH SCH ×6 (03:31→23:16)
[2022-10-10] MEDS ORDERED: solu-MEDROL ONE (05:27)
[2022-10-10] MEDS: solu-MEDROL 60 MG, Sterile H2O 10 ml 2 ML IV SCH ×8 (05:41→23:32)
[2022-10-10] MEDS: PIPERACILLIN/TAZOBACTAM 3.375 GM in Sodium Chloride 100ML MINI-BAG PLUS 100 ML IV SCH ×4 (05:42→23:36)
[2022-10-10 05:51] LABS: Hematocrit 37.8 % (42-50); Hemoglobin 11.7 g/dL (12.5-18.0); Mean Cell Volume 96.4 fL (78-100); Mean Corpuscular Hemoglobin 29.8 pg (26-32); Mean Platelet Volume 10.2 fL (7.5-11.0); Platelet Count 231 x10^3/uL (150-450); Red Blood Count 3.92 x10^6/uL (4.1-5.6); Red Cell Distribution Width 12.9 % (11.5-14.0); White Blood Count 18.2 x10^3/uL (4.0-10.5)
[2022-10-10 06:19] LABS: ALBUMIN 3.8 g/dL (3.5-5.0); ALKALINE PHOSPHATASE 56 U/L (38-126); ANION GAP 10.7 MEQ/L (5-15); BLOOD UREA NITROGEN 31 mg/dL (9-20); CHLORIDE 95 mmol/L (98-107); Calcium 8.6 mg/dL (8.4-10.2); Carbon Dioxide 38 mmol/L (22-30); EST GLOMERULAR FILTRATION RATE > 60.0 ML/MIN; Glucose 122 mg/dL (74-106); SGOT/AST 35 U/L (17-59); SGPT/ALT 44 U/L (0-50); SODIUM 140 mmol/L (137-145); Total Protein 6.5 g/dL (6.3-8.2)
[2022-10-10] MEDS: Toprol Xl 50 MG PO SCH (09:24)
[2022-10-10] MEDS: Zithromax 500 MG/ 250 ML NaCl Premix 500 MG/250 ML IVPB IV SCH (09:24)
[2022-10-10] MEDS: ZOCOR 20MG PO SCH (09:24)
[2022-10-10 09:42] LABS: Lymphocytes 5 % (24-44); Monocyte 3 % (0.0-12.0); Neutrophils 92 % (36.-66.); Platelet Estimate NORMAL (NORMAL); Total Cells Counted 100
[2022-10-10] MEDS: NORVASC 5 MG PO SCH (10:57)
--- NOTE | 2022-10-10 13:40 | PCM.NOTE ---
Date and Time: 10/10/22 1335 Subjective Assessment: He is feeling much better than at admission. BP 170s-190s systolic. Started him on norvasc 5mg/d today. - Review of Systems Constitutional: No Fever Cardiac: No Chest Pain Objective Exam General Appearance: no apparent distress, alert, obese Neurologic Exam: cooperative, normal mood/affect Skin Exam: normal color, warm, dry, No rash Eye Exam: eyes nml inspection Ears, Nose, Throat Exam: moist mucous membranes Respiratory Exam: diminished breath sounds (good air exchange), wheezing (mild scattered), No crackles/rales, No rhonchi Cardiovascular Exam: regular rate/rhythm, normal heart sounds, No murmur, No friction rub, No gallop Gastrointestinal/Abdomen Exam: soft, normal bowel sounds, distention (appears chronic), No tenderness, No mass, No guarding, No rebound Extremity Exam: swelling (1+ pretibial bilat), No tenderness Back Exam: normal inspection, No rash OBJECTIVE DATA Vital Signs: Vital Signs - 24 hr Temp Pulse Resp BP Pulse Ox 10/10/22 11:25 98.0 F 100 H 16 188/94 92 L 10/10/22 10:38 108 H 18 95 10/10/22 07:50 97.8 F 110 H 16 185/93 92 L 10/10/22 07:24 100 H 18 94 L 10/10/22 03:54 97.6 F 101 H 20 183/95 95 10/10/22 03:32 101 H 20 95 10/09/22 23:56 97.8 F 110 H 19 192/90 96 10/09/22 23:32 117 H 22 94 L 10/09/22 20:00 98.4 F 119 H 20 174/92 94 L 10/09/22 19:44 122 H 22 93 L 10/09/22 16:00 97.3 F 120 H 22 171/87 10/09/22 14:45 113 H 20 93 L Pain Assessment - Last Documented Pain Intensity 0 Intake and Output: Intake & Output 10/08/22 10/09/22 10/10/22 10/11/22 11:59 11:59 11:59 11:59 Intake Total 3929 1960 1720 Output Total 1001 500 Balance 2928 1460 1720 Weight 101.9 kg 104.2 kg 103.8 kg Lab Results: Lab Results-Last 24 Hours 10/10/22 10/10/22 Range/Units 05:45 05:45 WBC 18.2 H (4.0-10.5) x10^3/uL RBC 3.92 L (4.1-5.6) x10^6/uL Hgb 11.7 L (12.5-18.0) g/dL Hct 37.8 L (42-50) % MCV 96.4 (78-100) fL MCH 29.8 (26-32) pg MCHC 31.0 L (32-36) g/dL RDW 12.9 (11.5-14.0) % Plt Count 231 (150-450) x10^3/uL MPV 10.2 (7.5-11.0) fL Segmented Neutrophils 92 H (36.-66.) % Lymphocytes (Manual) 5 L (24-44) % Monocytes (Manual) 3 (0.0-12.0) % Platelet Estimate NORMAL (NORMAL) RBC Morphology NORMAL Sodium 140 (137-145) mmol/L Potassium 4.0 (3.5-5.1) mmol/L Chloride 95 L (98-107) mmol/L Carbon Dioxide 38 H (22-30) mmol/L Anion Gap 10.7 (5-15) MEQ/L BUN 31 H (9-20) mg/dL Creatinine 0.70 (0.66-1.25) mg/dL Estimated GFR > 60.0 ML/MIN Glucose 122 H (74-106) mg/dL Calcium 8.6 (8.4-10.2) mg/dL Total Bilirubin 0.60 (0.2-1.3) mg/dL AST 35 (17-59) U/L ALT 44 (0-50) U/L Alkaline Phosphatase 56 (38-126) U/L Serum Total Protein 6.5 (6.3-8.2) g/dL Albumin 3.8 (3.5-5.0) g/dL Assessment/Plan (1) Pneumonia Current Visit: Yes Status: Acute Qualifiers: Pneumonia type: due to Pseudomonas Laterality: right Lung location: middle lobe of lung Qualified Code(s): J15.1 - Pneumonia due to Pseudomonas Assessment & Plan: Reported to me as pseudomonas, although the cultures I see for this current admission are negative. On IV zosyn day #5; likely home tomorrow on po levaquin for 8 more days (14 days total) - can be changed by PCP if needed at f/u appointment next week. Code(s): J18.9 - PNEUMONIA, UNSPECIFIED ORGANISM (2) COPD with acute exacerbation Current Visit: No Status: Acute Code(s): J44.1 - CHRONIC OBSTRUCTIVE PULMONARY DISEASE W (ACUTE) EXACERBATION (3) HTN (hypertension) Current Visit: No Status: Chronic Qualifiers: Hypertension type: primary hypertension Qualified Code(s): I10 - Essential (primary) hypertension Assessment & Plan: BP up here into the 190s over the past 24 hours; started small dose po norvasc and likely pt can go home tomorrow. Code(s): I10 - ESSENTIAL (PRIMARY) HYPERTENSION (4) Hyperglycemia Current Visit: Yes Status: Acute Assessment & Plan: likely d/t steroids, but will check a1c. Code(s): R73.9 - HYPERGLYCEMIA, UNSPECIFIED
[2022-10-10] MEDS: ENOXAPARIN SODIUM SQ SCH (14:39)
[2022-10-10] MEDS: CLARITIN 10 MG PO SCH (21:09)
[2022-10-11] MEDS ORDERED: solu-MEDROL ONE ×2 (04:27→04:33)
[2022-10-11] MEDS: solu-MEDROL 60 MG, Sterile H2O 10 ml 2 ML IV SCH ×2 (05:53)
[2022-10-11] MEDS: PIPERACILLIN/TAZOBACTAM 3.375 GM in Sodium Chloride 100ML MINI-BAG PLUS 100 ML IV SCH (05:54)
[2022-10-11 06:03] LABS: Absolute Neutrophil Ct (ANC) 16.25 x10^3/uL (1.4-6.9); BASOPHIL % 0.4 % (0.0-0.4); Basophil (Absolute #) 0.07 x10^3/uL (0-0.4); Eosinophil (Absolute #) 0 x10^3/uL (0-0.5); Hematocrit 37.8 % (42-50); Hemoglobin 11.8 g/dL (12.5-18.0); IMMATURE GRAN # 1.29 x10^3u/L (0.00-0.03); IMMATURE GRAN % 6.8 % (0.00-0.4); Lymphocyte (Absolute #) 0.42 x10^3/uL (1.0-4.6); Lymphocytes % 2.2 % (24.0-44.0); Mean Corpuscular Hemoglobin 29.6 pg (26-32); Mean Corpuscular Hgb Concent. 31.2 g/dL (32-36); Mean Platelet Volume 10.2 fL (7.5-11.0); Monocyte (Absolute #) 1.08 x10^3/uL (0.0-1.3); Monocytes % 5.7 % (0.0-12.0); NUCLEATED RBC # 0.02 x10^3u/L (0.00-0.01); NUCLEATED RBC % 0.1 % (0.00-0.1); Neutrophil % 84.9 % (36.0-66.0); Platelet Count 229 x10^3/uL (150-450); Red Blood Count 3.98 x10^6/uL (4.1-5.6); Red Cell Distribution Width 12.7 % (11.5-14.0); White Blood Count 19.1 x10^3/uL (4.0-10.5)
[2022-10-11 06:16] LABS: ALBUMIN 3.8 g/dL (3.5-5.0); ALKALINE PHOSPHATASE 58 U/L (38-126); ANION GAP 10.5 MEQ/L (5-15); BLOOD UREA NITROGEN 28 mg/dL (9-20); CHLORIDE 91 mmol/L (98-107); Calcium 8.6 mg/dL (8.4-10.2); Carbon Dioxide 39 mmol/L (22-30); Creatinine 1 0.73 mg/dL (0.66-1.25); EST GLOMERULAR FILTRATION RATE > 60.0 ML/MIN; Glucose 115 mg/dL (74-106); SGOT/AST 37 U/L (17-59); SGPT/ALT 45 U/L (0-50); SODIUM 137 mmol/L (137-145); Total Protein 6.4 g/dL (6.3-8.2)
[2022-10-11 06:35] VITALS: BP 161/72
[2022-10-11] MEDS: DUONEB 0.5-3 MG/3 ml Neb IH SCH (07:29)
[2022-10-11 07:33] VITALS: PULSE 102; O2SAT 94
--- NOTE | 2022-10-11 09:20 | PCM.DS ---
Discharge Summary Date of Admission: 10/07/22 09:23 Admitting Physician: SABAS REGAN Primary Care Provider: EDISON SAMPSON Allergies Allergies fluticasone [From Advair Diskus] Adverse Reaction (Mild, Verified 10/06/22 12:10) pt states "It makes me sicker" salmeterol [From Advair Diskus] Adverse Reaction (Mild, Verified 10/06/22 12:10) pt states "It makes me sicker" Hospital Summary - Hospital Course Hospital Course: Mr. Alves is a 72 yo male with COPD, obesity, HTN, hx TOB use (hand-rolled cigarettes), and HLD who was admitted through ER with pneumonia; had a recent admission and had been sent home on levaquin. Was re-admitted on zosyn and today is day #6. He also completed 5d of IV zithromax, 500mg. He is feeling much better with respect to his breathing but is "getting depressed in this room" as he told the nurse. He did have elevated blood pressures into the 190s systolic 2d ago which he attributes to not doing his normal activities. I added 5mg norvasc po and his bp are somewhat better today, although still hypertensive. We have discussed that BP are probably lower at home and I do not want him to get hypotensive as he did have some bp of 130s systolic earlier in his hospital stay. We did discuss sx of hypotension. We discussed antibiotics; I didn't realize he was sent home on levaquin previously, but will be sending him home on levaquin this stay for 8 more days. He can use his home levaquin if he has enough. He thinks he has an appointment scheduled with Dr. Sampson but I don't see anything scheduled in [place] - he will have to call tomorrow for a f/u this week. CXR on admission with new R infrahilar infiltrate/atelectasis. WBC were 13.2 on admission and 19.1 today; he has been on steroids throughout this stay which is probably contributing (although he does have left shift, as we know there is an infectious component). eGFR is nl. Blood sugars have been elevated, 115 this morning, but a1c is 5.59. Hgb is 11.8 this morning. - Vitals & Intake/Output Vital Signs: Vital Signs Temperature 97.6 F 10/11/22 06:34 Pulse Rate 102 H 10/11/22 07:30 Respiratory Rate 18 10/11/22 07:30 Blood Pressure 161/72 10/11/22 06:34 O2 Sat by Pulse Oximetry 94 L 10/11/22 07:30 Intake & Output: Intake & Output 10/08/22 10/09/22 10/10/22 10/11/22 11:59 11:59 11:59 11:59 Intake Total 3929 1960 1720 4986 Output Total 1001 500 Balance 2928 1460 1720 4986 Weight 101.9 kg 104.2 kg 103.8 kg 103.4 kg - Lab Result Diagrams: 10/11/22 04:00 10/11/22 04:00 Lab Results-Last 24 Hrs: Lab Results-Last 24 Hours 10/10/22 10/11/22 10/11/22 Range/Units 05:45 04:00 04:00 WBC 19.1 H (4.0-10.5) x10^3/uL RBC 3.98 L (4.1-5.6) x10^6/uL Hgb 11.8 L (12.5-18.0) g/dL Hct 37.8 L (42-50) % MCV 95.0 (78-100) fL MCH 29.6 (26-32) pg MCHC 31.2 L (32-36) g/dL RDW 12.7 (11.5-14.0) % Plt Count 229 (150-450) x10^3/uL MPV 10.2 (7.5-11.0) fL Gran % 84.9 H (36.0-66.0) % Immature Gran % (Auto) 6.8 H (0.00-0.4) % Nucleat RBC Rel Count 0.1 (0.00-0.1) % Eos # (Auto) 0 (0-0.5) x10^3/uL Immature Gran # (Auto) 1.29 H (0.00-0.03) x10^3u/L Absolute Lymphs (auto) 0.42 L (1.0-4.6) x10^3/uL Absolute Monos (auto) 1.08 (0.0-1.3) x10^3/uL Absolute Nucleated RBC 0.02 H (0.00-0.01) x10^3u/L Lymphocytes % 2.2 L (24.0-44.0) % Monocytes % 5.7 (0.0-12.0) % Eosinophils % 0.0 (0.00-5.0) % Basophils % 0.4 (0.0-0.4) % Absolute Granulocytes 16.25 H (1.4-6.9) x10^3/uL Segmented Neutrophils 92 H (36.-66.) % Lymphocytes (Manual) 5 L (24-44) % Monocytes (Manual) 3 (0.0-12.0) % Basophils # 0.07 (0-0.4) x10^3/uL Platelet Estimate NORMAL (NORMAL) RBC Morphology NORMAL Sodium 137 (137-145) mmol/L Potassium 4.0 (3.5-5.1) mmol/L Chloride 91 L (98-107) mmol/L Carbon Dioxide 39 H (22-30) mmol/L Anion Gap 10.5 (5-15) MEQ/L BUN 28 H (9-20) mg/dL Creatinine 0.73 (0.66-1.25) mg/dL Estimated GFR > 60.0 ML/MIN Glucose 115 H (74-106) mg/dL Hemoglobin A1c (4.5-6.0) % Calcium 8.6 (8.4-10.2) mg/dL Total Bilirubin 0.70 (0.2-1.3) mg/dL AST 37 (17-59) U/L ALT 45 (0-50) U/L Alkaline Phosphatase 58 (38-126) U/L Serum Total Protein 6.4 (6.3-8.2) g/dL Albumin 3.8 (3.5-5.0) g/dL 10/11/22 Range/Units 04:00 WBC (4.0-10.5) x10^3/uL RBC (4.1-5.6) x10^6/uL Hgb (12.5-18.0) g/dL Hct (42-50) % MCV (78-100) fL MCH (26-32) pg MCHC (32-36) g/dL RDW (11.5-14.0) % Plt Count (150-450) x10^3/uL MPV (7.5-11.0) fL Gran % (36.0-66.0) % Immature Gran % (Auto) (0.00-0.4) % Nucleat RBC Rel Count (0.00-0.1) % Eos # (Auto) (0-0.5) x10^3/uL Immature Gran # (Auto) (0.00-0.03) x10^3u/L Absolute Lymphs (auto) (1.0-4.6) x10^3/uL Absolute Monos (auto) (0.0-1.3) x10^3/uL Absolute Nucleated RBC (0.00-0.01) x10^3u/L Lymphocytes % (24.0-44.0) % Monocytes % (0.0-12.0) % Eosinophils % (0.00-5.0) % Basophils % (0.0-0.4) % Absolute Granulocytes (1.4-6.9) x10^3/uL Segmented Neutrophils (36.-66.) % Lymphocytes (Manual) (24-44) % Monocytes (Manual) (0.0-12.0) % Basophils # (0-0.4) x10^3/uL Platelet Estimate (NORMAL) RBC Morphology Sodium (137-145) mmol/L Potassium (3.5-5.1) mmol/L Chloride (98-107) mmol/L Carbon Dioxide (22-30) mmol/L Anion Gap (5-15) MEQ/L BUN (9-20) mg/dL Creatinine (0.66-1.25) mg/dL Estimated GFR ML/MIN Glucose (74-106) mg/dL Hemoglobin A1c 5.59 (4.5-6.0) % Calcium (8.4-10.2) mg/dL Total Bilirubin (0.2-1.3) mg/dL AST (17-59) U/L ALT (0-50) U/L Alkaline Phosphatase (38-126) U/L Serum Total Protein (6.3-8.2) g/dL Albumin (3.5-5.0) g/dL Micro Results-Entire Visit: Microbiology 10/06/22 10:30 Blood Culture - Final Blood NO GROWTH 10/06/22 10:15 Blood Culture - Final Blood NO GROWTH 10/06/22 10:11 Gram Stain - Final Sputum - Expectorant Sputum Culture - Final ORGANISMS ISOLATED ARE CONSISTENT WITH NORMAL RESP ASHLEY MODERATE GROWTH, NO PREDOMINANT ORGANISM - Procedures and Test Procedures and Tests throughout Hospitalization: Therapy Orders & Screens 10/06/22 12:06 Oxygen Nasal Cannula 2 lpm Comment: Respiratory Therapy Consult ROUTINE Comment: Reason For Exam: 10/06/22 14:24 Respiratory Therapy Assessment DAILY Comment: Diagnosis: PNUEMONIA, COPD EXACERBATION Discharge Exam General Appearance: no apparent distress, obese, other (sitting on side of bed, on O2 per NC, otherwise well-appearing) Neurologic Exam: alert, cooperative Eye Exam: eyes nml inspection Respiratory Exam: diminished breath sounds (gair-good AE), No crackles/rales, No rhonchi, No wheezing Cardiovascular Exam: normal heart sounds, tachycardia, No murmur Gastrointestinal/Abdomen Exam: soft, normal bowel sounds, distention, No tenderness, No mass, No guarding, No rebound Extremity Exam: normal inspection, swelling (1+ pretibial edema bilat) Skin Exam: normal color, warm, dry, No rash Final Diagnosis/Problem List - Final Discharge Diagnosis/Problem (1) Pneumonia Current Visit: Yes Status: Acute Assessment & Plan: Pseudomonas on culture prior to admission. Finished 5 days of zosyn and will be sent home on Levaquin today. Probiotic. Steroids. Code(s): J18.9 - PNEUMONIA, UNSPECIFIED ORGANISM (2) COPD with acute exacerbation Current Visit: No Status: Chronic Code(s): J44.1 - CHRONIC OBSTRUCTIVE PULMONARY DISEASE W (ACUTE) EXACERBATION (3) HTN (hypertension) Current Visit: No Status: Chronic Assessment & Plan: added norvasc 5mg/d Code(s): I10 - ESSENTIAL (PRIMARY) HYPERTENSION (4) Hyperglycemia Current Visit: Yes Status: Acute Assessment & Plan: due to steroids, a1c nl Code(s): R73.9 - HYPERGLYCEMIA, UNSPECIFIED - Discharge Disposition: Home, Self-Care Condition: Stable Prescriptions: New Lactobacillus Acidophilus [Acidophilus TABLET] 1 tab PO BID #20 tablet Prednisone 20 mg [Deltasone 20 mg] 20 mg PO DAILY #17 tablet Amlodipine Besylate 5 mg [Norvasc 5 mg] 5 mg PO QAM #30 tablet Continue Albuterol Common Canister [Ventolin Common Canister] 2 puff IH Q4HPRN PRN #0 puff PRN Reason: wheezes Atorvastatin Calcium [Lipitor] 40 mg PO DAILY Umeclidinium Brm/Vilanterol Tr [Anoro Ellipta 62.5-25 Mcg INH] 1 puff IH DAILY Levocetirizine Dihydrochloride 5 mg PO HS Metoprolol Succinate 50 mg [Toprol Xl 50 MG] 50 mg PO DAILY Albuterol Sulfate [Albuterol Sulfate Hfa] 2 puff IH QID Prednisone 20 mg [Deltasone 20 mg] 20 mg PO UD #18 tablet levoFLOXacin [Levofloxacin] 500 mg PO DAILY #8 tablet Additional Instructions: [employer] [facility] HAS BEEN SET UP. THEY WILL CONTACT YOU TO ARRANGE A TIME TO COME SEE YOU. THEIR PHONE NUMBER IS [phone] If Blood pressure is over 180 on top or over 110 on bottom, rest in a darkened room for 10 minutes then retake it. If it continues to be that high, return to ER. Return to ER at any time for chest pain, increased shortness of breath, passing out, or any other worrisome symptom. If you get lightheaded, please call your doctor and stop taking the norvasc 5mg daily (the new blood pressure pill). Follow up with: EDISON SAMPSON [Primary Care Provider] -
[2022-10-11] MEDS: Toprol Xl 50 MG PO SCH (09:51)
[2022-10-11] MEDS: ZOCOR 20MG PO SCH (09:51)
[2022-10-11] MEDS: NORVASC 5 MG PO SCH (09:51)
[2022-10-11] MEDS: Zithromax 500 MG/ 250 ML NaCl Premix 500 MG/250 ML IVPB IV SCH (09:52)
[2022-10-11] MEDS: ENOXAPARIN SODIUM SQ SCH (09:52)
[2022-10-11 11:07] LABS: Lymphocytes 3 % (24-44); Metamyelocyte 2 %; Monocyte 3 % (0.0-12.0); Neutrophils 92 % (36.-66.); Platelet Estimate NORMAL (NORMAL); Total Cells Counted 100
== END 2022-10-11 11:05 | disposition home or self-care (01) | DRG 194 ==
LOC: ED 10:06 → MED SURG 12:03 → OBSVTOIN 10-07 09:23
PROVIDERS: ADMIT Family Medicine; ATTEND Family Medicine
DX: J18.9 Pneumonia, unspecified organism (principal); J44.1 Chronic obstructive pulmonary disease with (acute) exacerbation; I10 Essential (primary) hypertension; R73.9 Hyperglycemia, unspecified; E78.5 Hyperlipidemia, unspecified; Z79.899 Other long term (current) drug therapy; Z20.828 Contact with and (suspected) exposure to other viral communicable diseases; Z99.81 Dependence on supplemental oxygen; Z72.0 Tobacco use
CPT/HCPCS: 0241U; 36000; 36415; 71045; 80048; 80053; 81001; 82947; 83036; 83605; 83735; 83880; 84484; 85025; 85027; 85379; 85610; 85730; 87040; 87070; 93005; 93041; 93268; 94640; 94762; 96365; 96374; 99285; G0378; J0456; J0696; J1650; J1940; J2930; A9270-GY

== ENCOUNTER 2022-11-30 10:55 | Emergency (ER) | payer MEDICARE ==
[2022-11-30] MEDS ORDERED: DUONEB 0.5-3 MG/3 ml Neb IH ONE ×2 (10:56→11:18)
--- NOTE | 2022-11-30 10:59 | ERPHSYRPT ---
- History of Present Illness Time Seen by Provider: 11/30/22 10:58 Source: patient Exam Limitations: clinical condition Physician History: This is a 72-year-old white male patient who is a former smoker but did smoke 1 pack a day for 50 years and presents to the emergency department with shortness of air over the last 4 days which have progressively worsened. Patient is an oxygen dependent COPD patient on 2 L of oxygen via nasal cannula. Patient has a history of hypertension and hyperlipidemia. He also has a history of seizure disorder. Patient was having worsening shortness of breath with associated wheezing. He denies chest pain. He denies abdominal pain. He has not had a fever. He chronically has a cough. Timing/Duration: day(s) (4), worse Severity of Dyspnea-Max: moderate Severity of Dyspnea-Current: moderate Possible Cause: occasional episodes Associated Symptoms: cough, wheezing, No chest pain/discomfort Allergies/Adverse Reactions: fluticasone [From Advair Diskus] Adverse Reaction (Mild, Verified 10/06/22 12:10) pt states "It makes me sicker" salmeterol [From Advair Diskus] Adverse Reaction (Mild, Verified 10/06/22 12:10) pt states "It makes me sicker" Home Medications: Atorvastatin Calcium [Lipitor] 40 mg PO DAILY 03/24/19 [History] Levocetirizine Dihydrochloride 5 mg PO HS 08/23/22 [History] Albuterol Sulfate [Albuterol Sulfate Hfa] 2 puff IH QID 10/03/22 [History] Metoprolol Succinate 50 mg [Toprol Xl 50 MG] 50 mg PO DAILY 10/03/22 [ History] Hx Tetanus, Diphtheria Vaccination/Date Given: Yes Hx Influenza Vaccination/Date Given: Yes Hx Pneumococcal Vaccination/Date Given: Yes Travel Risk - International Travel Have you traveled outside of the country in past 3 weeks: No - Coronavirus Screening Are you exhibiting any of the following symptoms?: Yes Symptoms: Shortness of Breath Close contact with a COVID-19 positive Pt in past 14-21 Days: No - Vaccine Status Have you recieved a Covid-19 vaccination: Yes [employer]: [employer] - Vaccination Dates Date of 2cond Vaccination (if applicable): UNK Dates if Unknown: UNKOWN - Review of Systems Constitutional: No Symptoms Eyes: No Symptoms Ears, Nose, & Throat: No Symptoms Respiratory: Cough, Dyspnea, Wheezing Cardiac: No Symptoms Abdominal/Gastrointestinal: No Symptoms Genitourinary Symptoms: No Symptoms Musculoskeletal: No Symptoms Skin: No Symptoms Neurological: No Symptoms Psychological: No Symptoms Endocrine: No Symptoms Hematologic/Lymphatic: No Symptoms Immunological/Allergic: No Symptoms All Other Systems: Reviewed and Negative - Past Medical History Pertinent Past Medical History: Yes Neurological History: Epilepsy, Seizures ENT History: Cataracts Cardiac History: High Cholesterol, Hypertension Respiratory History: COPD, Emphysema, Pneumonia Endocrine Medical History: No Pertinent History Musculoskeletal History: Arthritis GI Medical History: No Pertinent History History: No Pertinent History Psycho-Social History: No Pertinent History Male Reproductive Disorders: No Pertinent History Other Medical History: Seizure(?) Took dilantin for about two years, [id number] - Past Surgical History Past Surgical History: No Neuro Surgical History: No Pertinent History Cardiac: No Pertinent History Respiratory: No Pertinent History Gastrointestinal: No Pertinent History Genitourinary: No Pertinent History Musculoskeletal: No Pertinent History Male Surgical History: No Pertinent History - Social History Smoking Status: Former smoker How long have you smoked: 50 years Exposure to second hand smoke: No Drug Use: none Patient Lives Alone: Yes Significant Family History: no pertinent family hx - Nursing Vital Signs Nursing Vital Signs: Initial Vital Signs Temperature 98.1 F 11/30/22 10:56 Pulse Rate 121 H 11/30/22 10:56 Respiratory Rate 28 H 11/30/22 10:56 Blood Pressure 160/79 11/30/22 10:56 O2 Sat by Pulse Oximetry 96 11/30/22 10:56 Pain Scale Pain Intensity 0 - Physical Exam General Appearance: mild distress, alert, anxiety Eye Exam: PERRL/EOMI, eyes nml inspection Ears, Nose, Throat Exam: hearing grossly normal, normal ENT inspection, normal pharynx Neck Exam: normal inspection, non-tender, supple, full range of motion Respiratory Exam: respiratory distress, airway intact (Mild), wheezing (Bilateral diffuse), No chest tenderness Cardiovascular/Chest Exam: tachycardia Abdominal/Gastrointestinal Exam: soft, normal bowel sounds, No tenderness Rectal Exam: not done Extremity Exam: non-tender, normal range of motion, normal inspection Neurologic Exam: alert, oriented x 3, cooperative, 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, normal mood/affect, nml cerebellar function, nml station & gait, sensation nml Skin Exam: normal color, warm, dry Lymphatic Exam: No adenopathy SpO2 Interpretation: normal O2 Delivery: Nasal Cannula - Course Nursing assessment & vital signs reviewed: Yes EKG Interpreted by Me: RATE ([id number]), Sinus Tach, Left Bradley Deviation, NORMAL INTERVALS, NORMAL QRS, NORMAL ST-T, Other (no acute ischemia) Ordered Tests: Active Orders 24 hr Category Date Time Status Net Solutions Architect STAT Care 11/30/22 11:09 Active EKG-ER Only STAT Care 11/30/22 11:08 Active IV Insertion STAT Care 11/30/22 11:08 Active Pulse Oximetry (ED) STAT Care 11/30/22 11:08 Active CHEST 1 VIEW (PORTABLE) Stat Exams 11/30/22 11:09 Completed CHEST WITH CONTRAST [CT] Stat Exams 11/30/22 12:59 Completed BLOOD CULTURE Stat Lab 11/30/22 11:35 Received CBC W DIFF Stat Lab 11/30/22 11:05 Completed CMP Stat Lab 11/30/22 11:05 Completed D-DIMER QUANTITATIVE Stat Lab 11/30/22 11:05 Completed NT PRO BNPII Stat Lab 11/30/22 11:05 Completed TROPONIN Q4H Lab 11/30/22 11:05 Completed TROPONIN Q4H Lab 11/30/22 15:15 Ordered TROPONIN Q4H Lab 11/30/22 19:15 Ordered Respiratory Therapy Assessment DAILY RT 11/30/22 11:19 Active Medication Summary Discontinued Medications Generic Name Dose Route Start Last Admin Trade Name Freq PRN Reason Stop Dose Admin Albuterol/Ipratropium Confirm 11/30/22 10:56 Ipratropium/Albuterol Sulfate 3 Ml Ampul.Neb Administered 11/30/22 10:57 Dose 3 ml IH .STK-MED ONE Albuterol/Ipratropium 3 ml 11/30/22 11:18 11/30/22 11:19 Ipratropium/Albuterol Sulfate 3 Ml Ampul.Neb IH 11/30/22 11:19 3 ml STAT ONE Administration Methylprednisolone Sodium 0 mg 11/30/22 11:08 11/30/22 11:27 Succinate 125 mg/ Sterile IV 11/30/22 11:09 125 mg Water 2 ml STAT ONE Administration Sodium Chloride 500 mls @ 500 mls/hr 11/30/22 12:13 11/30/22 13:54 Sodium Chloride 0.9% 500 Ml IV 11/30/22 13:12 Infused .Q1H ONE Infusion Sodium Chloride Confirm 11/30/22 12:47 Sodium Chloride 0.9% 500 Ml Administered 11/30/22 12:48 Dose 500 mls @ ud IV .STK-MED ONE Methylprednisolone Sodium Succinate Confirm 11/30/22 11:21 Methylprednis Sod Succ 125 Mg/2 Ml Vial Administered 11/30/22 11:22 Dose 125 mg .ROUTE .STK-MED ONE Sterile Water Confirm 11/30/22 11:21 Water For Injection,Sterile 10 Ml Vial Administered 11/30/22 11:22 Dose 10 ml IJ .STK-MED ONE Lab/Rad Data: Laboratory Result Diagrams 11/30/22 11:05 11/30/22 11:05 Laboratory Results 11/30/22 11/30/22 11/30/22 Range/Units 11:23 11:05 11:05 WBC (4.0-10.5) x10^3/uL RBC (4.1-5.6) x10^6/uL Hgb (12.5-18.0) g/dL Hct (42-50) % MCV (78-100) fL MCH (26-32) pg MCHC (32-36) g/dL RDW (11.5-14.0) % Plt Count (150-450) x10^3/uL MPV (7.5-11.0) fL Gran % (36.0-66.0) % Immature Gran % (Auto) (0.00-0.4) % Nucleat RBC Rel Count (0.00-0.1) % Eos # (Auto) (0-0.5) x10^3/uL Immature Gran # (Auto) (0.00-0.03) x10^3u/L Absolute Lymphs (auto) (1.0-4.6) x10^3/uL Absolute Monos (auto) (0.0-1.3) x10^3/uL Absolute Nucleated RBC (0.00-0.01) x10^3u/L Lymphocytes % (24.0-44.0) % Monocytes % (0.0-12.0) % Eosinophils % (0.00-5.0) % Basophils % (0.0-0.4) % Absolute Granulocytes (1.4-6.9) x10^3/uL Basophils # (0-0.4) x10^3/uL D-Dimer 0.72 H* (0.0-0.50) mg/L Sodium 143 (137-145) mmol/L Potassium 3.9 (3.5-5.1) mmol/L Chloride 97 L (98-107) mmol/L Carbon Dioxide 36 H (22-30) mmol/L Anion Gap 12.9 (5-15) MEQ/L BUN 9 (9-20) mg/dL Creatinine 0.69 (0.66-1.25) mg/dL Estimated GFR > 60.0 ML/MIN Glucose 102 (74-106) mg/dL Calcium 9.5 (8.4-10.2) mg/dL Total Bilirubin 0.60 (0.2-1.3) mg/dL AST 29 (17-59) U/L ALT 23 (0-50) U/L Alkaline Phosphatase 61 (38-126) U/L Troponin I (0.000-0.034) ng/mL NT-Pro-B Natriuret Pep (<300) pg/mL Serum Total Protein 7.9 (6.3-8.2) g/dL Albumin 4.6 (3.5-5.0) g/dL Influenza Type A Ag NEGATIVE (NEGATIVE) Influenza Type B Ag NEGATIVE (NEGATIVE) RSV (PCR) NEGATIVE (NEGATIVE) SARS-CoV-2 (PCR) NEGATIVE (NEGATIVE) 11/30/22 11/30/22 11/30/22 Range/Units 11:05 11:05 11:05 WBC 9.4 (4.0-10.5) x10^3/uL RBC 3.95 L (4.1-5.6) x10^6/uL Hgb 11.8 L (12.5-18.0) g/dL Hct 38.0 L (42-50) % MCV 96.2 (78-100) fL MCH 29.9 (26-32) pg MCHC 31.1 L (32-36) g/dL RDW 13.4 (11.5-14.0) % Plt Count 214 (150-450) x10^3/uL MPV 10.8 (7.5-11.0) fL Gran % 55.3 (36.0-66.0) % Immature Gran % (Auto) 0.4 (0.00-0.4) % Nucleat RBC Rel Count 0.0 (0.00-0.1) % Eos # (Auto) 1.02 H (0-0.5) x10^3/uL Immature Gran # (Auto) 0.04 H (0.00-0.03) x10^3u/L Absolute Lymphs (auto) 1.86 (1.0-4.6) x10^3/uL Absolute Monos (auto) 1.19 (0.0-1.3) x10^3/uL Absolute Nucleated RBC 0.00 (0.00-0.01) x10^3u/L Lymphocytes % 19.8 L (24.0-44.0) % Monocytes % 12.7 H (0.0-12.0) % Eosinophils % 10.9 H (0.00-5.0) % Basophils % 0.9 (0.0-0.4) % Absolute Granulocytes 5.21 (1.4-6.9) x10^3/uL Basophils # 0.08 (0-0.4) x10^3/uL D-Dimer (0.0-0.50) mg/L Sodium (137-145) mmol/L Potassium (3.5-5.1) mmol/L Chloride (98-107) mmol/L Carbon Dioxide (22-30) mmol/L Anion Gap (5-15) MEQ/L BUN (9-20) mg/dL Creatinine (0.66-1.25) mg/dL Estimated GFR ML/MIN Glucose (74-106) mg/dL Calcium (8.4-10.2) mg/dL Total Bilirubin (0.2-1.3) mg/dL AST (17-59) U/L ALT (0-50) U/L Alkaline Phosphatase (38-126) U/L Troponin I < 0.012 (0.000-0.034) ng/mL NT-Pro-B Natriuret Pep 46.6 (<300) pg/mL Serum Total Protein (6.3-8.2) g/dL Albumin (3.5-5.0) g/dL Influenza Type A Ag (NEGATIVE) Influenza Type B Ag (NEGATIVE) RSV (PCR) (NEGATIVE) SARS-CoV-2 (PCR) (NEGATIVE) - Progress Progress: improved, re-examined Air Movement: fair Progress Note: 11/30/22 14:13 Chest x-ray was read by the radiologist and the impression was reviewed by me. There is right mid infrahilar infiltrate versus atelectasis. CT of the chest with contrast shows no obvious pulmonary embolus and no acute cardiopulmonary process/abnormality. This patient's medical issue is 1 of moderate complexity. Level complexity work-up performed is based on review of the patient's past medical history, review of the patient's medication list, review the patient's drug allergy list, history of present illness and physical findings on examination. Work-up includes a chest x-ray, twelve-lead EKG, troponin level, D-dimer level, BNP level, CBC, and CMP. I reviewed the results of the studies. Patient has an elevated D-dimer. CT scan of the chest with contrast shows no obvious pulmonary embolus or acute cardiopulmonary process. Therefore, I will not start the patient on antibiotic therapy. This patient has acute exacerbation of COPD and I will place him on 4 days of prednisone. Blood Culture(s) Obtained: Yes Antibiotics given: No Counseled pt/family regarding: lab results, diagnosis, need for follow-up, rad results Medical Desision Making - Diagnostic Testing Diagnostic test were ordered, analyzed, and reviewed by me: Yes Radiological Interpretation: Reviewed by me, Teleradiologist Report - Risk of complications The pt has a mod risk of morbidity or mortality based on: Need for prescription drug management - Departure Departure Disposition: Home Clinical Impression: Asthma exacerbation in COPD Condition: Stable Critical Care Time: No Referrals: EDISON JARRETT [Primary Care Provider] - Follow up/PCP as directed Instructions: Chronic Obstructive Pulmonary Disease Additional Instructions: Take all your medication as prescribed. Follow-up with your technical services representative and primary care provider tomorrow by phone to make a follow-up appointment in the next 3 to 5 days. Prescriptions: Prednisone 10 mg [Deltasone 10 mg] 10 mg PO TID #12 tablet
[2022-11-30] MEDS ORDERED: solu-MEDROL 125 MG, Sterile H2O 10 ml 2 ML IV ONE ×2 (11:08)
[2022-11-30] MEDS ORDERED: Sterile H2O 10 ml IJ ONE (11:21)
[2022-11-30] MEDS ORDERED: solu-MEDROL ONE (11:21)
[2022-11-30 11:42] LABS: Absolute Neutrophil Ct (ANC) 5.21 x10^3/uL (1.4-6.9); BASOPHIL % 0.9 % (0.0-0.4); Basophil (Absolute #) 0.08 x10^3/uL (0-0.4); Eosinophil % 10.9 % (0.00-5.0); Eosinophil (Absolute #) 1.02 x10^3/uL (0-0.5); Hemoglobin 11.8 g/dL (12.5-18.0); IMMATURE GRAN # 0.04 x10^3u/L (0.00-0.03); IMMATURE GRAN % 0.4 % (0.00-0.4); Lymphocyte (Absolute #) 1.86 x10^3/uL (1.0-4.6); Lymphocytes % 19.8 % (24.0-44.0); Mean Cell Volume 96.2 fL (78-100); Mean Corpuscular Hemoglobin 29.9 pg (26-32); Mean Corpuscular Hgb Concent. 31.1 g/dL (32-36); Mean Platelet Volume 10.8 fL (7.5-11.0); Monocyte (Absolute #) 1.19 x10^3/uL (0.0-1.3); Monocytes % 12.7 % (0.0-12.0); Neutrophil % 55.3 % (36.0-66.0); Platelet Count 214 x10^3/uL (150-450); Red Blood Count 3.95 x10^6/uL (4.1-5.6); Red Cell Distribution Width 13.4 % (11.5-14.0); White Blood Count 9.4 x10^3/uL (4.0-10.5)
[2022-11-30] MEDS ORDERED: Sodium Chloride 0.9% 500 ML 500 ML IV ONE ×2 (12:13→12:47)
--- NOTE | 2022-11-30 12:17 | XRAY ---
Indication: Short of breath and wheezing. Comparison: October 06, 2022 Portable chest unchanged again demonstrating mild right infrahilar infiltrate/atelectasis and lingula subsegmental atelectasis/scarring. Remaining heart and upper lungs unremarkable. Bony thorax intact.
[2022-11-30 12:22] LABS: INFLUENZA A NEGATIVE (NEGATIVE); INFLUENZA B NEGATIVE (NEGATIVE); RESPIRATORY SYNCTIAL VIRUS NEGATIVE (NEGATIVE); SARS-CoV-2 Xpert Express NEGATIVE (NEGATIVE)
[2022-11-30 12:45] LABS: ALBUMIN 4.6 g/dL (3.5-5.0); ALKALINE PHOSPHATASE 61 U/L (38-126); ANION GAP 12.9 MEQ/L (5-15); BLOOD UREA NITROGEN 9 mg/dL (9-20); CHLORIDE 97 mmol/L (98-107); Calcium 9.5 mg/dL (8.4-10.2); Carbon Dioxide 36 mmol/L (22-30); Creatinine 1 0.69 mg/dL (0.66-1.25); EST GLOMERULAR FILTRATION RATE > 60.0 ML/MIN; Glucose 102 mg/dL (74-106); Potassium 3.9 mmol/L (3.5-5.1); SGOT/AST 29 U/L (17-59); SGPT/ALT 23 U/L (0-50); SODIUM 143 mmol/L (137-145); Total Protein 7.9 g/dL (6.3-8.2)
[2022-11-30 13:07] VITALS: BP 115/70; PULSE 76; O2SAT 96
--- NOTE | 2022-11-30 14:07 | XRAY ---
Indication: Short of breath. Elevated d-dimer. Multiple axial images obtained through the chest using 80 cc Isovue 370 contrast and PE protocol. Comparison: October 02, 2022 Good opacification of the pulmonary arteries. Mild diffuse respiration artifact limits evaluation of more distal lobar and segmental branches. No obvious pulmonary embolus. Heart not enlarged again with scattered coronary calcifications and prominent epicardiac fat. Aorta again mildly arteriosclerotic without aneurysm/dissection. No pathologic mediastinal/hilar lymphadenopathy. Lungs again demonstrate pulmonary edema, scattered bibasilar subsegmental atelectasis/scarring again greatest lingula, and small medial right upper lobe calcified granuloma. No suspicious pulmonary mass/nodule, infiltrate, or effusion. Bony thorax intact again with osteopenia, degenerative changes throughout the spine, and remote T12 compression fracture. Limited upper abdomen again demonstrates fatty liver. Impression: 1. Respiration artifact limits pulmonary embolus evaluation. No obvious pulmonary embolus or acute cardiopulmonary abnormalities. 2. Again chronic findings including pulmonary emphysema, atelectasis/scarring, arteriosclerotic disease, fatty liver, chronic bony findings, and old granulomatous disease.
== END 2022-11-30 14:36 | disposition home or self-care (01) ==
LOC: ED 10:55
DX: J44.1 Chronic obstructive pulmonary disease with (acute) exacerbation (principal); R06.02 Shortness of breath; E78.5 Hyperlipidemia, unspecified; I10 Essential (primary) hypertension; Z79.899 Other long term (current) drug therapy; Z99.81 Dependence on supplemental oxygen; Z20.828 Contact with and (suspected) exposure to other viral communicable diseases
CPT/HCPCS: 0241U; 36000; 36415; 71045; 71260; 80053; 83880; 84484; 85025; 85379; 87040; 93005; 93041; 94640; 94760; 96374; 99284; J2930; A9270-GY

== ENCOUNTER 2023-01-04 08:52 | Observation (INO) | payer MEDICARE, MEDICAID ==
--- NOTE | 2023-01-04 09:26 | ERPHSYRPT ---
- History of Present Illness Time Seen by Provider: 01/04/23 09:15 Source: patient, EMS Exam Limitations: no limitations Patient Subjective Stated Complaint: SOB Triage Nursing Assessment: Patient brought into ED per EMS and transferred to bed with assist of 3. Patient A+O X 3. Patient's skin pink, warm and dry. Patient complains of increased SOB that started a couple weeks ago, that has gotten worse. Patient states he was started on Flovent two weeks ago and feels like he has gotten worse. EMS stated upon arrival O2 was 72% on his home oxygen at 2 liters. Patient denies pain or discomfort. Lungs noted to be coarse throughout. Physician History: This is a 72-year-old white male who is obese and is a patient of Dr. Sampson who has a history of COPD, hypertension and hyperlipidemia. He is oxygen dependent and usually wears 2 L of oxygen via nasal cannula. In the last couple weeks his symptoms of shortness of breath and wheezing has been worsening despite a prescription of Flovent that he received from Dr. Sampson. The patient called Dr. Sampson's office this morning and he was noticeably short of breath so the patient called for the paramedics. The paramedics provided independent, additional medical history. The patient checked his pulse ox on his 2 L nasal cannula after his home treatments. Patient told the paramedics that his oxygen saturation level was about 83% on his 2 L nasal cannula. They measured 72%. Therefore, the paramedics increased the oxygen to 3 L and gave the patient a DuoNeb nebulizer treatment and 125 mg of intravenous Solu-Medrol. Patient arrived to the emergency department with a pulse oximetry measurement on 3 L nasal cannula of 94 to 95%. Patient denies chest pain. He denies fever. He denies nausea vomiting. He has no abdominal pain. Timing/Duration: week(s) (2), worse Activities at Onset: none Severity of Dyspnea-Max: moderate Severity of Dyspnea-Current: moderate Possible Cause: occasional episodes Modifying Factors: Improves With: exertion (Improves worsens), oxygen Associated Symptoms: denies symptoms, No cough, No chest pain/discomfort Allergies/Adverse Reactions: fluticasone [From Advair Diskus] Adverse Reaction (Mild, Verified 01/04/23 09:0 4) pt states "It makes me sicker" salmeterol [From Advair Diskus] Adverse Reaction (Mild, Verified 01/04/23 09:04) pt states "It makes me sicker" Home Medications: Atorvastatin Calcium [Lipitor] 40 mg PO DAILY 03/24/19 [History] Levocetirizine Dihydrochloride 5 mg PO HS 08/23/22 [History] Albuterol Sulfate [Albuterol Sulfate Hfa] 2 puff IH QID 10/03/22 [History] Metoprolol Succinate 50 mg [Toprol Xl 50 MG] 50 mg PO DAILY 10/03/22 [History] Hx Tetanus, Diphtheria Vaccination/Date Given: Yes Hx Influenza Vaccination/Date Given: Yes Hx Pneumococcal Vaccination/Date Given: Yes Immunizations Up to Date: Yes Travel Risk - International Travel Have you traveled outside of the country in past 3 weeks: No - Coronavirus Screening Are you exhibiting any of the following symptoms?: No Close contact with a COVID-19 positive Pt in past 14-21 Days: No - Vaccine Status Have you recieved a Covid-19 vaccination: Yes [employer]: [employer] - Vaccination Dates Date of 2cond Vaccination (if applicable): UNK Dates if Unknown: UNKOWN - Review of Systems Constitutional: No Symptoms Eyes: No Symptoms Ears, Nose, & Throat: No Symptoms Respiratory: Dyspnea, Dyspnea on Exertion (NAIK), Wheezing Cardiac: No Symptoms Abdominal/Gastrointestinal: No Symptoms Genitourinary Symptoms: No Symptoms Musculoskeletal: No Symptoms Skin: No Symptoms Neurological: No Symptoms Psychological: No Symptoms Endocrine: No Symptoms Hematologic/Lymphatic: No Symptoms Immunological/Allergic: No Symptoms All Other Systems: Reviewed and Negative - Past Medical History Pertinent Past Medical History: Yes Neurological History: Epilepsy, Seizures ENT History: Cataracts Cardiac History: High Cholesterol, Hypertension Respiratory History: COPD, Emphysema, Pneumonia Endocrine Medical History: No Pertinent History Musculoskeletal History: Arthritis GI Medical History: No Pertinent History History: No Pertinent History Psycho-Social History: No Pertinent History Male Reproductive Disorders: No Pertinent History Other Medical History: Seizure(?) Took dilantin for about two years, [id number] - Past Surgical History Past Surgical History: No Neuro Surgical History: No Pertinent History Cardiac: No Pertinent History Respiratory: No Pertinent History Gastrointestinal: No Pertinent History Genitourinary: No Pertinent History Musculoskeletal: No Pertinent History Male Surgical History: No Pertinent History Other Surgical History: TAVR - Social History Smoking Status: Former smoker How long have you smoked: 50 years Exposure to second hand smoke: No Drug Use: none Patient Lives Alone: Yes Significant Family History: no pertinent family hx - Nursing Vital Signs Nursing Vital Signs: Initial Vital Signs Pulse Rate 107 H 01/04/23 09:00 Respiratory Rate 23 01/04/23 09:00 Blood Pressure 119/65 01/04/23 09:00 O2 Sat by Pulse Oximetry 92 L 01/04/23 09:00 Pain Scale Pain Intensity 0 - Physical Exam General Appearance: mild distress, alert, anxiety, obese Eye Exam: PERRL/EOMI, eyes nml inspection Neck Exam: normal inspection, non-tender, supple, full range of motion Respiratory Exam: lungs clear, airway intact, rhonchi, wheezing, No chest tenderness, No respiratory distress Cardiovascular/Chest Exam: tachycardia Abdominal/Gastrointestinal Exam: soft, normal bowel sounds, No tenderness Rectal Exam: not done Extremity Exam: non-tender, normal range of motion, normal inspection, normal capillary refill, no calf tenderness, no pedal edema, pelvis stable Neurologic Exam: alert, oriented x 3, cooperative, 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 nml as tested, normal mood/affect, sensation nml Skin Exam: normal color, warm, dry Lymphatic Exam: adenopathy SpO2 Interpretation: borderline oxygenation SpO2: 93 O2 Delivery: Nasal Cannula (3 L oxygen) - Course Nursing assessment & vital signs reviewed: Yes EKG Interpreted by Me: RATE ([id number]), Sinus Tach, Left [place] Deviation (Borderline), NORMAL INTERVALS, NORMAL QRS, NORMAL ST-T, Other (No acute ischemic changes appreciated on today's twelve-lead EKG) Ordered Tests: Active Orders 24 hr Category Date Time Status Valve Tester STAT Care 01/04/23 09:26 Active EKG-ER Only STAT Care 01/04/23 09:26 Active IV Insertion STAT Care 01/04/23 09:26 Active Pulse Oximetry (ED) STAT Care 01/04/23 09:26 Active CHEST 1 VIEW (PORTABLE) Stat Exams 01/04/23 09:32 Completed BLOOD CULTURE Stat Lab 01/04/23 09:56 Received CBC W DIFF Stat Lab 01/04/23 09:43 Completed CMP Stat Lab 01/04/23 09:43 Completed Lactic Acid Stat Lab 01/04/23 09:46 Completed NT PRO BNPII Stat Lab 01/04/23 09:43 Completed TROPONIN Q4H Lab 01/04/23 09:43 Completed TROPONIN Q4H Lab 01/04/23 13:30 Ordered TROPONIN Q4H Lab 01/04/23 17:30 Ordered Transfer Order Routine Transfer 01/04/23 Ordered Medication Summary Discontinued Medications Generic Name Dose Route Start Last Admin Trade Name Tessy PRN Reason Stop Dose Admin Methylprednisolone Sodium 0 mg 01/04/23 09:31 01/04/23 09:41 Succinate 80 mg/ Sterile Water IV 01/04/23 09:32 80 mg 2 ml STAT ONE Administration Methylprednisolone Sodium Succinate Confirm 01/04/23 09:37 Methylprednis Sod Succ 125 Mg/2 Ml Vial Administered 01/04/23 09:38 Dose 125 mg .ROUTE .STK-MED ONE Sterile Water Confirm 01/04/23 09:37 Water For Injection,Sterile 10 Ml Vial Administered 01/04/23 09:38 Dose 10 ml IJ .STK-MED ONE Lab/Rad Data: Laboratory Result Diagrams 01/04/23 09:43 01/04/23 09:43 Laboratory Results 01/04/23 01/04/23 01/04/23 Range/Units Unknown 09:46 09:43 WBC (4.0-10.5) x10^3/uL RBC (4.1-5.6) x10^6/uL Hgb (12.5-18.0) g/dL Hct (42-50) % MCV (78-100) fL MCH (26-32) pg MCHC (32-36) g/dL RDW (11.5-14.0) % Plt Count (150-450) x10^3/uL MPV (7.5-11.0) fL Gran % (36.0-66.0) % Immature Gran % (Auto) (0.00-0.4) % Nucleat RBC Rel Count (0.00-0.1) % Eos # (Auto) (0-0.5) x10^3/uL Immature Gran # (Auto) (0.00-0.03) x10^3u/L Absolute Lymphs (auto) (1.0-4.6) x10^3/uL Absolute Monos (auto) (0.0-1.3) x10^3/uL Absolute Nucleated RBC (0.00-0.01) x10^3u/L Lymphocytes % (24.0-44.0) % Monocytes % (0.0-12.0) % Eosinophils % (0.00-5.0) % Basophils % (0.0-0.4) % Absolute Granulocytes (1.4-6.9) x10^3/uL Basophils # (0-0.4) x10^3/uL Sodium (137-145) mmol/L Potassium (3.5-5.1) mmol/L Chloride (98-107) mmol/L Carbon Dioxide (22-30) mmol/L Anion Gap (5-15) MEQ/L BUN (9-20) mg/dL Creatinine (0.66-1.25) mg/dL Estimated GFR ML/MIN Glucose (74-106) mg/dL Lactic Acid 0.8 (0.4-2.0) Calcium (8.4-10.2) mg/dL Total Bilirubin (0.2-1.3) mg/dL AST (17-59) U/L ALT (0-50) U/L Alkaline Phosphatase (38-126) U/L Troponin I (0.000-0.034) ng/mL NT-Pro-B Natriuret Pep 53.4 (<300) pg/mL Serum Total Protein (6.3-8.2) g/dL Albumin (3.5-5.0) g/dL Influenza Type A Ag NEGATIVE (NEGATIVE) Influenza Type B Ag NEGATIVE (NEGATIVE) RSV (PCR) NEGATIVE (NEGATIVE) SARS-CoV-2 (PCR) NEGATIVE (NEGATIVE) 01/04/23 01/04/23 01/04/23 Range/Units 09:43 09:43 09:43 WBC 8.8 (4.0-10.5) x10^3/uL RBC 3.93 L (4.1-5.6) x10^6/uL Hgb 11.2 L (12.5-18.0) g/dL Hct 36.6 L (42-50) % MCV 93.1 (78-100) fL MCH 28.5 (26-32) pg MCHC 30.6 L (32-36) g/dL RDW 12.7 (11.5-14.0) % Plt Count 246 (150-450) x10^3/uL MPV 10.6 (7.5-11.0) fL Gran % 68.9 H (36.0-66.0) % Immature Gran % (Auto) 0.5 H (0.00-0.4) % Nucleat RBC Rel Count 0.0 (0.00-0.1) % Eos # (Auto) 0.52 H (0-0.5) x10^3/uL Immature Gran # (Auto) 0.04 H (0.00-0.03) x10^3u/L Absolute Lymphs (auto) 1.03 (1.0-4.6) x10^3/uL Absolute Monos (auto) 1.09 (0.0-1.3) x10^3/uL Absolute Nucleated RBC 0.00 (0.00-0.01) x10^3u/L Lymphocytes % 11.8 L (24.0-44.0) % Monocytes % 12.4 H (0.0-12.0) % Eosinophils % 5.9 H (0.00-5.0) % Basophils % 0.5 (0.0-0.4) % Absolute Granulocytes 6.04 (1.4-6.9) x10^3/uL Basophils # 0.04 (0-0.4) x10^3/uL Sodium 138 (137-145) mmol/L Potassium 4.2 (3.5-5.1) mmol/L Chloride 97 L (98-107) mmol/L Carbon Dioxide 33 H (22-30) mmol/L Anion Gap 11.4 (5-15) MEQ/L BUN 11 (9-20) mg/dL Creatinine 0.73 (0.66-1.25) mg/dL Estimated GFR > 60.0 ML/MIN Glucose 108 H (74-106) mg/dL Lactic Acid (0.4-2.0) Calcium 9.6 (8.4-10.2) mg/dL Total Bilirubin 0.80 (0.2-1.3) mg/dL AST 27 (17-59) U/L ALT 26 (0-50) U/L Alkaline Phosphatase 69 (38-126) U/L Troponin I < 0.012 (0.000-0.034) ng/mL NT-Pro-B Natriuret Pep (<300) pg/mL Serum Total Protein 7.1 (6.3-8.2) g/dL Albumin 4.1 (3.5-5.0) g/dL Influenza Type A Ag (NEGATIVE) Influenza Type B Ag (NEGATIVE) RSV (PCR) (NEGATIVE) SARS-CoV-2 (PCR) (NEGATIVE) - Progress Progress: improved, re-examined Air Movement: fair Progress Note: 01/04/23 10:28 The chest x-ray was interpreted by the radiologist and I reviewed the impression. The radiologist states that when he compares this chest x-ray to a recent CT scan of the chest, there is proven bibasilar scarring and atelectasis. There are no new, acute cardiopulmonary abnormalities. Therefore, my initial interpretation of bibasilar infiltrate, atelectasis, left pleural effusion is actually bibasilar scarring and atelectasis. 01/04/23 11:41 This patient's medical issue is 1 of high complexity. Level complexity in the work-up performed is based on review of the patient's past medical history, review the patient's medication list, review of the patient's drug allergy list, history of present illness and physical finds on examination. This patient requires intravenous line placement, infusion of Solu-Medrol intravenously, evaluation by respiratory therapy, chest x-ray, twelve-lead EKG, BNP, troponin level, CBC, and CMP. I reviewed the laboratory results on this patient as well as interpreted the twelve-lead EKG and the chest x-ray on this patient. The patient appears to have COPD exacerbation. He also shortness of breath and hypoxia. I spoke with Dr. Aguilar, the telehospitalist and he agrees that we will place this patient in observation and hold on antibiotics at this time. We will repeat labs in the morning and have respiratory therapy evaluate manage this patient while in the hospital. 01/04/23 11:42 Blood Culture(s) Obtained: Yes Antibiotics given: No Counseled pt/family regarding: lab results, diagnosis, rad results Medical Desision Making - Independent Historian Additional History obtained from: Insurance Verification Rep/EMT - External Record(s) Reviewed Records reviewed as a part of evaluation & management: Inpatient, Discharge Summary - Discussion of managment Care discussed with:: hospitalist Reviewed:: Test results, Need for additional workup Agreed on:: Treatment plan, place in obs Will see patient: in hospital - Social Determinants of Health Limited access to: transportation - Diagnostic Testing Diagnostic test were ordered, analyzed, and reviewed by me: Yes Radiological Interpretation: Interpreted by me, Reviewed by me, Teleradiologist Report - Risk of complications The pt has a high risk of morbidity or mortality based on: Decision regarding hospitilization or escalation of hosp level of care - Departure Departure Disposition: Observation Clinical Impression: COPD exacerbation, Hypoxia, Shortness of breath Condition: Fair Critical Care Time: Yes Critical Care Time(excluding separately billable procedures): Critical 30-74 mins (45) Referrals: EDISON SAMPSON [Primary Care Provider] - Follow up/PCP as directed Instructions: Chronic Obstructive Pulmonary Disease
[2023-01-04] MEDS ORDERED: solu-MEDROL 80 MG, Sterile H2O 10 ml 2 ML IV ONE ×2 (09:31)
[2023-01-04] MEDS ORDERED: solu-MEDROL ONE (09:37)
[2023-01-04] MEDS ORDERED: Sterile H2O 10 ml IJ ONE (09:37)
--- NOTE | 2023-01-04 09:54 | XRAY ---
Indication: Wheezing and short of breath. Comparison: November 30, 2022 Portable apical lordotic unchanged demonstrating stable recent CT proven bibasilar subsegmental atelectasis/scarring. Remaining heart and upper lungs unremarkable. Bony thorax intact again with osteopenia and mild degenerative changes. No new cardiopulmonary abnormalities.
[2023-01-04 10:05] LABS: Absolute Neutrophil Ct (ANC) 6.04 x10^3/uL (1.4-6.9); BASOPHIL % 0.5 % (0.0-0.4); Basophil (Absolute #) 0.04 x10^3/uL (0-0.4); Eosinophil % 5.9 % (0.00-5.0); Eosinophil (Absolute #) 0.52 x10^3/uL (0-0.5); Hematocrit 36.6 % (42-50); Hemoglobin 11.2 g/dL (12.5-18.0); IMMATURE GRAN # 0.04 x10^3u/L (0.00-0.03); IMMATURE GRAN % 0.5 % (0.00-0.4); Lymphocyte (Absolute #) 1.03 x10^3/uL (1.0-4.6); Lymphocytes % 11.8 % (24.0-44.0); Mean Cell Volume 93.1 fL (78-100); Mean Corpuscular Hemoglobin 28.5 pg (26-32); Mean Corpuscular Hgb Concent. 30.6 g/dL (32-36); Mean Platelet Volume 10.6 fL (7.5-11.0); Monocyte (Absolute #) 1.09 x10^3/uL (0.0-1.3); Monocytes % 12.4 % (0.0-12.0); Neutrophil % 68.9 % (36.0-66.0); Platelet Count 246 x10^3/uL (150-450); Red Blood Count 3.93 x10^6/uL (4.1-5.6); Red Cell Distribution Width 12.7 % (11.5-14.0); White Blood Count 8.8 x10^3/uL (4.0-10.5)
[2023-01-04 10:18] LABS: ALBUMIN 4.1 g/dL (3.5-5.0); ALKALINE PHOSPHATASE 69 U/L (38-126); ANION GAP 11.4 MEQ/L (5-15); BLOOD UREA NITROGEN 11 mg/dL (9-20); CHLORIDE 97 mmol/L (98-107); Calcium 9.6 mg/dL (8.4-10.2); Carbon Dioxide 33 mmol/L (22-30); Creatinine 1 0.73 mg/dL (0.66-1.25); EST GLOMERULAR FILTRATION RATE > 60.0 ML/MIN; Glucose 108 mg/dL (74-106); Potassium 4.2 mmol/L (3.5-5.1); SGOT/AST 27 U/L (17-59); SGPT/ALT 26 U/L (0-50); SODIUM 138 mmol/L (137-145); Total Protein 7.1 g/dL (6.3-8.2)
[2023-01-04 10:41] LABS: INFLUENZA A NEGATIVE (NEGATIVE); INFLUENZA B NEGATIVE (NEGATIVE); RESPIRATORY SYNCTIAL VIRUS NEGATIVE (NEGATIVE); SARS-CoV-2 Xpert Express NEGATIVE (NEGATIVE)
[2023-01-04] MEDS ORDERED: Zofran 4 MG/2 ML VIAL IV PRN (12:02)
[2023-01-04] MEDS ORDERED: TYLENOL 325 MG PO PRN (12:02)
--- NOTE | 2023-01-04 12:33 | PCM.HP ---
<NINA VALENTIN - Last Filed: 01/04/23 13:17> History of Present Illness - Chief Complaint Chief Complaint: dyspnea/ wheezing Date: 01/04/23 History of Present Illness: is a 72 year old male with a pmhx of COPD (on 2L continuous home oxygen), HLD, HTN, and obesity who presented to ED via EMS 01/04/23 with complaints of progressively worsening shortness of breath and wheezing. Patient reports the onset of his symptoms was approximately 2 weeks ago for which he has attempted to manage outpatient with his PCP Dr. Sampson using Flovent and DuoNebs (QID). He additionally reports a productive cough with yellow sputum. Patient states that he does follow with Dr. Mullen as outpatient as well, but had to leave during last appointment due to running out of oxygen while waiting. Per EMS reports, upon arrival to patient's home, spo2 was @ 72%. Denies recent sick encounters. In ED patient was tachypneic, mildly tachycardic, afebrile, and normotensive. CXR with no acute cardiopulmonary process. Stable bibasilar subsegmental actelec tasis/scarring noted, similar to previous imaging from November. EKG with sinus tachycardia, no ST elevation/deviations. Lab interpretation remarkable for Hgb 11.2, chloride 97, rosita dioxide 33. Respiratory panel with Influenza A/B and RSV negative. Blood cultures pending. During ER course, patient was started on 3L oxygen and given solumedrol 125mg IVPB, with noted improvement of spo2 to 95%. PCP: Dr. Sampson Crm System Administrator: Dr. Ben Jon Code Status: Full code Social history: Former smoker, quit 3 years ago, approx 4 unfiltered cigarettes a day Former polysubstance abuse. Sober for 20 years Alcohol: Social drinker - Review of Systems Constitutional: No Symptoms Eyes: No Symptoms Respiratory: Cough, Short Of Breath, Wheezing Cardiac: No Symptoms Abdominal/Gastrointestinal: No Symptoms Genitourinary Symptoms: No Symptoms Musculoskeletal: No Symptoms Skin: No Symptoms Neurological: No Symptoms Psychological: No Symptoms Endocrine: No Symptoms Hematologic/Lymphatic: No Symptoms Immunological/Allergic: No Symptoms All Other Systems: Reviewed and Negative Medications & Allergies Home Medications: Home Medication List Albuterol Common Canister [Ventolin Common Canister] 2 puff IH Q4HPRN PRN #0 puff 10/28/12 [Rx Confirmed 01/04/23] Atorvastatin Calcium [Lipitor] 40 mg PO DAILY 03/24/19 [History Confirmed 01/04/23] Albuterol Sulfate [Albuterol Sulfate Hfa] 2 puff IH QID 10/03/22 [History Confirmed 01/04/23] Metoprolol Succinate 50 mg [Toprol Xl 50 MG] 50 mg PO DAILY 10/03/22 [History Confirmed 01/04/23] Amlodipine Besylate 5 mg [Norvasc 5 mg] 5 mg PO QAM #30 tablet 10/11/22 [Rx Confirmed 01/04/23] Lactobacillus Acidophilus [Acidophilus TABLET] 1 tab PO BID #20 tablet 10/11/22 [Rx Confirmed 01/04/23] Prednisone 10 mg [Deltasone 10 mg] 10 mg PO TID #12 tablet 11/30/22 [Rx Confirmed 01/04/23] Fluticasone Propionate [Flovent Hfa] 1 puff PO BID 01/04/23 [History Confirmed 01/04/23] Allergies/Adverse Reactions: Allergies Allergy/AdvReac Type Severity Reaction Status Date / Time fluticasone AdvReac Mild Verified 01/04/23 09:04 [From Advair Diskus] salmeterol AdvReac Mild Verified 01/04/23 09:04 [From Advair Diskus] - Past Medical History Past Medical History: Yes Neurological History: Epilepsy, Seizures ENT History: Cataracts Cardiac History: High Cholesterol, Hypertension Respiratory History: COPD, Emphysema, Pneumonia Endocrine Medical History: No Pertinent History Musculoskelatal History: Arthritis GI Medical History: No Pertinent History History: No Pertinent History Pyscho-Social History: No Pertinent History Male Reproductive Disorders: No Pertinent History Comment: Seizure(?) Took dilantin for about two years, [id number] - Past Surgical History Past Surgical History: No Neuro Surgical History: No Pertinent History Cardiac History: No Pertinent History Respiratory Surgery: No Pertinent History GI Surgical History: No Pertinent History Genitourinary Surgical Hx: No Pertinent History Musculskeletal Surgical Hx: No Pertinent History Male Surgical History: No Pertinent History Other Surgical History: TAVR - Social History Smoking Status: Former smoker How long have you smoked: 50 years Exposure to second hand smoke: No Alcohol: Rarely Drug Use: none Significant Family History: no pertinent family hx - Physical Exam Vital Signs: Vital Signs - 24 hr Temp Pulse Resp BP BP Pulse Ox 01/04/23 12:22 97.0 F 100 H 22 127/84 96 01/04/23 11:48 93 L 01/04/23 11:39 95 H 20 117/72 95 01/04/23 11:00 97 H 24 117/72 95 01/04/23 10:37 100 H 18 110/66 110/66 94 L 01/04/23 10:00 97 H 21 110/74 93 L 01/04/23 09:34 92 L 01/04/23 09:05 98.9 F 110 H 23 119/65 93 L 01/04/23 09:00 107 H 23 119/65 92 L Results - Labs Lab/Micro Results: Lab Results-Last 24 Hours 01/04/23 01/04/23 01/04/23 Range/Units 09:43 09:43 09:43 WBC 8.8 (4.0-10.5) x10^3/uL RBC 3.93 L (4.1-5.6) x10^6/uL Hgb 11.2 L (12.5-18.0) g/dL Hct 36.6 L (42-50) % MCV 93.1 (78-100) fL MCH 28.5 (26-32) pg MCHC 30.6 L (32-36) g/dL RDW 12.7 (11.5-14.0) % Plt Count 246 (150-450) x10^3/uL MPV 10.6 (7.5-11.0) fL Gran % 68.9 H (36.0-66.0) % Immature Gran % (Auto) 0.5 H (0.00-0.4) % Nucleat RBC Rel Count 0.0 (0.00-0.1) % Eos # (Auto) 0.52 H (0-0.5) x10^3/uL Immature Gran # (Auto) 0.04 H (0.00-0.03) x10^3u/L Absolute Lymphs (auto) 1.03 (1.0-4.6) x10^3/uL Absolute Monos (auto) 1.09 (0.0-1.3) x10^3/uL Absolute Nucleated RBC 0.00 (0.00-0.01) x10^3u/L Lymphocytes % 11.8 L (24.0-44.0) % Monocytes % 12.4 H (0.0-12.0) % Eosinophils % 5.9 H (0.00-5.0) % Basophils % 0.5 (0.0-0.4) % Absolute Granulocytes 6.04 (1.4-6.9) x10^3/uL Basophils # 0.04 (0-0.4) x10^3/uL Sodium 138 (137-145) mmol/L Potassium 4.2 (3.5-5.1) mmol/L Chloride 97 L (98-107) mmol/L Carbon Dioxide 33 H (22-30) mmol/L Anion Gap 11.4 (5-15) MEQ/L BUN 11 (9-20) mg/dL Creatinine 0.73 (0.66-1.25) mg/dL Estimated GFR > 60.0 ML/MIN Glucose 108 H (74-106) mg/dL Lactic Acid (0.4-2.0) Calcium 9.6 (8.4-10.2) mg/dL Total Bilirubin 0.80 (0.2-1.3) mg/dL AST 27 (17-59) U/L ALT 26 (0-50) U/L Alkaline Phosphatase 69 (38-126) U/L Troponin I < 0.012 (0.000-0.034) ng/mL NT-Pro-B Natriuret Pep (<300) pg/mL Serum Total Protein 7.1 (6.3-8.2) g/dL Albumin 4.1 (3.5-5.0) g/dL Influenza Type A Ag (NEGATIVE) Influenza Type B Ag (NEGATIVE) RSV (PCR) (NEGATIVE) SARS-CoV-2 (PCR) (NEGATIVE) 01/04/23 01/04/23 01/04/23 Range/Units 09:43 09:46 Unknown WBC (4.0-10.5) x10^3/uL RBC (4.1-5.6) x10^6/uL Hgb (12.5-18.0) g/dL Hct (42-50) % MCV (78-100) fL MCH (26-32) pg MCHC (32-36) g/dL RDW (11.5-14.0) % Plt Count (150-450) x10^3/uL MPV (7.5-11.0) fL Gran % (36.0-66.0) % Immature Gran % (Auto) (0.00-0.4) % Nucleat RBC Rel Count (0.00-0.1) % Eos # (Auto) (0-0.5) x10^3/uL Immature Gran # (Auto) (0.00-0.03) x10^3u/L Absolute Lymphs (auto) (1.0-4.6) x10^3/uL Absolute Monos (auto) (0.0-1.3) x10^3/uL Absolute Nucleated RBC (0.00-0.01) x10^3u/L Lymphocytes % (24.0-44.0) % Monocytes % (0.0-12.0) % Eosinophils % (0.00-5.0) % Basophils % (0.0-0.4) % Absolute Granulocytes (1.4-6.9) x10^3/uL Basophils # (0-0.4) x10^3/uL Sodium (137-145) mmol/L Potassium (3.5-5.1) mmol/L Chloride (98-107) mmol/L Carbon Dioxide (22-30) mmol/L Anion Gap (5-15) MEQ/L BUN (9-20) mg/dL Creatinine (0.66-1.25) mg/dL Estimated GFR ML/MIN Glucose (74-106) mg/dL Lactic Acid 0.8 (0.4-2.0) Calcium (8.4-10.2) mg/dL Total Bilirubin (0.2-1.3) mg/dL AST (17-59) U/L ALT (0-50) U/L Alkaline Phosphatase (38-126) U/L Troponin I (0.000-0.034) ng/mL NT-Pro-B Natriuret Pep 53.4 (<300) pg/mL Serum Total Protein (6.3-8.2) g/dL Albumin (3.5-5.0) g/dL Influenza Type A Ag NEGATIVE (NEGATIVE) Influenza Type B Ag NEGATIVE (NEGATIVE) RSV (PCR) NEGATIVE (NEGATIVE) SARS-CoV-2 (PCR) NEGATIVE (NEGATIVE) - Radiology Impressions Radiology Exams & Impressions: Radiology Procedures Category Date Time Status CHEST 1 VIEW (PORTABLE) Stat Exams 01/04/23 09:32 Completed - Other Procedures and Tests Respiratory Therapy 01/04/23 12:02 EKG REPEAT IN AM Oxygen Nasal Cannula 2 lpm Respiratory Therapy Consult ONCE Assessment/Plan (1) COPD exacerbation Current Visit: Yes Status: Acute Assessment & Plan: -RT eval -supplemental oxygen with goal of 88-92% -Duo nebs/ inh -CXR reviewed and noted in HPI -Covid -Solumedrol 80mg IVPB, titrate as appropriate -Bcult pending, will hold abx for now Code(s): J44.1 - CHRONIC OBSTRUCTIVE PULMONARY DISEASE W (ACUTE) EXACERBATION Telemedicine Encounter - Telemedicine Encounter Telemedicine Encounter: The entirety of this encounter was performed via Telemedicine" VTE: Lovenox GI: Pepcid Dispo: Home 1-2 days < - Last Filed: 01/04/23 17:04> History of Present Illness - Chief Complaint History of Present Illness: is a 72 year old male. - Physical Exam Vital Signs: Vital Signs - 24 hr Temp Pulse Resp BP BP Pulse Ox 01/04/23 15:56 97.5 F 67 20 125/71 95 01/04/23 12:49 95 01/04/23 12:47 112 H 22 94 L 01/04/23 12:22 97.0 F 100 H 22 127/84 96 01/04/23 12:09 97.0 F 100 H 22 127/84 96 01/04/23 11:48 93 L 01/04/23 11:39 95 H 20 117/72 95 01/04/23 11:00 97 H 24 117/72 95 01/04/23 10:37 100 H 18 110/66 110/66 94 L 01/04/23 10:00 97 H 21 110/74 93 L 01/04/23 09:34 92 L 01/04/23 09:05 98.9 F 110 H 23 119/65 93 L 01/04/23 09:00 107 H 23 119/65 92 L Results - Labs Lab/Micro Results: Lab Results-Last 24 Hours 01/04/23 01/04/23 01/04/23 Range/Units 09:43 09:43 09:43 WBC 8.8 (4.0-10.5) x10^3/uL RBC 3.93 L (4.1-5.6) x10^6/uL Hgb 11.2 L (12.5-18.0) g/dL Hct 36.6 L (42-50) % MCV 93.1 (78-100) fL MCH 28.5 (26-32) pg MCHC 30.6 L (32-36) g/dL RDW 12.7 (11.5-14.0) % Plt Count 246 (150-450) x10^3/uL MPV 10.6 (7.5-11.0) fL Gran % 68.9 H (36.0-66.0) % Immature Gran % (Auto) 0.5 H (0.00-0.4) % Nucleat RBC Rel Count 0.0 (0.00-0.1) % Eos # (Auto) 0.52 H (0-0.5) x10^3/uL Immature Gran # (Auto) 0.04 H (0.00-0.03) x10^3u/L Absolute Lymphs (auto) 1.03 (1.0-4.6) x10^3/uL Absolute Monos (auto) 1.09 (0.0-1.3) x10^3/uL Absolute Nucleated RBC 0.00 (0.00-0.01) x10^3u/L Lymphocytes % 11.8 L (24.0-44.0) % Monocytes % 12.4 H (0.0-12.0) % Eosinophils % 5.9 H (0.00-5.0) % Basophils % 0.5 (0.0-0.4) % Absolute Granulocytes 6.04 (1.4-6.9) x10^3/uL Basophils # 0.04 (0-0.4) x10^3/uL Sodium 138 (137-145) mmol/L Potassium 4.2 (3.5-5.1) mmol/L Chloride 97 L (98-107) mmol/L Carbon Dioxide 33 H (22-30) mmol/L Anion Gap 11.4 (5-15) MEQ/L BUN 11 (9-20) mg/dL Creatinine 0.73 (0.66-1.25) mg/dL Estimated GFR > 60.0 ML/MIN Glucose 108 H (74-106) mg/dL Lactic Acid (0.4-2.0) Calcium 9.6 (8.4-10.2) mg/dL Total Bilirubin 0.80 (0.2-1.3) mg/dL AST 27 (17-59) U/L ALT 26 (0-50) U/L Alkaline Phosphatase 69 (38-126) U/L Troponin I < 0.012 (0.000-0.034) ng/mL NT-Pro-B Natriuret Pep (<300) pg/mL Serum Total Protein 7.1 (6.3-8.2) g/dL Albumin 4.1 (3.5-5.0) g/dL Influenza Type A Ag (NEGATIVE) Influenza Type B Ag (NEGATIVE) RSV (PCR) (NEGATIVE) SARS-CoV-2 (PCR) (NEGATIVE) 01/04/23 01/04/23 01/04/23 Range/Units 09:43 09:46 12:44 WBC (4.0-10.5) x10^3/uL RBC (4.1-5.6) x10^6/uL Hgb (12.5-18.0) g/dL Hct (42-50) % MCV (78-100) fL MCH (26-32) pg MCHC (32-36) g/dL RDW (11.5-14.0) % Plt Count (150-450) x10^3/uL MPV (7.5-11.0) fL Gran % (36.0-66.0) % Immature Gran % (Auto) (0.00-0.4) % Nucleat RBC Rel Count (0.00-0.1) % Eos # (Auto) (0-0.5) x10^3/uL Immature Gran # (Auto) (0.00-0.03) x10^3u/L Absolute Lymphs (auto) (1.0-4.6) x10^3/uL Absolute Monos (auto) (0.0-1.3) x10^3/uL Absolute Nucleated RBC (0.00-0.01) x10^3u/L Lymphocytes % (24.0-44.0) % Monocytes % (0.0-12.0) % Eosinophils % (0.00-5.0) % Basophils % (0.0-0.4) % Absolute Granulocytes (1.4-6.9) x10^3/uL Basophils # (0-0.4) x10^3/uL Sodium (137-145) mmol/L Potassium (3.5-5.1) mmol/L Chloride (98-107) mmol/L Carbon Dioxide (22-30) mmol/L Anion Gap (5-15) MEQ/L BUN (9-20) mg/dL Creatinine (0.66-1.25) mg/dL Estimated GFR ML/MIN Glucose (74-106) mg/dL Lactic Acid 0.8 (0.4-2.0) Calcium (8.4-10.2) mg/dL Total Bilirubin (0.2-1.3) mg/dL AST (17-59) U/L ALT (0-50) U/L Alkaline Phosphatase (38-126) U/L Troponin I < 0.012 (0.000-0.034) ng/mL NT-Pro-B Natriuret Pep 53.4 (<300) pg/mL Serum Total Protein (6.3-8.2) g/dL Albumin (3.5-5.0) g/dL Influenza Type A Ag (NEGATIVE) Influenza Type B Ag (NEGATIVE) RSV (PCR) (NEGATIVE) SARS-CoV-2 (PCR) (NEGATIVE) 01/04/23 Range/Units Unknown WBC (4.0-10.5) x10^3/uL RBC (4.1-5.6) x10^6/uL Hgb (12.5-18.0) g/dL Hct (42-50) % MCV (78-100) fL MCH (26-32) pg MCHC (32-36) g/dL RDW (11.5-14.0) % Plt Count (150-450) x10^3/uL MPV (7.5-11.0) fL Gran % (36.0-66.0) % Immature Gran % (Auto) (0.00-0.4) % Nucleat RBC Rel Count (0.00-0.1) % Eos # (Auto) (0-0.5) x10^3/uL Immature Gran # (Auto) (0.00-0.03) x10^3u/L Absolute Lymphs (auto) (1.0-4.6) x10^3/uL Absolute Monos (auto) (0.0-1.3) x10^3/uL Absolute Nucleated RBC (0.00-0.01) x10^3u/L Lymphocytes % (24.0-44.0) % Monocytes % (0.0-12.0) % Eosinophils % (0.00-5.0) % Basophils % (0.0-0.4) % Absolute Granulocytes (1.4-6.9) x10^3/uL Basophils # (0-0.4) x10^3/uL Sodium (137-145) mmol/L Potassium (3.5-5.1) mmol/L Chloride (98-107) mmol/L Carbon Dioxide (22-30) mmol/L Anion Gap (5-15) MEQ/L BUN (9-20) mg/dL Creatinine (0.66-1.25) mg/dL Estimated GFR ML/MIN Glucose (74-106) mg/dL Lactic Acid (0.4-2.0) Calcium (8.4-10.2) mg/dL Total Bilirubin (0.2-1.3) mg/dL AST (17-59) U/L ALT (0-50) U/L Alkaline Phosphatase (38-126) U/L Troponin I (0.000-0.034) ng/mL NT-Pro-B Natriuret Pep (<300) pg/mL Serum Total Protein (6.3-8.2) g/dL Albumin (3.5-5.0) g/dL Influenza Type A Ag NEGATIVE (NEGATIVE) Influenza Type B Ag NEGATIVE (NEGATIVE) RSV (PCR) NEGATIVE (NEGATIVE) SARS-CoV-2 (PCR) NEGATIVE (NEGATIVE) - Radiology Impressions Radiology Exams & Impressions: Radiology Procedures Category Date Time Status CHEST 1 VIEW (PORTABLE) Stat Exams 01/04/23 09:32 Completed - Other Procedures and Tests Respiratory Therapy 01/04/23 12:02 EKG REPEAT IN AM Oxygen Nasal Cannula 2 lpm Respiratory Therapy Consult ONCE Telemedicine Encounter - Telemedicine Encounter Telemedicine Encounter: I have personally seen and examined patient and discussed care with Nina Valentin NP and reviewed pertinent clinical data including history, physical, and diagnostic findings. I agree with the assessment, and treatment plan as described in her original note. Please see below for my summary of findings and any additional assessment and plan, as well as any meaningful corrections or explanations of their note. My portion of visit was conducted entirely via telemedicine. 72-year-old man with history of COPD on chronic 2 L oxygen, here with progressive dyspnea with apparent COPD exacerbation. No infiltrate on chest x- ray to suggest pneumonia. Will place on steroids, bronchodilators, and observe overnight. Already stable on 3 L, can likely wean to 2 L to maintain SpO2 between 91 to 94%. Expect patient will likely be ready to go home tomorrow. Romeo Aguilar MD, PhD Internal Medicine Hospitalist [facility]
[2023-01-04] MEDS ORDERED: PHENERGAN 25 MG PO PRN (13:09)
[2023-01-04] MEDS ORDERED: DUONEB 0.5-3 MG/3 ml Neb IH ONE (14:06)
[2023-01-04] MEDS: DUONEB 0.5-3 MG/3 ml Neb IH SCH ×2 (14:17→17:55)
[2023-01-04] MEDS: Acidophilus TABLET PO SCH ×2 (14:19→21:34)
[2023-01-04] MEDS: ENOXAPARIN SODIUM SQ SCH (14:19)
[2023-01-04] MEDS: Pepcid 20 MG PO SCH ×2 (14:19→21:34)
[2023-01-04] MEDS: NORVASC 5 MG PO SCH (14:21)
[2023-01-04] MEDS: Toprol Xl 50 MG PO SCH (14:22)
[2023-01-04] MEDS: ZOCOR 20MG PO SCH (14:22)
[2023-01-04] MEDS: solu-MEDROL 80 MG, Sterile H2O 10 ml 2 ML IV SCH ×2 (17:41)
[2023-01-05] MEDS: solu-MEDROL 80 MG, Sterile H2O 10 ml 2 ML IV SCH ×6 (01:10→21:36)
[2023-01-05 04:35] LABS: BASOPHIL % 0.1 % (0.0-0.4); Basophil (Absolute #) 0.01 x10^3/uL (0-0.4); Eosinophil % 0.1 % (0.00-5.0); Eosinophil (Absolute #) 0.01 x10^3/uL (0-0.5); Hematocrit 35.2 % (42-50); Hemoglobin 11.2 g/dL (12.5-18.0); IMMATURE GRAN # 0.05 x10^3u/L (0.00-0.03); IMMATURE GRAN % 0.5 % (0.00-0.4); Lymphocyte (Absolute #) 0.44 x10^3/uL (1.0-4.6); Lymphocytes % 4.4 % (24.0-44.0); Mean Cell Volume 89.8 fL (78-100); Mean Corpuscular Hemoglobin 28.6 pg (26-32); Mean Corpuscular Hgb Concent. 31.8 g/dL (32-36); Mean Platelet Volume 10.8 fL (7.5-11.0); Neutrophil % 92.9 % (36.0-66.0); Platelet Count 279 x10^3/uL (150-450); Red Blood Count 3.92 x10^6/uL (4.1-5.6); White Blood Count 9.9 x10^3/uL (4.0-10.5)
[2023-01-05 05:24] LABS: ALBUMIN 4.2 g/dL (3.5-5.0); ALKALINE PHOSPHATASE 72 U/L (38-126); ANION GAP 15.3 MEQ/L (5-15); BLOOD UREA NITROGEN 26 mg/dL (9-20); CHLORIDE 97 mmol/L (98-107); Calcium 9.6 mg/dL (8.4-10.2); Carbon Dioxide 28 mmol/L (22-30); Creatinine 1 0.79 mg/dL (0.66-1.25); EST GLOMERULAR FILTRATION RATE > 60.0 ML/MIN; Glucose 154 mg/dL (74-106); NT PRO BNPII 114 pg/mL (<300); Potassium 4.5 mmol/L (3.5-5.1); SGOT/AST 23 U/L (17-59); SGPT/ALT 25 U/L (0-50); SODIUM 136 mmol/L (137-145); Total Protein 7.3 g/dL (6.3-8.2)
[2023-01-05 05:26] LABS: Slide Review 1 YES
[2023-01-05] MEDS: DUONEB 0.5-3 MG/3 ml Neb IH SCH ×4 (06:59→18:15)
[2023-01-05] MEDS: NORVASC 5 MG PO SCH (09:17)
[2023-01-05] MEDS: ZOCOR 20MG PO SCH (09:17)
[2023-01-05] MEDS: Pepcid 20 MG PO SCH ×2 (09:17→21:36)
[2023-01-05] MEDS: Acidophilus TABLET PO SCH ×2 (09:17→21:36)
[2023-01-05] MEDS: ENOXAPARIN SODIUM SQ SCH (09:18)
[2023-01-05] MEDS: Toprol Xl 50 MG PO SCH (09:18)
[2023-01-05] MEDS ORDERED: LIPITOR 40MG PO SCH (10:00)
--- NOTE | 2023-01-05 10:57 | PCM.NOTE ---
Date and Time: 01/05/23 1052 Subjective Assessment: Patient endorses improvement overnight, weaned to 2L oxygen (baseline) with spo2 @ 93%. Noticeably less winded with talking. States cough less productive now with clear sputum. Feels that he is near baseline functioning. - Review of Systems Constitutional: No Symptoms Eyes: No Symptoms Ears, Nose, & Throat: No Symptoms Respiratory: Cough, Short Of Breath, Wheezing Abdominal/Gastrointestinal: No Symptoms Genitourinary Symptoms: No Symptoms Musculoskeletal: No Symptoms Skin: No Symptoms Neurological: No Symptoms Psychological: No Symptoms All Other Systems: Reviewed and Negative Objective Exam General Appearance: no apparent distress Neurologic Exam: oriented x 3 Skin Exam: normal color Eye Exam: PERRL Respiratory Exam: wheezing, other (Bilateral coarse crackles) Cardiovascular Exam: tachycardia, edema (BLE edema trace) Gastrointestinal/Abdomen Exam: soft, normal bowel sounds OBJECTIVE DATA Vital Signs: Vital Signs - 24 hr Temp Pulse Resp BP BP Pulse Ox 01/05/23 10:37 110 H 20 93 L 01/05/23 07:02 102 H 20 96 01/05/23 06:56 98.0 F 101 H 18 137/83 95 01/05/23 04:00 97.7 F 109 H 18 138/91 93 L 01/04/23 23:37 97.9 F 113 H 18 142/79 95 01/04/23 19:06 98.1 F 119 H 18 134/67 94 L 01/04/23 17:55 107 H 20 95 01/04/23 15:56 97.5 F 67 20 125/71 95 01/04/23 12:49 95 01/04/23 12:47 112 H 22 94 L 01/04/23 12:22 97.0 F 100 H 22 127/84 96 01/04/23 12:09 97.0 F 100 H 22 127/84 96 01/04/23 11:48 93 L 01/04/23 11:39 95 H 20 117/72 95 01/04/23 11:00 97 H 24 117/72 95 Pain Assessment - Last Documented Pain Intensity 0 Intake and Output: Intake & Output 01/02/23 01/03/23 01/04/23 01/05/23 11:59 11:59 11:59 11:59 Intake Total 920 Balance 920 Weight 96.2 kg 95.7 kg Lab Results: Lab Results-Last 24 Hours 01/04/23 01/05/23 01/05/23 Range/Units 12:44 04:23 04:23 WBC 9.9 (4.0-10.5) x10^3/uL RBC 3.92 L (4.1-5.6) x10^6/uL Hgb 11.2 L (12.5-18.0) g/dL Hct 35.2 L (42-50) % MCV 89.8 (78-100) fL MCH 28.6 (26-32) pg MCHC 31.8 L (32-36) g/dL RDW 13.0 (11.5-14.0) % Plt Count 279 (150-450) x10^3/uL MPV 10.8 (7.5-11.0) fL Gran % 92.9 H (36.0-66.0) % Immature Gran % (Auto) 0.5 H (0.00-0.4) % Nucleat RBC Rel Count 0.0 (0.00-0.1) % Eos # (Auto) 0.01 (0-0.5) x10^3/uL Immature Gran # (Auto) 0.05 H (0.00-0.03) x10^3u/L Absolute Lymphs (auto) 0.44 L (1.0-4.6) x10^3/uL Absolute Monos (auto) 0.20 (0.0-1.3) x10^3/uL Absolute Nucleated RBC 0.00 (0.00-0.01) x10^3u/L Lymphocytes % 4.4 L (24.0-44.0) % Monocytes % 2.0 (0.0-12.0) % Eosinophils % 0.1 (0.00-5.0) % Basophils % 0.1 (0.0-0.4) % Absolute Granulocytes 9.20 H (1.4-6.9) x10^3/uL Basophils # 0.01 (0-0.4) x10^3/uL Sodium 136 L (137-145) mmol/L Potassium 4.5 (3.5-5.1) mmol/L Chloride 97 L (98-107) mmol/L Carbon Dioxide 28 (22-30) mmol/L Anion Gap 15.3 H (5-15) MEQ/L BUN 26 H (9-20) mg/dL Creatinine 0.79 (0.66-1.25) mg/dL Estimated GFR > 60.0 ML/MIN Glucose 154 H (74-106) mg/dL Calcium 9.6 (8.4-10.2) mg/dL Total Bilirubin 0.50 (0.2-1.3) mg/dL AST 23 (17-59) U/L ALT 25 (0-50) U/L Alkaline Phosphatase 72 (38-126) U/L Troponin I < 0.012 (0.000-0.034) ng/mL NT-Pro-B Natriuret Pep 114 (<300) pg/mL Serum Total Protein 7.3 (6.3-8.2) g/dL Albumin 4.2 (3.5-5.0) g/dL Slides for Path Review YES Radiology Exams: Radiology Procedures Category Date Time Status CHEST 1 VIEW (PORTABLE) Stat Exams 01/04/23 09:32 Completed Multi-Disciplinary Progress Notes: Multi-Disciplinary Progress Notes 01/05/23 09:46 Case Management Note by Brea Lewis [facility] THEY WERE NOTIFIED PATIENT HERE OBS. THEY WILL NEED NOTIFIED AT TIME OF DC AT [phone]. THEY WILL NEED FAXED THE DC INSTRUCTIONS, DC MED LIST AND DC SUMMARY TO [phone] Initialized on 01/05/23 09:46 - END OF NOTE Assessment/Plan (1) COPD exacerbation Current Visit: Yes Status: Acute Assessment & Plan: -RT eval -supplemental oxygen with goal of > 92% -Duo nebs/ inh, will trial symbicort for home use, patient has allergy to flut icasone/salmeterol -CXR reviewed and noted in HPI -Covid/resp panel negative -Solumedrol 80mg IVPB, titrate to BID -Bcult pending, will hold abx for now -Declines mucinex - RN reported desaturation to 73% w/2L oxygen with ambulation greater than 100 yards, at rest 93% on 2L Code(s): J44.1 - CHRONIC OBSTRUCTIVE PULMONARY DISEASE W (ACUTE) EXACERBATION (2) CHF (congestive heart failure) Current Visit: No Status: Chronic Qualifiers: Heart failure type: unspecified Heart failure chronicity: chronic Qualified Code(s): I50.9 - Heart failure, unspecified Assessment & Plan: -Noted, does not appear to be in exacerbation -CXR with no cardiopulmonary processes -BNP WNL Code(s): I50.9 - HEART FAILURE, UNSPECIFIED (3) HTN (hypertension) Current Visit: No Status: Chronic Qualifiers: Hypertension type: primary hypertension Qualified Code(s): I10 - Essential (primary) hypertension Assessment & Plan: Stable on current home regimen, will continue Norvasc, metoprolol Code(s): I10 - ESSENTIAL (PRIMARY) HYPERTENSION Telemedicine Encounter - Telemedicine Encounter Telemedicine Encounter: The entirety of this encounter was performed via Telemedicine" VTE: Lovenox PPI: Pepcid Code Status: Full code Dispo: Home with [facility] amedysis, possible d/c tomorrow
[2023-01-05 20:55] LABS: A-aADO2 82; ABG HEMOGLOBIN 11.1; ABG POTASSIUM 4.2 (3.5-5.1); ABG SITE LEFT RADIAL; ALLEN TEST OK? Yes; ARTERIAL BLD GAS O2 SATURATION 98.5 % (95-100); ARTERIAL BLOOD GAS BASE EXCESS 9.9 (-2.0-2.0); ARTERIAL BLOOD GAS FIO2 32 %; ARTERIAL BLOOD GAS PCO2 51 mmHg (35-45); ARTERIAL BLOOD GAS PO2 82 mmHg (75-100); ARTERIAL BLOOD GAS pH 7.45 (7.35-7.45); CARBOXYHEMOGLOBIN 1.2 % THgb (0.0-6.9); HCO3- 35.4 (22-28); HGB O2 SAT 96.5 g/dF (94-100); Methhemoglobin 0.8 % (1.4-1.5)
[2023-01-06 06:56] LABS: Absolute Neutrophil Ct (ANC) 18.27 x10^3/uL (1.4-6.9); BASOPHIL % 0.1 % (0.0-0.4); Basophil (Absolute #) 0.01 x10^3/uL (0-0.4); Eosinophil (Absolute #) 0 x10^3/uL (0-0.5); Hematocrit 35.7 % (42-50); Hemoglobin 10.8 g/dL (12.5-18.0); IMMATURE GRAN # 0.14 x10^3u/L (0.00-0.03); IMMATURE GRAN % 0.7 % (0.00-0.4); Lymphocyte (Absolute #) 0.46 x10^3/uL (1.0-4.6); Lymphocytes % 2.3 % (24.0-44.0); Mean Cell Volume 93.9 fL (78-100); Mean Corpuscular Hemoglobin 28.4 pg (26-32); Mean Corpuscular Hgb Concent. 30.3 g/dL (32-36); Monocyte (Absolute #) 0.83 x10^3/uL (0.0-1.3); Monocytes % 4.2 % (0.0-12.0); Neutrophil % 92.7 % (36.0-66.0); Platelet Count 318 x10^3/uL (150-450); Red Cell Distribution Width 12.9 % (11.5-14.0); White Blood Count 19.7 x10^3/uL (4.0-10.5)
[2023-01-06] MEDS: DUONEB 0.5-3 MG/3 ml Neb IH SCH ×2 (06:57→10:40)
[2023-01-06 07:10] LABS: ALBUMIN 3.9 g/dL (3.5-5.0); ALKALINE PHOSPHATASE 63 U/L (38-126); BLOOD UREA NITROGEN 28 mg/dL (9-20); CHLORIDE 100 mmol/L (98-107); Calcium 9.2 mg/dL (8.4-10.2); Carbon Dioxide 36 mmol/L (22-30); Creatinine 1 0.81 mg/dL (0.66-1.25); EST GLOMERULAR FILTRATION RATE > 60.0 ML/MIN; Glucose 143 mg/dL (74-106); SGOT/AST 20 U/L (17-59); SGPT/ALT 24 U/L (0-50); SODIUM 141 mmol/L (137-145); Total Protein 6.7 g/dL (6.3-8.2)
[2023-01-06 07:12] LABS: Potassium 4.7 mmol/L (3.5-5.1)
[2023-01-06 07:14] LABS: ANION GAP 9.7 MEQ/L (5-15)
[2023-01-06 08:33] LABS: Slide Review 1 YES
[2023-01-06] MEDS: solu-MEDROL 80 MG, Sterile H2O 10 ml 2 ML IV SCH ×2 (08:51)
[2023-01-06] MEDS: Pepcid 20 MG PO SCH (08:52)
[2023-01-06] MEDS: ENOXAPARIN SODIUM SQ SCH (08:52)
[2023-01-06] MEDS: Acidophilus TABLET PO SCH (08:52)
[2023-01-06] MEDS: NORVASC 5 MG PO SCH (08:52)
[2023-01-06] MEDS: ZOCOR 20MG PO SCH (08:53)
[2023-01-06] MEDS: Toprol Xl 50 MG PO SCH (08:53)
[2023-01-06 11:40] VITALS: BP 132/75; PULSE 118; RESP 16; TEMP 98; O2SAT 94
--- NOTE | 2023-01-06 12:01 | PCM.DS ---
Discharge Summary Date of Admission: 01/04/23 11:55 Date of Discharge: 01/06/23 Admitting Physician: FREDERIC HAMPTON MD Primary Care Provider: EDISON JARRETT Allergies Allergies fluticasone [From Advair Diskus] Adverse Reaction (Mild, Verified 01/04/23 09:04) pt states "It makes me sicker" salmeterol [From Advair Diskus] Adverse Reaction (Mild, Verified 01/04/23 09:04) pt states "It makes me sicker" Hospital Summary - Hospital Course Hospital Course: Mr. Alves is a 72-year-old man with history of obesity and COPD, admitted 01/04/23 with COPD exacerbation after presenting via EMS with complaints of dyspnea. No infiltrates on CXR to suggest pneumonia. Patient was placed on IV solumedrol, bronchodilators with noted improvement. Long discussion with patient regarding home titration of oxygen with goal of spo2 (90-93%) and medication management at home. Advised follow up with PCP/pulmonolgy. Will order outpatient PFT testing as well cardiopulmonary rehab. Patient set up with [facility] with amedysis. Patient will discharge on prednisone 40mg daily for 5 days and Symbicort inhaler. Patient already has nebulizer at home and does not need a refill for duoneb solution. (1) COPD exacerbation Current Visit: Yes Status: Acute Assessment & Plan: -RT eval -supplemental oxygen with goal of > 92% -Duo nebs/ inh, will trial symbicort for home use, patient has allergy to fluticasone/salmeterol -CXR reviewed and noted in HPI -Covid/resp panel negative -Solumedrol 80mg IVPB, titrate to BID -Bcult pending, will hold abx for now -Declines mucinex - RN reported desaturation to 73% w/2L oxygen with ambulation greater than 100 yards, at rest 93% on 2L -RT eval showing patient requires 2L oxygen at rest and 4L oxygen with ambulation -RX for prednisone/symbicort sent to pharmacy -PFT ordered -Cardiopulmonary rehab ordered Code(s): J44.1 - CHRONIC OBSTRUCTIVE PULMONARY DISEASE W (ACUTE) EXACERBATION (2) CHF (congestive heart failure) Current Visit: No Status: Chronic Qualifiers: Heart failure type: unspecified Heart failure chronicity: chronic Qualified Code(s): I50.9 - Heart failure, unspecified Assessment & Plan: -Noted, does not appear to be in exacerbation -CXR with no cardiopulmonary processes -BNP WNL Code(s): I50.9 - HEART FAILURE, UNSPECIFIED (3) HTN (hypertension) Current Visit: No Status: Chronic Qualifiers: Hypertension type: primary hypertension Qualified Code(s): I10 - Essential (primary) hypertension Assessment & Plan: Stable on current home regimen, will continue Norvasc, metoprolol Code(s): I10 - ESSENTIAL (PRIMARY) HYPERTENSION I have spent > 45 minutes planning and coordinating [facility] - Vitals & Intake/Output Vital Signs: Vital Signs Temperature 98.0 F 01/06/23 11:36 Pulse Rate 118 H 01/06/23 11:36 Respiratory Rate 16 01/06/23 11:36 Blood Pressure 132/75 01/06/23 11:36 O2 Sat by Pulse Oximetry 94 L 01/06/23 11:36 Intake & Output: Intake & Output 01/03/23 01/04/23 01/05/23 01/06/23 11:59 11:59 11:59 11:59 Intake Total 920 1300 Balance 920 1300 Weight 96.2 kg 95.7 kg 95.9 kg - Lab Result Diagrams: 01/06/23 06:25 01/06/23 06:25 Lab Results-Last 24 Hrs: Lab Results-Last 24 Hours 01/05/23 01/06/23 01/06/23 Range/Units 20:54 06:25 06:25 WBC 19.7 H (4.0-10.5) x10^3/uL RBC 3.80 L (4.1-5.6) x10^6/uL Hgb 10.8 L (12.5-18.0) g/dL Hct 35.7 L (42-50) % MCV 93.9 (78-100) fL MCH 28.4 (26-32) pg MCHC 30.3 L (32-36) g/dL RDW 12.9 (11.5-14.0) % Plt Count 318 (150-450) x10^3/uL MPV 11.0 (7.5-11.0) fL Gran % 92.7 H (36.0-66.0) % Immature Gran % (Auto) 0.7 H (0.00-0.4) % Nucleat RBC Rel Count 0.0 (0.00-0.1) % Eos # (Auto) 0 (0-0.5) x10^3/uL Immature Gran # (Auto) 0.14 H (0.00-0.03) x10^3u/L Absolute Lymphs (auto) 0.46 L (1.0-4.6) x10^3/uL Absolute Monos (auto) 0.83 (0.0-1.3) x10^3/uL Absolute Nucleated RBC 0.00 (0.00-0.01) x10^3u/L Lymphocytes % 2.3 L (24.0-44.0) % Monocytes % 4.2 (0.0-12.0) % Eosinophils % 0.0 (0.00-5.0) % Basophils % 0.1 (0.0-0.4) % Absolute Granulocytes 18.27 H (1.4-6.9) x10^3/uL Basophils # 0.01 (0-0.4) x10^3/uL Puncture Site LEFT RADIAL pCO2 51 H (35-45) mmHg pO2 82 (75-100) mmHg Base Excess 9.9 H (-2.0-2.0) O2 Saturation 96.5 (94-100) g/dF ABG pH 7.45 (7.35-7.45) ABG HCO3 35.4 H* (22-28) ABG O2 Sat (Measured) 98.5 (95-100) % Josue Test Yes A-a Gradient 82 a/A Ratio 0.50 Hemoglobin 11.1 Carboxyhemoglobin 1.2 (0.0-6.9) % THgb Methemoglobin 0.8 L (1.4-1.5) % Potassium 4.2 4.7 (3.5-5.1) Temperature 37.0 C POC O2 Flow Rate 32 % Sodium 141 (137-145) mmol/L Chloride 100 (98-107) mmol/L Carbon Dioxide 36 H (22-30) mmol/L Anion Gap 9.7 (5-15) MEQ/L BUN 28 H (9-20) mg/dL Creatinine 0.81 (0.66-1.25) mg/dL Estimated GFR > 60.0 ML/MIN Glucose 143 H (74-106) mg/dL Calcium 9.2 (8.4-10.2) mg/dL Total Bilirubin 0.30 (0.2-1.3) mg/dL AST 20 (17-59) U/L ALT 24 (0-50) U/L Alkaline Phosphatase 63 (38-126) U/L Serum Total Protein 6.7 (6.3-8.2) g/dL Albumin 3.9 (3.5-5.0) g/dL Slides for Path Review YES Micro Results-Entire Visit: Microbiology 01/04/23 09:43 Blood Culture - Preliminary Blood 01/04/23 09:56 Blood Culture - Preliminary Blood - Procedures and Test Procedures and Tests throughout Hospitalization: Therapy Orders & Screens 01/04/23 12:02 EKG REPEAT IN AM Comment: Oxygen Nasal Cannula 2 lpm Comment: Respiratory Therapy Consult ONCE Comment: Reason For Exam: 01/04/23 12:47 RT Screen per Nursing Assess ONCE Comment: Protocol Order Physician Instructions: Greater than 3 points order RT Admission Screen Reason For Exam: Triggered on Admission Diagnosis: dyspnea/ wheezing Diagnosis: dyspnea/ wheezing Pneumonia: No Home O2: Yes Asthma: No CHF: No Home CPAP/BIPAP: No Home Nebs/MDI: Yes Total Points: 10 Discharge Exam General Appearance: no apparent distress Neurologic Exam: alert, oriented x 3 Eye Exam: PERRL Ears, Nose, Throat Exam: normal ENT inspection Neck Exam: normal inspection Respiratory Exam: wheezing (on 2L oxygen NC) Cardiovascular Exam: regular rate/rhythm Gastrointestinal/Abdomen Exam: soft, normal bowel sounds Extremity Exam: normal inspection Skin Exam: normal color, warm, dry Final Diagnosis/Problem List - Final Discharge Diagnosis/Problem (1) COPD exacerbation Current Visit: Yes Status: Acute Code(s): J44.1 - CHRONIC OBSTRUCTIVE PULMONARY DISEASE W (ACUTE) EXACERBATION (2) CHF (congestive heart failure) Current Visit: No Status: Chronic Code(s): I50.9 - HEART FAILURE, UNSPECI FIED (3) HTN (hypertension) Current Visit: No Status: Chronic Code(s): I10 - ESSENTIAL (PRIMARY) HYPERTE NSION Telemedicine Encounter - Telemedicine Encounter Telemedicine Encounter: The entirety of this encounter was performed via Telemedicine" - Discharge Disposition: Home, Self-Care Condition: Fair Prescriptions: New Budesonide/Formoterol Fumarate [Budesonide-Formoterol 160-4.5] 10.2 gm IH BID #1 inhaler Prednisone 20 mg [Deltasone 20 mg] 40 mg PO DAILY 5 Days #5 tablet Famotidine 20 mg [Pepcid 20 MG] 20 mg PO BID 7 Days #14 tablet Continue Atorvastatin Calcium [Lipitor] 40 mg PO DAILY Metoprolol Succinate 50 mg [Toprol Xl 50 MG] 50 mg PO DAILY Lactobacillus Acidophilus [Acidophilus TABLET] 1 tab PO BID #20 tablet Amlodipine Besylate 5 mg [Norvasc 5 mg] 5 mg PO QAM #30 tablet Discontinued Albuterol Common Canister [Ventolin Common Canister] 2 puff IH Q4HPRN PRN #0 puff PRN Reason: wheezes Albuterol Sulfate [Albuterol Sulfate Hfa] 2 puff IH QID Prednisone 10 mg [Deltasone 10 mg] 10 mg PO TID #12 tablet Fluticasone Propionate [Flovent Hfa] 1 puff PO BID Instructions: COPD Exacerbation, Adult ED Additional Instructions: WEAR 2L AT REST BUT INCREASE TO 4L WITH WALKING OR EXERTING YOURSELF Follow up with: EDISON JARRETT [Primary Care Provider] - 01/14/23 8:45 am Forms: Discharge Instructions
== END 2023-01-06 14:10 | disposition home health service (06) ==
LOC: ED 08:52 → MED SURG 11:55
PROVIDERS: ADMIT Internal Medicine; ATTEND Internal Medicine
DX: J44.1 Chronic obstructive pulmonary disease with (acute) exacerbation (principal); I11.0 Hypertensive heart disease with heart failure; I50.9 Heart failure, unspecified; E78.5 Hyperlipidemia, unspecified; E66.9 Obesity, unspecified; Z99.81 Dependence on supplemental oxygen; Z79.899 Other long term (current) drug therapy; Z20.828 Contact with and (suspected) exposure to other viral communicable diseases; Z87.891 Personal history of nicotine dependence
CPT/HCPCS: 0241U; 36415; 36600; 71045; 80053; 82375; 82803; 83605; 83880; 84484; 85025; 87040; 93005; 93041; 94640; 94760; 94762; 96374; 99285; 99291; Q3014; J1650; J2930; A9270-GY

== ENCOUNTER 2023-02-14 23:48 | Emergency (ER) | payer MEDICARE, MEDICAID ==
[2023-02-14 23:58] VITALS: TEMP 98.3
[2023-02-15] MEDS ORDERED: DUONEB 0.5-3 MG/3 ml Neb IH ONE ×2 (00:01)
[2023-02-15 00:20] LABS: A-aADO2 117; ABG HEMOGLOBIN 12.2; ABG POTASSIUM 4.1 (3.5-5.1); ABG SITE RIGHT RADIAL; ALLEN TEST OK? YES; ARTERIAL BLD GAS O2 SATURATION 99.3 % (95-100); ARTERIAL BLOOD GAS BASE EXCESS 14.9 (-2.0-2.0); ARTERIAL BLOOD GAS FIO2 48 %; ARTERIAL BLOOD GAS PCO2 58 mmHg (35-45); ARTERIAL BLOOD GAS PO2 153 mmHg (75-100); ARTERIAL BLOOD GAS pH 7.46 (7.35-7.45); CARBOXYHEMOGLOBIN 4.1 % THgb (0.0-6.9); HCO3- 41.3 (22-28); HGB O2 SAT 93.8 g/dF (94-100); Lactic Acid 0.6 (0.4-2.0); Methhemoglobin 1.4 % (1.4-1.5); paO2 pAO1 0.57
[2023-02-15 00:25] LABS: Absolute Neutrophil Ct (ANC) 6.67 x10^3/uL (1.4-6.9); BASOPHIL % 0.6 % (0.0-0.4); Basophil (Absolute #) 0.07 x10^3/uL (0-0.4); Eosinophil % 5.6 % (0.00-5.0); Eosinophil (Absolute #) 0.61 x10^3/uL (0-0.5); Hematocrit 38.9 % (42-50); Hemoglobin 11.5 g/dL (12.5-18.0); IMMATURE GRAN # 0.04 x10^3u/L (0.00-0.03); IMMATURE GRAN % 0.4 % (0.00-0.4); Lymphocyte (Absolute #) 2.18 x10^3/uL (1.0-4.6); Mean Cell Volume 92.4 fL (78-100); Mean Corpuscular Hemoglobin 27.3 pg (26-32); Mean Corpuscular Hgb Concent. 29.6 g/dL (32-36); Mean Platelet Volume 10.4 fL (7.5-11.0); Monocyte (Absolute #) 1.31 x10^3/uL (0.0-1.3); Neutrophil % 61.4 % (36.0-66.0); Platelet Count 254 x10^3/uL (150-450); Red Blood Count 4.21 x10^6/uL (4.1-5.6); Red Cell Distribution Width 13.9 % (11.5-14.0); White Blood Count 10.9 x10^3/uL (4.0-10.5)
--- NOTE | 2023-02-15 00:27 | ERPHSYRPT ---
- History of Present Illness Time Seen by Provider: 02/15/23 00:00 Source: patient, EMS Exam Limitations: no limitations Patient Subjective Stated Complaint: pt states he has been short of breath "unable to get air in or out" for about one week, he reports that there was no change or increase tonight but states "I just couldn't take it anymore. I was afraid to go to sleep that I would suffocate". states that earlier he had a headache that has since resolved. Triage Nursing Assessment: pt brought into room 4 via EMS stretcher and transfered to ED cart per staff x4. pt is alert and oriented times three, able to move all extremities, speaking in 4-5 word sentences followed by a couple grunting shallow breaths then resumes talking, resp even and slightly labored, shallow, and using abdominal muscles. at times with grunting respirations. skin, warm, pink, dry, and intact. heart sounds present and regular. no edema noted. lung sounds anterior and posterior throughout with expiratory wheezes noted. intermittent weak dry cough noted and pt reports he is "unable to get the phlegm out". denies fever, chills, chest pain, pain, lightheadeness, dizziness, difficulty with urination or bowel elimination, change to appetite/ oral intake. bilat radial and pedal pulses palpable. denies numbness or tingling. Physician History: Patient is a 72-year-old male with both chronic respiratory failure requiring 4 L of oxygen at home, COPD as well as CHF who comes in with worsening shortness of breath over the past 1 week, feeling like he cannot get the phlegm up from his chest. Nothing changes the evening just he was concerned about potentially laying flat not being able to breathe so he called EMS to bring him into the emergency department. EMS came and administered DuoNeb and albuterol treatment with 125 mg Solu-Medrol through the IV. Timing/Duration: week(s) (1) Activities at Onset: none Severity of Dyspnea-Max: moderate Severity of Dyspnea-Current: moderate Possible Cause: frequent episodes Modifying Factors: Improves With: albuterol nebulizer. Worsens With: coughing, lying down Associated Symptoms: cough, wheezing, tightness, No anxiety, No chest pain/discomfort, No edema, No fever, No insomnia, No loss of appetite, No lightheadedness, No weakness, No ankle swelling, No chills, No hemoptysis, No calf pain, No dizziness, No heaviness, No heart racing, No lightheadedness, No leg swelling, No painful breathing, No productive cough, No sweating, No tingling face Allergies/Adverse Reactions: fluticasone [From Advair Diskus] Adverse Reaction (Mild, Verified 02/14/23 23:52) pt states "It makes me sicker" salmeterol [From Advair Diskus] Adverse Reaction (Mild, Verified 02/14/23 23:52) pt states "It makes me sicker" Home Medications: Atorvastatin Calcium [Lipitor] 40 mg PO DAILY 03/24/19 [History] Metoprolol Succinate 50 mg [Toprol Xl 50 MG] 50 mg PO DAILY 10/03/22 [History] Albuterol Sulfate Mdi [ALBUTEROL/Proair Hfa MDI] 2 puff IH QID 02/15/23 [History] Multivitamin 1 each PO DAILY 02/15/23 [History] Hx Tetanus, Diphtheria Vaccination/Date Given: (unknown) Hx Influenza Vaccination/Date Given: Yes (2021) Hx Pneumococcal Vaccination/Date Given: Yes Immunizations Up to Date: Yes Travel Risk - International Travel Have you traveled outside of the country in past 3 weeks: No - Coronavirus Screening Are you exhibiting any of the following symptoms?: No Close contact with a COVID-19 positive Pt in past 14-21 Days: No - Vaccine Status Have you recieved a Covid-19 vaccination: Yes 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[employer] - Vaccination Dates Date of 2cond Vaccination (if applicable): unknown - Review of Systems Constitutional: No Fever, No Chills Eyes: No Eye Pain, No Vision Changes Ears, Nose, & Throat: No Nose Congestion, No Nose Discharge, No Mouth Pain, No Painful Swallowing Respiratory: Dyspnea, Wheezing, No Cough Cardiac: No Chest Pain, No Edema, No Syncope Abdominal/Gastrointestinal: No Abdominal Pain, No Nausea, No Vomiting, No Diarrhea, No Hematemesis, No Hematochezia Genitourinary Symptoms: No Dysuria, No Flank Pain Musculoskeletal: No Back Pain, No Neck Pain Skin: No Rash Neurological: No Dizziness, No Focal Weakness, No Headache, No Sensory Changes Psychological: No Symptoms Endocrine: No Symptoms Hematologic/Lymphatic: No Easy Bleeding, No Easy Bruising Immunological/Allergic: No Grass Allergy, No Mold Allergy All Other Systems: Reviewed and Negative - Past Medical History Pertinent Past Medical History: Yes Neurological History: Epilepsy, Seizures ENT History: Cataracts Cardiac History: High Cholesterol, Hypertension, Other Respiratory History: COPD, Emphysema, Pneumonia Endocrine Medical History: No Pertinent History Musculoskeletal History: Arthritis GI Medical History: No Pertinent History History: No Pertinent History Psycho-Social History: No Pertinent History Male Reproductive Disorders: No Pertinent History Other Medical History: Seizure(?) Took dilantin for about two years, [id number]. leaking valve. - Past Surgical History Past Surgical History: Yes Neuro Surgical History: No Pertinent History Cardiac: Other Respiratory: No Pertinent History Gastrointestinal: No Pertinent History Genitourinary: No Pertinent History Musculoskeletal: No Pertinent History Male Surgical History: No Pertinent History Other Surgical History: TAVR - Social History Smoking Status: Former smoker How long have you smoked: 50 years Exposure to second hand smoke: No Drug Use: none Patient Lives Alone: Yes Significant Family History: no pertinent family hx - Nursing Vital Signs Nursing Vital Signs: Initial Vital Signs Temperature 98.3 F 02/14/23 23:49 Pulse Rate 108 H 02/14/23 23:49 Respiratory Rate 15 02/14/23 23:49 Blood Pressure 142/89 02/14/23 23:49 O2 Sat by Pulse Oximetry 100 02/14/23 23:49 Pain Scale Pain Intensity 0 - Physical Exam General Appearance: no apparent distress, alert Eye Exam: PERRL/EOMI Ears, Nose, Throat Exam: hearing grossly normal, normal ENT inspection, normal pharynx, No nasal congestion, No pharyngeal erythema Neck Exam: normal inspection, non-tender, supple, No Brudzinski, No lymphadenopathy (R), No lymphadenopathy (L) Respiratory Exam: respiratory distress, airway intact, wheezing Cardiovascular/Chest Exam: normal heart sounds, regular rate/rhythm, normal peripheral pulses, No decreased pulses Abdominal/Gastrointestinal Exam: soft, normal bowel sounds, No tenderness, No distention, No mass Extremity Exam: non-tender, normal range of motion, normal inspection, no calf tenderness, no pedal edema Neurologic Exam: alert, oriented x 3, cooperative, 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, sensation nml, No motor deficits Skin Exam: normal color, warm, No dry, No petechiae, No jaundice, No jaundice Lymphatic Exam: No adenopathy SpO2 Interpretation: normal SpO2: 97 O2 Delivery: Nasal Cannula - Course Nursing assessment & vital signs reviewed: Yes EKG Interpreted by Me: RATE (100), Sinus Rhythm, NORMAL AXIS, NORMAL INTERVALS, NORMAL QRS, NORMAL ST-T, Other (No significant change in comparison to EKG from November 30, 2022) - Radiology Exams Chest X-ray Interpretation: Interpreted by me, Reviewed by me, Negative, No Fracture, No Pneumonia, No Pneumothorax, Nml Heart Size, Nml Mediastinum, Other (Left lingular subsegmental atelectasis/scarring with no significant change from previous chest x-rays) Ordered Tests: Active Orders 24 hr Category Date Time Status 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 STAT Care 02/15/23 00:02 Active EKG-ER Only STAT Care 02/15/23 00:01 Active Oxygen-ED Only Nasal Cannula 4 lpm Care 02/15/23 00:01 Active CHEST 1 VIEW (PORTABLE) Stat Exams 02/15/23 00:02 Taken ARTERIAL BLOOD GASES Stat Lab 02/15/23 00:18 Completed BLOOD CULTURE Stat Lab 02/15/23 00:54 Received CBC W DIFF Stat Lab 02/15/23 00:17 Completed CMP Stat Lab 02/15/23 00:17 Completed LIPASE Stat Lab 02/15/23 00:17 Completed Lactic Acid Stat Lab 02/15/23 00:18 Completed MAGNESIUM Stat Lab 02/15/23 00:17 Completed NT PRO BNPII Stat Lab 02/15/23 00:17 Completed PROTIME WITH INR Stat Lab 02/15/23 00:17 Completed PTT Stat Lab 02/15/23 00:17 Completed TROPONIN Q4H Lab 02/15/23 00:17 Completed TROPONIN Q4H Lab 02/15/23 04:15 Ordered TROPONIN Q4H Lab 02/15/23 08:15 Ordered Respiratory Therapy Assessment DAILY RT 02/15/23 00:21 Active Medication Summary Discontinued Medications Generic Name Dose Route Start Last Admin Trade Name Freq PRN Reason Stop Dose Admin Albuterol/Ipratropium 3 ml 02/15/23 00:01 02/15/23 00:02 Ipratropium/Albuterol Sulfate 3 Ml Ampul.Neb IH 02/15/23 00:02 3 ml STAT ONE Administration Albuterol/Ipratropium Confirm 02/15/23 00:00 Ipratropium/Albuterol Sulfate 3 Ml Ampul.Neb Administered 02/15/23 00:01 Dose 3 ml IH .STK-MED ONE Lab/Rad Data: Laboratory Result Diagrams 02/15/23 00:17 02/15/23 00:17 Laboratory Results 02/15/23 02/15/23 02/15/23 Range/Units 00:18 00:17 00:17 WBC (4.0-10.5) x10^3/uL RBC (4.1-5.6) x10^6/uL Hgb (12.5-18.0) g/dL Hct (42-50) % MCV (78-100) fL MCH (26-32) pg MCHC (32-36) g/dL RDW (11.5-14.0) % Plt Count (150-450) x10^3/uL MPV (7.5-11.0) fL Gran % (36.0-66.0) % Immature Gran % (Auto) (0.00-0.4) % Nucleat RBC Rel Count (0.00-0.1) % Eos # (Auto) (0-0.5) x10^3/uL Immature Gran # (Auto) (0.00-0.03) x10^3u/L Absolute Lymphs (auto) (1.0-4.6) x10^3/uL Absolute Monos (auto) (0.0-1.3) x10^3/uL Absolute Nucleated RBC (0.00-0.01) x10^3u/L Lymphocytes % (24.0-44.0) % Monocytes % (0.0-12.0) % Eosinophils % (0.00-5.0) % Basophils % (0.0-0.4) % Absolute Granulocytes (1.4-6.9) x10^3/uL Basophils # (0-0.4) x10^3/uL PT (9.4-12.5) SECONDS INR (0.8-3.0) APTT (25.1-36.5) SECONDS Puncture Site RIGHT RADIAL pCO2 58 H (35-45) mmHg pO2 153 H* (75-100) mmHg Base Excess 14.9 H (-2.0-2.0) O2 Saturation 93.8 L (94-100) g/dF ABG pH 7.46 H (7.35-7.45) ABG HCO3 41.3 H* (22-28) ABG O2 Sat (Measured) 99.3 (95-100) % Josue Test YES A-a Gradient 117 a/A Ratio 0.57 Hemoglobin 12.2 Carboxyhemoglobin 4.1 (0.0-6.9) % THgb Methemoglobin 1.4 (1.4-1.5) % Temperature 37.0 C POC O2 Flow Rate 48 % Sodium (137-145) mmol/L Potassium 4.1 (3.5-5.1) mmol/L Chloride (98-107) mmol/L Carbon Dioxide (22-30) mmol/L Anion Gap (5-15) MEQ/L BUN (9-20) mg/dL Creatinine (0.66-1.25) mg/dL Estimated GFR ML/MIN Glucose (74-106) mg/dL Lactic Acid 0.6 (0.4-2.0) Calcium (8.4-10.2) mg/dL Magnesium (1.6-2.3) mg/dL Total Bilirubin (0.2-1.3) mg/dL AST (17-59) U/L ALT (0-50) U/L Alkaline Phosphatase (38-126) U/L Troponin I < 0.012 (0.000-0.034) ng/mL NT-Pro-B Natriuret Pep 73.9 (<300) pg/mL Serum Total Protein (6.3-8.2) g/dL Albumin (3.5-5.0) g/dL Lipase (23-300) U/L Influenza Type A Ag NEGATIVE (NEGATIVE) Influenza Type B Ag NEGATIVE (NEGATIVE) RSV (PCR) NEGATIVE (NEGATIVE) SARS-CoV-2 (PCR) NEGATIVE (NEGATIVE) 02/15/23 02/15/23 02/15/23 Range/Units 00:17 00:17 00:17 WBC 10.9 H (4.0-10.5) x10^3/uL RBC 4.21 (4.1-5.6) x10^6/uL Hgb 11.5 L (12.5-18.0) g/dL Hct 38.9 L (42-50) % MCV 92.4 (78-100) fL MCH 27.3 (26-32) pg MCHC 29.6 L (32-36) g/dL RDW 13.9 (11.5-14.0) % Plt Count 254 (150-450) x10^3/uL MPV 10.4 (7.5-11.0) fL Gran % 61.4 (36.0-66.0) % Immature Gran % (Auto) 0.4 (0.00-0.4) % Nucleat RBC Rel Count 0.0 (0.00-0.1) % Eos # (Auto) 0.61 H (0-0.5) x10^3/uL Immature Gran # (Auto) 0.04 H (0.00-0.03) x10^3u/L Absolute Lymphs (auto) 2.18 (1.0-4.6) x10^3/uL Absolute Monos (auto) 1.31 H (0.0-1.3) x10^3/uL Absolute Nucleated RBC 0.00 (0.00-0.01) x10^3u/L Lymphocytes % 20.0 L (24.0-44.0) % Monocytes % 12.0 (0.0-12.0) % Eosinophils % 5.6 H (0.00-5.0) % Basophils % 0.6 (0.0-0.4) % Absolute Granulocytes 6.67 (1.4-6.9) x10^3/uL Basophils # 0.07 (0-0.4) x10^3/uL PT 10.3 (9.4-12.5) SECONDS INR 0.94 (0.8-3.0) APTT 27.1 (25.1-36.5) SECONDS Puncture Site pCO2 (35-45) mmHg pO2 (75-100) mmHg Base Excess (-2.0-2.0) O2 Saturation (94-100) g/dF ABG pH (7.35-7.45) ABG HCO3 (22-28) ABG O2 Sat (Measured) (95-100) % Josue Test A-a Gradient a/A Ratio Hemoglobin Carboxyhemoglobin (0.0-6.9) % THgb Methemoglobin (1.4-1.5) % Temperature C POC O2 Flow Rate % Sodium 141 (137-145) mmol/L Potassium 4.0 (3.5-5.1) mmol/L Chloride 96 L (98-107) mmol/L Carbon Dioxide 37 H (22-30) mmol/L Anion Gap 10.0 (5-15) MEQ/L BUN 10 (9-20) mg/dL Creatinine 0.69 (0.66-1.25) mg/dL Estimated GFR > 60.0 ML/MIN Glucose 114 H (74-106) mg/dL Lactic Acid (0.4-2.0) Calcium 9.2 (8.4-10.2) mg/dL Magnesium 1.9 (1.6-2.3) mg/dL Total Bilirubin 0.40 (0.2-1.3) mg/dL AST 23 (17-59) U/L ALT 18 (0-50) U/L Alkaline Phosphatase 85 (38-126) U/L Troponin I (0.000-0.034) ng/mL NT-Pro-B Natriuret Pep (<300) pg/mL Serum Total Protein 6.9 (6.3-8.2) g/dL Albumin 4.2 (3.5-5.0) g/dL Lipase 48 (23-300) U/L Influenza Type A Ag (NEGATIVE) Influenza Type B Ag (NEGATIVE) RSV (PCR) (NEGATIVE) SARS-CoV-2 (PCR) (NEGATIVE) - Progress Progress: improved, re-examined Air Movement: good Progress Note: 02/15/23 00:28 Patient is feeling much better after treatments, observation and feels comfortable not to sleep while we await results 02/15/23 01:23 Patient is asymptomatic currently and back to his baseline and he has normal vitals SPO2 on his home oxygen level, normotensive, normal sinus 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 Patient did get it DuoNeb treatment with EMS as well as 125 mg of IV Solu-Medrol, and was placed on CPAP, but with patient being in no type of distress when I evaluated him I was able to taper him off the BiPAP that we initially put him on and back to nasal cannula and gave him 1 more DuoNeb treatment. Patient felt much better as he had no other concerning physical exam findings and secondary work-up showed an ABG that had respiratory alkalosis for his baseline as he has compensated bicarbonate with an elevated PCO2 retention. Patient no change in his mild chronic anemia, he had no signs of heart failure in his chest x-ray or on his lab work, he had normal EKG with no signs of ischemia, injury or infarction with negative troponin and he had no other abnormalities in regards to viral swabs with all 4 being negative and no other concerning findings lab of the required inpatient admission in terms of any obvious endorgan failure. Patient will be discharged back to his home and we will do a course of prednisone for the next 3 days 60 mg daily, DuoNeb treatments every 4 hours for the next 2 days while awake then every 4 hours as needed, and a Z-Wayne to cover the increased productive sputum from COPD exacerbation. Patient this time does not require inpatient admission and can be followed up as an outpatient with his primary care physician in 2 days to check response to therapy. Will notify patient if radiologist interpretation of his checks x-ray is any different that changes management as I do not see any change in his x-ray in comparison to p revious multiple chest x-rays that were done recently. Patient is return back to the nearest emergency room if has any fever greater than 101, change in cough, worsening dyspnea, new chest pain, new back pain, new abdominal pain, new nausea vomiting, new skin rash, new bruising, new hematuria, new melena, hematochezia or any other concerning signs or symptoms that were not present at today's emergency room visit for immediate reevaluation in the nearest emergency department Blood Culture(s) Obtained: Yes Antibiotics given: No Counseled pt/family regarding: lab results, diagnosis, need for follow-up, rad results Medical Desision Making - Independent Historian Additional History obtained from: EMS - Diagnostic Testing Diagnostic test were ordered, analyzed, and reviewed by me: Yes Radiological Interpretation: Interpreted by me, Reviewed by me - Risk of complications Low Risk: Low risk of morbidity from additional dx testing or treatment The pt has a mod risk of morbidity or mortality based on: Need for prescription drug management - Departure Departure Disposition: Home Clinical Impression: COPD exacerbation, Chronic anemia, Shortness of breath HTN (hypertension) Qualifiers: Hypertension type: primary hypertension Qualified Code(s): I10 - Essential (primary) hypertension Condition: Good Critical Care Time: No Referrals: EDISON JARRETT [Primary Care Provider] - Follow up with PCP 2 days Instructions: Chronic Obstructive Pulmonary Disease, Shortness of Breath (Dys pnea) (DC), Exacerbation of COPD (DC), Anemia of Inflammation (DC), High Blood Pressure (DC) Additional Instructions: Return back to the nearest emergency room for any worsening shortness of breath, new fever, new changing or productive cough, new abdominal pain, new chest pain, new back pain, new black or red stools, new coughing up blood, new weakness in arms or legs, or any other concerning signs or symptoms that were not present at today's emergency room visit for immediate reevaluation in the nearest emergency department Prescriptions: Albuterol/Ipratropium 3ml Neb* [DUONEB 0.5-3 MG/3 ml Neb] 3 ml NEBULIZE Q4H PRN PRN #90 ml PRN Reason: Wheezing/Chest Congestion Prednisone 20 mg [Deltasone 20 mg] 60 mg PO DAILY PRN #9 tablet PRN Reason: Sore Throat Relief Azithromycin 250 mg [Zithromax 250 MG TABLET] 250 mg PO ZPACK #6 tablet
[2023-02-15 00:36] LABS: ALBUMIN 4.2 g/dL (3.5-5.0); BLOOD UREA NITROGEN 10 mg/dL (9-20); CHLORIDE 96 mmol/L (98-107); Creatinine 1 0.69 mg/dL (0.66-1.25); EST GLOMERULAR FILTRATION RATE > 60.0 ML/MIN; Glucose 114 mg/dL (74-106); LIPASE 48 U/L (23-300); MAGNESIUM 1.9 mg/dL (1.6-2.3); SGOT/AST 23 U/L (17-59); SGPT/ALT 18 U/L (0-50); SODIUM 141 mmol/L (137-145); Total Protein 6.9 g/dL (6.3-8.2)
[2023-02-15 00:37] LABS: ALKALINE PHOSPHATASE 85 U/L (38-126); Calcium 9.2 mg/dL (8.4-10.2)
[2023-02-15 00:38] LABS: INR 0.94 (0.8-3.0); PROTIME 10.3 SECONDS (9.4-12.5); PTT 27.1 SECONDS (25.1-36.5)
[2023-02-15 00:43] LABS: Carbon Dioxide 37 mmol/L (22-30)
[2023-02-15 00:48] LABS: NT PRO BNPII 73.9 pg/mL (<300); TROPONIN < 0.012 ng/mL (0.000-0.034)
[2023-02-15 01:00] LABS: INFLUENZA A NEGATIVE (NEGATIVE); INFLUENZA B NEGATIVE (NEGATIVE); RESPIRATORY SYNCTIAL VIRUS NEGATIVE (NEGATIVE); SARS-CoV-2 Xpert Express NEGATIVE (NEGATIVE)
[2023-02-15 01:17] VITALS: RESP 18
[2023-02-15 01:35] VITALS: BP 128/81; PULSE 94; O2SAT 99
--- NOTE | 2023-02-15 09:02 | XRAY ---
Indication: Short of breath. Comparison: January 04, 2023 Portable apical lordotic chest unchanged again demonstrating bibasilar subsegmental atelectasis/scarring left greater than right. Remaining heart and upper lungs unremarkable. Bony thorax intact again with osteopenia and mild degenerative changes. No new cardiopulmonary abnormalities.
== END 2023-02-15 01:43 | disposition home or self-care (01) ==
LOC: ED 23:48
DX: J44.1 Chronic obstructive pulmonary disease with (acute) exacerbation (principal); D64.9 Anemia, unspecified; R06.02 Shortness of breath; I10 Essential (primary) hypertension; E78.5 Hyperlipidemia, unspecified; Z79.52 Long term (current) use of systemic steroids; Z79.899 Other long term (current) drug therapy; Z20.828 Contact with and (suspected) exposure to other viral communicable diseases
CPT/HCPCS: 0241U; 36000; 36415; 36600; 71045; 80053; 82375; 82803; 83605; 83690; 83735; 83880; 84484; 85025; 85610; 85730; 87040; 93005; 93041; 94640; 99284; A9270-GY

== ENCOUNTER 2023-08-10 06:20 | Day surgery (SDC) | payer MEDICARE ==
[2023-08-10] MEDS ORDERED: Lactated Ringers 1,000 ML IV ONE (07:22)
[2023-08-10 07:30] VITALS: RESP 16
[2023-08-10] MEDS: Lactated Ringers 1,000 ML IV SCH (07:30)
[2023-08-10] MEDS ORDERED: DIPRIVAN 200 MG/20 ML IV ONE (07:51)
[2023-08-10] MEDS ORDERED: Versed 2 MG/2 ML Injection ONE (08:05)
--- NOTE | 2023-08-10 08:29 | OP ---
SURGERY DATE/TIME: 08/10/2023 0757 PREOPERATIVE DIAGNOSIS: Screening exam. POSTOPERATIVE DIAGNOSIS: Rectosigmoid polyp and sigmoid diverticulosis. PROCEDURE: Colonoscopy with hot snare polypectomy rectosigmoid polyp. SURGEON: Dr. Sampson. ANESTHESIA: Medications given by anesthesia department. HISTORY: The patient is a 73-year-old white male patient who presents now for screening colonoscopy. The patient was appraised of the risks of the procedure including the risk of perforation, phlebitis, untoward reaction to medication, bleeding and missed lesions. The patient verbalized his understanding and desired to have the procedure performed. DESCRIPTION OF PROCEDURE: The patient was given the medications by the anesthesia department. He had continuous pulse oximetry, ECG monitoring and intermittent blood pressure monitoring during the examination. The patient was placed in the left lateral decubitus position. A digital rectal examination was performed and revealed normal anal sphincter tone, no masses and a normal prostate. There were noted a few skin tags in the perineal area. The flexible Olympus pediatric colonoscope was used to intubate the rectum. A view of the colon was developed sequentially to the cecum. Upon insertion and withdrawal, including a retroflex view in the rectum was noted a small approximately 0.75 cm polyp in the rectosigmoid area this is removed using hot polypectomy snare and retrieved for pathologic evaluation. No other mucosal lesions were noted. The scope was removed from the patient who tolerated the procedure well and was sent back to OP recovery in good condition. The prep was noted to be fair to good.
[2023-08-10 09:01] VITALS: BP 100/66; PULSE 85; TEMP 97.3; O2SAT 96
== END 2023-08-10 09:12 | disposition home or self-care (01) ==
LOC: SDC 06:20
PROVIDERS: ATTEND Family Medicine
DX: Z12.11 Encounter for screening for malignant neoplasm of colon (principal); K63.5 Polyp of colon; K57.30 Diverticulosis of large intestine without perforation or abscess without bleeding; L91.8 Other hypertrophic disorders of the skin
CPT/HCPCS: 93005; 99100; J2250; J2704